=== PATIENT | male | born 1940 | race Caucasian/White ===

== ENCOUNTER 2021-09-30 21:25 | Emergency (ER) | payer MEDICARE, SELFPAY ==
[2021-09-30 21:43] VITALS: BP 118/82; PULSE 88; RESP 17; TEMP 36.3; O2SAT 99; BMI 24.3
--- NOTE | 2021-09-30 21:49 | DI.RAD.S_ITS ---
PROCEDURE: XR CHEST 1V INDICATIONS: chest pain TECHNIQUE: One view of the chest was acquired. COMPARISON: None. FINDINGS: Surgical changes and devices: None. Lungs and pleura: Lungs are clear. No pleural effusions or pneumothorax. Mediastinum: Mediastinal contours appear normal. Heart size is prominently enlarged. Bones and chest wall: No suspicious bony lesions. Overlying soft tissues appear unremarkable. IMPRESSION: 1. Cardiomegaly. 2. No definite acute cardiopulmonary disease. Dictated by: Mauri Dao M.D. on 09/30/2021 at 23:33 Approved by: Mauri Dao M.D. on 09/30/2021 at 23:33
[2021-09-30 21:59] VITALS: PULSE 92
[2021-09-30 22:00] VITALS: PULSE 94; RESP 20
[2021-09-30 22:21] LABS: Add Manual Diff / Slide Review NO; Basophils Absolute Auto 0 /uL (0-100); Basophils Percent Auto 0.6 % (0-2); Eosinophils Absolute Auto 100 /uL (0-450); Eosinophils Percent Auto 2.3 % (2-4); Hematocrit 33.3 % (41-53); Hemoglobin 11.5 g/dL (13.5-17.5); Lymphocytes Absolute Auto 900 /uL (1100-4500); Lymphocytes Percent Auto 14.7 % (25-40); Mean Corpuscular HGB Conc 34.5 % (30-36); Mean Corpuscular Hemoglobin 35.7 PG (26-34); Mean Corpuscular Volume 103.2 fL (80-100); Monocytes Absolute Auto 700 /uL (0-900); Monocytes Percent Auto 12.2 % (3-14); Neutrophils Absolute Auto 4200 /uL (1500-7000); Neutrophils Percent Auto 70.2 % (50-75); Platelet Count 156 X10^3/uL (150-400); Red Blood Cell Count 3.23 X10^6/uL (4.5-5.9); Red Cell Distribution Width 13.2 % (11.6-14.8)
[2021-09-30 22:30] VITALS: PULSE 87; RESP 15
[2021-09-30 22:34] LABS: Alanine Aminotransferase 30 IU/L (<50); Albumin 3.8 g/dL (3.5-5.0); Albumin Globulin Ratio 1.6 (1.0-2.8); Alkaline Phosphatase 91 U/L (38-126); Aspartate Aminotransferase 26 IU/L (17-59); BUN Creatinine Ratio 13.4 (6-22); Bilirubin Total 2.2 mg/dL (0.2-1.3); Blood Urea Nitrogen 11 mg/dL (9-20); Calcium 8.5 mg/dL (8.4-10.2); Carbon Dioxide 29 mmol/L (22-32); Chloride 102 mmol/L (98-107); Creatine Kinase 100 U/L (55-170); Estimated Glomerular Filt Rate > 60 mL/min (>60); Globulin 2.4 g/dL (1.7-4.1); Glucose 84 mg/dL (80-110); HEMOLYSIS < 15 (0-50); Lipase 48 U/L (23-300); Sodium 136 mmol/L (137-145); Total Protein 6.2 g/dL (6.3-8.2)
[2021-09-30 22:45] LABS: NT-proBNP (BNP-Adult 18+) 1200 pg/mL (<450); Troponin I < 0.012 ng/mL (0.01-0.034)
[2021-09-30 23:00] VITALS: PULSE 92; RESP 21
[2021-09-30 23:30] VITALS: PULSE 83; RESP 20
[2021-10-01] VITALS (9 sets, daily range): BP systolic 121; BP diastolic 86; PULSE 81–109; RESP 13–20; O2SAT 96
--- NOTE | 2021-10-01 01:14 | ED.EXTPRO ---
HPI - Extremity Problem General Chief complaint: Extremity Problem,Nontraumatic Stated complaint: sWOLLEN LEGS ANKLES AND TESTICLES Time Seen by Provider: 10/01/21 01:14 Source: patient Mode of arrival: Ambulatory History of Present Illness HPI Narrative: 81-year-old gentleman with history of chronic atrial fibrillation rate controlled on digoxin, baby aspirin he does have a history of congestive heart failure but he is not on any diuretics at this time. He comes in complaining of lower extremity swelling redness drainage and scrotal swelling. He reports no fevers, cough, chills no chest pain, orthopnea, dyspnea or exertional dyspnea. No abdominal pain, vomiting, diarrhea, constipation. No headaches or acute neurologic findings. He was able to walk from [facility] to [facility] after being dropped off by the bus. He lives in [place] Related Data Home Medications Medication Instructions Recorded Confirmed carvedilol 25 mg tablet 0.5 tab PO DAILY 09/30/21 09/30/21 digoxin 125 mcg (0.125 mg) tablet 1 tab PO DAILY 09/30/21 09/30/21 lisinopril 5 mg tablet 1 tab PO DAILY 09/30/21 09/30/21 Previous Rx's Medication Instructions Recorded cephalexin 500 mg capsule 500 mg PO TID #21 caps 10/01/21 furosemide 20 mg tablet 20 mg PO DAILY #30 tabs 10/01/21 potassium chloride 10 mEq 10 meq PO DAILY #30 tabs 10/01/21 tablet,extended release Allergies Allergy/AdvReac Type Severity Reaction Status Date / Time No Known Drug Allergies Allergy Verified 09/30/21 21:43 Review of Systems Review of Systems Narrative: Remainder of complete review of systems is otherwise unremarkable except for that included in the HPI. Patient History Medical History (Updated 10/01/21 @ 01:42 by Ramona Marquez MD) Chronic a-fib Congestive heart failure Hypertension Social History Smoking Status: Never smoker Smoking Status: Never smoker alcohol intake frequency: a few times a week Substance Use Type: does not use Exam Initial Vital Signs Initial Vital Signs: Vital Signs Temperature 97.4 F L 09/30/21 21:43 Pulse Rate 88 09/30/21 21:43 Respiratory Rate 17 09/30/21 21:43 Blood Pressure 118/82 09/30/21 21:43 Pulse Oximetry 99 09/30/21 21:43 Oxygen Delivery Method 09/30/21 21:43 General: Healthy appearing, in no acute distress. Able to give a complete and coherent history. Well-nourished well-developed HEENT: Moist mucous membranes, normal sclera with reactive pupils, Neck: No JVD, supple Respiratory: Lungs are clear to auscultation, no basilar crackles, no wheezing. Full and symmetrical air movement Cardiac: Irregularly irregular, no murmurs no bruits Abdomen: Soft, nontender, good bowel tones, no flank pain, moderate scrotal edema Skin: Warm and dry, significant sun damage over exposed surfaces. Lower extremities with chronic venous stasis changes. Swelling is significant enough that he is having cracking and mild drainage with erythema developing Neurologic: Grossly neurologically intact with no obvious asymmetries or abnormalities Extremities: No trauma, 4+ bilateral lower extremity edema with chronic venous stasis changes, serous weeping because the skin is cracking, increasing erythema with concerns for developing cellulitis without any obvious abscess or odor appreciated Psych: Cooperative, appropriate insight and affect Course Orders Ordered: ED Orders 09/30/21 21:49 XR chest 1V Stat 09/30/21 22:02 BNP [NT-proBNP (BNP-Adult 18+)] Stat Complete Blood Count AUTO DIFF Stat Comprehensive Metabolic Panel Stat Lipase Stat Magnesium Stat Troponin & CK Cardiac Panel Stat Discontinued Medications Furosemide (Furosemide 40 Mg/4 Ml Vial) 40 mg IV NOW ONE Stop: 10/01/21 01:30 Last Admin: 10/01/21 01:35 Dose: 40 mg Documented By: WON Ceftriaxone Sodium 2,000 mg/ (Sodium Chloride) 100 mls @ 200 mls/hr IV NOW ONE Stop: 10/01/21 01:26 Last Infusion: 10/01/21 02:10 Dose: 0 mls/hr Documented By: Admin: 10/01/21 01:35 Dose: 200 mls/hr Documented By: WON Vital Signs Vital signs: Vital Signs - 8 hr 09/30/21 21:43 Temperature 97.4 F L Pulse Rate 88 Respiratory Rate 17 Blood Pressure 118/82 Pulse Oximetry 99 Oxygen Delivery Method Room Air MDM - Extremity (Nontraumatic) Lab Data Result diagrams: 09/30/21 22:02 09/30/21 22:02 Labs: Lab Results 09/30/21 09/30/21 Range/Units 22:02 22:02 WBC 6.0 (4.5-11.0) X10^3/uL RBC 3.23 L (4.5-5.9) X10^6/uL Hgb 11.5 L (13.5-17.5) g/dL Hct 33.3 L (41-53) % MCV 103.2 H (80-100) fL MCH 35.7 H (26-34) PG MCHC 34.5 (30-36) % RDW 13.2 (11.6-14.8) % Plt Count 156 (150-400) X10^3/uL Neut % (Auto) 70.2 (50-75) % Lymph % (Auto) 14.7 L (25-40) % [place] % (Auto) 12.2 (3-14) % Eos % (Auto) 2.3 (2-4) % Baso % (Auto) 0.6 (0-2) % Neut # (Auto) 4200 (9254-1352) /uL Lymph # (Auto) 900 L (0050-0061) /uL [place] # (Auto) 700 (0-900) /uL Eos # (Auto) 100 (0-450) /uL Baso # (Auto) 0 (0-100) /uL Sodium 136 L (137-145) mmol/L Potassium 4.0 (3.4-5.1) mmol/L Chloride 102 (98-107) mmol/L Carbon Dioxide 29 (22-32) mmol/L BUN 11 (9-20) mg/dL Creatinine 0.82 (0.66-1.25) mg/dL Estimated GFR > 60 (>60) mL/min BUN/Creatinine Ratio 13.4 (6-22) Glucose 84 (80-110) mg/dL Calcium 8.5 (8.4-10.2) mg/dL Magnesium 2.0 (1.6-2.3) mg/dL Total Bilirubin 2.2 H (0.2-1.3) mg/dL AST 26 (17-59) IU/L ALT 30 (<50) IU/L Alkaline Phosphatase 91 (38-126) U/L Total Creatine Kinase 100 (55-170) U/L CK-MB (CK-2) TNP CK-MB (CK-2) Rel Index TNP Troponin I < 0.012 (0.01-0.034) ng/mL NT-Pro-B Natriuret Pep 1200 H (<450) pg/mL Total Protein 6.2 L (6.3-8.2) g/dL Albumin 3.8 (3.5-5.0) g/dL Globulin 2.4 (1.7-4.1) g/dL Albumin/Globulin Ratio 1.6 (1.0-2.8) Lipase 48 (23-300) U/L MDM Narrative Medical decision making narrative: 81-year-old gentleman with a history of rate controlled atrial fibrillation on baby aspirin with increasing lower extremity edema consistent with mild congestive heart failure. He currently is on digoxin. There is no evidence of acute coronary syndrome or troponin leak. Renal function remains excellent. He has no significant pulmonary findings no jugular venous distention. He does have significant lower extremity edema that is causing skin cracking and at significant risk for cellulitis due to the skin breakdown. There is no evidence of overt infection or bacteremia and certainly no sepsis this time. He does live in [place] in does have follow-up available at home. Will give him some IV Lasix and ceftriaxone in the emergency department. At this point he is not meeting any criteria for inpatient stay. Will send him home with 20 mg of Lasix, 10 mEq of potassium and 7 days of cephalexin to continue with all of his usual medications with [place] that his symptoms are improving, his infection is not worsening and presumably blood work to look at electrolytes and renal function with the addition of Lasix and potassium. He states his last echocardiogram was likely 2 years ago and he may benefit from outpatient repeat echo at some point in the near future. All of this is reviewed with the patient and he is agreeable to current plan. After 40 mg of IV Lasix patient has voided almost 2.5 L of fluid and is feeling significantly better. Discharge Plan Departure Patient Disposition: Home Clinical Impression: Bilateral edema of lower extremity Acute congestive heart failure Qualifiers: Heart failure type: unspecified Qualified Code(s): I50.9 - Heart failure, unspecified Lower extremity cellulitis Qualifiers: Laterality: unspecified laterality Qualified Code(s): L03.119 - Cellulitis of unspecified part of limb Instructions: DI for Cellulitis -- Adult, DI for Heart Failure Activity Restrictions/Additional Instructions: Thank you for coming in today Your having a bit of congestive heart failure that is causing swelling in your legs and up into your testicles. Your blood work is actually reassuring. There is no evidence of heart attack, overwhelming infection or kidney failure. In the emergency department you are given IV Lasix/furosemide. This is a diuretic and you will need to continue this as a pill to help treat the lower extremity edema. Lasix makes to lose potassium so I am also going to give you a potassium supplement. With the skin cracking over your lower legs because they were so swollen, there is significant risk for infection. You have been given antibiotics in the emergency department and I would like you to complete 7 days of cephalexin, additional antibiotics. Early next week you need to follow-up with your doctor. You will need to recheck the swelling, the weeping, the infection and will likely benefit from blood work to make sure that your kidney function and electrolytes are all appropriate with the addition of these medications. At some point in the future, your doctor may also recommend repeating a cardiac echocardiogram, an ultrasound picture that gives us a better idea of how well your heart is functioning. If you find that you are getting worse or develop any new symptoms, please feel free to return to the emergency department for further evaluation. Prescriptions: New furosemide 20 mg tablet 20 mg PO DAILY Qty: 30 0RF potassium chloride 10 mEq tablet extended release 10 meq PO DAILY Qty: 30 0RF cephalexin 500 mg capsule 500 mg PO TID Qty: 21 0RF No Action carvedilol 25 mg tablet 0.5 tab PO DAILY Label Comments: TAKE 1/2 TABLET BY MOUTH TWICE DAILY lisinopril 5 mg tablet 1 tab PO DAILY Label Comments: TAKE ONE TABLET BY MOUTH EVERY DAY digoxin 125 mcg (0.125 mg) tablet 1 tab PO DAILY Label Comments: TAKE ONE TABLET BY MOUTH EVERY DAY
[2021-10-01] MEDS: cefTRIAXone 2,000 MG in SODIUM CHLORIDE 0.9% 100 ML 200 MG IV (01:35)
[2021-10-01] MEDS: FUROSEMIDE 40 MG/4 ML VIAL IV (01:35)
== END 2021-10-01 07:31 | disposition home or self-care (01) ==
PROVIDERS: Emergency Provider Emergency Medicine
DX: L03.116 Cellulitis of left lower limb (principal); L03.115 Cellulitis of right lower limb; I50.9 Heart failure, unspecified; R60.0 Localized edema
CPT/HCPCS: 36415; 71045; 80053; 82550; 83690; 83735; 83880; 84484; 85025; 96365; 96375; 99284; J0696; J1940

== ENCOUNTER 2021-10-07 19:48 | Inpatient (IN) | payer MEDICARE, SELFPAY ==
[2021-10-07] VITALS (9 sets, daily range): BP systolic 147–152; BP diastolic 72–85; PULSE 51–88; RESP 15–23; TEMP 36.6; O2SAT 97–99; BMI 25.0
--- NOTE | 2021-10-07 21:50 | ED.EXTPRO ---
HPI - Extremity Problem General Chief complaint: Extremity Problem,Nontraumatic Stated complaint: cellulitis in lower legs, weeping Time Seen by Provider: 10/07/21 21:42 Source: patient Mode of arrival: Ambulatory History of Present Illness HPI Narrative: Patient is an 81-year-old male. Known history of atrial fib. Not on anticoagulation. Was seen here in the emergency department several days ago for lower extremity swelling. Was discharged home on Lasix and antibiotics. Has a follow-up with a new workforce management manager the beginning of next week. He states that after being on the medicine for 1 week his lower extremity swelling has not improved. The redness is not improved. He is not having fevers. He has been having some chest discomfort recently. No shortness of breath. He does have a history of heart failure. Is on carvedilol. Unsure when his last echocardiogram was. Does not see a workforce management manager on a regular basis. Has been taking all of his medications as directed. Related Data Home Medications Medication Instructions Recorded Confirmed carvedilol 25 mg tablet 0.5 tab PO BID 09/30/21 10/08/21 digoxin 125 mcg (0.125 mg) tablet 1 tab PO DAILY 09/30/21 10/08/21 lisinopril 5 mg tablet 1 tab PO DAILY 09/30/21 10/08/21 Adult Aspirin 81 mg DAILY 10/08/21 10/08/21 Previous Rx's Medication Instructions Recorded cephalexin 500 mg capsule 500 mg PO TID #21 caps 10/01/21 furosemide 20 mg tablet 20 mg PO DAILY #30 tabs 10/01/21 potassium chloride 10 mEq 10 meq PO DAILY #30 tabs 10/01/21 tablet,extended release Allergies Allergy/AdvReac Type Severity Reaction Status Date / Time No Known Drug Allergies Allergy Verified 09/30/21 21:43 Review of Systems Review of Systems ROS Unobtainable: All systems reviewed & are unremarkable except as noted in HPI and below Constitutional Constitutional: Reports system reviewed and no additional complaints, except as documented Cardiovascular Cardiovascular: Reports system reviewed and no additional complaints, except as documented Respiratory Respiratory: Reports system reviewed and no additional complaints, except as documented Gastrointestinal Gastrointestinal: Reports system reviewed and no additional complaints, except as documented Musculoskeletal Musculoskeletal: Reports system reviewed and no additional complaints, except as documented Integumentary/Breasts Skin/Breast: Reports system reviewed and no additional complaints, except as documented Neurologic Neurologic: Reports system reviewed and no additional complaints, except as documented Hematologic/Lymphatic On Anticoagulants: No Patient History Medical History Chronic a-fib Congestive heart failure Hypertension Persistent atrial fibrillation with rapid ventricular response Tobacco use disorder, continuous Family History Mother Hypertension Father Heart attack Social History household members: none Smoking Status: Never smoker Smoking Status: Never smoker alcohol intake frequency: a few times a week Substance Use Type: does not use Exam Initial Vital Signs Initial Vital Signs: Vital Signs Temperature 97.9 F 10/07/21 20:16 Pulse Rate 51 L 10/07/21 20:16 Blood Pressure 152/72 H 10/07/21 20:16 Pulse Oximetry 99 10/07/21 20:16 Oxygen Delivery Method 10/07/21 20:16 Const General: cooperative and healthy appearing [facility] Head: normal to inspection and normocephalic Resp Effort & Inspection: normal respiratory effort Auscultation: clear to auscultation bilaterally Cardio Rate: regular rate Rhythm: abnormal rhythm GI Inspection: normal to inspection and abdominal wall ecchymosis Skin Other: Patient does have changes consistent with chronic venous stasis changes bilateral lower extremities. The left seems to be somewhat greater than the right. He does have superficial ulcerations on his lower extremities. There is some surrounding erythema. Not warm to the touch. Neuro General: patient alert, patient awake, patient oriented x3 and moves all extremities Extrem General: capillary refill normal Other: Bilateral lower extremity edema. Psych Appearance: grossly normal and well kempt Course Orders Ordered: ED Orders 10/07/21 21:51 XR chest 1V Stat Complete Blood Count AUTO DIFF Stat Comprehensive Metabolic Panel Stat Digoxin Stat Lipase Stat Magnesium Stat NT-proBNP (BNP-Adult 18+) Stat Troponin & CK Cardiac Panel Stat Acetaminophen (Acetaminophen 325 Mg Tablet) 650 mg PO Q6HR PRN PRN Reason: Fever/Mild Pain (1-3) Aspirin (Aspirin Ec 81 Mg Tablet) 81 mg PO DAILY [facility] Carvedilol (Carvedilol 12.5 Mg Tablet) 12.5 mg PO DAILY [facility] Clopidogrel Bisulfate (Clopidogrel 75 Mg Tablet) 75 mg PO DAILY [facility] Digoxin (Digoxin 0.125 Mg Tablet) 0.125 mg PO DAILY [facility] Enoxaparin Sodium (Enoxaparin 40 Mg/0.4 Ml Syringe) 40 mg SUBCUT DAILY [facility] Furosemide (Furosemide 20 Mg/2 Ml Vial) 40 mg IV BID [facility] Lisinopril (Lisinopril 5 Mg Tablet) 5 mg PO DAILY [facility] Morphine Sulfate (Morphine 2 Mg/Ml Inj) 2 mg IV Q5MIN PRN PRN Reason: Chest Pain Nitroglycerin (Nitroglycerin 0.4 Mg Sl Tab) 0.4 mg SL [id number] PRN PRN Reason: Chest Pain Discontinued Medications Apixaban (Apixaban 5 Mg Tablet) 2.5 mg PO BID [facility] Last Admin: 10/08/21 01:37 Dose: Not Given Documented By: VITALY Aspirin (Aspirin 81 Mg Chew Tab) 81 mg PO DAILY [facility] Furosemide (Furosemide 100 Mg/10 Ml Vial) 60 mg IV NOW ONE Stop: 10/07/21 22:30 Last Admin: 10/07/21 22:37 Dose: 60 mg Documented By: YING Furosemide (Furosemide 20 Mg/2 Ml Vial) 30 mg IV BID [facility] Vital Signs Vital signs: Vital Signs - 8 hr 10/07/21 20:16 10/07/21 21:25 10/07/21 21:26 Temperature 97.9 F Pulse Rate 51 L 80 Respiratory Rate Blood Pressure 152/72 H Pulse Oximetry 99 99 99 Oxygen Delivery Method Room Air 10/07/21 21:26 10/07/21 21:30 10/07/21 21:31 Temperature Pulse Rate 88 87 Respiratory Rate 22 Blood Pressure 148/82 H Pulse Oximetry 99 99 Oxygen Delivery Method 10/07/21 21:31 10/07/21 22:00 10/07/21 22:30 Temperature Pulse Rate 86 84 Respiratory Rate 23 15 Blood Pressure 147/85 H Pulse Oximetry 98 97 Oxygen Delivery Method 10/07/21 22:48 10/07/21 22:48 10/07/21 23:00 Temperature Pulse Rate 87 84 Respiratory Rate Blood Pressure 148/83 H Pulse Oximetry 98 97 Oxygen Delivery Method MDM - Extremity (Nontraumatic) Lab Data Result diagrams: 10/07/21 21:51 10/07/21 21:51 Labs: Lab Results 10/07/21 10/07/21 10/07/21 Range/Units 21:51 21:51 21:51 WBC 4.5 (4.5-11.0) X10^3/uL RBC 3.29 L (4.5-5.9) X10^6/uL Hgb 11.5 L (13.5-17.5) g/dL Hct 33.1 L (41-53) % MCV 100.8 H (80-100) fL MCH 35.0 H (26-34) PG MCHC 34.8 (30-36) % RDW 12.6 (11.6-14.8) % Plt Count 142 L (150-400) X10^3/uL Neut % (Auto) 63.0 (50-75) % Lymph % (Auto) 22.3 L (25-40) % [place] % (Auto) 11.3 (3-14) % Eos % (Auto) 2.7 (2-4) % Baso % (Auto) 0.7 (0-2) % Neut # (Auto) 2900 (6981-5687) /uL Lymph # (Auto) 1000 L (5168-6748) /uL [place] # (Auto) 500 (0-900) /uL Eos # (Auto) 100 (0-450) /uL Baso # (Auto) 0 (0-100) /uL PT (10.1-12.7) SECONDS INR (0.9-1.3) Sodium 137 (137-145) mmol/L Potassium 4.0 (3.4-5.1) mmol/L Chloride 104 (98-107) mmol/L Carbon Dioxide 26 (22-32) mmol/L BUN 14 (9-20) mg/dL Creatinine 0.67 (0.66-1.25) mg/dL Estimated GFR > 60 (>60) mL/min BUN/Creatinine Ratio 20.9 (6-22) Glucose 92 (80-110) mg/dL Calcium 8.4 (8.4-10.2) mg/dL Magnesium 2.0 (1.6-2.3) mg/dL Total Bilirubin 1.5 H (0.2-1.3) mg/dL AST 26 (17-59) IU/L ALT 22 (<50) IU/L Alkaline Phosphatase 92 (38-126) U/L Total Creatine Kinase 110 (55-170) U/L CK-MB (CK-2) 1.71 (<2.37) ng/mL CK-MB (CK-2) Rel Index 1.6 (1.5-5.0) % Troponin I < 0.012 (0.01-0.034) ng/mL NT-Pro-B Natriuret Pep 1080 H (<450) pg/mL Total Protein 6.2 L (6.3-8.2) g/dL Albumin 3.8 (3.5-5.0) g/dL Globulin 2.4 (1.7-4.1) g/dL Albumin/Globulin Ratio 1.6 (1.0-2.8) Lipase 76 D (23-300) U/L TSH (0.47-4.68) uIU/mL Free T4 (0.78-2.19) ng/dL Digoxin < 0.4 L (0.8-2.0) ng/mL 10/07/21 10/07/21 10/07/21 Range/Units 21:51 21:51 21:51 WBC (4.5-11.0) X10^3/uL RBC (4.5-5.9) X10^6/uL Hgb (13.5-17.5) g/dL Hct (41-53) % MCV (80-100) fL MCH (26-34) PG MCHC (30-36) % RDW (11.6-14.8) % Plt Count (150-400) X10^3/uL Neut % (Auto) (50-75) % Lymph % (Auto) (25-40) % [place] % (Auto) (3-14) % Eos % (Auto) (2-4) % Baso % (Auto) (0-2) % Neut # (Auto) (7329-2761) /uL Lymph # (Auto) (0656-0881) /uL [place] # (Auto) (0-900) /uL Eos # (Auto) (0-450) /uL Baso # (Auto) (0-100) /uL PT 12.4 (10.1-12.7) SECONDS INR 1.1 (0.9-1.3) Sodium (137-145) mmol/L Potassium (3.4-5.1) mmol/L Chloride (98-107) mmol/L Carbon Dioxide (22-32) mmol/L BUN (9-20) mg/dL Creatinine (0.66-1.25) mg/dL Estimated GFR (>60) mL/min BUN/Creatinine Ratio (6-22) Glucose (80-110) mg/dL Calcium (8.4-10.2) mg/dL Magnesium (1.6-2.3) mg/dL Total Bilirubin (0.2-1.3) mg/dL AST (17-59) IU/L ALT (<50) IU/L Alkaline Phosphatase (38-126) U/L Total Creatine Kinase (55-170) U/L CK-MB (CK-2) (<2.37) ng/mL CK-MB (CK-2) Rel Index (1.5-5.0) % Troponin I (0.01-0.034) ng/mL NT-Pro-B Natriuret Pep (<450) pg/mL Total Protein (6.3-8.2) g/dL Albumin (3.5-5.0) g/dL Globulin (1.7-4.1) g/dL Albumin/Globulin Ratio (1.0-2.8) Lipase (23-300) U/L TSH 1.88 (0.47-4.68) uIU/mL Free T4 1.01 (0.78-2.19) ng/dL Digoxin (0.8-2.0) ng/mL Imaging Data Chest x-ray: Radiologist's Impression: [address] [address] XRay Report Signed Patient: KYLAH ABAD MR#: [id number] : 1940 Acct:[id number] Age/Sex: 81 / M Date of Service: 10/07/21 Loc: ED Accession Number: [id number] ?? Procedure: XR chest 1V Ordering Provider: Hermann Coleman D.O. PROCEDURE:? XR CHEST 1V ? INDICATIONS:? SOB ? TECHNIQUE:? One view of the chest was acquired.? ? COMPARISON:? [facility], CR, XR CHEST 1V, 09/30/2021, 21:57. ? FINDINGS:? ? Surgical changes and devices:? None.? ? Lungs and pleura:? Lungs are clear.? No definite radiographic evidence of pulmonary edema.? No pleural effusions or pneumothorax.? ? Mediastinum:? Mediastinal contours are unchanged.? Heart size is enlarged. ? Bones and chest wall:? No suspicious bony lesions.? Overlying soft tissues appear unremarkable.? ? IMPRESSION:? ? 1. No definite acute cardiopulmonary disease. ? Dictated by: Mauri Dao M.D. on 10/07/2021 at 22:46 ? ? Approved by: Mauri Dao M.D. on 10/07/2021 at 22:47?? ECG Data Interpretation: Atrial fibrillation Ventricular rate is 79 Normal axis QTC [address] T wave changes MDM Narrative Medical decision making narrative: Has a history of heart failure. Also has a history of atrial fibrillation. Not on anticoagulation. Does have bilateral lower extremity edema which is new over the past several days/week. Has been on Lasix at home for the past week without any improvement. Is not having shortness of breath. Does have redness to his lower extremities however more consistent with dermatitis/chronic venous stasis changes rather than cellulitis. They are red but not warm to the touch the patient is afebrile. He has had some chest pain recently and given the new lower extremity swelling in his history patient does require admission to the hospital for diuresis and continued risk stratification testing. Discussed the case with BASSEM Narvaez the [facility] provider who will admit for further evaluation and treatment. I did discuss the need for admission with the patient and he expressed understanding and agreement as well. Discharge Plan Departure Patient Disposition: Home Clinical Impression: Acute congestive heart failure, Bilateral edema of lower extremity, Dermatitis, Chest pain
--- NOTE | 2021-10-07 21:51 | DI.RAD.S_ITS ---
PROCEDURE: XR CHEST 1V INDICATIONS: SOB TECHNIQUE: One view of the chest was acquired. COMPARISON: [facility], CR, XR CHEST 1V, 09/30/2021, 21:57. FINDINGS: Surgical changes and devices: None. Lungs and pleura: Lungs are clear. No definite radiographic evidence of pulmonary edema. No pleural effusions or pneumothorax. Mediastinum: Mediastinal contours are unchanged. Heart size is enlarged. Bones and chest wall: No suspicious bony lesions. Overlying soft tissues appear unremarkable. IMPRESSION: 1. No definite acute cardiopulmonary disease. Dictated by: Mauri Dao M.D. on 10/07/2021 at 22:46 Approved by: Mauri Dao M.D. on 10/07/2021 at 22:47
[2021-10-07 22:08] LABS: Add Manual Diff / Slide Review NO; Basophils Absolute Auto 0 /uL (0-100); Basophils Percent Auto 0.7 % (0-2); Eosinophils Absolute Auto 100 /uL (0-450); Eosinophils Percent Auto 2.7 % (2-4); Hematocrit 33.1 % (41-53); Hemoglobin 11.5 g/dL (13.5-17.5); Lymphocytes Absolute Auto 1000 /uL (1100-4500); Lymphocytes Percent Auto 22.3 % (25-40); Mean Corpuscular HGB Conc 34.8 % (30-36); Mean Corpuscular Volume 100.8 fL (80-100); Monocytes Absolute Auto 500 /uL (0-900); Monocytes Percent Auto 11.3 % (3-14); Neutrophils Absolute Auto 2900 /uL (1500-7000); Platelet Count 142 X10^3/uL (150-400); Red Blood Cell Count 3.29 X10^6/uL (4.5-5.9); Red Cell Distribution Width 12.6 % (11.6-14.8); White Blood Cell Count 4.5 X10^3/uL (4.5-11.0)
[2021-10-07 22:12] LABS: Alanine Aminotransferase 22 IU/L (<50); Albumin 3.8 g/dL (3.5-5.0); Albumin Globulin Ratio 1.6 (1.0-2.8); Alkaline Phosphatase 92 U/L (38-126); Aspartate Aminotransferase 26 IU/L (17-59); BUN Creatinine Ratio 20.9 (6-22); Bilirubin Total 1.5 mg/dL (0.2-1.3); Blood Urea Nitrogen 14 mg/dL (9-20); Calcium 8.4 mg/dL (8.4-10.2); Carbon Dioxide 26 mmol/L (22-32); Chloride 104 mmol/L (98-107); Creatine Kinase 110 U/L (55-170); Estimated Glomerular Filt Rate > 60 mL/min (>60); Globulin 2.4 g/dL (1.7-4.1); Glucose 92 mg/dL (80-110); HEMOLYSIS < 15 (0-50); Lipase 76 U/L (23-300); Sodium 137 mmol/L (137-145); Total Protein 6.2 g/dL (6.3-8.2)
--- NOTE | 2021-10-07 22:15 | PC.NURSE ---
Pt reports bilateral leg twitching. Pt also reports difficulty with walking.
[2021-10-07 22:24] LABS: NT-proBNP (BNP-Adult 18+) 1080 pg/mL (<450); Troponin I < 0.012 ng/mL (0.01-0.034)
[2021-10-07 22:27] LABS: CKMB % Relative Index 1.6 % (1.5-5.0); Creatine Kinase MB 1.71 ng/mL (<2.37)
[2021-10-07] MEDS: FUROSEMIDE 100 MG/10 ML VIAL 60 MG IV (22:37)
[2021-10-07 22:56] LABS: Digoxin < 0.4 ng/mL (0.8-2.0)
[2021-10-08] VITALS (9 sets, daily range): BP systolic 114–142; BP diastolic 50–91; PULSE 66–81; RESP 14–17; TEMP 36.4–36.7; O2SAT 96–99; BMI 24.0
--- NOTE | 2021-10-08 00:05 | PM.HP.1 ---
History of Present Illness History of Present Illness Date Patient Seen: 10/08/21 Time Patient Seen: 00:06 Chief complaint: cellulitis in lower legs, weeping Narrative: Mr. Khurram Olvera is an 81-year-old gentleman with history of chronic persistent atrial fibrillation rate controlled on digoxin, heart failure (dx on 09/29/21), HTN, who takes in addition ASA, carvedilol, and lisinopril.? He presented to the ED on 09/30/21 complaining of acute onset lower extremity swelling, redness, drainage, and scrotal swelling.? He was treated in the ED given a prescription of Lasix and potassium and follow up with Cardiology. He was able to walk from [facility] on 09/30/21 after being dropped off by the bus, as he lives in [place]. He returned to the emergency room today with continued worsening acute onset lower extremity edema now and eariler today experienced what he called a sharp feeling in his chest that lasted only a few seconds, also experienced temporary shortness of breath with this feeling all of which resolved prior to arrival. Patient is scheduled with cardiology next week. Patient denies any previous surgical procedures, blood clots or bleeding disorders, stroke, vascular dz, or heart attack. Patient reports that he is regularly physically active, never smoked, and drinks an average of 3 glasses of wine per week but has not had any alcohol for the past 6 weeks. His father of a heart attack as a long-term smoker at age 65. No significant family history for cardiac or pulmonary disease. He reports no fevers, cough, chills, orthopnea, dyspnea or exertional dyspnea.? No abdominal pain, vomiting, diarrhea, constipation, headaches, acute neurologic findings, weakness, dizziness, cough, congestion, numbness, recent falls illness, injury, or trauma.? Never smoked and drinks several times weekly. Patient's vitals upon admit temp 97.9?, BP 148/83, HR 84, R 15, O2 saturation 97% on room air. Patient's HGB 11.5, HCT 33.1, platelets 142, MCV 100.8, MCH 35. Patient's chemistries are predominantly WNL, only slight elevation in total bili 1.5, digoxin level< 0.4, initial troponin WNL, patient's creatinine clearance 108, patient's Jelani Vasc score+ 4, 4.8% risk of stroke. BNP 1080, BNP on 09/30/2021 1200. Patient's chest x-ray demonstrated no acute cardiopulmonary processes. Patient's EKG in ED demonstrated atrial fibrillation with a rate of [address] or T-wave changes. HEART Score+6 Moderate. Patient has bilateral lower extremity edema left greater than right, presents more as chronic venous stasis with cracked weeping skin no real signs of cellulitis or infectious process. On physical exam patient had a fairly pronounced abdominal distension without pain or discomfort no masses palpated but he states it is not normal for him. Patient appears a very fit and physically active 81-year-old, and abdomen appears uncharacteristic. Patient being admitted with acute onset lower extremity edema, abd distention with chest discomfort, with persistent atrial fibrillation, uncontrolled hypertension, and new diagnosis of HF. Patient History Medical History (Updated 10/08/21 @ 00:32 [facility] Chronic a-fib Congestive heart failure Hypertension Persistent atrial fibrillation with rapid ventricular response Tobacco use disorder, continuous Family & Social History Family History Mother Hypertension Father Heart attack Tobacco & Substance use: Smoking Status Never smoker alcohol intake frequency a few times a week -3 glasses of wine/wk Substance Use Type does not use Meds Home Medications and Allergies Home Medications Medication Instructions Recorded Confirmed Type carvedilol 25 mg tablet 0.5 tab PO BID 09/30/21 10/08/21 History digoxin 125 mcg (0.125 mg) tablet 1 tab PO DAILY 09/30/21 10/08/21 History lisinopril 5 mg tablet 1 tab PO DAILY 09/30/21 10/08/21 History cephalexin 500 mg capsule 500 mg PO TID #21 caps 10/01/21 10/08/21 Rx furosemide 20 mg tablet 20 mg PO DAILY #30 tabs 10/01/21 10/08/21 Rx potassium chloride 10 mEq 10 meq PO DAILY #30 tabs 10/01/21 10/08/21 Rx tablet,extended release Adult Aspirin 81 mg DAILY 10/08/21 10/08/21 History Allergies Allergy/AdvReac Type Severity Reaction Status Date / Time No Known Drug Allergies Allergy Verified 09/30/21 21:43 Review of Systems Review of Systems Narrative: All 12 point systems reviewed with the patient and are negative except otherwise documented. Exam Vital Signs (past 8 hours): - 10/07/21 20:16 10/07/21 21:25 10/07/21 21:26 Temperature 97.9 F Pulse Rate 51 L 80 Respiratory Rate Blood Pressure 152/72 H Pulse Oximetry 99 99 99 Oxygen Delivery Method Room Air 10/07/21 21:26 10/07/21 21:30 10/07/21 21:31 Temperature Pulse Rate 88 87 Respiratory Rate 22 Blood Pressure 148/82 H Pulse Oximetry 99 99 Oxygen Delivery Method 10/07/21 21:31 10/07/21 22:00 10/07/21 22:30 Temperature Pulse Rate 86 84 Respiratory Rate 23 15 Blood Pressure 147/85 H Pulse Oximetry 98 97 Oxygen Delivery Method 10/07/21 22:48 10/07/21 22:48 10/07/21 23:00 Temperature Pulse Rate 87 84 Respiratory Rate Blood Pressure 148/83 H Pulse Oximetry 98 97 Oxygen Delivery Method Oxygen Delivery Method Room Air Narrative Exam Narrative: General: Patient is a well-developed, well-nourished healthy appearing elderly male who appears younger than stated age, in no distress at this time. HEENT: Normocephalic, atraumatic, extraocular muscles intact, oral pharynx is clear and mucous membranes are moist. Neck is supple and symmetric, trachea is midline, no adenopathy, no thyroid enlargement, nontender, no masses palpated. Negative for JVD Chest: Normal AP diameter and contour without kyphoscoliosis, no nasal flaring, retractions, or tachypneic labored Lungs: Auscultation of all lung anders are clear without adventitious sounds, wheezes, rhonchi, or rales. Cardio: S1 & S2 with regular rate and rhythm without murmur, rubs, or gallops, no carotid bruit, no cardiac pulsations present. Abdomen: Soft nontender, significantly distended patient notes that it is not normal for him, negative for organomegaly, or masses. Bowel sounds are present in all 4 quadrants without guarding or rebound, no CVA tenderness. Musculoskeletal: Muscle strength and tone are equal within normal limits, no deformity, crepitus, cyanosis, clubbing present. Full range of motion intact radial and pedal pulses are normal. Extremities: No trauma, 4+ bilateral lower extremity edema with chronic venous stasis changes, Left larger than Right, serous weeping because the skin is cracking, increasing erythema, no signs of cellulitis/infection. without any obvious abscess or odor appreciated. Skin: Warm dry and intact without rashes, ulcerations or petechiae. Neuro: Alert and orientated x3, strength is +5/5 in all extremities, sensation to touch intact, no gross deficits noted of cranial nerves. Psych: Patient has a well-kept appearance, appropriate affect, mental status attitude thought context and judgment are appropriate for age. Objective Labs Result Diagrams: 10/07/21 21:51 10/07/21 21:51 Labs: Laboratory Results - last 24 hr 10/07/21 10/07/21 10/07/21 21:51 21:51 21:51 WBC 4.5 RBC 3.29 L Hgb 11.5 L Hct 33.1 L MCV 100.8 H MCH 35.0 H MCHC 34.8 RDW 12.6 Plt Count 142 L Neut % (Auto) 63.0 Lymph % (Auto) 22.3 L [place] % (Auto) 11.3 Eos % (Auto) 2.7 Baso % (Auto) 0.7 Neut # (Auto) 2900 Lymph # (Auto) 1000 L [place] # (Auto) 500 Eos # (Auto) 100 Baso # (Auto) 0 Sodium 137 Potassium 4.0 Chloride 104 Carbon Dioxide 26 BUN 14 Creatinine 0.67 Estimated GFR > 60 BUN/Creatinine Ratio 20.9 Glucose 92 Calcium 8.4 Magnesium 2.0 Total Bilirubin 1.5 H AST 26 ALT 22 Alkaline Phosphatase 92 Total Creatine Kinase 110 CK-MB (CK-2) 1.71 CK-MB (CK-2) Rel Index 1.6 Troponin I < 0.012 NT-Pro-B Natriuret Pep 1080 H Total Protein 6.2 L Albumin 3.8 Globulin 2.4 Albumin/Globulin Ratio 1.6 Lipase 76 D Digoxin < 0.4 L Assessment & Plan Assessment & Plan narrative: Mr. Khurram Olvera is an 81-year-old gentleman with history of chronic persistent atrial fibrillation rate controlled on digoxin, congestive heart failure, HTN, who takes in addition ASA, carvedilol, and lisinopril.? He presented to the ED on 09/30/21 complaining of acute onset lower extremity swelling, redness, drainage, and scrotal swelling.? Who was seen and treated in the ED on 09/30/2021, and failed outpatient diuresis. The patient returned today with worsening acute edema, continued AFib, along with chest discomfort, that resolved prior to arrival. Patient is being admitted for lower extremity edema, chest discomfort, in persistent AFib with hypertension mild thrombocytopenia for cardiac rule out and risk stratification. 1. Chest pain, Acute, resolved, with acute onset lower bilateral extremity edema, acute, present on admission -ED Visit 09/30/21 -Per Dr. Marquez: ?There is no evidence of acute coronary syndrome or troponin leak.? Renal function remains excellent.? He has no significant pulmonary findings no jugular venous distention.? He does have significant lower extremity edema that is causing skin cracking and at significant risk for cellulitis due to the skin breakdown.? There is no evidence of overt infection or bacteremia and certainly no sepsis this time. Will give him some IV Lasix and ceftriaxone in the emergency department.? At this point he is not meeting any criteria for inpatient stay.? Will send him home with 20 mg of Lasix, 10 mEq of potassium and 7 days of cephalexin. Pt was diuresed with 60 mg of Lasix with 2.5L output. -patient is stable and denies chest pain at this time. -given 60 of Lasix IV in ED -will continue IV Lasix 40 mg b.i.d. -Assess for stroke & ACS -Plavix, ASA -echo and stress test ordered -Conner lower ext u/s -Trend Troponin. Troponin#1 negative, TSH, repeat BNP, Lipid panel 2. Congestive heart failure in the setting of essential hypertension, acute on chronic, present on admission -continue carvedilol, lisinopril -fluid restriction to 1000 cc q.day, low-sodium, heart healthy diet -Monitored on tele-med 3. Persistent atrial fibrillation, acute on chronic, present on admission -continue digoxin-a initial digoxin level<0.4 -EKG: Atrial fibrillation with a rate of [address] or T-wave changes 4. Thrombocytopenia, mild, present on admission -Unknown etiology -platelets 142, MCV 100.8, MCH 35 -Trend cbc -Monitor for bleeding 5. Abdominal distension, acute onset, present on admission -abdominal ultrasound ordered -patient's chemistry and LFTs are unremarkable with the exception of total bili 1.5. -Unclear as too etiology of significant abdominal distension noted on physical exam, which the patient notes that is not normal for him. Code status:Full Surrogate decision maker: Friend Patrick PAREKH PCR:Negative DVT/VTE prophylaxis: SCDs and Lovenox Disposition: Patient admitted for observation to have risk stratification echo and stress test expected length of stay less than 2 midnights. I have utilized all available immediate resources to obtain, update, or review the patient's current medications. I confirmed that the patient's advanced care plan is present, Code status is documented and/or surrogate decision maker is listed in the patient's medical record. Time Spent With Patient Critical Care time: I spent a total of [] minutes of critical care time on this patient's care today; this time is exclusive of procedural time. Scores GCS [place] coma scale eye opening: Spontaneous Chitra coma scale verbal response: Orientated [place] coma scale motor response: Obey commands Chitra coma scale total score: 15 CHADS-VASc Congestive heart failure: yes Hypertension: yes Age 75 years or older: yes Diabetes mellitus: no Stroke, TIA, or TE: no Vascular disease: no Age 65 to 74 years: no Sex category (female): Male CHADS-VASc Score: 4
[2021-10-08 00:23] LABS: INR 1.1 (0.9-1.3); Prothrombin Time 12.4 SECONDS (10.1-12.7)
[2021-10-08 00:41] LABS: Free T4, Direct Thyroxine 1.01 ng/dL (0.78-2.19)
[2021-10-08 00:42] LABS: COVID19 -Nasal RAPID Negative (Negative)
[2021-10-08 00:57] LABS: Thyroid Stimulating Hormone 1.88 uIU/mL (0.47-4.68)
--- NOTE | 2021-10-08 01:53 | DI.US.S_ITS ---
PROCEDURE: US ABDOMEN COMPLETE INDICATIONS: ACUTE DISTENTION TECHNIQUE: Real-time scanning was performed of the abdominal and retroperitoneal organs, with image documentation. COMPARISON: None. FINDINGS: Liver: Liver is normal in size and homogeneous in echotexture. Gallbladder: Cholelithiasis. No gallbladder wall thickening or pericholecystic fluid Biliary ducts: Intrahepatic bile ducts are non-dilated. Extrahepatic bile duct caliber measures 3 point mm. Normal is 6-7 mm or less in diameter, or 10 mm or less post-cholecystectomy. Pancreas: Visualized portions of the pancreas are sonographically normal. Spleen: Spleen is normal in size and homogeneous in echotexture. Kidneys: Kidneys are normal in size and echotexture. Right kidney measures 11.1 cm long; left kidney measures 11.3 cm long. No hydronephrosis or nephrolithiasis. No solid masses. Right renal simple cyst measures 6.1 x 5.4 x 4.8 cm Aorta: Visualized aorta is normal in caliber at less than 3 cm. Iliacs: Proximal common iliac arteries are normal in caliber at less than 2.5 cm. IVC: Intrahepatic inferior vena cava is patent. Miscellaneous: No free abdominal fluid. IMPRESSION: Cholelithiasis without evidence of acute cholecystitis Simple right renal cyst Approved by: Osmar Parish M.D. on 10/08/2021 at 13:58
--- NOTE | 2021-10-08 01:54 | DI.US.S_ITS ---
PROCEDURE: US PERIPH VENOUS LOW EXTREM BI INDICATIONS: ACUTE EDEMA TECHNIQUE: Real-time imaging, as well as color and pulse Doppler interrogation, were performed of the deep veins of both legs from the inguinal ligament to the popliteal fossa. COMPARISON: None. FINDINGS: Right: The common femoral, femoral and popliteal veins are normally compressible, and free of intraluminal thrombus. Color and pulse Doppler demonstrate normal phasic intravascular flow. There is normal augmentation response to distal compression maneuver. Left: The common femoral, femoral and popliteal veins are normally compressible, and free of intraluminal thrombus. Color and pulse Doppler demonstrate normal phasic intravascular flow. There is normal augmentation response to distal compression maneuver. IMPRESSION: No evidence of deep venous thrombosis, bilateral lower extremities Approved by: Osmar Parish M.D. on 10/08/2021 at 9:40
--- NOTE | 2021-10-08 02:10 | PC.NURSE ---
Patient admitted to room 224 from ED with complaints of leg swelling/leg weeping. Patient stable on RA, telemetry placed and is in controlled afib. Patient able to answer all admission questions appropriately. He was oriented to room and call light. Bed alarm remains on as he has admitted to falling last week d/t leg weakness.
[2021-10-08 05:07] LABS: Add Manual Diff / Slide Review NO; Basophils Absolute Auto 0 /uL (0-100); Basophils Percent Auto 0.8 % (0-2); Eosinophils Absolute Auto 100 /uL (0-450); Eosinophils Percent Auto 2.9 % (2-4); Hematocrit 33.7 % (41-53); Hemoglobin 11.8 g/dL (13.5-17.5); Lymphocytes Absolute Auto 900 /uL (1100-4500); Mean Corpuscular HGB Conc 35.1 % (30-36); Mean Corpuscular Hemoglobin 35.2 PG (26-34); Mean Corpuscular Volume 100.3 fL (80-100); Monocytes Absolute Auto 600 /uL (0-900); Monocytes Percent Auto 12.4 % (3-14); Neutrophils Absolute Auto 3000 /uL (1500-7000); Neutrophils Percent Auto 63.9 % (50-75); Platelet Count 140 X10^3/uL (150-400); Red Blood Cell Count 3.36 X10^6/uL (4.5-5.9); Red Cell Distribution Width 12.7 % (11.6-14.8); White Blood Cell Count 4.6 X10^3/uL (4.5-11.0)
[2021-10-08 05:23] LABS: Cholesterol 138 mg/dL (140-199); HDL Cholesterol 45 mg/dL (40-60); LDL Cholesterol Calculated 78 mg/dL (<100); Triglycerides 76 mg/dL (35-150)
[2021-10-08 05:31] LABS: Troponin I < 0.012 ng/mL (0.01-0.034)
[2021-10-08 06:12] LABS: BUN Creatinine Ratio 16.7 (6-22); Blood Urea Nitrogen 14 mg/dL (9-20); Calcium 8.7 mg/dL (8.4-10.2); Carbon Dioxide 28 mmol/L (22-32); Chloride 102 mmol/L (98-107); Estimated Glomerular Filt Rate > 60 mL/min (>60); Glucose 119 mg/dL (80-110); HEMOLYSIS < 15 (0-50); Potassium 3.6 mmol/L (3.4-5.1); Sodium 138 mmol/L (137-145)
[2021-10-08 06:22] LABS: NT-proBNP (BNP-Adult 18+) 1340 pg/mL (<450)
--- NOTE | 2021-10-08 09:12 | CM.DANOTE ---
DCP: Case received, EMR reviewed and met with patient. Introduced self and role. Was able to obtain information regarding patient's baseline activity status prior to hospitalization, as well as his current living situation. DCP assessment completed with information currently available. Patient is an 81 year old male who admitted yesterday afternoon to the care of the hospitalist team. PCP: Dr. Logan/Zahida. Payer: confirmed: [facility]. Patient came to the hospital via private vehicle secondary to increased swelling and weeping to his lower extremity. According to notes, patient had been to the ER recently, and was discharged on Lasix and antibiotics. He does have a follow up appointment with cardiology next week. Patient has history of CHF. Patient was also complaining of chest pain. Patient is here for echo and stress test. Met with patient in his room. He was laying in bed, alert and oriented. Confirmed that he resides in [place] alone. He has a friend named Patrick Ralph who resides in [place], [place], and owns property in [place]. Patient is staying on his property. He also has a friend named Killian Caballero, who lives here in [place]. Patient no longer drives, his friend can help with transportation if needed. Patient is independent, he had taken the bus to the pharmacy, so he does use public transportation. He does have a bulk gas specialist, can't remember the name, but has an appointment for next week. His primary provider was Dr. Logan, but will be switching to Dr. Teague. Stated, he has not seen a primary care provider in a while. P: DCP to continue to follow for needs. Patient should be able to go home when stable, after his testing. Swapna Case RN/Computer Technologist Discharge Planning/Care Management CM Discharge Assessment Start: 10/08/21 09:10 Freq: Status: Active Protocol: Document 10/08/21 09:10 (Rec: 10/08/21 09:12 [id number]) Discharge Planning Assessment Assigned Agriculture Technician Swapna Case RN/Computer Technologist Advance Directives? No History Provided By Patient,Medical Record Prior Living Arrangements Apartment/Condo Household Members none Type of transporation used prior to Relies on Others admit Independent with ADL's Yes Is patient alert and oriented? Yes Needs Assistance With Home Chores / Shopping Caregiver for Another No Barriers to Discharge No Discharge Plan Home Transportation Arrangement Friend Referrals Initiated Other Additional Comment Will discuss at team rounds, unclear at this time if patient would be considered home bound for home health services. Whiteboard Updated in Patient Room with Yes name and ext. # of Agriculture Technician Review Status In Process Next Review Type Continued Stay Review
[2021-10-08] MEDS: FUROSEMIDE 20 MG/2 ML VIAL 40 MG IV ×2 (10:10→19:47)
[2021-10-08] MEDS: CLOPIDOGREL 75 MG TABLET PO (10:15)
[2021-10-08] MEDS: carvediloL 12.5 MG TABLET PO (10:15)
[2021-10-08] MEDS: DIGOXIN 0.125 MG TABLET PO (10:15)
[2021-10-08] MEDS: ENOXAPARIN 40 MG/0.4 ML SYRINGE SUBCUT (10:16)
[2021-10-08] MEDS: ASPIRIN EC 81 MG TABLET PO (10:16)
[2021-10-08] MEDS: lisinopriL 5 MG TABLET PO (10:16)
[2021-10-08 11:39] LABS: Troponin I < 0.012 ng/mL (0.01-0.034)
--- NOTE | 2021-10-08 17:14 | P.PN_ITS ---
Subjective Subjective Date Patient Seen: 10/08/21 Interval history: 81-year-old gentleman with permanent atrial fibrillation, chronic congestive heart failure treated, hypertension, admitted overnight with acute CHF exacerbation. Patient reports he developed leg edema approximately 1 and half weeks ago. He states his legs were weeping. Had not noticed abdominal distension though repo rts that his scrotum was ?the size of a grapefruit ?. He was seen in the emergency department last week, given prescription for diuretics and antibiotics. The diuretics were ineffective and he subsequently returned to the hospital yesterday. He received IV Lasix in the emergency department and states he voided large amount overnight. He received an additional dose earlier this morning and states that he has continued to avoid large amounts. He notes his legs are much less swollen today, his scrotum is nearly normal in size, and he is feeling significantly improved. He denies any chest pain or shortness of breath. He states years ago his hook and eye sewing machine operator in [place] told him he had congestive heart failure but he had never received specific treatment for it. Exam Vital Signs (past 8 hours): - 10/08/21 10:15 10/08/21 10:15 10/08/21 10:16 Temperature Pulse Rate 70 70 70 Respiratory Rate Blood Pressure 128/69 128/69 128/69 Pulse Oximetry Oxygen Flow Rate 10/08/21 11:56 10/08/21 15:42 Temperature 97.6 F 98 F Pulse Rate 81 78 Respiratory Rate 16 15 Blood Pressure 132/73 140/77 Pulse Oximetry 98 98 Oxygen Flow Rate 0 0 Oxygen Delivery Method Room Air Oxygen Flow Rate 0 Narrative Exam Narrative: GEN: Very pleasant elderly male, Alert and oriented x 3, NAD HEENT:NC, Face symmetric CHEST: Respiratory excursions symmetric, CTAB CV: RRR, no M/R/G ABD: Soft, NT/ND, BT present in all 4 quadrants, no organomegaly or masses EXTR: warm, well perfused, no C/C, chronic venous stasis changes noted with areas of scabbing to the pretibial region on the right longoria, peeling to the left longoria SKIN: warm and dry, no rash NEURO: Alert and oriented x 3, nonfocal Objective Labs Result Diagrams: 10/08/21 04:50 10/08/21 04:50 Labs: Laboratory Results - last 24 hr 10/07/21 10/07/21 10/07/21 21:51 21:51 21:51 WBC 4.5 RBC 3.29 L Hgb 11.5 L Hct 33.1 L MCV 100.8 H MCH 35.0 H MCHC 34.8 RDW 12.6 Plt Count 142 L Neut % (Auto) 63.0 Lymph % (Auto) 22.3 L [place] % (Auto) 11.3 Eos % (Auto) 2.7 Baso % (Auto) 0.7 Neut # (Auto) 2900 Lymph # (Auto) 1000 L [place] # (Auto) 500 Eos # (Auto) 100 Baso # (Auto) 0 PT INR Sodium 137 Potassium 4.0 Chloride 104 Carbon Dioxide 26 BUN 14 Creatinine 0.67 Estimated GFR > 60 BUN/Creatinine Ratio 20.9 Glucose 92 Calcium 8.4 Magnesium 2.0 Total Bilirubin 1.5 H AST 26 ALT 22 Alkaline Phosphatase 92 Total Creatine Kinase 110 CK-MB (CK-2) 1.71 CK-MB (CK-2) Rel Index 1.6 Troponin I < 0.012 NT-Pro-B Natriuret Pep 1080 H Total Protein 6.2 L Albumin 3.8 Globulin 2.4 Albumin/Globulin Ratio 1.6 Triglycerides Cholesterol LDL Cholesterol, Calc HDL Cholesterol Lipase 76 D TSH Free T4 Digoxin < 0.4 L SARS-CoV-2 (PCR) 10/07/21 10/07/21 10/07/21 21:51 21:51 21:51 WBC RBC Hgb Hct MCV MCH MCHC RDW Plt Count Neut % (Auto) Lymph % (Auto) [place] % (Auto) Eos % (Auto) Baso % (Auto) Neut # (Auto) Lymph # (Auto) [place] # (Auto) Eos # (Auto) Baso # (Auto) PT 12.4 INR 1.1 Sodium Potassium Chloride Carbon Dioxide BUN Creatinine Estimated GFR BUN/Creatinine Ratio Glucose Calcium Magnesium Total Bilirubin AST ALT Alkaline Phosphatase Total Creatine Kinase CK-MB (CK-2) CK-MB (CK-2) Rel Index Troponin I NT-Pro-B Natriuret Pep Total Protein Albumin Globulin Albumin/Globulin Ratio Triglycerides Cholesterol LDL Cholesterol, Calc HDL Cholesterol Lipase TSH 1.88 Free T4 1.01 Digoxin SARS-CoV-2 (PCR) 10/08/21 10/08/21 10/08/21 00:05 04:50 04:50 WBC 4.6 RBC 3.36 L Hgb 11.8 L Hct 33.7 L MCV 100.3 H MCH 35.2 H MCHC 35.1 RDW 12.7 Plt Count 140 L Neut % (Auto) 63.9 Lymph % (Auto) 20.0 L [place] % (Auto) 12.4 Eos % (Auto) 2.9 Baso % (Auto) 0.8 Neut # (Auto) 3000 Lymph # (Auto) 900 L [place] # (Auto) 600 Eos # (Auto) 100 Baso # (Auto) 0 PT INR Sodium Potassium Chloride Carbon Dioxide BUN Creatinine Estimated GFR BUN/Creatinine Ratio Glucose Calcium Magnesium Total Bilirubin AST ALT Alkaline Phosphatase Total Creatine Kinase CK-MB (CK-2) CK-MB (CK-2) Rel Index Troponin I NT-Pro-B Natriuret Pep Total Protein Albumin Globulin Albumin/Globulin Ratio Triglycerides 76 Cholesterol 138 L LDL Cholesterol, Calc 78 HDL Cholesterol 45 Lipase TSH Free T4 Digoxin SARS-CoV-2 (PCR) Negative 10/08/21 10/08/21 10/08/21 04:50 04:50 11:05 WBC RBC Hgb Hct MCV MCH MCHC RDW Plt Count Neut % (Auto) Lymph % (Auto) [place] % (Auto) Eos % (Auto) Baso % (Auto) Neut # (Auto) Lymph # (Auto) [place] # (Auto) Eos # (Auto) Baso # (Auto) PT INR Sodium 138 Potassium 3.6 Chloride 102 Carbon Dioxide 28 BUN 14 Creatinine 0.84 Estimated GFR > 60 BUN/Creatinine Ratio 16.7 Glucose 119 H Calcium 8.7 Magnesium Total Bilirubin AST ALT Alkaline Phosphatase Total Creatine Kinase CK-MB (CK-2) CK-MB (CK-2) Rel Index Troponin I < 0.012 < 0.012 NT-Pro-B Natriuret Pep 1340 H Total Protein Albumin Globulin Albumin/Globulin Ratio Triglycerides Cholesterol LDL Cholesterol, Calc HDL Cholesterol Lipase TSH Free T4 Digoxin SARS-CoV-2 (PCR) [facility] Medical History Chronic a-fib Congestive heart failure Hypertension Persistent atrial fibrillation with rapid ventricular response Tobacco use disorder, continuous Family History Mother Hypertension Father Heart attack Social History household members: none Smoking Status: Never smoker Assessment & Plan Assessment & Plan narrative: 1. Congestive heart failure, acute on chronic, unknown if systolic or diastolic Patient remains lisinopril. Remains on fluid restriction, low sodium diet. Continue telemetry. Await echocardiogram results. 2. Chest pain Remains on Plavix and aspirin. The stress test ordered and pending at this time. 3. Lower extremity edema Lower extremity ultrasound was done and was negative for DVTs. Suspect this is all secondary to congestive heart failure and venous stasis disease. 4. Permanent atrial fibrillation Continue digoxin. Presently rate controlled. He is on aspirin, no anticoagulation. 5. Abdominal distension Abdominal ultrasound was done this morning which revealed cholelithiasis without evidence of cholecystitis. No significant vascular anomalies. Code status Full Prophylaxis Disposition Likely to discharge the morning of October 10, 2021 after his stress test when he can and travel up to telling him to see his hook and eye sewing machine operator. Time Spent With Patient Critical Care time: I spent a total of [] minutes of critical care time on this patient's care today; this time is exclusive of procedural time. Quality VTE Deep Vein Thrombosis/Pulmonary Embolism Present on Admission: No
[2021-10-08] MEDS: SODIUM CHLORIDE 0.9% FLUSH 10 ML IV (19:57)
--- NOTE | 2021-10-08 23:35 | DI.ECHO.S_ITS ---
[place] [facility]---------+ [facility] +---------+ : : [address] : : : : [id number] : : : : Phone: [phone] Echocardiogram Report + + :Name: KYLAH ABAD Study Date: 10/08/2021 Height: 74 in : :[facility] ReadingLocation: Weight: 195 lb: : Gender: Male BSA: 2.1 m2 : :: 1940 Age: 81 yrs : :Reason For Study: LOWER EXTREMITY EDEMA, A-FIB : : Performed By: Lorena Ventura : :Referring: DORIE MAJOR : + + Interpretation Summary The left ventricle is moderately dilated. The ejection fraction is estimated to be 50-55%. The right ventricle is mildly dilated. The right ventricular systolic function is normal. There is marked biatrial enlargement. There is mild to moderate mitral regurgitation. There is moderate tricuspid regurgitation. The right ventricular systolic pressure is estimated to be at least 35 mmHg based on an estimated right atrial pressure of 8 mm Hg. The aortic arch is moderately enlarged. Mild atherosclerotic plaque(s) in the aortic arch. Procedure: A two-dimensional transthoracic echocardiogram with color flow and Doppler was performed. The study quality was technically adequate. There is no prior echocardiogram noted for this patient. The patient was in atrial fibrillation with controlled ventricular rate during the exam. Left Ventricle: The left ventricle is moderately dilated. There is no thrombus. The ejection fraction is estimated to be 50-55%. Septal motion is consistent with conduction abnormality. Diastolic function could not be accurately assessed due to atrial fibrillation. Right Ventricle: The right ventricle is mildly dilated. The right ventricular systolic function is normal. Atria: There is marked biatrial enlargement. There is no Doppler evidence for an interatrial shunt. The interatrial septum bows toward right atrium consistent with elevated left atrial pressure. Mitral Valve: There is mild to moderate mitral annular calcification. The mitral valve leaflets are mildly calcified. There is mild to moderate mitral regurgitation. Aortic Valve: The aortic valve is not well visualized. There is no hemodynamically significant valvular aortic stenosis. There is trace aortic regurgitation. Tricuspid Valve: The tricuspid annulus is dilated. There is moderate tricuspid regurgitation. The right ventricular systolic pressure is estimated to be at least 35 mmHg based on an estimated right atrial pressure of 8 mm Hg. Pulmonic Valve: The pulmonic valve leaflets are thin and pliable; valve motion is normal. There is trace pulmonic regurgitation. Great Vessels: The aortic root is normal size. The ascending aorta is at the upper limits of normal in size. The aortic arch is moderately enlarged. Mild atherosclerotic plaque(s) in the aortic arch. The IVC is dilated (diameter is greater than 2.1 cm) yet it collapses greater than 50% with a sniff. This suggests a right atrial pressure of 8 mm Hg. Pericardium/ Pleura There is no pericardial effusion. MMode/2D Measurements & Calculations LVIDd: 6.6 cm LVOT diam: 2.1 cm LVIDs: 5.6 cm Ao root diam: 3.7 cm FS: 16.0 % asc Aorta Diam: 3.5 cm EPSS: 1.1 cm Ao Arch Diam (Prox Trans): 4.2 cm IVSd: 0.84 cm LVPWd: 1.2 cm LV penn. diameter/BSA (cm/m^2): 3.1 LV sys. diameter/BSA (cm/m^2): 2.6 LA A2 area: 69.3 cm2 RA long axis: 8.8 cm LA A4 area: 66.7 cm2 RA area: 50.5 cm2 LA length (vol): 10.2 cm RA vol: 245.4 ml LA vol: 385.8 ml RA : 114.2 ml/m2 LA vol index: 179.4 ml/m2 IVC diam: 2.5 cm RVD1 (basal): 4.7 cm TAPSE: 1.3 cm Doppler Measurements & Calculations Ao V2 max: 128.6 cm/sec LVOT Max Reji: 69.5 cm/sec Ao V2 mean: 93.5 cm/sec LV V1 max P.9 mmHg Ao max P.6 mmHg LV V1 VTI: 15.1 cm Ao mean P.9 mmHg FRANCES(I,D): 1.9 cm2 Ao V2 VTI: 28.4 cm FRANCES(V,D): 2.0 cm2 sev ratio: 0.53 FRANCES indexed to BSA (cm^2/m^2): 0.89 MV E max reji: 89.5 cm/sec TR max reji: 260.4 cm/sec MR ERO: 0.11 cm2 TR max P.1 mmHg PA V2 max: 64.0 cm/sec PA V2 mean: 45.9 cm/sec PA mean P.92 mmHg MR VTI: 148.5 cm MR PISA: 1.4 cm2 MR flow rate: 51.5 cm3/sec MR PISA radius: 0.47 cm SV(LVOT): 54.3 ml Reading Physician:05:10 PM
[2021-10-09] VITALS (12 sets, daily range): BP systolic 100–117; BP diastolic 46–62; PULSE 65–85; RESP 16–18; TEMP 36.9–37.1; O2SAT 96–100
[2021-10-09 05:49] LABS: Add Manual Diff / Slide Review NO; Basophils Absolute Auto 0 /uL (0-100); Basophils Percent Auto 0.6 % (0-2); Eosinophils Absolute Auto 100 /uL (0-450); Eosinophils Percent Auto 2.9 % (2-4); Hematocrit 33.6 % (41-53); Hemoglobin 11.8 g/dL (13.5-17.5); Lymphocytes Absolute Auto 1100 /uL (1100-4500); Lymphocytes Percent Auto 24.2 % (25-40); Mean Corpuscular HGB Conc 35.1 % (30-36); Mean Corpuscular Hemoglobin 35.3 PG (26-34); Mean Corpuscular Volume 100.6 fL (80-100); Monocytes Absolute Auto 600 /uL (0-900); Monocytes Percent Auto 13.2 % (3-14); Neutrophils Absolute Auto 2700 /uL (1500-7000); Neutrophils Percent Auto 59.1 % (50-75); Platelet Count 137 X10^3/uL (150-400); Red Blood Cell Count 3.34 X10^6/uL (4.5-5.9); Red Cell Distribution Width 12.8 % (11.6-14.8); White Blood Cell Count 4.5 X10^3/uL (4.5-11.0)
--- NOTE | 2021-10-09 05:54 | PM.PN.1 ---
Subjective Subjective Date Patient Seen: 10/09/21 Interval history: 81-year-old gentleman with permanent atrial fibrillation, chronic congestive heart failure treated, hypertension, admitted overnight with acute CHF exacerbation. Patient reports he developed leg edema approximately 1 and half weeks ago.? He states his legs were weeping.? Had not noticed abdominal distension though reports that his scrotum was ?the size of a grapefruit ?.? He was seen in the emergency department last week, given prescription for diuretics and antibiotics.? The diuretics were ineffective and he subsequently returned to the hospital yesterday.? He received IV Lasix in the emergency department and states he voided large amount overnight.? He received an additional dose earlier this morning and states that he has continued to avoid large amounts.? He notes his legs are much less swollen today, his scrotum is nearly normal in size, and he is feeling significantly improved. He denies any chest pain or shortness of breath.? Reports he was able to get some sleep last night as he last urinated around 4/4:30 am. Continues to feel better. Notes his scrotum is nearly back to normal size. Exam Vital Signs (past 8 hours): - 10/09/21 03:00 Pulse Rate 85 Oxygen Delivery Method Room Air Oxygen Flow Rate 0 Narrative Exam Narrative: GEN:? Very pleasant elderly male, Alert and oriented x 3, NAD HEENT:NC, Face symmetric CHEST: Respiratory excursions symmetric, CTAB CV: RRR, no M/R/G ABD: Soft, NT, distention decreased today, BT present in all 4 quadrants, no organomegaly or masses EXTR: warm, well perfused, no C/C, chronic venous stasis changes noted with areas of scabbing to the pretibial region on the right longoria, peeling to the left longoria, increased wrinkling in pretibial area and decreased edema c/w yesterday SKIN: warm and dry, no rash NEURO: Alert and oriented x 3, nonfocal Objective Labs Result Diagrams: 10/09/21 05:20 10/08/21 04:50 Labs: Laboratory Results - last 24 hr 10/08/21 10/08/21 10/09/21 04:50 11:05 05:20 WBC 4.5 RBC 3.34 L Hgb 11.8 L Hct 33.6 L MCV 100.6 H MCH 35.3 H MCHC 35.1 RDW 12.8 Plt Count 137 L Neut % (Auto) 59.1 Lymph % (Auto) 24.2 L [place] % (Auto) 13.2 Eos % (Auto) 2.9 Baso % (Auto) 0.6 Neut # (Auto) 2700 Lymph # (Auto) 1100 [place] # (Auto) 600 Eos # (Auto) 100 Baso # (Auto) 0 Sodium 138 Potassium 3.6 Chloride 102 Carbon Dioxide 28 BUN 14 Creatinine 0.84 Estimated GFR > 60 BUN/Creatinine Ratio 16.7 Glucose 119 H Calcium 8.7 Troponin I < 0.012 NT-Pro-B Natriuret Pep 1340 H [facility] Medical History Chronic a-fib Congestive heart failure Hypertension Persistent atrial fibrillation with rapid ventricular response Tobacco use disorder, continuous Family History Mother Hypertension Father Heart attack Social History household members: none Smoking Status: Never smoker Assessment & Plan Assessment & Plan narrative: 1. Congestive heart failure, acute on chronic, w/preserved EF Patient remains lisinopril.? Remains on fluid restriction, low sodium diet.? Continue telemetry. Echo shows moderately dilated LV, EF 50-55%, mildly dilated RV, normal RV systolic function. Marked biatrial enlargement. Mild to mod MR. Will give one more IV lasix dose this am and transition to po in am. 2. Chest pain Remains on Plavix and aspirin.?Nuc stress test ordered and pending at this time. He has not had any chest pain/pressure since admission. If Nuc cannot be done tomorrow, will dc so he can see tangled yarn spool straightener in [place] tomorrow at 2pm and have the nuc done as an outpatient at the discretion of the tangled yarn spool straightener. 3. Lower extremity edema Lower extremity ultrasound was done and was negative for DVTs.? Suspect this is all secondary to congestive heart failure and venous stasis disease. Improving. 4. Permanent atrial fibrillation Continue digoxin.? Presently rate controlled.? He is on aspirin, no anticoagulation. [id number] score is 3, equivalent to 3.2% stroke risk annually. As he is seeing his tangled yarn spool straightener tomorrow, will defer to him. 5. Abdominal distension Abdominal ultrasound was done yesterday morning which revealed cholelithiasis without evidence of cholecystitis.? No significant vascular anomalies. Code status Full Prophylaxis Disposition Likely to discharge the morning of October 10, 2021 after his stress test when he can and travel up to telling him to see his tangled yarn spool straightener. Time Spent With Patient Critical Care time: I spent a total of [] minutes of critical care time on this patient's care today; this time is exclusive of procedural time. Quality VTE Deep Vein Thrombosis/Pulmonary Embolism Present on Admission: No
[2021-10-09] MEDS: CLOPIDOGREL 75 MG TABLET PO (09:16)
[2021-10-09] MEDS: ASPIRIN EC 81 MG TABLET PO (09:16)
[2021-10-09] MEDS: lisinopriL 5 MG TABLET PO (09:16)
[2021-10-09] MEDS: ENOXAPARIN 40 MG/0.4 ML SYRINGE SUBCUT (09:16)
[2021-10-09] MEDS: DIGOXIN 0.125 MG TABLET PO (09:16)
[2021-10-09] MEDS: carvediloL 12.5 MG TABLET PO (09:17)
[2021-10-09] MEDS: SODIUM CHLORIDE 0.9% FLUSH 10 ML IV ×2 (09:17→19:47)
[2021-10-09] MEDS: FUROSEMIDE 20 MG/2 ML VIAL 40 MG IV (09:23)
[2021-10-10 00:45] VITALS: BP 122/59; PULSE 82; RESP 14; TEMP 37.1; O2SAT 97
[2021-10-10 04:00] VITALS: BP 116/59; PULSE 76; RESP 16; TEMP 37.2; O2SAT 98
[2021-10-10 05:00] VITALS: BP 142/67; PULSE 86; RESP 16; TEMP 36.7; O2SAT 98
--- NOTE | 2021-10-10 05:58 | PM.DS.1 ---
History of Present Illness History of Present Illness Date Patient Seen: 10/10/21 Chief complaint: cellulitis in lower legs, weeping Narrative: Per H&P: Mr. Khurram Olvera is an 81-year-old gentleman with history of chronic persistent atrial fibrillation rate controlled on digoxin, heart failure (dx on 09/29/21), HTN, who takes in addition ASA, carvedilol, and lisinopril.? He presented to the ED on 09/30/21? complaining of acute onset lower extremity swelling, redness, drainage, and scrotal swelling.? He was treated in the ED given a prescription of Lasix and potassium and follow up with Cardiology. He was able to walk from [facility] on 09/30/21 after being dropped off by the bus, as he lives in [place].? He returned to the emergency room today with continued worsening acute onset lower extremity edema now and eariler today experienced what he called a sharp feeling in his chest that lasted only a few seconds, also experienced temporary shortness of breath with this feeling all of which resolved prior to arrival.? Patient is scheduled with cardiology next week.? Patient denies any previous surgical procedures, blood clots or bleeding disorders, stroke, vascular dz, or heart attack.? Patient reports that he is regularly physically active, never smoked, and drinks an average of 3 glasses of wine per week but has not had any alcohol for the past 6 weeks.? His father of a heart attack as a long-term smoker at age 65.? No significant family history for cardiac or pulmonary disease. ? He reports no fevers, cough, chills, orthopnea, dyspnea or exertional dyspnea.? No abdominal pain, vomiting, diarrhea, constipation, headaches, acute neurologic findings, weakness, dizziness, cough, congestion, numbness, recent falls illness, injury, or trauma.? Never smoked and drinks several times weekly. Patient's vitals upon admit temp 97.9?, BP 148/83, HR 84, R 15, O2 saturation 97% on room air.? Patient's HGB 11.5, HCT 33.1, platelets 142, MCV 100.8, MCH 35.? Patient's chemistries are predominantly WNL, only slight elevation in total bili 1.5, digoxin level< 0.4, initial troponin WNL, patient's creatinine clearance 108, patient's Jelani Vasc score+ 4, 4.8% risk of stroke.? BNP 1080, BNP on 09/30/2021 1200.? Patient's chest x-ray demonstrated no acute cardiopulmonary processes.? Patient's EKG in ED demonstrated atrial fibrillation with a rate of [address] or T-wave changes. HEART Score+6 Moderate.? Patient has bilateral lower extremity edema left greater than right, presents more as chronic venous stasis with cracked weeping skin no real signs of cellulitis or infectious process.? On physical exam patient had a fairly pronounced abdominal distension without pain or discomfort no masses palpated but he states it is not normal for him.? Patient appears a very fit and physically active 81-year-old, and abdomen appears uncharacteristic.? Patient being admitted with acute onset lower extremity edema, abd distention with chest discomfort, with persistent atrial fibrillation, uncontrolled hypertension, and new diagnosis of HF. Discharge Providers Provider Date of admission: 10/07/21 23:26 Discharge Date: 10/10/21 Discharge provider: Carmencita Terrell MD Summary Hospital Course Discharge Diagnosis: 1. Congestive heart failure, acute on chronic, w/preserved EF 2. Chest pain, no recurrence 3. Lower extremity edema d/t CHF/venous stasis 4. Permanent atrial fibrillation w/[id number] score of 3 5. Abdominal distension d/t CHF Hospital Course: Pt presented to the ED on 10/01 c/o leg swelling. He was given furosemide and Keflex and advised to f/u w/his PCP. He returned to the ED on 10/07 w/SOB and worsening edema. He was admitted for CHF and chest pain. ECG and enzymes were unremarkable. He was placed on IV furosemide and rapidly diuresed. He transitioned to Lasix 40 mg daily on 10/09/21 w/good tolerance. Nuclear stress test was ordered but could not be performed prior to d/c d/t limited staffing. Patient was d/c'd on 10/10/21 as he has an appointment w/cardiology in [place] at 1400. He is d/c'd in stable condition. Status at Discharge Cognitive/behavioral status at discharge: at baseline, oriented Functional status at discharge: independent ambulation Overall status at discharge: patient is back to baseline Exam Vital Signs (past 8 hours): - 10/10/21 00:45 Temperature 98.8 F Pulse Rate 82 Respiratory Rate 14 Blood Pressure 122/59 L Pulse Oximetry 97 Oxygen Flow Rate 0 Oxygen Delivery Method Room Air Oxygen Flow Rate 0 Narrative Exam Narrative: GEN:? Very pleasant elderly male, Alert and oriented x 3, NAD HEENT:NC, Face symmetric CHEST: Respiratory excursions symmetric, CTAB CV: RRR, no M/R/G ABD: Soft, NT, distention decreased today, BT present in all 4 quadrants, no organomegaly or masses EXTR: warm, well perfused, no C/C, chronic venous stasis changes noted with areas of scabbing to the pretibial region on the right longoria, peeling to the left longoria, increased wrinkling in pretibial area and decreased edema c/w yesterday SKIN: warm and dry, no rash, chronic sun damage to face/arms/chest NEURO: Alert and oriented x 3, nonfocal Objective Labs Result Diagrams: 10/09/21 05:20 10/08/21 04:50 [facility] Medical History Chronic a-fib Congestive heart failure Hypertension Persistent atrial fibrillation with rapid ventricular response Tobacco use disorder, continuous Family History Mother Hypertension Father Heart attack Social History household members: none Smoking Status: Never smoker Discharge Plan Discharge Plan Patient Disposition: Home Provider Discharge Comment: Monitor your sodium intake (avoid eating out d/t high sodium levels). Read labels (many packaged and canned foods are high in sodium). Weigh yourself daily after waking up and urinating (same amount of clothing every time) For weight gain more than 3# in 24hrs or 5# in 1 week, call your PCP or electrical transmission engineer for instructions on adjusting your diuretics Discharge orders & Medications Prescriptions: New furosemide 40 mg Tablet 40 mg PO DAILY Qty: 30 0RF carvedilol [Coreg] 12.5 mg Tablet 12.5 mg PO DAILY Qty: 30 0RF nitroglycerin [Nitrostat] 0.4 mg Tablet, Sublingual 0.4 mg sublingual [id number] PRN (Reason: Chest Pain) Qty: 30 0RF Continued lisinopril 5 mg tablet 1 tab PO DAILY Label Comments: TAKE ONE TABLET BY MOUTH EVERY DAY digoxin 125 mcg (0.125 mg) tablet 1 tab PO DAILY Label Comments: TAKE ONE TABLET BY MOUTH EVERY DAY potassium chloride 10 mEq tablet extended release 10 meq PO DAILY Qty: 30 0RF Adult Aspirin 81 mg DAILY Discontinued carvedilol 25 mg tablet 0.5 tab PO BID Label Comments: TAKE 1/2 TABLET BY MOUTH TWICE DAILY furosemide 20 mg tablet 20 mg PO DAILY Qty: 30 0RF cephalexin 500 mg capsule 500 mg PO TID Qty: 21 0RF Medication counseling provided by Pharmacist: No Diet/Activity/Treatments Diet: Low-sodium Diet comment: Cardiac, 2000ml (2Liters/64oz) fluid restriction per day Activity: As tolerated, elevate legs at night to reduce swelling and promote healing of your wounds Oxygen: N/A Visit Report/Discharge Packet Instructions: DI for Heart Failure, Nitroglycerin Sublingual, Furosemide Quality VTE Deep Vein Thrombosis/Pulmonary Embolism Present on Admission: No
[2021-10-10] MEDS: ASPIRIN EC 81 MG TABLET PO (08:12)
[2021-10-10 08:13] VITALS: BP 126/61; BP 127/61
[2021-10-10] MEDS: carvediloL 12.5 MG TABLET PO (08:13)
[2021-10-10] MEDS: lisinopriL 5 MG TABLET PO (08:13)
[2021-10-10] MEDS: FUROSEMIDE 40 MG TABLET PO (08:13)
[2021-10-10] MEDS: DIGOXIN 0.125 MG TABLET PO (08:13)
[2021-10-10] MEDS: CLOPIDOGREL 75 MG TABLET PO (08:13)
--- NOTE | 2021-10-10 08:34 | PC.NURSE ---
Pt is dressed and ready for discharge to Cardiology appointment in [place]. He has arranged a bus because he lives in [place]. IV and Tele have been removed. Pt's personal prescriptions have been returned to Pt from pharmacy. Went over d/c instructions-discussed d/c meds, time of last dose, reviewed stroke education, CHF guidelines sheet and recommended Pt post the sheet on his fridge, reviewed nitrol use and reminded Pt to sit down when he is taking nitro as well as following prescription dosing per instructions and contacting his DrEliezer to notify that he has had to take nitro, as well as calling 911 if his chest pain or shortness of breath does not resolve. Discussed furosemide use and watching for electrolyte imbalances, and getting up slowly from bed or chair. Encouraged Pt to maintain a reduced sodium diet, watch fluid intake, and eat a heart healthy diet. Answered all other questions and Pt is ready for discharge out when he finishes breakfast.
== END 2021-10-10 08:51 | disposition home or self-care (01) | DRG 291 ==
LOC: ED 23:24 → AC 23:54
PROVIDERS: Family Medicine; Admitting Provider Nurse Practitioner Family; Emergency Provider Emergency Medicine; Referring Provider Emergency Medicine; Visit Provider Nurse Practitioner Family
DX: I11.0 Hypertensive heart disease with heart failure (principal); I50.33 Acute on chronic diastolic (congestive) heart failure; I48.21 Permanent atrial fibrillation; R07.9 Chest pain, unspecified; D69.6 Thrombocytopenia, unspecified; K80.20 Calculus of gallbladder without cholecystitis without obstruction; Z20.822 Contact with and (suspected) exposure to COVID-19
CPT/HCPCS: 36415; 71045; 76700; 80048; 80053; 80061; 80162; 82550; 82553; 83690; 83735; 83880; 84439; 84443; 84484; 85025; 85610; 87635; 93005; 93010; 93306; 93970; 96374; 99284; C9803; J1650; J1940

== ENCOUNTER 2021-10-10 19:26 | Emergency (ER) | payer MEDICARE, SELFPAY ==
[2021-10-08 00:18] VITALS: BMI 24.0
[2021-10-10 19:33] VITALS: BP 121/59; PULSE 106; RESP 16; TEMP 36.6; O2SAT 96; BMI 24.3
--- NOTE | 2021-10-10 19:43 | DI.RAD.S_ITS ---
PROCEDURE: XR CHEST 1V INDICATIONS: sob, irregular heart rate TECHNIQUE: One view of the chest was acquired. COMPARISON: [facility], CR, XR CHEST 1V, 10/07/2021, 21:50. FINDINGS: Surgical changes and devices: None. Lungs and pleura: Lungs are clear. No pleural effusions or pneumothorax. Mediastinum: Mediastinal contours are unchanged. Heart size is prominently enlarged. Bones and chest wall: No suspicious bony lesions. Overlying soft tissues appear unremarkable. IMPRESSION: 1. No acute cardiopulmonary disease. 2. Prominent cardiomegaly redemonstrated. Dictated by: Mauri Dao M.D. on 10/10/2021 at 21:02 Approved by: Mauri Dao M.D. on 10/10/2021 at 21:03
[2021-10-10 20:03] VITALS: PULSE 94; RESP 12; O2SAT 98
[2021-10-10 20:05] VITALS: BP 110/59; PULSE 81; RESP 16; O2SAT 98
[2021-10-10 20:11] LABS: Add Manual Diff / Slide Review NO; Basophils Absolute Auto 100 /uL (0-100); Basophils Percent Auto 1.1 % (0-2); Eosinophils Absolute Auto 200 /uL (0-450); Hematocrit 34.7 % (41-53); Lymphocytes Absolute Auto 1200 /uL (1100-4500); Lymphocytes Percent Auto 21.4 % (25-40); Mean Corpuscular HGB Conc 34.7 % (30-36); Mean Corpuscular Volume 100.8 fL (80-100); Monocytes Absolute Auto 500 /uL (0-900); Monocytes Percent Auto 9.1 % (3-14); Neutrophils Absolute Auto 3600 /uL (1500-7000); Neutrophils Percent Auto 65.4 % (50-75); Platelet Count 142 X10^3/uL (150-400); Red Blood Cell Count 3.44 X10^6/uL (4.5-5.9); Red Cell Distribution Width 12.7 % (11.6-14.8); White Blood Cell Count 5.5 X10^3/uL (4.5-11.0)
[2021-10-10 20:26] LABS: Alanine Aminotransferase 20 IU/L (<50); Albumin Globulin Ratio 1.6 (1.0-2.8); Alkaline Phosphatase 79 U/L (38-126); Aspartate Aminotransferase 24 IU/L (17-59); BUN Creatinine Ratio 23.4 (6-22); Bilirubin Total 1.1 mg/dL (0.2-1.3); Blood Urea Nitrogen 18 mg/dL (9-20); Calcium 8.6 mg/dL (8.4-10.2); Carbon Dioxide 31 mmol/L (22-32); Chloride 102 mmol/L (98-107); Creatine Kinase 74 U/L (55-170); Estimated Glomerular Filt Rate > 60 mL/min (>60); Globulin 2.5 g/dL (1.7-4.1); Glucose 146 mg/dL (80-110); HEMOLYSIS < 15 (0-50); Lipase 83 U/L (23-300); Potassium 3.9 mmol/L (3.4-5.1); Sodium 141 mmol/L (137-145); Total Protein 6.5 g/dL (6.3-8.2)
[2021-10-10 20:38] LABS: NT-proBNP (BNP-Adult 18+) 673 pg/mL (<450); Troponin I < 0.012 ng/mL (0.01-0.034)
[2021-10-10 20:40] LABS: Prothrombin Time 11.5 SECONDS (10.1-12.7)
[2021-10-10 20:43] LABS: PTT Partial Thromboplastin Tim 33 SECONDS (26.4-36.2)
[2021-10-10 20:49] LABS: COVID19 -Nasal RAPID Negative (Negative)
[2021-10-10 21:30] VITALS: BP 126/93; PULSE 83; RESP 18; O2SAT 94
--- NOTE | 2021-10-10 22:20 | ED.ARRPALP ---
HPI - Arrhythmia/Palpitations General Chief Complaint: Arrhythmia/Palpitations Stated Complaint: IRREGULAR HEART BEAT Time Seen by Provider: 10/10/21 19:43 Mode of arrival: Ambulatory Limitations: no limitations History of Present Illness HPI narrative: This is a 81 year old male with chronic persistent atrial fibrillation, history of heart failure, hypertension, patient states that he has chest discomfort but does not really describe it pain or pressure. He feels it when he walks around states it is a feeling that he gets that he feels. When asked to describe this he just describes it as a feeling. Patient denies any syncope, no shortness of breath, no diaphoresis, no nausea or vomiting, he had swelling in his lower extremities he states it is better after his hospitalization he was admitted on the for AFib, CHF and had echo, DVTs, abdominal ultrasound and serial troponins with no acute changes he had an EF of 50-55%, changes consistent with conduction abnormality but no wall motion abnormalities. He was unable to obtain a nuclear med stress test secondary to limited resources currently from critical lack of availability of ability to perform stress tests. Patient attempted to get his cardiology appointment today after discharge states he did not receive his antibiotic or the new dose of Lasix but took all of his other medications. He returned today as he lives out on the [facility] and thought he might be able to get his nuclear med stress test if he re-presented. Related Data Home Medications Medication Instructions Recorded Confirmed digoxin 125 mcg (0.125 mg) tablet 1 tab PO DAILY 09/30/21 10/08/21 lisinopril 5 mg tablet 1 tab PO DAILY 09/30/21 10/08/21 Adult Aspirin 81 mg DAILY 10/08/21 10/08/21 Previous Rx's Medication Instructions Recorded potassium chloride 10 mEq 10 meq PO DAILY #30 tabs 10/01/21 tablet,extended release carvedilol 12.5 mg tablet (Coreg) 12.5 mg PO DAILY #30 tabs 10/10/21 furosemide 40 mg tablet 40 mg PO DAILY #30 tabs 10/10/21 nitroglycerin 0.4 mg sublingual 0.4 mg sublingual [id number] PRN 10/10/21 tablet (Nitrostat) Chest Pain #30 tabs Allergies Allergy/AdvReac Type Severity Reaction Status Date / Time No Known Drug Allergies Allergy Verified 09/30/21 21:43 Review of Systems Review of Systems ROS Unobtainable: All systems reviewed & are unremarkable except as noted in HPI and below Patient History Medical History Chronic a-fib Congestive heart failure Hypertension Persistent atrial fibrillation with rapid ventricular response Tobacco use disorder, continuous Family History Mother Hypertension Father Heart attack Social History household members: none Smoking Status: Never smoker Smoking Status: Never smoker alcohol intake frequency: a few times a week Substance Use Type: does not use Exam Narrative Exam Narrative: GENERAL: Alert and oriented x three, male in mild distress HEENT: Head normocephalic, atraumatic, EOMI, pupils reactive, face symmetric, moist mucous membranes NECK: Supple, full range of motion CARDIOVASCULAR: Irregularly irregular rate and rhythm without murmurs, rubs or gallops. No JVD. Trace edema bilaterally. RESPIRATORY: Breath sounds equal bilaterally, no wheezes rales or rhonchi. ABDOMEN: Soft, nontender. Normoactive bowel sounds all 4 quadrants. No guarding or rebound, rigidity, no mass : No CVA tenderness EXTREMITIES: Normal range of motion, no clubbing or edema. Neurovascularly intact NEUROLOGICAL: Cranial nerves II through XII grossly intact. Moving all extremities SKIN: Warm, dry, no petechiae, no rashes or lesions. Initial Vital Signs Initial Vital Signs: Vital Signs Temperature 97.9 F 10/10/21 19:33 Pulse Rate 106 H 10/10/21 19:33 Respiratory Rate 16 10/10/21 19:33 Blood Pressure 121/59 L 10/10/21 19:33 Pulse Oximetry 96 10/10/21 19:33 Oxygen Delivery Method 10/10/21 19:33 Course Orders Ordered: ED Orders 10/10/21 22:34 EKG-12 Lead Stat 10/10/21 22:35 Trop I [Troponin I] Stat Discontinued Medications Carvedilol (Carvedilol 12.5 Mg Tablet) 12.5 mg PO NOW ONE Stop: 10/11/21 00:31 Last Admin: 10/11/21 00:54 Dose: Not Given Documented By: JEAN-CLAUDE Cephalexin HCl (Cephalexin 250 Mg Capsule) 500 mg PO NOW ONE Stop: 10/11/21 00:31 Last Admin: 10/11/21 00:47 Dose: 500 mg Documented By: JEAN-CLAUDE Furosemide (Furosemide 40 Mg Tablet) 40 mg PO NOW ONE Stop: 10/11/21 00:31 Last Admin: 10/11/21 00:47 Dose: 40 mg Documented By: JEAN-CLAUDE Vital Signs Vital signs: Vital Signs - 8 hr 10/10/21 23:00 10/11/21 00:42 10/11/21 04:00 Pulse Rate 70 86 Respiratory Rate 29 H Blood Pressure 127/60 133/66 110/70 Pulse Oximetry 96 98 Oxygen Delivery Method Room Air Room Air 10/11/21 05:12 Pulse Rate 73 Respiratory Rate Blood Pressure Pulse Oximetry 96 Oxygen Delivery Method Room Air MDM - Arrhythmia/Palpitations Lab Data Result diagrams: 10/10/21 19:55 10/10/21 19:55 Labs: Lab Results 10/10/21 10/10/21 10/10/21 Range/Units 19:55 19:55 19:55 WBC 5.5 (4.5-11.0) X10^3/uL RBC 3.44 L (4.5-5.9) X10^6/uL Hgb 12.0 L (13.5-17.5) g/dL Hct 34.7 L (41-53) % MCV 100.8 H (80-100) fL MCH 35.0 H (26-34) PG MCHC 34.7 (30-36) % RDW 12.7 (11.6-14.8) % Plt Count 142 L (150-400) X10^3/uL Neut % (Auto) 65.4 (50-75) % Lymph % (Auto) 21.4 L (25-40) % [place] % (Auto) 9.1 (3-14) % Eos % (Auto) 3.0 (2-4) % Baso % (Auto) 1.1 (0-2) % Neut # (Auto) 3600 (6458-5424) /uL Lymph # (Auto) 1200 (0172-6236) /uL [place] # (Auto) 500 (0-900) /uL Eos # (Auto) 200 (0-450) /uL Baso # (Auto) 100 (0-100) /uL PT 11.5 (10.1-12.7) SECONDS INR 1.0 (0.9-1.3) APTT 33 (26.4-36.2) SECONDS Sodium 141 (137-145) mmol/L Potassium 3.9 (3.4-5.1) mmol/L Chloride 102 (98-107) mmol/L Carbon Dioxide 31 (22-32) mmol/L BUN 18 (9-20) mg/dL Creatinine 0.77 (0.66-1.25) mg/dL Estimated GFR > 60 (>60) mL/min BUN/Creatinine Ratio 23.4 H (6-22) Glucose 146 H (80-110) mg/dL Calcium 8.6 (8.4-10.2) mg/dL Total Bilirubin 1.1 (0.2-1.3) mg/dL AST 24 (17-59) IU/L ALT 20 (<50) IU/L Alkaline Phosphatase 79 (38-126) U/L Total Creatine Kinase 74 (55-170) U/L CK-MB (CK-2) TNP CK-MB (CK-2) Rel Index TNP Troponin I < 0.012 (0.01-0.034) ng/mL NT-Pro-B Natriuret Pep 673 H (<450) pg/mL Total Protein 6.5 (6.3-8.2) g/dL Albumin 4.0 (3.5-5.0) g/dL Globulin 2.5 (1.7-4.1) g/dL Albumin/Globulin Ratio 1.6 (1.0-2.8) Lipase 83 (23-300) U/L SARS-CoV-2 (PCR) (Negative) 10/10/21 10/10/21 Range/Units 20:14 22:35 WBC (4.5-11.0) X10^3/uL RBC (4.5-5.9) X10^6/uL Hgb (13.5-17.5) g/dL Hct (41-53) % MCV (80-100) fL MCH (26-34) PG MCHC (30-36) % RDW (11.6-14.8) % Plt Count (150-400) X10^3/uL Neut % (Auto) (50-75) % Lymph % (Auto) (25-40) % [place] % (Auto) (3-14) % Eos % (Auto) (2-4) % Baso % (Auto) (0-2) % Neut # (Auto) (1248-5935) /uL Lymph # (Auto) (4634-4698) /uL [place] # (Auto) (0-900) /uL Eos # (Auto) (0-450) /uL Baso # (Auto) (0-100) /uL PT (10.1-12.7) SECONDS INR (0.9-1.3) APTT (26.4-36.2) SECONDS Sodium (137-145) mmol/L Potassium (3.4-5.1) mmol/L Chloride (98-107) mmol/L Carbon Dioxide (22-32) mmol/L BUN (9-20) mg/dL Creatinine (0.66-1.25) mg/dL Estimated GFR (>60) mL/min BUN/Creatinine Ratio (6-22) Glucose (80-110) mg/dL Calcium (8.4-10.2) mg/dL Total Bilirubin (0.2-1.3) mg/dL AST (17-59) IU/L ALT (<50) IU/L Alkaline Phosphatase (38-126) U/L Total Creatine Kinase (55-170) U/L CK-MB (CK-2) CK-MB (CK-2) Rel Index Troponin I < 0.012 (0.01-0.034) ng/mL NT-Pro-B Natriuret Pep (<450) pg/mL Total Protein (6.3-8.2) g/dL Albumin (3.5-5.0) g/dL Globulin (1.7-4.1) g/dL Albumin/Globulin Ratio (1.0-2.8) Lipase (23-300) U/L SARS-CoV-2 (PCR) Negative (Negative) Imaging Data Chest x-ray: Radiologist's Impresson: [address] [address] XRay Report Signed Patient: Khurram Olvera MR#: [id number] : 1940 Acct:[id number] Age/Sex: 81 / M Date of Service: 10/10/21 Loc: ED Accession Number: [id number] ?? Procedure: XR chest 1V Ordering Provider: Madyson Will D.O. PROCEDURE:? XR CHEST 1V ? INDICATIONS:? sob, irregular heart rate ? TECHNIQUE:? One view of the chest was acquired.? ? COMPARISON:? [facility], CR, XR CHEST 1V, 10/07/2021, 21:50. ? FINDINGS:? ? Surgical changes and devices:? None.? ? Lungs and pleura:? Lungs are clear.? No pleural effusions or pneumothorax.? ? Mediastinum:? Mediastinal contours are unchanged.? Heart size is prominently enlarged. ? Bones and chest wall:? No suspicious bony lesions.? Overlying soft tissues appear unremarkable.? ? IMPRESSION:? ? 1. No acute cardiopulmonary disease. ? 2. Prominent cardiomegaly redemonstrated.? ? ? Dictated by: Mauri Dao M.D. on 10/10/2021 at 21:02 ? ? Approved by: Mauri Dao M.D. on 10/10/2021 at 21:03?? ECG Data Attestation: I personally reviewed and interpreted this ECG as follows: Interpretation: AFib no acute ST changes depression in V6. Patient EKG from 10/07/2021 shows similar EKG except for V6 is a new change. EKG 2 shows AFib, rate 89 QRS of [address] depression in V6. No other acute changes noted. MDM Narrative Medical decision making narrative: This is an 81-year-old male who comes to the emergency department with complaint of recent discharge and unable to provide nuclear medicine stress test. Patient had all of his additional workup. Does not describe new or dynamic chest discomfort still has the same symptoms as before. He is had an echo, DVT ultrasound negative troponins which were repeated x2 and are still negative. EKG shows change at V6 only. Patient case discussed with hospitalist. We are critically short of new command stress test and will be unable to perform 1 in the next 24 hours. Patient was offered observation with serial troponins which he defers. He will not be able to leave and return home until tomorrow morning secondary to living in the [facility]. Patient was unable to fill his prescription today while traveling to and from for his scheduled cardiology appointment which was canceled. He was given his recent medications that were just started. Patient had his home medications already with him. Discharge Plan Departure Patient Disposition: Home Clinical Impression: A-fib Instructions: DI for Atrial Fibrillation Activity Restrictions/Additional Instructions: Follow-up for a nuclear medicine stress test as an outpatient. Contact your primary care to have this ordered. There is no availability tomorrow to have one obtained. supervisor photoengraving your prescriptions as written by the hospitalist and start these tomorrow. If you have worsening symptoms please return to the emergency department, you are welcome to return at any time. Prescriptions: No Action lisinopril 5 mg tablet 1 tab PO DAILY Label Comments: TAKE ONE TABLET BY MOUTH EVERY DAY digoxin 125 mcg (0.125 mg) tablet 1 tab PO DAILY Label Comments: TAKE ONE TABLET BY MOUTH EVERY DAY potassium chloride 10 mEq tablet extended release 10 meq PO DAILY Qty: 30 0RF Adult Aspirin 81 mg DAILY furosemide 40 mg Tablet 40 mg PO DAILY Qty: 30 0RF carvedilol [Coreg] 12.5 mg Tablet 12.5 mg PO DAILY Qty: 30 0RF nitroglycerin [Nitrostat] 0.4 mg Tablet, Sublingual 0.4 mg sublingual [id number] PRN (Reason: Chest Pain) Qty: 30 0RF
[2021-10-10 23:00] VITALS: BP 127/60; PULSE 70; O2SAT 96
[2021-10-10 23:12] LABS: Troponin I < 0.012 ng/mL (0.01-0.034)
[2021-10-11 00:42] VITALS: BP 133/66; PULSE 86; RESP 29; O2SAT 98
[2021-10-11] MEDS: FUROSEMIDE 40 MG TABLET PO (00:47)
[2021-10-11] MEDS: cephALEXin 250 MG CAPSULE 500 MG PO (00:47)
[2021-10-11 04:00] VITALS: BP 110/70
[2021-10-11 05:12] VITALS: PULSE 73; O2SAT 96
[2021-10-11 06:14] VITALS: BP 151/69; PULSE 67; O2SAT 99
== END 2021-10-11 06:16 | disposition home or self-care (01) ==
PROVIDERS: Emergency Provider Emergency Medicine
DX: I48.91 Unspecified atrial fibrillation (principal); I50.9 Heart failure, unspecified; Z20.822 Contact with and (suspected) exposure to COVID-19
CPT/HCPCS: 36415; 71045; 80053; 82550; 83690; 83880; 84484; 85025; 85610; 85730; 87635; 93005; 93010; 99284; C9803

== ENCOUNTER 2021-10-12 19:18 | Emergency (ER) | payer MEDICARE, SELFPAY ==
[2021-10-08 00:18] VITALS: BMI 24.0
[2021-10-12] VITALS (8 sets, daily range): BP systolic 144–156; BP diastolic 70–93; PULSE 73–89; RESP 12–22; TEMP 36.1; O2SAT 97–100; BMI 25.0
--- NOTE | 2021-10-12 19:34 | DI.RAD.S_ITS ---
PROCEDURE: XR CHEST 1V INDICATIONS: chest pain TECHNIQUE: One view of the chest was acquired. COMPARISON: [facility], CR, XR CHEST 1V, 10/10/2021, 20:01. FINDINGS: Surgical changes and devices: None. Lungs and pleura: Lungs are clear. No pleural effusions or pneumothorax. Mediastinum: Mediastinal contours appear normal. Heart is moderately enlarged. Bones and chest wall: No suspicious bony lesions. Overlying soft tissues appear unremarkable. IMPRESSION: 1. Moderate cardiomegaly. 2. No acute cardiopulmonary disease. Dictated by: Suly Puentes M.D. on 10/12/2021 at 20:05 Approved by: Suly Puentes M.D. on 10/12/2021 at 20:05
--- NOTE | 2021-10-12 19:42 | ED_ITS ---
HPI - Chest Pain General Chief Complaint: Chest Pain Stated Complaint: short of breath, heart issues Time Seen by Provider: 10/12/21 19:33 Mode of arrival: Family Vehicle History of Present Illness HPI narrative: 81M nonsmoker with history of chronic persistent Afib on anticoagulation with use of digoxin, CHF, HTN presents with fatigue. He was recently seen and evaluated at our facility and admitted for a few days with the diagnosis of acute CHF and chest pain. EKGs and cardiac enzymes were unremarkable. He was diuresed and plan was to obtain a nuclear stress test however it was unable to be obtained. Patient was discharged after consultation with Cardiology and [place] with the plan to obtain a stress test as an outpatient. He returned later that night for repeat evaluation, and after another evaluation he was discharged home. His recent echo showed an EF of 50-55%, changes consistent with conduction abnormality but no wall motion abnormalities. Denies any active pain and has had no exertional symptoms. He is had no runny nose, sore throat or cough. He is had no fever or chills. He denies nausea, vomiting or diarrhea. He admittedly feels anxious. Related Data Home Medications Medication Instructions Recorded Confirmed digoxin 125 mcg (0.125 mg) tablet 1 tab PO DAILY 09/30/21 10/08/21 lisinopril 5 mg tablet 1 tab PO DAILY 09/30/21 10/08/21 Adult Aspirin 81 mg DAILY 10/08/21 10/08/21 Previous Rx's Medication Instructions Recorded potassium chloride 10 mEq 10 meq PO DAILY #30 tabs 10/01/21 tablet,extended release carvedilol 12.5 mg tablet (Coreg) 12.5 mg PO DAILY #30 tabs 10/10/21 furosemide 40 mg tablet 40 mg PO DAILY #30 tabs 10/10/21 nitroglycerin 0.4 mg sublingual 0.4 mg sublingual [id number] PRN 10/10/21 tablet (Nitrostat) Chest Pain #30 tabs Allergies Allergy/AdvReac Type Severity Reaction Status Date / Time No Known Drug Allergies Allergy Verified 10/12/21 19:30 Review of Systems Review of Systems Narrative: GENERAL: See HPI HEENT: Denies sinus pain, ear pain, sore throat, difficulty swallowing, dizziness. RESPIRATORY: See HPI CARDIOVASCULAR: See HPI GASTROINTESTINAL: See HPI : Denies dysuria, frequency, incontinence, hematuria, urinary retention. MUSCULOSKELETAL: denies weakness, joint pain, or bony pain SKIN: Denies rash, skin lesions, or other NEUROLOGIC: Denies weakness, headache, numbness, change in speech, confusion, seizures, incoordination. PSYCHIATRIC: No concerning psychosocial issues. 12 point review of systems is negative except for those stated above Patient History Medical History Chronic a-fib Congestive heart failure Hypertension Persistent atrial fibrillation with rapid ventricular response Tobacco use disorder, continuous Family History Mother Hypertension Father Heart attack Social History household members: none Smoking Status: Never smoker Smoking Status: Never smoker alcohol intake frequency: a few times a week Substance Use Type: does not use Exam Narrative Exam Narrative: GENERAL: [81] year old patient appears stated age. Well-developed patient, in mild distress. Very anxious HEAD: Atraumatic. Normocephalic. EYES: Pupils equal round and reactive. Extraocular motions intact. No scleral icterus. No injection or drainage. ENT: Nose without bleeding, purulent drainage. Throat without erythema, tonsillar hypertrophy or exudate. Airway patent. NECK: Trachea midline. Non tender CARDIOVASCULAR: Irregular rate and rhythm rhythm without murmurs, gallops, or rubs. RESPIRATORY: Clear to auscultation. Breath sounds equal bilaterally. No wheezes, rales, or rhonchi. GASTROINTESTINAL: Abdomen soft, non-tender, nondistended. EXTREMITIES: 1+ pitting edema bilateral lower extremities BACK: Nontender without deformity or crepitance. No flank tenderness. NEURO: AOx3. SKIN: No rash or erythema of visible areas Initial Vital Signs Initial Vital Signs: Vital Signs Temperature 97.0 F L 10/12/21 19:24 Pulse Rate 77 10/12/21 19:24 Respiratory Rate 16 10/12/21 19:24 Blood Pressure 152/93 H 10/12/21 19:24 Pulse Oximetry 97 10/12/21 19:24 Oxygen Delivery Method 10/12/21 19:24 Course Orders Ordered: ED Orders 10/12/21 20:57 CT angio chest PE protocol Stat Discontinued Medications Aspirin (Aspirin 81 Mg Chew Tab) 324 mg PO NOW ONE Stop: 10/12/21 19:34 Last Admin: 10/12/21 20:07 Dose: 324 mg Documented By: NINA Sodium Chloride (Normal Saline 0.9%) 1,000 mls @ 150 mls/hr IV CONT SWATHI Last Infusion: 10/12/21 23:06 Dose: 0 mls/hr Documented By: Admin: 10/12/21 20:07 Dose: 150 mls/hr Documented By: NINA Vital Signs Vital signs: Vital Signs - 8 hr 10/12/21 23:01 10/12/21 21:00 10/12/21 21:01 Pulse Rate 89 75 Respiratory Rate 22 16 Blood Pressure 144/88 H 156/74 H Pulse Oximetry 100 99 Oxygen Delivery Method Room Air 10/12/21 21:01 10/12/21 21:30 Pulse Rate 78 77 Respiratory Rate 12 21 Blood Pressure Pulse Oximetry 99 100 Oxygen Delivery Method MDM - Chest Pain Lab Data Result diagrams: 10/12/21 19:35 10/12/21 19:35 Labs: Lab Results 10/12/21 10/12/21 10/12/21 Range/Units 19:35 19:35 19:35 WBC 5.4 (4.5-11.0) X10^3/uL RBC 3.27 L (4.5-5.9) X10^6/uL Hgb 11.5 L (13.5-17.5) g/dL Hct 32.7 L (41-53) % MCV 99.9 (80-100) fL MCH 35.2 H (26-34) PG MCHC 35.2 (30-36) % RDW 12.8 (11.6-14.8) % Plt Count 128 L (150-400) X10^3/uL Neut % (Auto) 60.8 (50-75) % Lymph % (Auto) 22.5 L (25-40) % Hale % (Auto) 11.9 (3-14) % Eos % (Auto) 4.0 (2-4) % Baso % (Auto) 0.8 (0-2) % Neut # (Auto) 3300 (0748-9525) /uL Lymph # (Auto) 1200 (4209-8223) /uL Hale # (Auto) 600 (0-900) /uL Eos # (Auto) 200 (0-450) /uL Baso # (Auto) 0 (0-100) /uL D-Dimer 661 H (<230) ng/mL Sodium 135 L (137-145) mmol/L Potassium 3.9 (3.4-5.1) mmol/L Chloride 99 (98-107) mmol/L Carbon Dioxide 26 (22-32) mmol/L BUN 16 (9-20) mg/dL Creatinine 0.73 (0.66-1.25) mg/dL Estimated GFR > 60 (>60) mL/min BUN/Creatinine Ratio 21.9 (6-22) Glucose 124 H (80-110) mg/dL Calcium 8.4 (8.4-10.2) mg/dL Total Bilirubin 1.6 H (0.2-1.3) mg/dL AST 27 (17-59) IU/L ALT 20 (<50) IU/L Alkaline Phosphatase 90 (38-126) U/L Total Creatine Kinase 81 (55-170) U/L CK-MB (CK-2) TNP CK-MB (CK-2) Rel Index TNP Troponin I < 0.012 (0.01-0.034) ng/mL NT-Pro-B Natriuret Pep 622 H (<450) pg/mL Total Protein 6.5 (6.3-8.2) g/dL Albumin 4.0 (3.5-5.0) g/dL Globulin 2.5 (1.7-4.1) g/dL Albumin/Globulin Ratio 1.6 (1.0-2.8) Lipase 84 (23-300) U/L Imaging Data Chest x-ray: Radiologist's Impression: Close Chest X-Ray (Signed) Suly Puentes - 10/12/21 Chest X-Ray (Signed) Mauri Dao - 10/10/21 Echocardiogram Ultrasound (Signed) Duc Briggs - 10/08/21 Vascular Ultrasound (Signed) Osmar Parish - 10/08/21 Abdomen Ultrasound (Signed) Osmar Parish - 10/08/21 Telemetry Strips 10/07/21 Chest X-Ray (Signed) Mauri Dao - 10/07/21 Chest X-Ray (Signed) Mauri Dao - 09/30/21 Launch?[address] [address] XRay Report Signed Patient: Khurram Olvera MR#: [id number] : 1940 Acct:[id number] Age/Sex: 81 / M Date of Service: 10/12/21 Loc: ED Accession Number: [id number] ?? Procedure: XR chest 1V Ordering Provider: Lazaro Kimble D.O. PROCEDURE:? XR CHEST 1V ? INDICATIONS:? chest pain ? TECHNIQUE:? One view of the chest was acquired.? ? COMPARISON:[facility], , XR CHEST 1V, 10/10/2021, 20:01. ? FINDINGS:? ? Surgical changes and devices:? None.? ? Lungs and pleura:? Lungs are clear.? No pleural effusions or pneumothorax.? ? Mediastinum:? Mediastinal contours appear normal.? Heart is moderately enlarged.? ? Bones and chest wall:? No suspicious bony lesions.? Overlying soft tissues appear unremarkable.? ? IMPRESSION:? ? 1. Moderate cardiomegaly. 2. No acute cardiopulmonary disease.? ? ? Dictated by: Suly Puentes M.D. on 10/12/2021 at 20:05 ? ? Approved by: Suly Puentes M.D. on 10/12/2021 at 20:05 ? CT scan - chest: Radiologist's Impression: Close Chest CTA (Signed) Mauri Dao - 10/12/21 Chest X-Ray (Signed) Suly Puentes - 10/12/21 Launch?[address] [address] [address] Scan Report Signed Patient: Khurram Olvera MR#: [id number] : 1940 Acct:[id number] Age/Sex: 81 / M Date of Service: 10/12/21 Loc: ED Accession Number: [id number] ?? Procedure: CT angio chest PE protocol Ordering Provider: Lazaro Kimble D.O. PROCEDURE:? CT ANGIO CHEST PE PROTOCOL ? INDICATIONS:? chest pain, SOB, elevated Dimer, hospitalizations ? TECHNIQUE:? After the administration of intravenous contrast, 2 mm thick sections acquired from the pulmonary apices to the posterior costophrenic angles.? 3-dimensional maximum intensity projection (MIP) coronal and sagittal reformats were then acquired through the thorax.? For radiation dose reduction, the following was used:? automated exposure control, adjustment of mA and/or kV according to patient size.? ? COMPARISON:? None. ? FINDINGS:? Image quality:? Excellent.? ? Pulmonary arteries:? Pulmonary arteries are normal in size, and demonstrate no intraluminal filling defects to suggest central pulmonary embolism.? ? Lower Neck: No lymphadenopathy by size criteria. Thyroid:? Visualized thyroid demonstrates no discrete nodules. Axillae: No lymphadenopathy by size criteria. Chest Wall:? Unremarkable.? Bones: Visualized osseous structures demonstrate no suspicious lesions. ? Lungs and Airways:? No acute consolidation.? There is atelectasis and scarring in the lungs bilaterally.? No suspicious pulmonary nodules. The trachea and central airways are patent. Pleura: No pneumothorax or pleural effusions.? ? Heart: Heart size is markedly enlarged.? No pericardial effusion. Thoracic Vessels: The aorta and pulmonary arteries are normal in size.? Mediastinum and Vannessa: No lymphadenopathy by size criteria. Esophagus: No wall thickening. No hiatal hernia. Abdomen:? Visualized upper abdominal solid organs appear normal in the early arterial phase of enhancement.? ? IMPRESSION:? ? 1. No evidence of pulmonary embolism. ? 2. No acute airspace consolidation. ? 3. Marked cardiomegaly.? ? ? Dictated by: Mauri Dao M.D. on 10/12/2021 at 22:25 ? ? Approved by: Mauri Dao M.D. on 10/12/2021 at 22:28 ? ECG Data Interpretation: Atrial fibrillation with rate of 76, no ST segmental elevation or depression, no significantly abnormal T-waves. MDM Narrative Medical decision making narrative: Multiple causes of chest pain considered including KS, PE, pneumothorax, pneumonia, aortic dissection, and pleurisy. Patient reports no radiation, no diaphoresis, no provocation with exertion, and no vomiting. Troponin unremarkable, EKG nonischemic. Pulmonary embolism considered but thought un likely given lack of findings on CT angiogram. There are no signs of pneumonia and patient has no sign of respiratory distress. He does have a slightly elevated BNP and some swelling in his lower extremities hence my decision to discuss increasing his diuretic for the next few days. 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 Return precautions are discussed and questions have been answered to his apparent satisfaction Discharge Plan Departure Patient Disposition: Home Clinical Impression: A-fib, Acute congestive heart failure Instructions: DI for Heart Failure Activity Restrictions/Additional Instructions: *You have been diagnosed with [atypical chest pain and slight congestive heart failure. Thankfully the remainder of your labs, EKG, imaging are all reassuring and there is no evidence of heart attack, pneumonia, collapsed lung, blood clot or other diagnosis that would require a specific or immediate intervention] *What to do: *Please take an extra furosemide 40 mg daily for the next 3 days to help remove some of the extra fluid, then return to your normal dosing, otherwise take her medications as previously prescribed [ ] New medication prescriptions sent to your pharmacy: [ ] [ ] New medication written as a paper prescription [x ] No new medications given *Please follow up with your primary auto painter helper in 2-3 days, call for an appointment. Let them know you were seen in the Emergency Department and that we ask that you be seen in follow up and that your care team has been trying to get you scheduled for a stress test. *Return to Emergency Department if you should have any new, worsening or concerning symptoms, such as [fever greater than 101 F, shaking chills, worsening pain, persistent vomiting or other bothersome symptoms] Prescriptions: No Action lisinopril 5 mg tablet 1 tab PO DAILY Label Comments: TAKE ONE TABLET BY MOUTH EVERY DAY digoxin 125 mcg (0.125 mg) tablet 1 tab PO DAILY Label Comments: TAKE ONE TABLET BY MOUTH EVERY DAY potassium chloride 10 mEq tablet extended release 10 meq PO DAILY Qty: 30 0RF Adult Aspirin 81 mg DAILY furosemide 40 mg Tablet 40 mg PO DAILY Qty: 30 0RF carvedilol [Coreg] 12.5 mg Tablet 12.5 mg PO DAILY Qty: 30 0RF nitroglycerin [Nitrostat] 0.4 mg Tablet, Sublingual 0.4 mg sublingual [id number] PRN (Reason: Chest Pain) Qty: 30 0RF Visit Report Forms: Patient Portal/API
[2021-10-12 19:46] LABS: Add Manual Diff / Slide Review NO; Basophils Absolute Auto 0 /uL (0-100); Basophils Percent Auto 0.8 % (0-2); Eosinophils Absolute Auto 200 /uL (0-450); Hematocrit 32.7 % (41-53); Hemoglobin 11.5 g/dL (13.5-17.5); Lymphocytes Absolute Auto 1200 /uL (1100-4500); Lymphocytes Percent Auto 22.5 % (25-40); Mean Corpuscular HGB Conc 35.2 % (30-36); Mean Corpuscular Hemoglobin 35.2 PG (26-34); Mean Corpuscular Volume 99.9 fL (80-100); Monocytes Absolute Auto 600 /uL (0-900); Monocytes Percent Auto 11.9 % (3-14); Neutrophils Absolute Auto 3300 /uL (1500-7000); Neutrophils Percent Auto 60.8 % (50-75); Platelet Count 128 X10^3/uL (150-400); Red Blood Cell Count 3.27 X10^6/uL (4.5-5.9); Red Cell Distribution Width 12.8 % (11.6-14.8); White Blood Cell Count 5.4 X10^3/uL (4.5-11.0)
[2021-10-12 19:58] LABS: Alanine Aminotransferase 20 IU/L (<50); Albumin Globulin Ratio 1.6 (1.0-2.8); Alkaline Phosphatase 90 U/L (38-126); Aspartate Aminotransferase 27 IU/L (17-59); BUN Creatinine Ratio 21.9 (6-22); Bilirubin Total 1.6 mg/dL (0.2-1.3); Blood Urea Nitrogen 16 mg/dL (9-20); Calcium 8.4 mg/dL (8.4-10.2); Carbon Dioxide 26 mmol/L (22-32); Chloride 99 mmol/L (98-107); Creatine Kinase 81 U/L (55-170); Estimated Glomerular Filt Rate > 60 mL/min (>60); Globulin 2.5 g/dL (1.7-4.1); Glucose 124 mg/dL (80-110); HEMOLYSIS < 15 (0-50); Lipase 84 U/L (23-300); Potassium 3.9 mmol/L (3.4-5.1); Sodium 135 mmol/L (137-145); Total Protein 6.5 g/dL (6.3-8.2)
[2021-10-12 20:00] LABS: D Dimer 661 ng/mL (<230)
[2021-10-12] MEDS: ASPIRIN 81 MG CHEW TAB 324 MG PO (20:07)
[2021-10-12] MEDS: SODIUM CHLORIDE 0.9% 1,000 ML 150 ML IV (20:07)
[2021-10-12 20:10] LABS: NT-proBNP (BNP-Adult 18+) 622 pg/mL (<450); Troponin I < 0.012 ng/mL (0.01-0.034)
--- NOTE | 2021-10-12 20:57 | DI.CT.S_ITS ---
PROCEDURE: CT ANGIO CHEST PE PROTOCOL INDICATIONS: chest pain, SOB, elevated Dimer, hospitalizations TECHNIQUE: After the administration of intravenous contrast, 2 mm thick sections acquired from the pulmonary apices to the posterior costophrenic angles. 3-dimensional maximum intensity projection (MIP) coronal and sagittal reformats were then acquired through the thorax. For radiation dose reduction, the following was used: automated exposure control, adjustment of mA and/or kV according to patient size. COMPARISON: None. FINDINGS: Image quality: Excellent. Pulmonary arteries: Pulmonary arteries are normal in size, and demonstrate no intraluminal filling defects to suggest central pulmonary embolism. Lower Neck: No lymphadenopathy by size criteria. Thyroid: Visualized thyroid demonstrates no discrete nodules. Axillae: No lymphadenopathy by size criteria. Chest Wall: Unremarkable. Bones: Visualized osseous structures demonstrate no suspicious lesions. Lungs and Airways: No acute consolidation. There is atelectasis and scarring in the lungs bilaterally. No suspicious pulmonary nodules. The trachea and central airways are patent. Pleura: No pneumothorax or pleural effusions. Heart: Heart size is markedly enlarged. No pericardial effusion. Thoracic Vessels: The aorta and pulmonary arteries are normal in size. Mediastinum and Vannessa: No lymphadenopathy by size criteria. Esophagus: No wall thickening. No hiatal hernia. Abdomen: Visualized upper abdominal solid organs appear normal in the early arterial phase of enhancement. IMPRESSION: 1. No evidence of pulmonary embolism. 2. No acute airspace consolidation. 3. Marked cardiomegaly. Dictated by: Mauri Dao M.D. on 10/12/2021 at 22:25 Approved by: Mauri Dao M.D. on 10/12/2021 at 22:28
== END 2021-10-12 23:01 | disposition home or self-care (01) ==
PROVIDERS: Emergency Provider Emergency Medicine
DX: I48.91 Unspecified atrial fibrillation (principal); I50.9 Heart failure, unspecified; Z79.01 Long term (current) use of anticoagulants
CPT/HCPCS: 71045; 71275; 80053; 82550; 83690; 83880; 84484; 85025; 85379; 93005; 93010; 96360; 96361; 99284; Q9967

== ENCOUNTER 2021-10-17 20:39 | Emergency (ER) | payer MEDICARE, SELFPAY ==
[2021-10-08 00:18] VITALS: BMI 24.0
[2021-10-17 20:40] VITALS: BP 161/70; PULSE 92; RESP 18; TEMP 36.8; O2SAT 98; BMI 25.0
--- NOTE | 2021-10-17 21:05 | DI.RAD.S_ITS ---
PROCEDURE: XR CHEST 2V INDICATIONS: Chest pain TECHNIQUE: 2 views of the chest were acquired. COMPARISON: [facility], , XR CHEST 1V, 10/12/2021, 19:45. FINDINGS: Cephalization of pulmonary vessels with increased interstitial markings in the central/perihilar lungs. Mild cardiomegaly similar to the prior study. No airspace opacity. No visible pleural effusion or evidence of pneumothorax. IMPRESSION: Cardiomegaly with pulmonary vascular congestion and mild interstitial edema. Dictated by: Armaan Bishop M.D. on 10/17/2021 at 21:46 Approved by: Armaan Bishop M.D. on 10/17/2021 at 21:47
--- NOTE | 2021-10-17 21:15 | ED.ARRPALP ---
HPI - Arrhythmia/Palpitations General Chief Complaint: Arrhythmia/Palpitations Stated Complaint: HEART ISSUES SWELLING OF LEGS Time Seen by Provider: 10/17/21 21:15 Source: patient Mode of arrival: Ambulatory History of Present Illness HPI narrative: 81M nonsmoker with history of chronic persistent Afib on anticoagulation with use of digoxin, CHF, HTN presents with swelling in his bilateral lower extremities. He has been to our facility multiple times in the past week under relatively similar circumstances. He was seen on October 01 and diagnosed with acute congestive heart failure and started on diuretics. He returned less than a week later with increasing swelling and redness of his lower extremities and was admitted for chest pain, CHF and possible cellulitis. He was diuresed and did quite well and had an unremarkable ultrasound. There was an attempt to obtain a stress test but there on able due to staffing. There were attempts to coordinate with cardiology and [place] and the day of his discharge he contacted Cardiology in [place] and they were unable to immediately get him a stress test and redirected him here. He presented to the emergency department again that evening hoping that we could perform a stress test that night. He had a complete and thorough evaluation and found to be in no distress and was discharged with appropriate return precautions. He returned again a few days later and had another workup and had no admission criteria, he was diuresed and discharged. He presents today stating that the Lasix is not working in his lower extremities are swollen. He states he gets short of breath when he exerts himself but denies any chest pain, pressure, or heaviness. He denies diaphoresis, increased fatigue, N/V. Related Data Home Medications Medication Instructions Recorded Confirmed digoxin 125 mcg (0.125 mg) tablet 1 tab PO DAILY 09/30/21 10/08/21 lisinopril 5 mg tablet 1 tab PO DAILY 09/30/21 10/08/21 Adult Aspirin 81 mg DAILY 10/08/21 10/08/21 Previous Rx's Medication Instructions Recorded potassium chloride 10 mEq 10 meq PO DAILY #30 tabs 10/01/21 tablet,extended release carvedilol 12.5 mg tablet (Coreg) 12.5 mg PO DAILY #30 tabs 10/10/21 furosemide 40 mg tablet 40 mg PO DAILY #30 tabs 10/10/21 nitroglycerin 0.4 mg sublingual 0.4 mg sublingual [id number] PRN 10/10/21 tablet (Nitrostat) Chest Pain #30 tabs Allergies Allergy/AdvReac Type Severity Reaction Status Date / Time No Known Drug Allergies Allergy Verified 10/12/21 19:30 Review of Systems Review of Systems Narrative: GENERAL: Denies chills, fatigue, malaise, fever, sweats. HEENT: Denies sinus pain, ear pain, sore throat, difficulty swallowing, dizziness. RESPIRATORY: See HPI. CARDIOVASCULAR: See HPI GASTROINTESTINAL: Denies nausea, vomiting, abdominal pain, diarrhea, constipation, melena. : Denies dysuria, frequency, incontinence, hematuria, urinary retention. MUSCULOSKELETAL: denies weakness, joint pain, or bony pain SKIN: Denies rash, skin lesions, or other NEUROLOGIC: Denies weakness, headache, numbness, change in speech, confusion, seizures, incoordination. PSYCHIATRIC: No concerning psychosocial issues. 12 point review of systems is negative except for those stated above Patient History Medical History Chronic a-fib Congestive heart failure Hypertension Persistent atrial fibrillation with rapid ventricular response Tobacco use disorder, continuous Family History Mother Hypertension Father Heart attack Social History household members: none Smoking Status: Never smoker Smoking Status: Never smoker alcohol intake frequency: a few times a week Substance Use Type: does not use Exam Narrative Exam Narrative: GENERAL: [81] year old patient appears stated age. Well-developed patient, in mild distress. HEAD: Atraumatic. Normocephalic. EYES: Pupils equal round and reactive. Extraocular motions intact. No scleral icterus. No injection or drainage. ENT: Nose without bleeding, purulent drainage. Throat without erythema, tonsillar hypertrophy or exudate. Airway patent. NECK: Trachea midline. Non tender CARDIOVASCULAR: Irregularly irregular rhythm without murmurs, gallops, or rubs. RESPIRATORY: No significant work of breathing, tachypnea, use of accessory muscles or hypoxemia GASTROINTESTINAL: Abdomen soft, non-tender, nondistended. EXTREMITIES: 1+ pitting edema bilateral lower extremities with evidence of chronic venous stasis BACK: Nontender without deformity or crepitance. No flank tenderness. NEURO: AOx3. SKIN: No rash or erythema of visible areas Initial Vital Signs Initial Vital Signs: Vital Signs Temperature 98.2 F 10/17/21 20:40 Pulse Rate 92 H 10/17/21 20:40 Respiratory Rate 18 10/17/21 20:40 Blood Pressure 161/70 H 10/17/21 20:40 Pulse Oximetry 98 10/17/21 20:40 Oxygen Delivery Method 10/17/21 20:40 Course Orders Ordered: Discontinued Medications Furosemide (Furosemide 40 Mg/4 Ml Vial) 40 mg IV NOW ONE Stop: 10/18/21 00:34 Last Admin: 10/18/21 00:39 Dose: 40 mg Documented By: EB Reevaluation(s) Reevaluation #1: Patient is making significant dilute urine after Lasix, over 1.5 L at this point, he is in no respiratory distress Vital Signs Vital signs: Vital Signs - 8 hr 10/17/21 21:22 10/18/21 00:04 10/18/21 00:02 Pulse Rate 88 78 71 Respiratory Rate 18 17 21 Blood Pressure 164/69 H 168/87 H Pulse Oximetry 98 97 100 Oxygen Delivery Method Room Air Room Air 10/18/21 00:30 10/18/21 00:30 10/18/21 01:00 Pulse Rate 71 92 H Respiratory Rate Blood Pressure 170/79 H Pulse Oximetry 100 90 L Oxygen Delivery Method 10/18/21 01:30 10/18/21 02:00 Pulse Rate 71 75 Respiratory Rate Blood Pressure Pulse Oximetry 100 100 Oxygen Delivery Method MDM - Arrhythmia/Palpitations Lab Data Result diagrams: 10/17/21 21:00 10/17/21 21:00 Labs: Lab Results 10/17/21 10/17/21 10/17/21 Range/Units 21:00 21:00 21:00 WBC 5.0 (4.5-11.0) X10^3/uL RBC 3.14 L (4.5-5.9) X10^6/uL Hgb 11.0 L (13.5-17.5) g/dL Hct 31.6 L (41-53) % MCV 100.6 H (80-100) fL MCH 35.0 H (26-34) PG MCHC 34.8 (30-36) % RDW 12.5 (11.6-14.8) % Plt Count 126 L (150-400) X10^3/uL Neut % (Auto) 71.3 (50-75) % Lymph % (Auto) 14.4 L (25-40) % [place] % (Auto) 7.3 (3-14) % Eos % (Auto) 3.3 (2-4) % Baso % (Auto) 3.7 H (0-2) % Neut # (Auto) 3600 (9172-0672) /uL Lymph # (Auto) 700 L (3592-7040) /uL [place] # (Auto) 400 (0-900) /uL Eos # (Auto) 200 (0-450) /uL Baso # (Auto) 200 H (0-100) /uL Sodium 136 L (137-145) mmol/L Potassium 3.8 (3.4-5.1) mmol/L Chloride 102 (98-107) mmol/L Carbon Dioxide 21 L (22-32) mmol/L BUN 12 (9-20) mg/dL Creatinine 0.76 (0.66-1.25) mg/dL Estimated GFR > 60 (>60) mL/min BUN/Creatinine Ratio 15.8 (6-22) Glucose 76 L (80-110) mg/dL Calcium 8.3 L (8.4-10.2) mg/dL Magnesium 1.9 (1.6-2.3) mg/dL Total Bilirubin 2.2 H (0.2-1.3) mg/dL AST 31 (17-59) IU/L ALT 26 (<50) IU/L Alkaline Phosphatase 93 (38-126) U/L Total Creatine Kinase 100 (55-170) U/L CK-MB (CK-2) TNP CK-MB (CK-2) Rel Index TNP Troponin I < 0.012 (0.01-0.034) ng/mL NT-Pro-B Natriuret Pep 992 H (<450) pg/mL Total Protein 6.3 (6.3-8.2) g/dL Albumin 3.9 (3.5-5.0) g/dL Globulin 2.4 (1.7-4.1) g/dL Albumin/Globulin Ratio 1.6 (1.0-2.8) Lipase 52 (23-300) U/L Imaging Data Chest x-ray: Radiologist's Impresson: [address] [id number] XRay Report Signed Patient: Khurram Olvera MR#: [id number] : 1940 Acct:[id number] Age/Sex: 81 / M Date of Service: 10/17/21 Loc: ED Accession Number: [id number] ?? Procedure: XR chest 2V Ordering Provider: Lazaro Kimble D.O. PROCEDURE:? XR CHEST 2V ? INDICATIONS:? Chest pain ? TECHNIQUE:? 2 views of the chest were acquired.? ? COMPARISON:? [facility], CR, XR CHEST 1V, 10/12/2021, 19:45. ? FINDINGS:? ? Cephalization of pulmonary vessels with increased interstitial markings in the central/perihilar lungs.? Mild cardiomegaly similar to the prior study.? No airspace opacity.? No visible pleural effusion or evidence of pneumothorax. ? IMPRESSION:? Cardiomegaly with pulmonary vascular congestion and mild interstitial edema. ? ? Dictated by: Armaan Bishop M.D. on 10/17/2021 at 21:46 ? ? Approved by: Armaan Bishop M.D. on 10/17/2021 at 21:47 ? MDM Narrative Medical decision making narrative: Multiple etiologies for patient's symptoms considered including: [Acute CHF versus pneumonia versus [place] Multiple causes of chest pain considered including [place], PE, pneumothorax, pneumonia, aortic dissection, and pleurisy. Patient reports no radiation, no diaphoresis, no provocation with exertion, and no vomiting. No ischemic change on EKG, no chest pain, negative troponin] Patient's symptoms improved over duration of stay with above-stated therapies. Findings and discharge diagnosis discussed with patient/family followed by verbalization of understanding Return precautions discussed with patient/family whom verbalize understanding. Discharge Plan Departure Patient Disposition: Home Clinical Impression: Acute CHF Instructions: DI for Heart Failure Activity Restrictions/Additional Instructions: *You have been diagnosed with [acute CHF. Thankfully your history and physical exam as well as vital signs, labs and chest x-ray are reassuring. There is no indication for hospitalization at this time] *What to do: *Please increase your Lasix to 40 mg twice daily, otherwise take your medications as previously instructed without change [ ] New medication prescriptions sent to your pharmacy: [ ] [ ] New medication written as a paper prescription [ ] No new medications given *Please follow up with your primary care provider in 2-3 days, call for an appointment. Let them know you were seen in the Emergency Department and that we ask that you be seen in follow up. We will electronically transmit a record of today's note if your PCP is in our system *If you do not have a primary care provider please contact the [facility] Resource line at [phone]. They will ask some questions about your medical history and help get you set up with a doctor in the community. *Return to Emergency Department if you should have any new, worsening or concerning symptoms, such as [fever greater than 101 F, shaking chills, worsening pain, persistent vomiting or other bothersome symptoms] Prescriptions: No Action lisinopril 5 mg tablet 1 tab PO DAILY Label Comments: TAKE ONE TABLET BY MOUTH EVERY DAY digoxin 125 mcg (0.125 mg) tablet 1 tab PO DAILY Label Comments: TAKE ONE TABLET BY MOUTH EVERY DAY potassium chloride 10 mEq tablet extended release 10 meq PO DAILY Qty: 30 0RF Adult Aspirin 81 mg DAILY furosemide 40 mg Tablet 40 mg PO DAILY Qty: 30 0RF carvedilol [Coreg] 12.5 mg Tablet 12.5 mg PO DAILY Qty: 30 0RF nitroglycerin [Nitrostat] 0.4 mg Tablet, Sublingual 0.4 mg sublingual [id number] PRN (Reason: Chest Pain) Qty: 30 0RF Visit Report Forms: Patient Portal/API
[2021-10-17 21:22] VITALS: BP 164/69; PULSE 88; RESP 18; O2SAT 98
[2021-10-17 21:31] LABS: Alanine Aminotransferase 26 IU/L (<50); Albumin 3.9 g/dL (3.5-5.0); Albumin Globulin Ratio 1.6 (1.0-2.8); Alkaline Phosphatase 93 U/L (38-126); Aspartate Aminotransferase 31 IU/L (17-59); BUN Creatinine Ratio 15.8 (6-22); Bilirubin Total 2.2 mg/dL (0.2-1.3); Blood Urea Nitrogen 12 mg/dL (9-20); Calcium 8.3 mg/dL (8.4-10.2); Carbon Dioxide 21 mmol/L (22-32); Chloride 102 mmol/L (98-107); Creatine Kinase 100 U/L (55-170); Estimated Glomerular Filt Rate > 60 mL/min (>60); Globulin 2.4 g/dL (1.7-4.1); Glucose 76 mg/dL (80-110); HEMOLYSIS < 15 (0-50); Lipase 52 U/L (23-300); Magnesium 1.9 mg/dL (1.6-2.3); Potassium 3.8 mmol/L (3.4-5.1); Sodium 136 mmol/L (137-145); Total Protein 6.3 g/dL (6.3-8.2)
[2021-10-17 21:42] LABS: Troponin I < 0.012 ng/mL (0.01-0.034)
[2021-10-17 21:48] LABS: Add Manual Diff / Slide Review NO; Basophils Absolute Auto 200 /uL (0-100); Basophils Percent Auto 3.7 % (0-2); Eosinophils Absolute Auto 200 /uL (0-450); Eosinophils Percent Auto 3.3 % (2-4); Hematocrit 31.6 % (41-53); Lymphocytes Absolute Auto 700 /uL (1100-4500); Lymphocytes Percent Auto 14.4 % (25-40); Mean Corpuscular HGB Conc 34.8 % (30-36); Mean Corpuscular Volume 100.6 fL (80-100); Monocytes Absolute Auto 400 /uL (0-900); Monocytes Percent Auto 7.3 % (3-14); Neutrophils Absolute Auto 3600 /uL (1500-7000); Neutrophils Percent Auto 71.3 % (50-75); Platelet Count 126 X10^3/uL (150-400); Red Blood Cell Count 3.14 X10^6/uL (4.5-5.9); Red Cell Distribution Width 12.5 % (11.6-14.8)
[2021-10-18] VITALS (12 sets, daily range): BP systolic 162–170; BP diastolic 79–87; PULSE 65–106; RESP 17–21; O2SAT 90–100
[2021-10-18 00:13] LABS: NT-proBNP (BNP-Adult 18+) 992 pg/mL (<450)
[2021-10-18] MEDS: FUROSEMIDE 40 MG/4 ML VIAL IV (00:39)
== END 2021-10-18 08:40 | disposition home or self-care (01) ==
PROVIDERS: Emergency Provider Emergency Medicine
DX: I50.9 Heart failure, unspecified (principal); R07.9 Chest pain, unspecified
CPT/HCPCS: 36415; 71046; 80053; 82550; 83690; 83735; 83880; 84484; 85025; 93005; 96374; 99284; J1940

== ENCOUNTER 2021-10-24 18:13 | Emergency (ER) | payer MEDICARE, SELFPAY ==
[2021-10-08 00:18] VITALS: BMI 24.0
[2021-10-24] VITALS (7 sets, daily range): BP systolic 136–177; BP diastolic 75–92; PULSE 70–84; RESP 11–23; TEMP 36.2; O2SAT 99–100; BMI 25.0
--- NOTE | 2021-10-24 21:05 | DI.RAD.S_ITS ---
PROCEDURE: XR CHEST 1V INDICATIONS: chest pain TECHNIQUE: One view of the chest was acquired. COMPARISON: [facility], CR, XR CHEST 2V, 10/17/2021, 22:25. FINDINGS: Surgical changes and devices: None. Lungs and pleura: Lungs are clear. No pleural effusions or pneumothorax. Mediastinum: Mediastinal contours are unchanged. Heart size is markedly enlarged. Bones and chest wall: No suspicious bony lesions. Overlying soft tissues appear unremarkable. IMPRESSION: 1. Cardiomegaly redemonstrated without definite acute cardiopulmonary disease. Dictated by: Mauri Dao M.D. on 10/24/2021 at 22:38 Approved by: Mauri Dao M.D. on 10/24/2021 at 22:39
--- NOTE | 2021-10-24 21:34 | PC.NURSE ---
Patient reports exertional chest tightness and shortness of breath while walking this morning. [place] after it subsided. Took his own 324mg ASA. He was hospitalized 3 weeks ago for CHF and placed on Lasix. Was sent home with Lasix 20mg and instructions to obtain a stress test. He states he tried calling his PCP to schedule a stress test and has been unable to get it done. Called today again and has not received a call back. States he has had his Lasix increased from 20mg to 40mg to 60mg in the last 3 weeks. Has continued with increasing swelling in legs and shortness of breath.
[2021-10-24 21:38] LABS: Add Manual Diff / Slide Review NO; Basophils Absolute Auto 0 /uL (0-100); Eosinophils Absolute Auto 200 /uL (0-450); Eosinophils Percent Auto 3.9 % (2-4); Hematocrit 33.3 % (41-53); Hemoglobin 11.6 g/dL (13.5-17.5); Lymphocytes Absolute Auto 1200 /uL (1100-4500); Lymphocytes Percent Auto 24.2 % (25-40); Mean Corpuscular Hemoglobin 35.2 PG (26-34); Mean Corpuscular Volume 100.6 fL (80-100); Monocytes Absolute Auto 500 /uL (0-900); Monocytes Percent Auto 10.3 % (3-14); Neutrophils Absolute Auto 3100 /uL (1500-7000); Neutrophils Percent Auto 60.6 % (50-75); Platelet Count 136 X10^3/uL (150-400); Red Blood Cell Count 3.31 X10^6/uL (4.5-5.9); Red Cell Distribution Width 13.2 % (11.6-14.8); White Blood Cell Count 5.2 X10^3/uL (4.5-11.0)
[2021-10-24 21:48] LABS: Alanine Aminotransferase 27 IU/L (<50); Albumin 4.1 g/dL (3.5-5.0); Albumin Globulin Ratio 1.5 (1.0-2.8); Alkaline Phosphatase 100 U/L (38-126); Aspartate Aminotransferase 34 IU/L (17-59); BUN Creatinine Ratio 18.4 (6-22); Blood Urea Nitrogen 14 mg/dL (9-20); Calcium 8.5 mg/dL (8.4-10.2); Carbon Dioxide 30 mmol/L (22-32); Chloride 99 mmol/L (98-107); Creatine Kinase 82 U/L (55-170); Estimated Glomerular Filt Rate > 60 mL/min (>60); Globulin 2.7 g/dL (1.7-4.1); Glucose 91 mg/dL (80-110); HEMOLYSIS 21 (0-50); Lipase 48 U/L (23-300); Magnesium 1.9 mg/dL (1.6-2.3); Potassium 3.9 mmol/L (3.4-5.1); Sodium 139 mmol/L (137-145); Total Protein 6.8 g/dL (6.3-8.2)
[2021-10-24 21:57] LABS: NT-proBNP (BNP-Adult 18+) 1220 pg/mL (<450)
[2021-10-24 22:00] LABS: Troponin I < 0.012 ng/mL (0.01-0.034)
--- NOTE | 2021-10-24 22:13 | ED_ITS ---
HPI - SOB/Dyspnea <Lazaro Kimble DO - Last Filed: 10/26/21 01:14> General Chief Complaint: Shortness of Breath/Dyspnea Stated Complaint: Check on CHF, SOB, EDEMA, Time Seen by Provider: 10/24/21 21:12 Source: patient Mode of arrival: Family Vehicle History of Present Illness HPI Narrative: 81M nonsmoker with history of chronic persistent Afib on anticoagulation with use of digoxin, CHF, HTN presents with swelling in his bilateral lower extremities, and worsening shortness of breath. This is his 6th visit in the past few weeks. Today he developed intense chest pressure with exertion on multiple occasions which resolved with rest. He has been taking 60 of Lasix daily and producing dilute urine. He still has not seen Cardiology and has had no provocative testing and continues to develop worsening symptoms with more severity and increased duration. Related Data Home Medications Medication Instructions Recorded Confirmed digoxin 125 mcg (0.125 mg) tablet 1 tab PO DAILY 09/30/21 10/08/21 lisinopril 5 mg tablet 1 tab PO DAILY 09/30/21 10/08/21 Adult Aspirin 81 mg DAILY 10/08/21 10/08/21 Previous Rx's Medication Instructions Recorded potassium chloride 10 mEq 10 meq PO DAILY #30 tabs 10/01/21 tablet,extended release carvedilol 12.5 mg tablet (Coreg) 12.5 mg PO DAILY #30 tabs 10/10/21 furosemide 40 mg tablet 40 mg PO DAILY #30 tabs 10/10/21 nitroglycerin 0.4 mg sublingual 0.4 mg sublingual [id number] PRN 10/10/21 tablet (Nitrostat) Chest Pain #30 tabs furosemide 40 mg tablet (Lasix) 40 mg PO DAILY #60 tabs 10/25/21 lisinopril 5 mg tablet 5 mg PO DAILY #60 tabs 10/25/21 Allergies Allergy/AdvReac Type Severity Reaction Status Date / Time No Known Drug Allergies Allergy Verified 10/24/21 18:28 Review of Systems <Lazaro Kimble DO - Last Filed: 10/26/21 01:14> Review of Systems Narrative: GENERAL: See HPI HEENT: Denies sinus pain, ear pain, sore throat, difficulty swallowing, dizziness. RESPIRATORY: See HPI CARDIOVASCULAR: See HPI GASTROINTESTINAL: Denies nausea, vomiting, abdominal pain, diarrhea, constipat ion, melena. : Denies dysuria, frequency, incontinence, hematuria, urinary retention. MUSCULOSKELETAL: denies weakness, joint pain, or bony pain SKIN: Denies rash, skin lesions, or other NEUROLOGIC: Denies weakness, headache, numbness, change in speech, confusion, seizures, incoordination. PSYCHIATRIC: No concerning psychosocial issues. 12 point review of systems is negative except for those stated above Patient History <Lazaro Kimble DO - Last Filed: 10/26/21 01:14> Medical History Chronic a-fib Congestive heart failure Hypertension Persistent atrial fibrillation with rapid ventricular response Tobacco use disorder, continuous Family History Mother Hypertension Father Heart attack Social History household members: none Smoking Status: Never smoker Smoking Status: Never smoker alcohol intake frequency: a few times a week Substance Use Type: does not use Exam <Lazaro Kimble DO - Last Filed: 10/26/21 01:14> Narrative Exam Narrative: GENERAL: [81] year old patient appears stated age. Well-developed patient, in mild distress. HEAD: Atraumatic. Normocephalic. EYES: Pupils equal round and reactive. Extraocular motions intact. No scleral icterus. No injection or drainage. ENT: Nose without bleeding, purulent drainage. Throat without erythema, tonsillar hypertrophy or exudate. Airway patent. NECK: Trachea midline. Non tender CARDIOVASCULAR: Regular rate and rhythm without murmurs, gallops, or rubs. RESPIRATORY: Clear to auscultation. Breath sounds equal bilaterally. No wheezes, rales, or rhonchi. GASTROINTESTINAL: Abdomen soft, non-tender, nondistended. EXTREMITIES: 2+ pitting edema bilateral lower extremities BACK: Nontender without deformity or crepitance. No flank tenderness. NEURO: AOx3. SKIN: No rash or erythema of visible areas Initial Vital Signs Initial Vital Signs: Vital Signs Temperature 97.1 F L 10/24/21 18:21 Pulse Rate 77 10/24/21 18:21 Respiratory Rate 16 10/24/21 18:21 Blood Pressure 177/75 H 10/24/21 18:21 Pulse Oximetry 99 10/24/21 18:21 Oxygen Delivery Method 10/24/21 18:21 <Betty Pena DO - Last Filed: 10/28/21 07:17> Initial Vital Signs Initial Vital Signs: Vital Signs Temperature 97.1 F L 10/24/21 18:21 Pulse Rate 77 10/24/21 18:21 Respiratory Rate 16 10/24/21 18:21 Blood Pressure 177/75 H 10/24/21 18:21 Pulse Oximetry 99 10/24/21 18:21 Oxygen Delivery Method 10/24/21 18:21 Course <Lazaro Kimble DO - Last Filed: 10/26/21 01:14> Orders Ordered: Discontinued Medications Furosemide (Furosemide 40 Mg/4 Ml Vial) 40 mg IV NOW ONE Stop: 10/24/21 22:46 Last Admin: 10/24/21 22:52 Dose: 40 mg Documented By: JAEN-CLAUDE Furosemide (Furosemide 40 Mg/4 Ml Vial) 40 mg IV NOW ONE Stop: 10/25/21 16:41 Last Admin: 10/25/21 17:21 Dose: 40 mg Documented By: YING Reevaluation(s) Reevaluation #1: Patient has produce well over 1 L of dilute urine with Lasix as noted above Consultations Consultation #1: [facility] - no beds [facility] - no beds [facility] - no beds [facility] - working on it Vital Signs Vital signs: Vital Signs - 8 hr 10/25/21 17:33 Respiratory Rate 21 <Betty Pena DO - Last Filed: 10/28/21 07:17> Orders Ordered: Discontinued Medications Furosemide (Furosemide 40 Mg/4 Ml Vial) 40 mg IV NOW ONE Stop: 10/24/21 22:46 Last Admin: 10/24/21 22:52 Dose: 40 mg Documented By: JEAN-CLAUDE Furosemide (Furosemide 40 Mg/4 Ml Vial) 40 mg IV NOW ONE Stop: 10/25/21 16:41 Last Admin: 10/25/21 17:21 Dose: 40 mg Documented By: YING Vital Signs Vital signs: Vital Signs - 8 hr 10/25/21 17:33 Respiratory Rate 21 MDM - SOB/Dyspnea <Lazaro Kimble DO - Last Filed: 10/26/21 01:14> Lab Data Result diagrams: 10/24/21 21:30 10/24/21 21:30 Labs: Lab Results 10/24/21 10/24/21 10/24/21 Range/Units 21:30 21:30 21:30 WBC 5.2 (4.5-11.0) X10^3/uL RBC 3.31 L (4.5-5.9) X10^6/uL Hgb 11.6 L (13.5-17.5) g/dL Hct 33.3 L (41-53) % MCV 100.6 H (80-100) fL MCH 35.2 H (26-34) PG MCHC 35.0 (30-36) % RDW 13.2 (11.6-14.8) % Plt Count 136 L (150-400) X10^3/uL Neut % (Auto) 60.6 (50-75) % Lymph % (Auto) 24.2 L (25-40) % [place] % (Auto) 10.3 (3-14) % Eos % (Auto) 3.9 (2-4) % Baso % (Auto) 1.0 (0-2) % Neut # (Auto) 3100 (5123-8593) /uL Lymph # (Auto) 1200 (9923-2772) /uL [place] # (Auto) 500 (0-900) /uL Eos # (Auto) 200 (0-450) /uL Baso # (Auto) 0 (0-100) /uL D-Dimer (<230) ng/mL Sodium 139 (137-145) mmol/L Potassium 3.9 (3.4-5.1) mmol/L Chloride 99 (98-107) mmol/L Carbon Dioxide 30 (22-32) mmol/L BUN 14 (9-20) mg/dL Creatinine 0.76 (0.66-1.25) mg/dL Estimated GFR > 60 (>60) mL/min BUN/Creatinine Ratio 18.4 (6-22) Glucose 91 (80-110) mg/dL Calcium 8.5 (8.4-10.2) mg/dL Magnesium 1.9 (1.6-2.3) mg/dL Total Bilirubin 1.0 (0.2-1.3) mg/dL AST 34 (17-59) IU/L ALT 27 (<50) IU/L Alkaline Phosphatase 100 (38-126) U/L Total Creatine Kinase 82 (55-170) U/L CK-MB (CK-2) TNP CK-MB (CK-2) Rel Index TNP Troponin I < 0.012 (0.01-0.034) ng/mL NT-Pro-B Natriuret Pep 1220 H (<450) pg/mL Total Protein 6.8 (6.3-8.2) g/dL Albumin 4.1 (3.5-5.0) g/dL Globulin 2.7 (1.7-4.1) g/dL Albumin/Globulin Ratio 1.5 (1.0-2.8) Lipase 48 (23-300) U/L SARS-CoV-2 (PCR) (Negative) 10/24/21 10/25/21 Range/Units 23:00 02:10 WBC (4.5-11.0) X10^3/uL RBC (4.5-5.9) X10^6/uL Hgb (13.5-17.5) g/dL Hct (41-53) % MCV (80-100) fL MCH (26-34) PG MCHC (30-36) % RDW (11.6-14.8) % Plt Count (150-400) X10^3/uL Neut % (Auto) (50-75) % Lymph % (Auto) (25-40) % [place] % (Auto) (3-14) % Eos % (Auto) (2-4) % Baso % (Auto) (0-2) % Neut # (Auto) (1014-4768) /uL Lymph # (Auto) (0294-2693) /uL [place] # (Auto) (0-900) /uL Eos # (Auto) (0-450) /uL Baso # (Auto) (0-100) /uL D-Dimer 504 H (<230) ng/mL Sodium (137-145) mmol/L Potassium (3.4-5.1) mmol/L Chloride (98-107) mmol/L Carbon Dioxide (22-32) mmol/L BUN (9-20) mg/dL Creatinine (0.66-1.25) mg/dL Estimated GFR (>60) mL/min BUN/Creatinine Ratio (6-22) Glucose (80-110) mg/dL Calcium (8.4-10.2) mg/dL Magnesium (1.6-2.3) mg/dL Total Bilirubin (0.2-1.3) mg/dL AST (17-59) IU/L ALT (<50) IU/L Alkaline Phosphatase (38-126) U/L Total Creatine Kinase (55-170) U/L CK-MB (CK-2) CK-MB (CK-2) Rel Index Troponin I (0.01-0.034) ng/mL NT-Pro-B Natriuret Pep (<450) pg/mL Total Protein (6.3-8.2) g/dL Albumin (3.5-5.0) g/dL Globulin (1.7-4.1) g/dL Albumin/Globulin Ratio (1.0-2.8) Lipase (23-300) U/L SARS-CoV-2 (PCR) Negative (Negative) Imaging Data Chest x-ray: Radiologist's Impression: [address] [address] XRay Report Signed Patient: Khurram Olvera MR#: [id number] : 1940 Acct:[id number] Age/Sex: 81 / M Date of Service: 10/24/21 Loc: ED Accession Number: [id number] ?? Procedure: XR chest 1V Ordering Provider: Lazaro Kimble D.O. PROCEDURE:? XR CHEST 1V ? INDICATIONS:? chest pain ? TECHNIQUE:? One view of the chest was acquired.? ? COMPARISON:? [facility], CR, XR CHEST 2V, 10/17/2021, 22:25. ? FINDINGS:? ? Surgical changes and devices:? None. ? Lungs and pleura:? Lungs are clear.? No pleural effusions or pneumothorax.? ? Mediastinum:? Mediastinal contours are unchanged.? Heart size is markedly e nlarged. ? Bones and chest wall:? No suspicious bony lesions.? Overlying soft tissues appear unremarkable.? ? IMPRESSION:? ? 1. Cardiomegaly redemonstrated without definite acute cardiopulmonary disease.? ? ? Dictated by: Mauri Dao M.D. on 10/24/2021 at 22:38 ? ? Approved by: Mauri Dao M.D. on 10/24/2021 at 22:39 ? <Betty Jean, DO - Last Filed: 10/28/21 07:17> Lab Data Labs: Lab Results 10/24/21 10/24/21 10/24/21 Range/Units 21:30 21:30 21:30 WBC 5.2 (4.5-11.0) X10^3/uL RBC 3.31 L (4.5-5.9) X10^6/uL Hgb 11.6 L (13.5-17.5) g/dL Hct 33.3 L (41-53) % MCV 100.6 H (80-100) fL MCH 35.2 H (26-34) PG MCHC 35.0 (30-36) % RDW 13.2 (11.6-14.8) % Plt Count 136 L (150-400) X10^3/uL Neut % (Auto) 60.6 (50-75) % Lymph % (Auto) 24.2 L (25-40) % [place] % (Auto) 10.3 (3-14) % Eos % (Auto) 3.9 (2-4) % Baso % (Auto) 1.0 (0-2) % Neut # (Auto) 3100 (3310-7219) /uL Lymph # (Auto) 1200 (6474-2293) /uL [place] # (Auto) 500 (0-900) /uL Eos # (Auto) 200 (0-450) /uL Baso # (Auto) 0 (0-100) /uL D-Dimer (<230) ng/mL Sodium 139 (137-145) mmol/L Potassium 3.9 (3.4-5.1) mmol/L Chloride 99 (98-107) mmol/L Carbon Dioxide 30 (22-32) mmol/L BUN 14 (9-20) mg/dL Creatinine 0.76 (0.66-1.25) mg/dL Estimated GFR > 60 (>60) mL/min BUN/Creatinine Ratio 18.4 (6-22) Glucose 91 (80-110) mg/dL Calcium 8.5 (8.4-10.2) mg/dL Magnesium 1.9 (1.6-2.3) mg/dL Total Bilirubin 1.0 (0.2-1.3) mg/dL AST 34 (17-59) IU/L ALT 27 (<50) IU/L Alkaline Phosphatase 100 (38-126) U/L Total Creatine Kinase 82 (55-170) U/L CK-MB (CK-2) TNP CK-MB (CK-2) Rel Index TNP Troponin I < 0.012 (0.01-0.034) ng/mL NT-Pro-B Natriuret Pep 1220 H (<450) pg/mL Total Protein 6.8 (6.3-8.2) g/dL Albumin 4.1 (3.5-5.0) g/dL Globulin 2.7 (1.7-4.1) g/dL Albumin/Globulin Ratio 1.5 (1.0-2.8) Lipase 48 (23-300) U/L SARS-CoV-2 (PCR) (Negative) 10/24/21 10/25/21 Range/Units 23:00 02:10 WBC (4.5-11.0) X10^3/uL RBC (4.5-5.9) X10^6/uL Hgb (13.5-17.5) g/dL Hct (41-53) % MCV (80-100) fL MCH (26-34) PG MCHC (30-36) % RDW (11.6-14.8) % Plt Count (150-400) X10^3/uL Neut % (Auto) (50-75) % Lymph % (Auto) (25-40) % [place] % (Auto) (3-14) % Eos % (Auto) (2-4) % Baso % (Auto) (0-2) % Neut # (Auto) (5717-9763) /uL Lymph # (Auto) (0005-9348) /uL [place] # (Auto) (0-900) /uL Eos # (Auto) (0-450) /uL Baso # (Auto) (0-100) /uL D-Dimer 504 H (<230) ng/mL Sodium (137-145) mmol/L Potassium (3.4-5.1) mmol/L Chloride (98-107) mmol/L Carbon Dioxide (22-32) mmol/L BUN (9-20) mg/dL Creatinine (0.66-1.25) mg/dL Estimated GFR (>60) mL/min BUN/Creatinine Ratio (6-22) Glucose (80-110) mg/dL Calcium (8.4-10.2) mg/dL Magnesium (1.6-2.3) mg/dL Total Bilirubin (0.2-1.3) mg/dL AST (17-59) IU/L ALT (<50) IU/L Alkaline Phosphatase (38-126) U/L Total Creatine Kinase (55-170) U/L CK-MB (CK-2) CK-MB (CK-2) Rel Index Troponin I (0.01-0.034) ng/mL NT-Pro-B Natriuret Pep (<450) pg/mL Total Protein (6.3-8.2) g/dL Albumin (3.5-5.0) g/dL Globulin (1.7-4.1) g/dL Albumin/Globulin Ratio (1.0-2.8) Lipase (23-300) U/L SARS-CoV-2 (PCR) Negative (Negative) ECG Data Interpretation: botnick- Atrial fibrillation rate [address] changes low voltage T-wave inversion noted in lead 3 similar to all prior EKG MDM Narrative Medical decision making narrative: 10/25/21 Patient signed out to me by Dr. Kimble, and seen evaluated patient myself. Patient has had frequent presents to the emergency department and admission to hospital. He continues to have shortness of breath with exertion or. He was admitted for congestive heart failure at that time he had an echo all unable to get stress test due to limited resources and Critical lack of availability the patient was set up with Cardiology for outpatient follow-up but unable to follow through with this. He continues to have shortness of breath with exertion is stating that he is taking 60 mg of Lasix daily although his only prescribed 40mg. He had a recent echocardiogram with an EF of 50-55% with no wall motion abnormalities. He continues to have significant lower extremity edema shortness of breath with exertion GENERAL: Alert pleasant 81-year-old male HEENT: Head atraumatic,EOMI, pupils reactive, face symmetric, moist mucous membranes CARDIOVASCULAR: Regular rate and rhythm without murmurs, rubs or gallops. RESPIRATORY: Breath sounds equal bilaterally, no wheezes rales or rhonchi. EXTREMITIES: Normal range of motion, no clubbing +2 lower extremity pitting edema. Neurovascularly intact NEUROLOGICAL: Alert and oriented x4. SKIN: Mild bilateral lower extremity erythema A/P 1. Shortness of breath with exertion -CHF exacerbation versus unstable angina -nuclear stress test today 2. Atrial fibrillation -continue rate control, aspirin 3. Transfer if stress test is abnormal Patient had a limited echocardiogram and stress test today. I personally spoke with Dr. Gomez who read the stress test eye reports there is no ischemia. He does have a small fixed defect. Left ventricular is mildly enlarged about with an EF of 56%. Recommends daughter recess Zackary inhibitors. No need for further cardiac testing certainly no need for transfer. Patient is not hypoxic he is in no respiratory distress. He has urinated well with Lasix. I do not think he is medically compliant. . Dose pill bottle he has with him for 20 mg of Lasix every other day. He says that he is taking 40 mg every other day earlier this morning he told me he was taking 60 mg every day, there seems to be a bit of miscommunication, probably why he has not improved Discharge Plan Departure Patient Disposition: Home Clinical Impression: CHF (congestive heart failure) Instructions: DI for Heart Failure Activity Restrictions/Additional Instructions: *You have been diagnosed with congestive heart failure *What to do: You have some fluid on your lungs and fluid in your legs. The only way to get the fluid off his to pee You had a stress test today does not show any evidence of heart attack *Continue to take medications as directed Lasix 40 mg once a day Lisinopril 5 mg once daily *Follow up with your primary care provider in 2-3 days or call [phone] *Return to ER if you should have increasing chest pain shortness of breath fever or any new, worsening or concerning symptoms Prescriptions: New furosemide [Lasix] 40 mg tablet 40 mg PO DAILY Qty: 60 0RF lisinopril 5 mg tablet 5 mg PO DAILY Qty: 60 0RF No Action lisinopril 5 mg tablet 1 tab PO DAILY Label Comments: TAKE ONE TABLET BY MOUTH EVERY DAY digoxin 125 mcg (0.125 mg) tablet 1 tab PO DAILY Label Comments: TAKE ONE TABLET BY MOUTH EVERY DAY potassium chloride 10 mEq tablet extended release 10 meq PO DAILY Qty: 30 0RF Adult Aspirin 81 mg DAILY furosemide 40 mg Tablet 40 mg PO DAILY Qty: 30 0RF carvedilol [Coreg] 12.5 mg Tablet 12.5 mg PO DAILY Qty: 30 0RF nitroglycerin [Nitrostat] 0.4 mg Tablet, Sublingual 0.4 mg sublingual [id number] PRN (Reason: Chest Pain) Qty: 30 0RF Visit Report Forms: Patient Portal/API
[2021-10-24] MEDS: FUROSEMIDE 40 MG/4 ML VIAL IV (22:52)
--- NOTE | 2021-10-24 23:12 | DI.CT.S_ITS ---
PROCEDURE: CT HEAD/BRAIN WO CON INDICATIONS: fall, head injury, on thinners TECHNIQUE: Noncontrast 5 mm thick angled axial sections acquired from the foramen magnum to the vertex, with coronal and sagittal reformats. For radiation dose reduction, the following was used: automated exposure control, adjustment of mA and/or kV according to patient size. COMPARISON: [facility], CT, CT HEAD WITHOUT CONTRAST, 10/21/2021, 19:53. FINDINGS: Image quality: Excellent. CSF spaces: Basal cisterns are patent. No extra-axial fluid collections. There is moderate cerebral volume loss, with resultant ventricular and sulcal prominence. Brain: No intracranial hemorrhage, mass, or mass effect. There are subcortical, periventricular and deep white matter hypodensities consistent with moderate chronic small vessel ischemic changes. The villarreal-white matter junction appears preserved. There is intracranial internal carotid artery atherosclerosis. Skull and face: Calvarium and visualized facial bones appear intact, without suspicious lesions. Sinuses: Visualized sinuses and mastoids are clear. IMPRESSION: 1. No acute intracranial abnormality. 2. Moderate cerebral volume loss and chronic white matter small vessel ischemic changes. Dictated by: Mauri Dao M.D. on 10/24/2021 at 23:28 Approved by: Mauri Dao M.D. on 10/24/2021 at 23:30
[2021-10-25] VITALS (42 sets, daily range): BP systolic 114–166; BP diastolic 58–108; PULSE 66–99; RESP 12–25; O2SAT 93–100
[2021-10-25 00:04] LABS: COVID19 -Nasal RAPID Negative (Negative)
--- NOTE | 2021-10-25 08:23 | DI.ECHO.S_ITS ---
[facility]---------+ [facility] +---------+ : : [address] : : : : [id number] : : : : Phone: [phone] Echocardiogram Report + + :Name: KYLAH ABAD Study Date: 10/25/2021 Height: 74 in : :[facility] ReadingLocation: Weight: 195 lb : : Gender: Male BSA: 2.1 m2 : :: 1940 Age: 81 yrs BP: 144/68 mmHg: :Reason For Study: ATRIAL FIBRILLATION : :Ordering Physician: CHARLOTTE, : :TINO Performed By: Kamini Magallanes : :Referring: TINO PORTER : + + Interpretation Summary The left ventricle is normal in size. Left ventricular systolic function is low normal. The ejection fraction is estimated to be 50-55%. LVEF has not changed. The right ventricle is mildly dilated. The right ventricular systolic function is normal. The right ventricular systolic pressure is estimated to be at least 31 mmHg based on an estimated right atrial pressure of 8 mm Hg. The left atrium is severely dilated. The right atrium is severely dilated. There is mild mitral regurgitation. The tricuspid annulus is dilated. There is moderate tricuspid regurgitation. Procedure: A two-dimensional transthoracic echocardiogram with color flow and Doppler was performed in limited views only. The study quality was technically adequate. Comparison is made with the echocardiogram of 10/08/2021. The patient was in atrial fibrillation with heart rates between 68-85 bpm during the exam. Left Ventricle: The left ventricle is normal in size. The estimated left ventricular end diastolic volume is 114 ml. There is mild concentric left ventricular hypertrophy. Left ventricular systolic function is low normal. The ejection fraction is estimated to be 50-55%. Diastolic function could not be accurately assessed due to atrial fibrillation. Right Ventricle: The right ventricle is mildly dilated. The right ventricular systolic function is normal. Atria: The left atrium is severely dilated. The right atrium is severely dilated. Mitral Valve: The mitral valve leaflets appear mildly thickened, but open well. There is mild mitral annular calcification. There is mild mitral regurgitation. Aortic Valve: The aortic valve is not well visualized. Tricuspid Valve: The tricuspid annulus is dilated. There is moderate tricuspid regurgitation. The right ventricular systolic pressure is estimated to be at least 31 mmHg based on an estimated right atrial pressure of 8 mm Hg. Pulmonic Valve: The pulmonic valve is not well visualized. Great Vessels: The aortic root is not well visualized but is probably normal size. The IVC is dilated (diameter is greater than 2.1 cm) yet it collapses greater than 50% with a sniff. This suggests a right atrial pressure of 8 mm Hg. Pericardium/ Pleura There is no pericardial effusion. There is no pleural effusion. MMode/2D Measurements & Calculations LVIDd: 5.9 cm LA A2 area: 68.9 cm2 LVIDs: 3.9 cm LA A4 area: 67.7 cm2 FS: 34.4 % LA length (vol): 10.8 cm EPSS: 1.3 cm LA vol: 365.1 ml IVSd: 0.96 cm LA vol index: 169.8 ml/m2 LVPWd: 1.3 cm LV penn. diameter/BSA (cm/m^2): 2.7 LV sys. diameter/BSA (cm/m^2): 1.8 RA long axis: 9.9 cm TAPSE: 2.5 cm RA area: 58.3 cm2 RA vol: 291.3 ml RA : 135.5 ml/m2 IVC diam: 2.3 cm Doppler Measurements & Calculations TR max levi: 307.2 cm/sec TR max P.0 mmHg Reading Physician:02:44 PM
[2021-10-25 08:50] LABS: D Dimer 504 ng/mL (<230)
[2021-10-25] MEDS: FUROSEMIDE 40 MG/4 ML VIAL IV (17:21)
--- NOTE | 2021-10-25 17:52 | PC.NURSE ---
Pt ambulated around hallways. O2 saturation maintained above 94% on RA. Pt denied dizziness, SOB and chest pain.
--- NOTE | 2021-10-25 19:23 | DI.NM.S_ITS ---
DATE OF SERVICE: 10/25/2021 PROCEDURE PERFORMED: Pharmacologic vasodilator stress and rest myocardial perfusion imaging with gating to assess ejection fraction and regional wall motion. ORDERING PROVIDER: Dr. Betty Pena. INDICATIONS: The patient is an 81-year-old male with atrial fibrillation and dyspnea with symptoms of congestive heart failure. CARDIAC STRESS: Per protocol, 0.4 mg of regadenoson was infused with a normal hemodynamic response. He had minimal dyspnea but no chest discomfort. His resting ECG shows atrial fibrillation with a controlled ventricular response. There were no significant ST-segment shifts. He had occasional PVCs, but no other arrhythmias beyond his baseline atrial fibrillation. Per protocol, 25.6 millicuries of technetium-99m Myoview was injected and he was imaged 10 minutes later using the quantitated gated SPECT imaging protocol. Earlier in the day while at rest, he had been injected with 11.8 millicuries of technetium-99m Myoview was imaged 20 minutes later, again using a gated SPECT acquisition protocol. FINDINGS: 1. Raw data: There is fairly good myocardial tracer uptake. The lung/heart ratio is increased at 0.47 which can be a sign of pulmonary congestion. The TID ratio is at the upper limits of normal at 1.20, but this is nonspecific with the use of vasodilator stress. 2. Quantitated gated SPECT: Post-stress ejection fraction is estimated at 56% with borderline global hypokinesis but no focal abnormality. The right ventricle is well seen with increased right ventricular free wall uptake which can be a sign of increased right ventricular stress. The resting images show a similar contraction pattern with an estimated ejection fraction of 55% and moderately increased left ventricular volumes at 164 mL. 3. Myocardial perfusion imaging: Post-stress supine images shows a fairly normal myocardial perfusion pattern with only a very small, subtle defect in the mid to distal inferior wall in a pattern that would be consistent with diaphragmatic attenuation, supported by its complete resolution on the prone images. The resting images show a similar perfusion pattern without any significant improvement in the distal inferior wall defect. IMPRESSION: 1. Probable normal myocardial perfusion study for ischemia. 2. Small, subtle fixed mid to distal inferior defect that resolves on prone imaging, most consistent with diaphragmatic attenuation artifact. There is no compelling evidence for myocardial ischemia or previous myocardial infarction. 3. Moderate left ventricular enlargement with borderline reduced left ventricular systolic function with an increased lung/heart ratio, suggesting possible pulmonary congestion, and increased right ventricular tracer uptake, which can be a sign of right ventricular overload, possibly due to pulmonary hypertension. 4. No angina or ECG evidence of myocardial ischemia with pharmacologic vasodilator stress. He has underlying atrial fibrillation with occasional PVCs, but no concerning arrhythmias. Khurram Olvera - ROBERT/getachew/chris doc#: [id number]/job#: [id number] dd: 10/25/2021 16:36:00 dt: 10/25/2021 17:56:00 DICTATING /COPIES TO: Salomon Gomez MD COPIES MNE: OPHELIA;
== END 2021-10-25 17:30 | disposition home or self-care (01) ==
PROVIDERS: Emergency Medicine; Emergency Provider Emergency Medicine
DX: I50.9 Heart failure, unspecified (principal); R06.02 Shortness of breath; Z79.01 Long term (current) use of anticoagulants; Z20.822 Contact with and (suspected) exposure to COVID-19
CPT/HCPCS: 36415; 70450; 71045; 78452; 80053; 82550; 83690; 83735; 83880; 84484; 85025; 85379; 87635; 93005; 93017; 93307; 96374; 96376; 99284; C9803; A9502; J1940; J2785

== ENCOUNTER 2021-10-31 18:42 | Observation (INO) | payer MEDICARE, SELFPAY ==
[2021-10-08 00:18] VITALS: BMI 24.0
[2021-10-31 18:47] VITALS: BP 124/60; PULSE 84; RESP 22; TEMP 36.9; O2SAT 96; BMI 25.0
--- NOTE | 2021-10-31 18:50 | DI.RAD.S_ITS ---
PROCEDURE: XR CHEST 1V INDICATIONS: chest pain TECHNIQUE: One view of the chest was acquired. COMPARISON: [facility], CR, XR CHEST 1V, 10/24/2021, 21:51. FINDINGS: Cardiomegaly with findings of pulmonary vascular congestion and mild interstitial edema. No pleural effusion or pneumothorax. No acute airspace infiltrate. IMPRESSION: Cardiomegaly with mild interstitial edema. Dictated by: Armaan Bishop M.D. on 10/31/2021 at 19:44 Approved by: Armaan Bishop M.D. on 10/31/2021 at 19:45
[2021-10-31 19:12] LABS: Add Manual Diff / Slide Review NO; Basophils Absolute Auto 100 /uL (0-100); Eosinophils Absolute Auto 100 /uL (0-450); Eosinophils Percent Auto 1.3 % (2-4); Hematocrit 31.9 % (41-53); Hemoglobin 11.4 g/dL (13.5-17.5); Lymphocytes Absolute Auto 1200 /uL (1100-4500); Lymphocytes Percent Auto 16.4 % (25-40); Mean Corpuscular HGB Conc 35.6 % (30-36); Mean Corpuscular Hemoglobin 35.3 PG (26-34); Mean Corpuscular Volume 99.3 fL (80-100); Monocytes Absolute Auto 700 /uL (0-900); Monocytes Percent Auto 9.7 % (3-14); Neutrophils Absolute Auto 5200 /uL (1500-7000); Neutrophils Percent Auto 71.6 % (50-75); Platelet Count 135 X10^3/uL (150-400); Red Blood Cell Count 3.22 X10^6/uL (4.5-5.9); Red Cell Distribution Width 13.1 % (11.6-14.8); White Blood Cell Count 7.3 X10^3/uL (4.5-11.0)
[2021-10-31 19:24] LABS: Alanine Aminotransferase 19 IU/L (<50); Albumin Globulin Ratio 1.4 (1.0-2.8); Alkaline Phosphatase 94 U/L (38-126); Aspartate Aminotransferase 25 IU/L (17-59); Blood Urea Nitrogen 19 mg/dL (9-20); Calcium 8.9 mg/dL (8.4-10.2); Carbon Dioxide 27 mmol/L (22-32); Chloride 100 mmol/L (98-107); Creatine Kinase 65 U/L (55-170); Estimated Glomerular Filt Rate > 60 mL/min (>60); Globulin 2.8 g/dL (1.7-4.1); Glucose 119 mg/dL (80-110); HEMOLYSIS < 15 (0-50); Lipase 45 U/L (23-300); Magnesium 1.9 mg/dL (1.6-2.3); Potassium 3.7 mmol/L (3.4-5.1); Sodium 136 mmol/L (137-145); Total Protein 6.8 g/dL (6.3-8.2)
[2021-10-31 19:35] LABS: Troponin I < 0.012 ng/mL (0.01-0.034)
[2021-10-31 21:15] VITALS: BP 137/75; PULSE 82; RESP 18; O2SAT 99
[2021-10-31 21:36] LABS: NT-proBNP (BNP-Adult 18+) 1570 pg/mL (<450)
--- NOTE | 2021-10-31 22:14 | ED.CHESTPAIN ---
HPI - Chest Pain General Chief Complaint: Chest Pain Stated Complaint: SOB CHEST PAIN LEG PAIN Time Seen by Provider: 10/31/21 21:53 Source: patient Mode of arrival: Ambulatory History of Present Illness HPI narrative: Patient seen here week ago for same complaint. Discharged home after staying in the emergency department for 2 days. Patient did have stress test and limited echocardiogram. Cardiology was consulted. Medication changes were made for his Lasix. However patient states this has not improved his health. Still getting short of breath and getting leg swelling. Denies any chest pain Notes below from visit beginning of this month in the emergency department A/P 1. Shortness of breath with exertion -CHF exacerbation versus unstable angina -nuclear stress test today 2. Atrial fibrillation -continue rate control, aspirin 3. Transfer if stress test is abnormal Patient had a limited echocardiogram and stress test today. I personally spoke with Dr. Gomez who read the stress test eye reports there is no ischemia. He does have a small fixed defect. Left ventricular is mildly enlarged about with an EF of 56%. Recommends daughter recess Zackary inhibitors. No need for further cardiac testing certainly no need for transfer. Patient is not hypoxic he is in no respiratory distress. He has urinated well with Lasix. I do not think he is medically compliant. . Dose pill bottle he has with him for 20 mg of Lasix every other day. He says that he is taking 40 mg every other day earlier this morning he told me he was taking 60 mg every day, there seems to be a bit of miscommunication, probably why he has not improved Related Data Home Medications Medication Instructions Recorded Confirmed digoxin 125 mcg (0.125 mg) tablet 1 tab PO DAILY 09/30/21 10/31/21 Adult Aspirin 81 mg PO DAILY 10/08/21 10/31/21 Previous Rx's Medication Instructions Recorded potassium chloride 10 mEq 10 meq PO DAILY #30 tabs 10/01/21 tablet,extended release carvedilol 12.5 mg tablet (Coreg) 12.5 mg PO DAILY #30 tabs 10/10/21 nitroglycerin 0.4 mg sublingual 0.4 mg sublingual [id number] PRN 10/10/21 tablet (Nitrostat) Chest Pain #30 tabs furosemide 40 mg tablet (Lasix) 40 mg PO DAILY #60 tabs 10/25/21 lisinopril 5 mg tablet 5 mg PO DAILY #60 tabs 10/25/21 Allergies Allergy/AdvReac Type Severity Reaction Status Date / Time No Known Drug Allergies Allergy Verified 10/24/21 18:28 Review of Systems Review of Systems Narrative: GENERAL: Denies chills, fatigue, malaise, fever, sweats. HEENT: Denies sinus pain, ear pain, sore throat RESPIRATORY: Positive for dyspnea, negative cough CARDIOVASCULAR: Denies chest pain, palpitations GASTROINTESTINAL: Denies nausea, vomiting, abdominal pain : Denies dysuria, frequency, hematuria MUSCULOSKELETAL: denies muscle or bony pain, positive for leg edema SKIN: Denies rash, skin lesions NEUROLOGIC: Denies weakness, numbness ROS Unobtainable: All systems reviewed & are unremarkable except as noted in HPI and below Patient History Medical History Chronic a-fib Congestive heart failure Hypertension Persistent atrial fibrillation with rapid ventricular response Tobacco use disorder, continuous Family History Mother Hypertension Father Heart attack Social History household members: none Smoking Status: Never smoker alcohol intake: current Smoking Status: Never smoker alcohol intake frequency: a few times a week Substance Use Type: does not use Exam Narrative Exam Narrative: GENERAL: in no distress, not toxic not dyspneic HEAD: Normocephalic. EYES: Pupils equal round No scleral icterus. ENT: Mucous membranes moist. NECK: Trachea midline. CARDIOVASCULAR: Regular rate and rhythm without murmurs RESPIRATORY: Clear to auscultation. Breath sounds equal bilaterally. No wheezes, mild scattered bibasilar rales. However no rhonchi. GASTROINTESTINAL: Abdomen soft, non-tender EXTREMITIES: No gross deformities. 3+ bilateral leg edema BACK: No flank tenderness. NEURO: AOx4. SKIN: Warm and dry PSYCH: Not anxious, is cooperative Initial Vital Signs Initial Vital Signs: Vital Signs Temperature 98.4 F 10/31/21 18:47 Pulse Rate 84 10/31/21 18:47 Respiratory Rate 22 10/31/21 18:47 Blood Pressure 124/60 10/31/21 18:47 Pulse Oximetry 96 10/31/21 18:47 Oxygen Delivery Method 10/31/21 18:47 Course Course Decision to Admit Date: 10/31/21 Decision to Admit time: 22:28 Orders Ordered: ED Orders 10/31/21 22:40 COVID19 -Nasal RAPID/Pre-Proc Stat Acetaminophen (Acetaminophen 325 Mg Tablet) 650 mg PO Q6HR PRN PRN Reason: Fever/Mild Pain (1-3) Aspirin (Aspirin 81 Mg Chew Tab) 81 mg PO DAILY SWATHI Carvedilol (Carvedilol 12.5 Mg Tablet) 12.5 mg PO DAILY SWATHI Digoxin (Digoxin 0.125 Mg Tablet) 0.125 mg PO DAILY@1700 SWATHI Enoxaparin Sodium (Enoxaparin 40 Mg/0.4 Ml Syringe) 40 mg SUBCUT DAILY SWATHI Lisinopril (Lisinopril 5 Mg Tablet) 5 mg PO DAILY SWATHI Nitroglycerin (Nitroglycerin 0.4 Mg Sl Tab) 0.4 mg SL [id number] PRN PRN Reason: Chest Pain Discontinued Medications Furosemide (Furosemide 100 Mg/10 Ml Vial) 60 mg IV NOW ONE Stop: 10/31/21 22:32 Last Admin: 10/31/21 22:39 Dose: 60 mg Documented By: EB Reevaluation(s) Reevaluation #1: No new issues during course of stay Patient does agree for admission for diuresis Time: 22:29 Consultations Consultation #1: Spoke with hospitalist, Mireya, will admit. We are trying to get records from [facility]. Time: 22:34 Vital Signs Vital signs: Vital Signs - 8 hr 10/31/21 18:47 10/31/21 21:15 Temperature 98.4 F Pulse Rate 84 82 Respiratory Rate 22 18 Blood Pressure 124/60 137/75 Pulse Oximetry 96 99 Oxygen Delivery Method Room Air Room Air MDM - Chest Pain Differential Diagnosis Differential diagnosis: Likely stable angina, unstable angina pectoris and other (CHF exacerbation) Lab Data Result diagrams: 10/31/21 18:50 10/31/21 18:50 Labs: Lab Results 10/31/21 10/31/21 10/31/21 Range/Units 18:09 18:50 18:50 WBC 7.3 (4.5-11.0) X10^3/uL RBC 3.22 L (4.5-5.9) X10^6/uL Hgb 11.4 L (13.5-17.5) g/dL Hct 31.9 L (41-53) % MCV 99.3 (80-100) fL MCH 35.3 H (26-34) PG MCHC 35.6 (30-36) % RDW 13.1 (11.6-14.8) % Plt Count 135 L (150-400) X10^3/uL Neut % (Auto) 71.6 (50-75) % Lymph % (Auto) 16.4 L (25-40) % [place] % (Auto) 9.7 (3-14) % Eos % (Auto) 1.3 L (2-4) % Baso % (Auto) 1.0 (0-2) % Neut # (Auto) 5200 (8758-7940) /uL Lymph # (Auto) 1200 (0593-9597) /uL [place] # (Auto) 700 (0-900) /uL Eos # (Auto) 100 (0-450) /uL Baso # (Auto) 100 (0-100) /uL Sodium 136 L (137-145) mmol/L Potassium 3.7 (3.4-5.1) mmol/L Chloride 100 (98-107) mmol/L Carbon Dioxide 27 (22-32) mmol/L BUN 19 (9-20) mg/dL Creatinine 0.95 (0.66-1.25) mg/dL Estimated GFR > 60 (>60) mL/min BUN/Creatinine Ratio 20.0 (6-22) Glucose 119 H (80-110) mg/dL Calcium 8.9 (8.4-10.2) mg/dL Magnesium 1.9 (1.6-2.3) mg/dL Total Bilirubin 3.0 H (0.2-1.3) mg/dL AST 25 (17-59) IU/L ALT 19 (<50) IU/L Alkaline Phosphatase 94 (38-126) U/L Total Creatine Kinase 65 (55-170) U/L CK-MB (CK-2) TNP CK-MB (CK-2) Rel Index TNP Troponin I < 0.012 (0.01-0.034) ng/mL NT-Pro-B Natriuret Pep (<450) pg/mL Total Protein 6.8 (6.3-8.2) g/dL Albumin 4.0 (3.5-5.0) g/dL Globulin 2.8 (1.7-4.1) g/dL Albumin/Globulin Ratio 1.4 (1.0-2.8) Lipase 45 (23-300) U/L Ethyl Alcohol < 10 ( - 10) mg/dL 10/31/21 Range/Units 18:50 WBC (4.5-11.0) X10^3/uL RBC (4.5-5.9) X10^6/uL Hgb (13.5-17.5) g/dL Hct (41-53) % MCV (80-100) fL MCH (26-34) PG MCHC (30-36) % RDW (11.6-14.8) % Plt Count (150-400) X10^3/uL Neut % (Auto) (50-75) % Lymph % (Auto) (25-40) % [place] % (Auto) (3-14) % Eos % (Auto) (2-4) % Baso % (Auto) (0-2) % Neut # (Auto) (3197-0546) /uL Lymph # (Auto) (4092-8211) /uL [place] # (Auto) (0-900) /uL Eos # (Auto) (0-450) /uL Baso # (Auto) (0-100) /uL Sodium (137-145) mmol/L Potassium (3.4-5.1) mmol/L Chloride (98-107) mmol/L Carbon Dioxide (22-32) mmol/L BUN (9-20) mg/dL Creatinine (0.66-1.25) mg/dL Estimated GFR (>60) mL/min BUN/Creatinine Ratio (6-22) Glucose (80-110) mg/dL Calcium (8.4-10.2) mg/dL Magnesium (1.6-2.3) mg/dL Total Bilirubin (0.2-1.3) mg/dL AST (17-59) IU/L ALT (<50) IU/L Alkaline Phosphatase (38-126) U/L Total Creatine Kinase (55-170) U/L CK-MB (CK-2) CK-MB (CK-2) Rel Index Troponin I (0.01-0.034) ng/mL NT-Pro-B Natriuret Pep 1570 H (<450) pg/mL Total Protein (6.3-8.2) g/dL Albumin (3.5-5.0) g/dL Globulin (1.7-4.1) g/dL Albumin/Globulin Ratio (1.0-2.8) Lipase (23-300) U/L Ethyl Alcohol ( - 10) mg/dL Imaging Data Chest x-ray: Radiologist's Impression: [address] [address] XRay Report Signed Patient: Khurram Olvera MR#: [id number] : 1940 Acct:[id number] Age/Sex: 81 / M Date of Service: 10/31/21 Loc: ED Accession Number: [id number] ?? Procedure: XR chest 1V Ordering Provider: Jeison Stafford MD PROCEDURE:? XR CHEST 1V ? INDICATIONS:? chest pain ? TECHNIQUE:? One view of the chest was acquired.? ? COMPARISON:? [facility], , XR CHEST 1V, 10/24/2021, 21:51. ? FINDINGS:? ? Cardiomegaly with findings of pulmonary vascular congestion and mild interstitial edema.? No pleural effusion or pneumothorax.? No acute airspace infiltrate. ? IMPRESSION:? Cardiomegaly with mild interstitial edema. ? ? Dictated by: Armaan Bishop M.D. on 10/31/2021 at 19:44 ? ? Approved by: Armaan Bishop M.D. on 10/31/2021 at 19:45 ? ECG Data Interpretation: Atrial fibrillation. Rate 100. No ST elevation or depression MDM Narrative Medical decision making narrative: Appropriate for admission for diuresis. Patient did have stress test and echocardiogram 1 week ago. It was reassuring. Reviewed with patient and agrees for admit. Reviewed with hospitalist and agrees for admission for diuresis. Discharge Plan Departure Patient Disposition: Admitted as Observation Clinical Impression: CHF (congestive heart failure) Admit Date/Time: 10/31/21 22:33 Admit Provider: Manda Rodriguez
[2021-10-31] MEDS: FUROSEMIDE 100 MG/10 ML VIAL 60 MG IV (22:39)
[2021-10-31 22:42] VITALS: BMI 25.0
[2021-10-31 22:52] VITALS: BP 129/75; PULSE 88; RESP 17; O2SAT 98
[2021-10-31 23:04] LABS: COVID19 -Nasal RAPID Negative (Negative)
[2021-10-31 23:56] VITALS: BP 131/72; PULSE 66; RESP 18; TEMP 36.5; O2SAT 99
[2021-10-31 23:57] VITALS: O2SAT 99
--- NOTE | 2021-11-01 00:07 | P.HP_ITS ---
History of Present Illness History of Present Illness Date Patient Seen: 11/01/21 Time Patient Seen: 00:07 Chief complaint: SOB CHEST PAIN LEG PAIN Narrative: Khurram Olvera is an 81 y.o. male who resides on [place] and was admitted to this facility in mid September for congestive heart physical year. He was to have undergone echocardiography and a stress test however he was unable to undergo stress test as it appeared that there were was no room for him to have a stress test done at this facility prior to discharge. He was initially referred to Cardiology and states that after he was discharged he was informed by Cardiology at [facility] that they were having to cancel his appointment. During his discharge of October 10 he was asked to take Lasix 20 mg daily. He was then seen in the emergency department on the evening of of his discharge, again on October 12, October 17, October 24, and today. 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 He did state that during 1 of his ED visits his dosage of Lasix was increased to 40 mg and he has been taking that for the past week. His main complaint today prior to arrival to the floor was chest pressure, shortness of breath and lower extremity swelling. He states that he had been given antibiotics for his left lower extremity and that it did started to weep again. He denies headaches, nausea vomiting, dysuria, diarrhea or constipation. Chest x-ray indicated cardiomegaly with mild interstitial edema. He is afebrile, blood pressure 131/72, heart rate 66, respiratory rate 18, oxygen saturation 99% on room air, he weighs 81 kg with a BMI of 25.0. He is mildly anemic with a hemoglobin and hematocrit of 11.4 and 31.9 respectively, platelet count is 135, sodium 136, glucose 119, his bili remitted is markedly elevated at 3.0 upon discharge it was normal, proBNP was 1570, and COVID-19 PCR is negative. Echocardiogram done on 10/08 during his last admission reported a moderately dilated left ventricle with an LEVF of 50-55%, marked biatrial enlargement [id number] mitral regurgitation, moderate tricuspid regurgitation and a moderately enlarged aortic arch. Pharmacological stress test done on 10/25/2021 indicated a probable myocardial perfusion study for ischemia, a small and subtle fixed mid to distal inferior defect that resolves on prone imaging, moderate left ventricular enlargement with borderline reduced left ventricular systolic function with an increased lung heart ratio with underlying atrial fibrillation. Patient History Medical History Chronic a-fib Congestive heart failure Hypertension Persistent atrial fibrillation with rapid ventricular response Tobacco use disorder, continuous Family & Social History Family History Mother Hypertension Father Heart attack Social History: household members none Tobacco & Substance use: Smoking Status Never smoker alcohol intake frequency a few times a week Substance Use Type does not use Meds Home Medications and Allergies Home Medications Medication Instructions Recorded Confirmed Type digoxin 125 mcg (0.125 mg) tablet 1 tab PO DAILY 09/30/21 10/31/21 History potassium chloride 10 mEq 10 meq PO DAILY #30 tabs 10/01/21 10/31/21 Rx tablet,extended release Adult Aspirin 81 mg PO DAILY 10/08/21 10/31/21 History carvedilol 12.5 mg tablet (Coreg) 12.5 mg PO DAILY #30 tabs 10/10/21 10/31/21 Rx nitroglycerin 0.4 mg sublingual 0.4 mg sublingual [id number] PRN 10/10/21 10/31/21 Rx tablet (Nitrostat) Chest Pain #30 tabs furosemide 40 mg tablet (Lasix) 40 mg PO DAILY #60 tabs 10/25/21 10/31/21 Rx lisinopril 5 mg tablet 5 mg PO DAILY #60 tabs 10/25/21 10/31/21 Rx Allergies Allergy/AdvReac Type Severity Reaction Status Date / Time No Known Drug Allergies Allergy Verified 10/24/21 18:28 Review of Systems Review of Systems ROS: Yes All systems reviewed with the patient and are negative except as otherwise documented Exam Vital Signs (past 8 hours): - 10/31/21 18:47 10/31/21 21:15 10/31/21 22:52 Temperature 98.4 F Pulse Rate 84 82 88 Respiratory Rate 22 18 17 Blood Pressure 124/60 137/75 129/75 Pulse Oximetry 96 99 98 Oxygen Delivery Method Room Air Room Air Room Air Oxygen Flow Rate 10/31/21 23:56 Temperature 97.7 F Pulse Rate 66 Respiratory Rate 18 Blood Pressure 131/72 Pulse Oximetry 99 Oxygen Delivery Method Oxygen Flow Rate 0 Oxygen Delivery Method Room Air Oxygen Flow Rate 0 Narrative Exam Narrative: Gen: Alert, oriented, chronically ill appearing 81 y.o. male, NAD HEENT: normocephalic, atraumatic, conjunctiva clear, sclera non-icteric, oral m ucosa pink and moist Neck: supple, full ROM, no JVD, trachea is midline Resp: Lungs CTA, non-labored breathing CV: RRR, no murmur or rubs Abd: soft, non-tender, normoactive BTs Skin: multiple bruises on arms, thickened tonails w/evidence of nail fungus, feet with peeling and yellowed skin, appears to have venous stasis on both lower extremities, left worse than right. Neuro: Alert and oriented X 4 w/no focal deficits. Question cognitive state. Speech clear and coherent. Extremities: moves all 4 extremities, is ambulatory, negative Tammy?s sign Psyche: normal mood and affect. Objective Labs Result Diagrams: 10/31/21 18:50 10/31/21 18:50 Labs: Laboratory Results - last 24 hr 10/31/21 10/31/21 10/31/21 18:50 18:50 18:50 WBC 7.3 RBC 3.22 L Hgb 11.4 L Hct 31.9 L MCV 99.3 MCH 35.3 H MCHC 35.6 RDW 13.1 Plt Count 135 L Neut % (Auto) 71.6 Lymph % (Auto) 16.4 L [place] % (Auto) 9.7 Eos % (Auto) 1.3 L Baso % (Auto) 1.0 Neut # (Auto) 5200 Lymph # (Auto) 1200 [place] # (Auto) 700 Eos # (Auto) 100 Baso # (Auto) 100 Sodium 136 L Potassium 3.7 Chloride 100 Carbon Dioxide 27 BUN 19 Creatinine 0.95 Estimated GFR > 60 BUN/Creatinine Ratio 20.0 Glucose 119 H Calcium 8.9 Magnesium 1.9 Total Bilirubin 3.0 H AST 25 ALT 19 Alkaline Phosphatase 94 Total Creatine Kinase 65 CK-MB (CK-2) TNP CK-MB (CK-2) Rel Index TNP Troponin I < 0.012 NT-Pro-B Natriuret Pep 1570 H Total Protein 6.8 Albumin 4.0 Globulin 2.8 Albumin/Globulin Ratio 1.4 Lipase 45 SARS-CoV-2 (PCR) 10/31/21 22:40 WBC RBC Hgb Hct MCV MCH MCHC RDW Plt Count Neut % (Auto) Lymph % (Auto) [place] % (Auto) Eos % (Auto) Baso % (Auto) Neut # (Auto) Lymph # (Auto) [place] # (Auto) Eos # (Auto) Baso # (Auto) Sodium Potassium Chloride Carbon Dioxide BUN Creatinine Estimated GFR BUN/Creatinine Ratio Glucose Calcium Magnesium Total Bilirubin AST ALT Alkaline Phosphatase Total Creatine Kinase CK-MB (CK-2) CK-MB (CK-2) Rel Index Troponin I NT-Pro-B Natriuret Pep Total Protein Albumin Globulin Albumin/Globulin Ratio Lipase SARS-CoV-2 (PCR) Negative Assessment & Plan Assessment & Plan narrative: Slade Olvera is observed overnight for diuresis. Mild CHF exacerbation, present on admission Chads Vas2 score of 5 * He was diuresed with 60 mg of IV Lasix in the emergency department today * He has lost 8 kg since his last ED visit and we will monitor this daily * Will defer to day team for further daytime diuresis * Continue home doses of lisinopril, carvedilol and digoxin * Have requested discharge planning to look into why he was unable to be seen by Cardiology and to try to set that up for him again. Atrial fibrillation, chronic * Cardiac telemetry * Patient had previously to been taking warfarin however due to his frequent falls he was taken off * He states that he was taking ?baby aspirin and when he developed bruising he was put on to regular aspirin. Currently he appears to be written for low- dose aspirin. Question cognitive impairment * Have requested OT to do a SLUMS test on him tomorrow * Patient may not meet criteria for medical necessity for admission, but is unsafe for discharge. VTE Prophylaxis: Wells risk score 1.5 Enoxaparin 40 mg subQ once daily Bilateral SCDs Patient is placed into observation as his stay is not expected to exceed 2 midnights. 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 [X] I have utilized all available immediate resources to obtain, update, or review of the patient's current medications COVID-19 COVID-19 status: Negative Result date/Date tested (Pos, Neg/Pending): 11/01/21 Scores CHADS-VASc Congestive heart failure: yes Hypertension: yes Age 75 years or older: yes Diabetes mellitus: no Stroke, TIA, or TE: no Vascular disease: yes Age 65 to 74 years: no Sex category (female): Male CHADS-VASc Score: 5 Wells' Criteria for PE Clinical signs and symptoms of DVT: No PE is #1 Dx or equally likely: No Heart rate > 100: No Immobilization at least 3 days or surg in previous 4 weeks: Yes History of PE or DVT: No Hemoptysis: No Malignancy w/Treatment within 6 months or palliative: No Wells' PE Score total: 1.5 Quality VTE Deep Vein Thrombosis/Pulmonary Embolism Present on Admission: No MIPS - Admit I confirm the patient?s Advance Care Plan is present, Code status is documented, Surrogate decision maker is in patient?s record [If Yes, STOP here]: Yes MIPS - DC The patient has current or prior documentation of left ventricular ejection fraction (LVEF) less than 40%, or moderate or severely depressed left ventricular systolic function.: No
[2021-11-01 00:23] LABS: Ethanol (ETOH) < 10 mg/dL
[2021-11-01 04:44] VITALS: BP 97/56; PULSE 91; RESP 18; TEMP 36.9; O2SAT 97
[2021-11-01 05:57] VITALS: O2SAT 96
[2021-11-01 06:00] VITALS: BP 136/68; PULSE 82; O2SAT 96
[2021-11-01 07:00] LABS: Add Manual Diff / Slide Review NO; Basophils Absolute Auto 0 /uL (0-100); Basophils Percent Auto 0.5 % (0-2); Eosinophils Absolute Auto 100 /uL (0-450); Hematocrit 31.2 % (41-53); Hemoglobin 11.1 g/dL (13.5-17.5); Lymphocytes Absolute Auto 900 /uL (1100-4500); Lymphocytes Percent Auto 13.5 % (25-40); Mean Corpuscular HGB Conc 35.6 % (30-36); Mean Corpuscular Hemoglobin 35.6 PG (26-34); Mean Corpuscular Volume 99.9 fL (80-100); Monocytes Absolute Auto 700 /uL (0-900); Monocytes Percent Auto 10.8 % (3-14); Neutrophils Absolute Auto 4900 /uL (1500-7000); Neutrophils Percent Auto 73.2 % (50-75); Platelet Count 116 X10^3/uL (150-400); Red Blood Cell Count 3.12 X10^6/uL (4.5-5.9); White Blood Cell Count 6.7 X10^3/uL (4.5-11.0)
[2021-11-01 07:16] LABS: BUN Creatinine Ratio 24.1 (6-22); Blood Urea Nitrogen 20 mg/dL (9-20); Calcium 8.4 mg/dL (8.4-10.2); Carbon Dioxide 32 mmol/L (22-32); Chloride 102 mmol/L (98-107); Estimated Glomerular Filt Rate > 60 mL/min (>60); Glucose 97 mg/dL (80-110); HEMOLYSIS < 15 (0-50); Potassium 3.5 mmol/L (3.4-5.1); Sodium 138 mmol/L (137-145)
[2021-11-01 08:00] VITALS: BP 123/63; PULSE 68; RESP 16; TEMP 36.9; O2SAT 97
[2021-11-01] MEDS: carvediloL 12.5 MG TABLET PO (08:22)
[2021-11-01] MEDS: lisinopriL 5 MG TABLET PO (08:22)
[2021-11-01] MEDS: ASPIRIN 81 MG CHEW TAB PO (08:22)
[2021-11-01] MEDS: FUROSEMIDE 40 MG TABLET PO (08:24)
[2021-11-01] MEDS: ENOXAPARIN 40 MG/0.4 ML SYRINGE SUBCUT (08:24)
--- NOTE | 2021-11-01 09:08 | P.DS_ITS ---
History of Present Illness History of Present Illness Date Patient Seen: 11/01/21 Chief complaint: SOB CHEST PAIN LEG PAIN Narrative: SHMUEL Martin: Khurram Olvera is an 81 y.o. male who resides on [place] and was admitted to this facility in mid September for congestive heart physical year. He was to have undergone echocardiography and a stress test however he was unable to undergo stress test as it appeared that there were was no room for him to have a stress test done at this facility prior to discharge. He was initially referred to Cardiology and states that after he was discharged he was informed by Cardiology at [facility] that they were having to cancel his appointment. During his discharge of October 10 he was asked to take Lasix 20 mg daily. He was then seen in the emergency department on the evening of of his discharge, again on October 12, October 17, October 24, and today. 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 He did state that during 1 of his ED visits his dosage of Lasix was increased to 40 mg and he has been taking that for the past week. His main complaint today prior to arrival to the floor was chest pressure, shortness of breath and lower extremity swelling. He states that he had been given antibiotics for his left lower extremity and that it did started to weep again. He denies headaches, nausea vomiting, dysuria, diarrhea or constipation. Chest x-ray indicated cardiomegaly with mild interstitial edema. He is afebrile, blood pressure 131/72, heart rate 66, respiratory rate 18, oxygen saturation 99% on room air, he weighs 81 kg with a BMI of 25.0. He is mildly anemic with a hemoglobin and hematocrit of 11.4 and 31.9 respectively, platelet count is 135, sodium 136, glucose 119, his bili remitted is markedly elevated at 3.0 upon discharge it was normal, proBNP was 1570, and COVID-19 PCR is negative. Echocardiogram done on 10/08 during his last admission reported a moderately dilated left ventricle with an LEVF of 50-55%, marked biatrial enlargement [id number] mitral regurgitation, moderate tricuspid regurgitation and a moderately enlarged aortic arch. Pharmacological stress test done on 10/25/2021 indicated a probable myocardial perfusion study for ischemia, a small and subtle fixed mid to distal inferior defect that resolves on prone imaging, moderate left ventricular enlargement with borderline reduced left ventricular systolic function with an increased lung heart ratio with underlying atrial fibrillation. Discharge Providers Provider Date of admission: 10/31/21 22:33 Discharge Date: 11/01/21 Consults: 11/01/21 00:06 Consult to Discharge Planning Routine Comment: Please have him set up for PCP, cards Discharge provider: Jose A Lange DO Summary Hospital Course Discharge Diagnosis: Mild CHF exacerbation, acute on chronic heart failure, diastolic Atrial fibrillation, chronic Essential hypertension Hospital Course: This is an 81 year old male who was admitted with dyspnea on exertion. He was never hypoxic and symptoms were improved the morning after admission after a couple doses of IV lasix. He had a recent echocardiogram, additional study was not deemed necessary at this time. He was discharged home the morning after admission with plan to increase home furosemide to 40 mg BID for 1 week, fo llowed by 60 mg daily after that. He is recommended to persue follow up with outpatient cardiology and primary care. Exam Vital Signs (past 8 hours): - 11/01/21 04:44 11/01/21 05:57 11/01/21 06:00 Temperature 98.4 F Pulse Rate 91 H 82 Respiratory Rate 18 Blood Pressure 97/56 L 136/68 Pulse Oximetry 97 96 96 Oxygen Delivery Method Room Air Oxygen Flow Rate 0 0 11/01/21 08:00 Temperature 98.5 F Pulse Rate 68 Respiratory Rate 16 Blood Pressure 123/63 Pulse Oximetry 97 Oxygen Delivery Method Oxygen Flow Rate Oxygen Delivery Method Room Air Oxygen Flow Rate 0 Narrative Exam Narrative: Gen: 81 y.o. male, NAD, WDWN HEENT: normocephalic, atraumatic, conjunctiva clear, sclera non-icteric, oral mucosa pink and moist Neck: supple, full ROM, no JVD, trachea is midline Resp: Lungs CTA, non-labored breathing CV: RRR, no murmur or rubs Abd: soft, non-tender, normoactive BTs Ext: no edema or joint effusions. Objective Labs Result Diagrams: 11/01/21 06:23 11/01/21 06:23 Labs: Laboratory Results - last 24 hr 10/31/21 10/31/21 10/31/21 18:09 18:50 18:50 WBC 7.3 RBC 3.22 L Hgb 11.4 L Hct 31.9 L MCV 99.3 MCH 35.3 H MCHC 35.6 RDW 13.1 Plt Count 135 L Neut % (Auto) 71.6 Lymph % (Auto) 16.4 L [place] % (Auto) 9.7 Eos % (Auto) 1.3 L Baso % (Auto) 1.0 Neut # (Auto) 5200 Lymph # (Auto) 1200 [place] # (Auto) 700 Eos # (Auto) 100 Baso # (Auto) 100 Sodium 136 L Potassium 3.7 Chloride 100 Carbon Dioxide 27 BUN 19 Creatinine 0.95 Estimated GFR > 60 BUN/Creatinine Ratio 20.0 Glucose 119 H Calcium 8.9 Magnesium 1.9 Total Bilirubin 3.0 H AST 25 ALT 19 Alkaline Phosphatase 94 Total Creatine Kinase 65 CK-MB (CK-2) TNP CK-MB (CK-2) Rel Index TNP Troponin I < 0.012 NT-Pro-B Natriuret Pep Total Protein 6.8 Albumin 4.0 Globulin 2.8 Albumin/Globulin Ratio 1.4 Lipase 45 Ethyl Alcohol < 10 SARS-CoV-2 (PCR) 10/31/21 10/31/21 11/01/21 18:50 22:40 06:23 WBC 6.7 RBC 3.12 L Hgb 11.1 L Hct 31.2 L MCV 99.9 MCH 35.6 H MCHC 35.6 RDW 13.0 Plt Count 116 L Neut % (Auto) 73.2 Lymph % (Auto) 13.5 L [place] % (Auto) 10.8 Eos % (Auto) 2.0 Baso % (Auto) 0.5 Neut # (Auto) 4900 Lymph # (Auto) 900 L [place] # (Auto) 700 Eos # (Auto) 100 Baso # (Auto) 0 Sodium Potassium Chloride Carbon Dioxide BUN Creatinine Estimated GFR BUN/Creatinine Ratio Glucose Calcium Magnesium Total Bilirubin AST ALT Alkaline Phosphatase Total Creatine Kinase CK-MB (CK-2) CK-MB (CK-2) Rel Index Troponin I NT-Pro-B Natriuret Pep 1570 H Total Protein Albumin Globulin Albumin/Globulin Ratio Lipase Ethyl Alcohol SARS-CoV-2 (PCR) Negative 11/01/21 06:23 WBC RBC Hgb Hct MCV MCH MCHC RDW Plt Count Neut % (Auto) Lymph % (Auto) [place] % (Auto) Eos % (Auto) Baso % (Auto) Neut # (Auto) Lymph # (Auto) [place] # (Auto) Eos # (Auto) Baso # (Auto) Sodium 138 Potassium 3.5 Chloride 102 Carbon Dioxide 32 BUN 20 Creatinine 0.83 Estimated GFR > 60 BUN/Creatinine Ratio 24.1 H Glucose 97 Calcium 8.4 Magnesium Total Bilirubin AST ALT Alkaline Phosphatase Total Creatine Kinase CK-MB (CK-2) CK-MB (CK-2) Rel Index Troponin I NT-Pro-B Natriuret Pep Total Protein Albumin Globulin Albumin/Globulin Ratio Lipase Ethyl Alcohol SARS-CoV-2 (PCR) PFSH Medical History Chronic a-fib Congestive heart failure Hypertension Persistent atrial fibrillation with rapid ventricular response Tobacco use disorder, continuous Family History Mother Hypertension Father Heart attack Social History household members: none Smoking Status: Never smoker alcohol intake: current Discharge Plan Discharge Plan Patient Disposition: Home Provider Discharge Comment: You were admitted to the hospital with shortness of breath, likely due to mild fluid overload. Please continue furosemide 40 mg BID for 1 week, then 60 mg daily after that (this can be taken all at once, or split up into 40 mg and 20 mg doses depending on your preference). Nursing Discharge Comment: call 911/return to ER if symptoms return. make appt to see your PCP w/in 7-10 days of d/c. weigh yourself daily, keep a log of this, bring to any appts you have. take lasix as instructed above, it is good to split the doses of lasix thru the day, with the last dose being around 4pm, so youre not up all night in the bathroom. see the handouts on CHF, atrial fibrillation. take your b/p and pulse daily in the morning, keep a log of this. bring this info to your follow up appt for MD to review. it was a pleasure to be your nurse today, thank you for the chat and sharing your story. take care of yourself! Discharge orders & Medications Prescriptions: New furosemide 20 mg tablet See Rx Instructions .ROUTE .COMPLEX 30 Days Qty: 94 0RF Rx Instructions: Please take 40 mg (2 tabs) twice daily for 1 week, followed by 60 mg daily Continued digoxin 125 mcg (0.125 mg) tablet 1 tab PO DAILY Label Comments: TAKE ONE TABLET BY MOUTH EVERY DAY Adult Aspirin 81 mg tablet 81 mg PO DAILY carvedilol [Coreg] 12.5 mg Tablet 12.5 mg PO DAILY Qty: 30 0RF nitroglycerin [Nitrostat] 0.4 mg Tablet, Sublingual 0.4 mg sublingual [id number] PRN (Reason: Chest Pain) Qty: 30 0RF Label Comments: pt reports never using med yet lisinopril 5 mg tablet 5 mg PO DAILY Qty: 60 0RF Changed potassium chloride 10 mEq tablet extended release 20 meq PO DAILY 30 Days Qty: 60 0RF Discontinued furosemide [Lasix] 40 mg tablet 40 mg PO DAILY Qty: 60 0RF Diet/Activity/Treatments Diet: Diet as Tolerated Diet comment: low salt, heart healthy is recommended Activity: As tolerated Discharge Data Attending Provider: Manda Rodriguez VTE Deep Vein Thrombosis/Pulmonary Embolism Present on Admission: No
[2021-11-01] MEDS: POTASSIUM CHLORIDE 20 MEQ TAB 40 MEQ PO (10:08)
[2021-11-01 11:00] VITALS: O2SAT 99
--- NOTE | 2021-11-01 12:32 | CM.DANOTE ---
DCP/Brief: Reviewed chart, met with patient explained role. Patient is a 81yr old male admitted with SOB related to mild CHF. No PCP listed. Primary payor is [facility]. Patient has orders to d/c home today. Patient I in all ADL's. Patient reports that he is unsure he is quite ready to d/c home? Patient reports that he will stay at his friend's in [place]. With patient's permission placed call to friend/Killian requesting that he call patient back at hospital. P: Home and/or friend's today. Patient concerned about his CHF acting up again but as of know if completely stable. Patient aware that he is OBS status and does not meet criteria to stay an additional day. Patient reports understanding. [facility] Discharge Planning/Care Management CM Discharge Assessment Start: 11/01/21 12:27 Freq: Status: Active Protocol: Document 11/01/21 12:27 DOLORES (Rec: 11/01/21 12:31 [facility] [id number]) Discharge Planning Assessment Assigned Education And Training Manager ALESSIA Salinas Contact Information Killian Caballero (friend) # Advance Directives? Yes Advance Directives on File No History Provided By Patient,Medical Record Prior Living Arrangements House Household Members none Type of transporation used prior to Drives own vehicle admit Independent with ADL's Yes Is patient alert and oriented? Yes Caregiver for Another No Barriers to Discharge No Discharge Plan Home Transportation Arrangement Friend Referrals Initiated Other Additional Comment Met with patient this AM explained role. Pateint currently OBS status and medically stable for d/c. Patient reports that he resides on [facility]. Patient plans to go to his friend's at time of d/c . With patient's permission placed call to his friend Killian ph# [phone] left vm indicating patient requiring ride home. RN and patient updated. Review Status In Process Next Review Type Continued Stay Review
--- NOTE | 2021-11-01 17:32 | PC.NURSE ---
alert, oriented. voices needs. independant w/ mobility to/from bathroom. encouraged patient to call staff if feeling dizzy, unsteady on feet. patient voiced concern about going home w/o having his car, i did not plan to be here, [place] asked him what his plan was, he states I have a friend who will be helping me, i will give him a call. education given to patient re: CHF, D/C instructions for CHF, what to watch for re: worsening sx, and Afib. d/c paperwork reviewed w/ patient, he states he understands d/c instructions. tele/IV d'cd. CM to see patient to determine his customer contact sales associate Killian is available to help w/ d/c safely. patient left floor via w/c, escorted by CENTRAL SCHEDULER, as it was understood that patient would call a taxi and get a ride to killian's house. address [address] [place] [address] [address], [place]. ...
--- NOTE | 2021-11-01 19:26 | PC.NURSE ---
addendum to d/c note: called to downstairs lobby by security and EMERGENCY VEHICLE OPERATOR, patient sitting in lobby and had questions about his medications. patient seemed slightly distraught and appeared disheveled, frustrated. approached patient quietly, and noticed his eyes were red rimmed and he was flushed in his face. i called the pharmacy, and there is no flomax that was called in like this paper says it was. reminded patient that flomax was not on the med list, however the meds that were called to pharmacy was furosemide and potassium. called the pharmacy in sunday, confirmed w/ pharmacist that the two meds were phoned in to [facility] earlier today. patient notified of above, and was satisfied the meds were there and ready for mixing picker tender tomorrow. patient calmer after this conversation, however his plan to be picked up by his friend la was vague. encouraged patient to call one of his daughters, and he declined. i dont want them to worry. per security report about an hour after above interaction: patient had left the hospital. unclear wheter this was via taxi or on foot.
== END 2021-11-01 11:15 | disposition home or self-care (01) ==
LOC: ED 21:53 → AC 22:33
PROVIDERS: Admitting Provider Nurse Practitioner Family; Emergency Provider Emergency Medicine; Visit Provider Nurse Practitioner Family
DX: I50.33 Acute on chronic diastolic (congestive) heart failure (principal); I11.0 Hypertensive heart disease with heart failure; I48.19 Other persistent atrial fibrillation; R06.02 Shortness of breath; R60.0 Localized edema; Z20.822 Contact with and (suspected) exposure to COVID-19
CPT/HCPCS: 36415; 71045; 80048; 80053; 80320; 82550; 83690; 83735; 83880; 84484; 85025; 87635; 93005; 93010; 96372; 96374; 99283; 99284; C9803; G0378; J1650; J1940

== ENCOUNTER 2021-11-23 19:04 | Inpatient (IN) | payer MEDICARE, SELFPAY ==
[2021-11-23] VITALS (11 sets, daily range): BP systolic 132–159; BP diastolic 70–98; PULSE 56–169; RESP 22–32; TEMP 38.7; O2SAT 77–100
--- NOTE | 2021-11-23 19:18 | DI.RAD.S_ITS ---
PROCEDURE: XR CHEST 2V INDICATIONS: SOB TECHNIQUE: 2 views of the chest were acquired. COMPARISON: [facility], CR, XR CHEST 1V, 10/31/2021, 19:03. FINDINGS: Surgical changes and devices: None. Lungs and pleura: Lungs are clear. No pleural effusions or pneumothorax. Mediastinum: Mediastinal contours are normal. Heart size is enlarged. Bones and chest wall: No suspicious bony abnormalities. Soft tissues appear unremarkable. IMPRESSION: No acute process. Cardiomegaly. Dictated by: Valery Law M.D. on 11/23/2021 at 19:48 Approved by: Valery Law M.D. on 11/23/2021 at 19:48
--- NOTE | 2021-11-23 19:19 | ED_ITS ---
HPI - Weakness General Chief complaint: Fever Stated complaint: Legs are failing him Time Seen by Provider: 11/23/21 19:10 History of Present Illness HPI Narrative: 81-year-old male nonsmoker with history of persistent AFib, CHF, thrombocytopenia presents with a chief complaint of cough productive of yellowish sputum, generalized weakness and fatigue sufficient to cause him to fall twice in the past 2 days. He denies any head neck or back pain nor any injury as a consequence of the fall. He states that he just felt too weak in his legs with no longer support him. He has been nauseated but denies any vomiting. Denies any chest pain, squeezing or heaviness. He denies any abdom inal pain or constipation but has had 3 episodes of diarrhea. He denies dysuria, frequency or urgency. He states he has been taking his medications as directed without any change or missed doses. She denies any recent dietary change. He is had no recent travel, history of blood clot. He denies fever or chills. Related Data Home Medications Medication Instructions Recorded Confirmed digoxin 125 mcg (0.125 mg) tablet 1 tab PO DAILY 09/30/21 10/31/21 Adult Aspirin 81 mg PO DAILY 10/08/21 10/31/21 Previous Rx's Medication Instructions Recorded carvedilol 12.5 mg tablet (Coreg) 12.5 mg PO DAILY #30 tabs 10/10/21 nitroglycerin 0.4 mg sublingual 0.4 mg sublingual [id number] PRN 10/10/21 tablet (Nitrostat) Chest Pain #30 tabs lisinopril 5 mg tablet 5 mg PO DAILY #60 tabs 10/25/21 furosemide 20 mg tablet See Rx Instructions .Route 11/01/21 .COMPLEX 30 days #94 tabs potassium chloride 10 mEq 20 meq PO DAILY 30 days #60 tabs 11/01/21 tablet,extended release Allergies Allergy/AdvReac Type Severity Reaction Status Date / Time No Known Drug Allergies Allergy Verified 10/24/21 18:28 Review of Systems Review of Systems Narrative: GENERAL: See HPI HEENT: Denies sinus pain, ear pain, sore throat, difficulty swallowing, dizziness. RESPIRATORY: See HPI. CARDIOVASCULAR: Denies chest pain, palpitations, orthopnea, edema, GASTROINTESTINAL: See HPI : Denies dysuria, frequency, incontinence, hematuria, urinary retention. MUSCULOSKELETAL: See HPI SKIN: Denies rash, skin lesions, or other NEUROLOGIC: Denies weakness, headache, numbness, change in speech, confusion, seizures, incoordination. PSYCHIATRIC: No concerning psychosocial issues. 12 point review of systems is negative except for those stated above Patient History Medical History Chronic a-fib Congestive heart failure Hypertension Persistent atrial fibrillation with rapid ventricular response Tobacco use disorder, continuous Family History Mother Hypertension Father Heart attack Social History household members: none Smoking Status: Never smoker alcohol intake: current Smoking Status: Never smoker alcohol intake frequency: a few times a month Substance Use Type: does not use Exam Narrative Exam Narrative: GENERAL: [81] year old patient appears stated age. Well-developed patient, in mild distress. HEAD: Atraumatic. Normocephalic. EYES: Pupils equal round and reactive. Extraocular motions intact. No scleral icterus. No injection or drainage. ENT: Nose without bleeding, purulent drainage. Throat without erythema, tonsillar hypertrophy or exudate. Airway patent. NECK: Trachea midline. Non tender CARDIOVASCULAR: Regular rate and rhythm without murmurs, gallops, or rubs. RESPIRATORY: Tachypneic with relatively rapid and shallow breathing, faint crackles in bilateral bases GASTROINTESTINAL: Abdomen soft, non-tender, nondistended. EXTREMITIES: 2+ pitting edema bilateral lower extremities BACK: Nontender without deformity or crepitance. No flank tenderness. NEURO: AOx3. SKIN: No rash or erythema of visible areas Initial Vital Signs Initial Vital Signs: Vital Signs Temperature 101.7 F H 11/23/21 19:18 Pulse Rate 118 H 11/23/21 19:18 Respiratory Rate 22 11/23/21 19:18 Blood Pressure 145/81 H 11/23/21 19:18 Pulse Oximetry 98 11/23/21 19:18 Oxygen Delivery Method 11/23/21 19:18 Course Orders Ordered: ED Orders 11/23/21 19:18 XR chest 2V Stat Lactate (Lactic Acid) Stat EKG-12 Lead Stat 11/23/21 19:50 Blood Culture Stat CRP [C-Reactive Protein Quant] Stat Complete Blood Count AUTO DIFF Stat Comprehensive Metabolic Panel Stat D Dimer Stat Ferritin Stat LDH [Lactate Dehydrogenase] Stat Magnesium Stat NT-proBNP (BNP-Adult 18+) Stat Partial Thromboplastin Time Stat Procalcitonin Stat Prothrombin Time INR Stat Troponin & CK Cardiac Panel Stat 11/23/21 19:52 COVID19 -Nasal RAPID/Pre-Proc Stat 11/23/21 22:14 CT angio chest PE protocol Stat 11/23/21 23:39 Digoxin Stat TSH w/ Reflex to FT4 Stat 11/23/21 23:57 GI Panel (Film Array) Stat Discontinued Medications Ceftriaxone Sodium (Ceftriaxone 2,000 Mg Vial) 1,000 mg IM NOW ONE Stop: 11/23/21 19:25 Last Admin: 11/23/21 22:11 Dose: 1,000 mg Documented By: MOIRA Furosemide (Furosemide 40 Mg/4 Ml Vial) 40 mg IV NOW ONE Stop: 11/23/21 19:18 Last Admin: 11/23/21 20:33 Dose: 40 mg Documented By: MOIRA Sodium Chloride (Normal Saline 0.9%) 1,000 mls @ 1,000 mls/hr IV BOLUS ONE Stop: 11/23/21 20:23 Last Infusion: 11/23/21 22:23 Dose: 0 mls/hr Documented By: Admin: 11/23/21 20:34 Dose: 1,000 mls/hr Documented By: MOIRA Azithromycin 500 mg/ Dextrose 250 mls @ 250 mls/hr IV NOW ONE Stop: 11/23/21 19:25 Last Infusion: 11/23/21 22:11 Dose: 0 mls/hr Documented By: Admin: 11/23/21 20:32 Dose: 250 mls/hr Documented By: MOIRA Vital Signs Vital signs: Vital Signs - 8 hr 11/23/21 19:18 11/23/21 19:44 11/23/21 19:56 Temperature 101.7 F H Pulse Rate 118 H 66 Respiratory Rate 22 23 Blood Pressure 145/81 H 151/86 H Pulse Oximetry 98 92 Oxygen Delivery Method Room Air 11/23/21 19:56 11/23/21 20:00 11/23/21 20:00 Temperature Pulse Rate 122 H 134 H Respiratory Rate 23 22 Blood Pressure 151/84 H Pulse Oximetry 99 100 Oxygen Delivery Method 11/23/21 20:30 11/23/21 20:30 11/23/21 21:00 Temperature Pulse Rate 139 H Respiratory Rate 23 Blood Pressure 147/83 H 132/70 Pulse Oximetry 99 Oxygen Delivery Method 11/23/21 21:00 11/23/21 21:30 11/23/21 21:30 Temperature Pulse Rate 113 H 134 H Respiratory Rate 28 H 25 H Blood Pressure 137/86 Pulse Oximetry 99 97 Oxygen Delivery Method 11/23/21 22:00 11/23/21 22:00 11/23/21 22:38 Temperature Pulse Rate 169 H Respiratory Rate 32 H Blood Pressure 151/98 H Pulse Oximetry 80 L Oxygen Delivery Method 11/23/21 22:39 11/23/21 22:39 11/23/21 23:00 Temperature Pulse Rate 56 L Respiratory Rate Blood Pressure 159/89 H 145/81 H Pulse Oximetry 77 L Oxygen Delivery Method 11/23/21 23:00 Temperature Pulse Rate 112 H Respiratory Rate 29 H Blood Pressure Pulse Oximetry 95 Oxygen Delivery Method MDM - Weakness Lab Data Result diagrams: 11/23/21 19:50 11/23/21 19:50 Labs: Lab Results 11/23/21 11/23/21 11/23/21 Range/Units 19:50 19:50 19:50 WBC 4.9 (4.5-11.0) X10^3/uL RBC 2.97 L (4.5-5.9) X10^6/uL Hgb 10.3 L (13.5-17.5) g/dL Hct 30.2 L (41-53) % MCV 101.7 H (80-100) fL MCH 34.7 H (26-34) PG MCHC 34.2 (30-36) % RDW 14.1 (11.6-14.8) % Plt Count 117 L (150-400) X10^3/uL Neut % (Auto) 75.0 (50-75) % Lymph % (Auto) 9.5 L (25-40) % [place] % (Auto) 13.9 (3-14) % Eos % (Auto) 0.9 L (2-4) % Baso % (Auto) 0.7 (0-2) % Neut # (Auto) 3600 (7767-8238) /uL Lymph # (Auto) 500 L (2813-0488) /uL [place] # (Auto) 700 (0-900) /uL Eos # (Auto) 0 (0-450) /uL Baso # (Auto) 0 (0-100) /uL PT 11.7 (10.1-12.7) SECONDS INR 1.0 (0.9-1.3) APTT 30 (26-36) SECONDS D-Dimer (<500) ng/ml Sodium (137-145) mmol/L Potassium (3.4-5.1) mmol/L Chloride (98-107) mmol/L Carbon Dioxide (22-32) mmol/L BUN (9-20) mg/dL Creatinine (0.66-1.25) mg/dL Estimated GFR (>60) mL/min BUN/Creatinine Ratio (6-22) Glucose (80-110) mg/dL Calcium (8.4-10.2) mg/dL Magnesium (1.6-2.3) mg/dL Ferritin (18-464) ng/mL Total Bilirubin (0.2-1.3) mg/dL AST (17-59) IU/L ALT (<50) IU/L Alkaline Phosphatase (38-126) U/L Lactate Dehydrogenase (313-618) U/L Total Creatine Kinase (55-170) U/L CK-MB (CK-2) CK-MB (CK-2) Rel Index Troponin I (0.01-0.034) ng/mL C-Reactive Protein (<1.0) mg/dL NT-Pro-B Natriuret Pep (<450) pg/mL Total Protein (6.3-8.2) g/dL Albumin (3.5-5.0) g/dL Globulin (1.7-4.1) g/dL Albumin/Globulin Ratio (1.0-2.8) Procalcitonin 0.06 (<0.5) ng/mL SARS-CoV-2 (PCR) (Negative) 11/23/21 11/23/21 11/23/21 Range/Units 19:50 19:50 19:50 WBC (4.5-11.0) X10^3/uL RBC (4.5-5.9) X10^6/uL Hgb (13.5-17.5) g/dL Hct (41-53) % MCV (80-100) fL MCH (26-34) PG MCHC (30-36) % RDW (11.6-14.8) % Plt Count (150-400) X10^3/uL Neut % (Auto) (50-75) % Lymph % (Auto) (25-40) % [place] % (Auto) (3-14) % Eos % (Auto) (2-4) % Baso % (Auto) (0-2) % Neut # (Auto) (6769-8461) /uL Lymph # (Auto) (8475-9263) /uL [place] # (Auto) (0-900) /uL Eos # (Auto) (0-450) /uL Baso # (Auto) (0-100) /uL PT (10.1-12.7) SECONDS INR (0.9-1.3) APTT (26-36) SECONDS D-Dimer 1727 H (<500) ng/ml Sodium 134 L (137-145) mmol/L Potassium 4.0 (3.4-5.1) mmol/L Chloride 98 (98-107) mmol/L Carbon Dioxide 29 (22-32) mmol/L BUN 20 (9-20) mg/dL Creatinine 0.87 (0.66-1.25) mg/dL Estimated GFR > 60 (>60) mL/min BUN/Creatinine Ratio 23.0 H (6-22) Glucose 106 (80-110) mg/dL Calcium 8.4 (8.4-10.2) mg/dL Magnesium 1.9 (1.6-2.3) mg/dL Ferritin 262 (18-464) ng/mL Total Bilirubin 1.0 (0.2-1.3) mg/dL AST 44 (17-59) IU/L ALT 36 (<50) IU/L Alkaline Phosphatase 99 (38-126) U/L Lactate Dehydrogenase 615 (313-618) U/L Total Creatine Kinase 65 (55-170) U/L CK-MB (CK-2) TNP CK-MB (CK-2) Rel Index TNP Troponin I < 0.012 (0.01-0.034) ng/mL C-Reactive Protein 2.6 H (<1.0) mg/dL NT-Pro-B Natriuret Pep 1610 H (<450) pg/mL Total Protein 6.6 (6.3-8.2) g/dL Albumin 3.9 (3.5-5.0) g/dL Globulin 2.7 (1.7-4.1) g/dL Albumin/Globulin Ratio 1.4 (1.0-2.8) Procalcitonin (<0.5) ng/mL SARS-CoV-2 (PCR) (Negative) 11/23/21 Range/Units 19:52 WBC (4.5-11.0) X10^3/uL RBC (4.5-5.9) X10^6/uL Hgb (13.5-17.5) g/dL Hct (41-53) % MCV (80-100) fL MCH (26-34) PG MCHC (30-36) % RDW (11.6-14.8) % Plt Count (150-400) X10^3/uL Neut % (Auto) (50-75) % Lymph % (Auto) (25-40) % [place] % (Auto) (3-14) % Eos % (Auto) (2-4) % Baso % (Auto) (0-2) % Neut # (Auto) (8126-5119) /uL Lymph # (Auto) (9167-9033) /uL Haskell # (Auto) (0-900) /uL Eos # (Auto) (0-450) /uL Baso # (Auto) (0-100) /uL PT (10.1-12.7) SECONDS INR (0.9-1.3) APTT (26-36) SECONDS D-Dimer (<500) ng/ml Sodium (137-145) mmol/L Potassium (3.4-5.1) mmol/L Chloride (98-107) mmol/L Carbon Dioxide (22-32) mmol/L BUN (9-20) mg/dL Creatinine (0.66-1.25) mg/dL Estimated GFR (>60) mL/min BUN/Creatinine Ratio (6-22) Glucose (80-110) mg/dL Calcium (8.4-10.2) mg/dL Magnesium (1.6-2.3) mg/dL Ferritin (18-464) ng/mL Total Bilirubin (0.2-1.3) mg/dL AST (17-59) IU/L ALT (<50) IU/L Alkaline Phosphatase (38-126) U/L Lactate Dehydrogenase (313-618) U/L Total Creatine Kinase (55-170) U/L CK-MB (CK-2) CK-MB (CK-2) Rel Index Troponin I (0.01-0.034) ng/mL C-Reactive Protein (<1.0) mg/dL NT-Pro-B Natriuret Pep (<450) pg/mL Total Protein (6.3-8.2) g/dL Albumin (3.5-5.0) g/dL Globulin (1.7-4.1) g/dL Albumin/Globulin Ratio (1.0-2.8) Procalcitonin (<0.5) ng/mL SARS-CoV-2 (PCR) Positive H (Negative) Urine Dip Bedside Urine Glucose Negative Bedside Urine Bilirubin - Negative Bedside Urine Ketone - Negative Urine Specific [place] 1.015 Bedside Urine Occult Blood - Negative Bedside Urine pH 6.0 Bedside Urine Protein - Negative Bedside Urine Urobilinogen - Negative Bedside Urine Nitrite - Negative Bedside Urine Leukocytes - Negative Esterase MDM Narrative Medical decision making narrative: 81-year-old male meets septic criteria due to tachycardia, tachypnea and fever with suspected infection which is confirmed by his COVID positive status is profoundly short of breath and with minimal exertion rapidly decompensates. He currently is not requiring supplemental oxygen but obviously there is significant concern for decompensation. He has been treated with fluids as well as antibiotics for sepsis, Lasix was given due to additional concern of possible CHF exacerbation. He currently does not meet criteria for COVID specific renuka atment but will require hospitalization for ongoing evaluation and stabilization. Discharge Plan Departure Patient Disposition: Admitted As Inpatient Clinical Impression: Sepsis, COVID Admit Date/Time: 11/24/21 00:56 Admit Provider: Suzanne Narvaez
[2021-11-23 20:05] LABS: Add Manual Diff / Slide Review NO; Basophils Absolute Auto 0 /uL (0-100); Basophils Percent Auto 0.7 % (0-2); Eosinophils Absolute Auto 0 /uL (0-450); Eosinophils Percent Auto 0.9 % (2-4); Hematocrit 30.2 % (41-53); Hemoglobin 10.3 g/dL (13.5-17.5); Lymphocytes Absolute Auto 500 /uL (1100-4500); Lymphocytes Percent Auto 9.5 % (25-40); Mean Corpuscular HGB Conc 34.2 % (30-36); Mean Corpuscular Hemoglobin 34.7 PG (26-34); Mean Corpuscular Volume 101.7 fL (80-100); Monocytes Absolute Auto 700 /uL (0-900); Monocytes Percent Auto 13.9 % (3-14); Neutrophils Absolute Auto 3600 /uL (1500-7000); Platelet Count 117 X10^3/uL (150-400); Red Blood Cell Count 2.97 X10^6/uL (4.5-5.9); Red Cell Distribution Width 14.1 % (11.6-14.8); White Blood Cell Count 4.9 X10^3/uL (4.5-11.0)
[2021-11-23 20:10] LABS: COVID19 -Nasal RAPID POSITIVE (Negative)
[2021-11-23 20:23] LABS: Prothrombin Time 11.7 SECONDS (10.1-12.7)
[2021-11-23 20:25] LABS: PTT Partial Thromboplastin Tim 30 SECONDS (26-36)
[2021-11-23] MEDS: AZITHROMYCIN 500 MG in DEXTROSE 5% IN WATER 250 ML 250 MG IV (20:32)
[2021-11-23] MEDS: FUROSEMIDE 40 MG/4 ML VIAL IV (20:33)
[2021-11-23] MEDS: SODIUM CHLORIDE 0.9% 1,000 ML 1000 ML IV (20:34)
[2021-11-23 20:37] LABS: Alanine Aminotransferase 36 IU/L (<50); Albumin 3.9 g/dL (3.5-5.0); Albumin Globulin Ratio 1.4 (1.0-2.8); Alkaline Phosphatase 99 U/L (38-126); Aspartate Aminotransferase 44 IU/L (17-59); Blood Urea Nitrogen 20 mg/dL (9-20); Calcium 8.4 mg/dL (8.4-10.2); Carbon Dioxide 29 mmol/L (22-32); Chloride 98 mmol/L (98-107); Creatine Kinase 65 U/L (55-170); Estimated Glomerular Filt Rate > 60 mL/min (>60); Globulin 2.7 g/dL (1.7-4.1); Glucose 106 mg/dL (80-110); HEMOLYSIS < 15 (0-50); Magnesium 1.9 mg/dL (1.6-2.3); Sodium 134 mmol/L (137-145); Total Protein 6.6 g/dL (6.3-8.2)
[2021-11-23 20:49] LABS: NT-proBNP (BNP-Adult 18+) 1610 pg/mL (<450); Troponin I < 0.012 ng/mL (0.01-0.034)
[2021-11-23 20:53] LABS: Procalcitonin 0.06 ng/mL (<0.5)
[2021-11-23 21:59] LABS: D Dimer 1727 ng/ml (<500)
[2021-11-23] MEDS: cefTRIAXone 2,000 MG VIAL 1000 MG IM (22:11)
--- NOTE | 2021-11-23 22:14 | DI.CT.S_ITS ---
PROCEDURE: CT ANGIO CHEST PE PROTOCOL INDICATIONS: SOB, cough, fever, critical Dimer TECHNIQUE: After the administration of intravenous contrast, 2 mm thick sections acquired from the pulmonary apices to the posterior costophrenic angles. 3-dimensional maximum intensity projection (MIP) coronal and sagittal reformats were then acquired through the thorax. For radiation dose reduction, the following was used: automated exposure control, adjustment of mA and/or kV according to patient size. COMPARISON: [facility], CR, XR CHEST 2V, 11/23/2021, 19:20. [facility], CT, CT ANGIO CHEST PE PROTOCOL, 10/12/2021, 21:15. FINDINGS: Image quality: There is mild motion artifact limiting evaluation. Pulmonary arteries: Pulmonary arteries demonstrate no intraluminal filling defects to suggest central pulmonary embolism. There is enlargement of the pulmonary arteries, with the main pulmonary artery measuring up to 3.1 cm suggestive of pulmonary arterial hypertension. Lower Neck: No lymphadenopathy by size criteria. Thyroid: Visualized thyroid demonstrates no discrete nodules. Axillae: No lymphadenopathy by size criteria. Chest Wall: Unremarkable. Bones: Visualized osseous structures demonstrate no suspicious lesions. Lungs and Airways: No acute consolidation. There is atelectasis and scarring redemonstrated within the lung bases bilaterally. There is also linear atelectasis medially within the right upper and middle lobes. A small left lower lobe 0.4 cm nodule is present on series 5, image 199, unchanged from the prior study. The trachea and central airways are patent. Pleura: No pneumothorax or pleural effusions. Heart: Heart size is markedly enlarged. No pericardial effusion. Thoracic Vessels: There is mild aneurysmal dilatation of the ascending thoracic aorta which measures up to 4.0 cm. The aortic arch measures up to 3.1 cm at the vertex. The proximal descending aorta measures up to 3.0 cm. At the level of the diaphragmatic hiatus, the aorta measures up to 2.7 cm. Findings are similar to the prior study. Mediastinum and [place]: No lymphadenopathy by size criteria. Esophagus: No wall thickening. No hiatal hernia. Abdomen: Visualized upper abdomen demonstrates reflux of contrast into the inferior vena cava and hepatic veins suggestive of elevated right heart filling pressures. There is a small nonobstructing 0.2 cm stone within the partially visualized right kidney. IMPRESSION: 1. No evidence of central pulmonary embolism. 2. Enlargement of the pulmonary arteries suggestive of pulmonary arterial hypertension. 3. No acute airspace consolidation. 4. Left lower lobe 0.4 cm pulmonary nodule. If patient is at high risk for malignancy, a follow-up CT may be performed in 12 months to demonstrate stability if clinically indicated. 5. Mild aneurysmal dilatation of the thoracic aorta. 6. Marked cardiomegaly redemonstrated. Dictated by: Mauri Dao M.D. on 11/23/2021 at 23:20 Approved by: Mauri Dao M.D. on 11/23/2021 at 23:26
[2021-11-23 22:36] LABS: C-Reactive Protein Quant 2.6 mg/dL (<1.0); Lactate Dehydrogenase 615 U/L (313-618)
[2021-11-23 23:08] LABS: Ferritin 262 ng/mL (18-464)
[2021-11-24] VITALS (11 sets, daily range): BP systolic 109–153; BP diastolic 58–93; PULSE 72–129; RESP 16–24; TEMP 36.7–38.6; O2SAT 95–98; BMI 26.6
[2021-11-24 01:21] LABS: Digoxin < 0.4 ng/mL (0.8-2.0)
[2021-11-24 01:52] LABS: TSH w/ Reflex to FT4 0.89 uIU/mL (0.47-4.68)
[2021-11-24 02:16] LABS: Campylobacter Not Detected (Not Detect); Clostridium difficile toxin AB Not Detected (Not Detect); Plesiomonsa shigelloides Not Detected (Not Detect); Salmonella Not Detected (Not Detect); Vibrio Not Detected (Not Detect)
[2021-11-24 02:17] LABS: Adenovirus F 40/41 Not Detected (Not Detect); Astrovirus Not Detected (Not Detect); Cryptosporidium Not Detected (Not Detect); Cyclospora cayetanensis Not Detected (Not Detect); Entamoeba histolytica Not Detected (Not Detect); Enteroaggregative E.coli Not Detected (Not Detect); Enteropathogenic E.coli Not Detected (Not Detect); Enterotoxigenic E.coli It/st Not Detected (Not Detect); Giardia lamblia Not Detected (Not Detect); Norovirus GI/GII Not Detected (Not Detect); Rotavirus A Not Detected (Not Detect); Sapovirus Not Detected (Not Detect); Shiga-like toxin-prod E.coli Not Detected (Not Detect); Shigella/Enteroinvasive E.coli Not Detected (Not Detect); Vibrio cholerae Not Detected (Not Detect); Yersinia enterocolitica Not Detected (Not Detect)
[2021-11-24 02:33] LABS: Troponin I 0.018 ng/mL (0.01-0.034)
[2021-11-24] MEDS: METOPROLOL TARTRATE 5 MG/5 ML INJ IV ×2 (03:20→18:23)
--- NOTE | 2021-11-24 05:09 | P.HP_ITS ---
History of Present Illness History of Present Illness Date Patient Seen: 11/24/21 Time Patient Seen: 01:52 Chief complaint: Legs are failing him Narrative: 81-year-old male nonsmoker with history of persistent AFib, CHF, thrombocytopenia bilateral lower extremity edema presented to the ED with a chief complaint of cough productive of yellowish sputum, generalized weakness and fatigue sufficient to cause him to fall twice in the past 2 days.? He denies head, neck , or back pain nor any injury, positive nausea without vomiting.? Denies chest pain, fever, body aches, chills, hearing or visual changes, squeezing or heaviness, abdominal pain, constipation but has had 3 episodes of diarrhea without melena.? He denies dysuria, frequency or urgency.? He states he has been taking his medications as directed without any change or missed doses. He is had no recent travel, history of blood clot.? He denies fever or chills. Upon admit patient is febrile with a temp of 101.7?, BP 145/81, slightly tachycardic with a heart rate of 112, tachypneic respiratory rate 29, O2 saturation 95% not requiring oxygen at this time. Patient's HGB 10.3, HCT 30.2, MCV 101.7, MCH 34.7, platelets 117-patient suffers from chronic anemia and thrombocytopenia. Patient's sodium is 134, patient's D-dimer is 1727, CTA is negative for PE, shows enlargement of the pulmonary arteries, with left lower lobe 0.4 cm pulmonary nodule, a mild aneurysmal dilatation of the thoracic aor ta, and marked cardiomegaly, patient's chest x-ray is negative for any acute cardiopulmonary processes noted cardiomegaly., procalcitonin within normal limits LDH within normal limits, CRP 2.6, BNP 1610, troponin and TSH pending, digital level<0.4, patient's is positive for COVID. Patient did meet SIRS criteria in ED, sofa score on admit:1. Patient admitted for COVID infection. Patient History Medical History Chronic a-fib Congestive heart failure Hypertension Persistent atrial fibrillation with rapid ventricular response Tobacco use disorder, continuous Family & Social History Family History Mother Hypertension Father Heart attack Social History: household members none Tobacco & Substance use: Smoking Status Never smoker alcohol intake current alcohol intake frequency a few times a month Substance Use Type does not use Meds Home Medications and Allergies Home Medications Medication Instructions Recorded Confirmed Type digoxin 125 mcg (0.125 mg) tablet 1 tab PO DAILY 09/30/21 10/31/21 History Adult Aspirin 81 mg PO DAILY 10/08/21 10/31/21 History carvedilol 12.5 mg tablet (Coreg) 12.5 mg PO DAILY #30 tabs 10/10/21 10/31/21 Rx nitroglycerin 0.4 mg sublingual 0.4 mg sublingual [id number] PRN 10/10/21 10/31/21 Rx tablet (Nitrostat) Chest Pain #30 tabs lisinopril 5 mg tablet 5 mg PO DAILY #60 tabs 10/25/21 10/31/21 Rx furosemide 20 mg tablet See Rx Instructions .Route 11/01/21 Rx .COMPLEX 30 days #94 tabs potassium chloride 10 mEq 20 meq PO DAILY 30 days #60 tabs 11/01/21 Rx tablet,extended release Allergies Allergy/AdvReac Type Severity Reaction Status Date / Time No Known Drug Allergies Allergy Verified 10/24/21 18:28 Review of Systems Review of Systems Narrative: All 12 point systems reviewed with the patient and are negative except otherwise documented. Exam Vital Signs (past 8 hours): - 11/23/21 21:30 11/23/21 21:30 11/23/21 22:00 Temperature Pulse Rate 134 H Respiratory Rate 25 H Blood Pressure 137/86 151/98 H Pulse Oximetry 97 Oxygen Delivery Method Oxygen Flow Rate 11/23/21 22:00 11/23/21 22:38 11/23/21 22:39 Temperature Pulse Rate 169 H Respiratory Rate 32 H Blood Pressure 159/89 H Pulse Oximetry 80 L Oxygen Delivery Method Oxygen Flow Rate 11/23/21 22:39 11/23/21 23:00 11/23/21 23:00 Temperature Pulse Rate 56 L 112 H Respiratory Rate 29 H Blood Pressure 145/81 H Pulse Oximetry 77 L 95 Oxygen Delivery Method Oxygen Flow Rate 11/24/21 01:35 11/24/21 02:50 Temperature 99.3 F Pulse Rate 129 H 120 H Respiratory Rate 24 18 Blood Pressure 153/93 H 150/74 H Pulse Oximetry 97 95 Oxygen Delivery Method Room Air Oxygen Flow Rate 0 Oxygen Delivery Method Room Air Oxygen Flow Rate 0 Narrative Exam Narrative: General: Patient is a well-developed, well-nourished in no distress at this time. HEENT: Normocephalic, atraumatic, extraocular muscles intact, oral pharynx is clear and mucous membranes are moist. Neck is supple and symmetric, trachea is midline, no adenopathy, no thyroid enlargement, nontender, no masses palpated. Negative for JVD Chest: Normal AP diameter and contour without kyphoscoliosis, no nasal flaring, retractions, or positive tachypneic labored breathing Lungs: Auscultation of all lung anders Tachypneic with relatively rapid and shallow breathing, faint crackles in bilateral bases Cardio: S1 & S2 with regular rate and rhythm without murmur, rubs, or gallops, no carotid bruit, no cardiac pulsations present. Abdomen: Soft nontender, negative for organomegaly, or masses. Bowel sounds are present in all 4 quadrants without guarding or rebound, no CVA tenderness. Musculoskeletal: Muscle strength and tone are equal within normal limits, no deformity, crepitus, effusions, cyanosis, clubbing present. Bilateral lower extremity +2 edema. Full range of motion intact radial and pedal pulses are normal. Skin: Warm dry and intact without rashes, ulcerations or petechiae. Neuro: Alert and orientated x2 slightly confused,sensation to touch intact, no gross deficits noted of cranial nerves. Psych: Patient has a well-kept appearance, appropriate affect, mental status attitude thought context and judgment are impaired. Objective Labs Result Diagrams: 11/23/21 19:50 11/23/21 19:50 Labs: Laboratory Results - last 24 hr 11/23/21 11/23/21 11/23/21 19:50 19:50 19:50 WBC 4.9 RBC 2.97 L Hgb 10.3 L Hct 30.2 L MCV 101.7 H MCH 34.7 H MCHC 34.2 RDW 14.1 Plt Count 117 L Neut % (Auto) 75.0 Lymph % (Auto) 9.5 L [place] % (Auto) 13.9 Eos % (Auto) 0.9 L Baso % (Auto) 0.7 Neut # (Auto) 3600 Lymph # (Auto) 500 L [place] # (Auto) 700 Eos # (Auto) 0 Baso # (Auto) 0 PT 11.7 INR 1.0 APTT 30 D-Dimer Sodium Potassium Chloride Carbon Dioxide BUN Creatinine Estimated GFR BUN/Creatinine Ratio Glucose Calcium Magnesium Ferritin Total Bilirubin AST ALT Alkaline Phosphatase Lactate Dehydrogenase Total Creatine Kinase CK-MB (CK-2) CK-MB (CK-2) Rel Index Troponin I C-Reactive Protein NT-Pro-B Natriuret Pep Total Protein Albumin Globulin Albumin/Globulin Ratio Procalcitonin 0.06 TSH Stl C. cayetanensis PCR Stool Rotavirus (PCR) Stool Adenovirus (PCR) Stool Astrovirus (PCR) Stool Cryptosporidium PCR Stl E.coli Shiga Tox PCR St Sh/Enteroin Ecoli PCR Stool E coli O157 PCR Stl Enterotoxigenic E PCR Stool EPEC (PCR) Stl E. histolytica PCR Stool Giardia Lamblia PCR Stool Sapovirus (PCR) Stl P. shigelloides PCR St Y.enterocolitica PCR Stool Vibrio (PCR) Stl Vibrio cholerae PCR Stl Enteroaggr Ecoli PCR Stl Norovirus GI/GII PCR Digoxin Campylobacter (PCR) C. difficile Tox (PCR) SARS-CoV-2 (PCR) Salmonella (PCR) 11/23/21 11/23/21 11/23/21 19:50 19:50 19:50 WBC RBC Hgb Hct MCV MCH MCHC RDW Plt Count Neut % (Auto) Lymph % (Auto) [place] % (Auto) Eos % (Auto) Baso % (Auto) Neut # (Auto) Lymph # (Auto) [place] # (Auto) Eos # (Auto) Baso # (Auto) PT INR APTT D-Dimer 1727 H Sodium 134 L Potassium 4.0 Chloride 98 Carbon Dioxide 29 BUN 20 Creatinine 0.87 Estimated GFR > 60 BUN/Creatinine Ratio 23.0 H Glucose 106 Calcium 8.4 Magnesium 1.9 Ferritin 262 Total Bilirubin 1.0 AST 44 ALT 36 Alkaline Phosphatase 99 Lactate Dehydrogenase 615 Total Creatine Kinase 65 CK-MB (CK-2) TNP CK-MB (CK-2) Rel Index TNP Troponin I < 0.012 C-Reactive Protein 2.6 H NT-Pro-B Natriuret Pep 1610 H Total Protein 6.6 Albumin 3.9 Globulin 2.7 Albumin/Globulin Ratio 1.4 Procalcitonin TSH Stl C. cayetanensis PCR Stool Rotavirus (PCR) Stool Adenovirus (PCR) Stool Astrovirus (PCR) Stool Cryptosporidium PCR Stl E.coli Shiga Tox PCR St Sh/Enteroin Ecoli PCR Stool E coli O157 PCR Stl Enterotoxigenic E PCR Stool EPEC (PCR) Stl E. histolytica PCR Stool Giardia Lamblia PCR Stool Sapovirus (PCR) Stl P. shigelloides PCR St Y.enterocolitica PCR Stool Vibrio (PCR) Stl Vibrio cholerae PCR Stl Enteroaggr Ecoli PCR Stl Norovirus GI/GII PCR Digoxin Campylobacter (PCR) C. difficile Tox (PCR) SARS-CoV-2 (PCR) Salmonella (PCR) 11/23/21 11/23/21 11/23/21 19:50 19:52 23:57 WBC RBC Hgb Hct MCV MCH MCHC RDW Plt Count Neut % (Auto) Lymph % (Auto) [place] % (Auto) Eos % (Auto) Baso % (Auto) Neut # (Auto) Lymph # (Auto) [place] # (Auto) Eos # (Auto) Baso # (Auto) PT INR APTT D-Dimer Sodium Potassium Chloride Carbon Dioxide BUN Creatinine Estimated GFR BUN/Creatinine Ratio Glucose Calcium Magnesium Ferritin Total Bilirubin AST ALT Alkaline Phosphatase Lactate Dehydrogenase Total Creatine Kinase CK-MB (CK-2) CK-MB (CK-2) Rel Index Troponin I C-Reactive Protein NT-Pro-B Natriuret Pep Total Protein Albumin Globulin Albumin/Globulin Ratio Procalcitonin TSH 0.89 Stl C. cayetanensis PCR Not detected Stool Rotavirus (PCR) Not detected Stool Adenovirus (PCR) Not detected Stool Astrovirus (PCR) Not detected Stool Cryptosporidium PCR Not detected Stl E.coli Shiga Tox PCR Not detected St Sh/Enteroin Ecoli PCR Not detected Stool E coli O157 PCR Not Reportable Stl Enterotoxigenic E PCR Not detected Stool EPEC (PCR) Not detected Stl E. histolytica PCR Not detected Stool Giardia Lamblia PCR Not detected Stool Sapovirus (PCR) Not detected Stl P. shigelloides PCR Not detected St Y.enterocolitica PCR Not detected Stool Vibrio (PCR) Not detected Stl Vibrio cholerae PCR Not detected Stl Enteroaggr Ecoli PCR Not detected Stl Norovirus GI/GII PCR Not detected Digoxin < 0.4 L Campylobacter (PCR) Not detected C. difficile Tox (PCR) Not detected SARS-CoV-2 (PCR) Positive H Salmonella (PCR) Not detected 11/24/21 02:00 WBC RBC Hgb Hct MCV MCH MCHC RDW Plt Count Neut % (Auto) Lymph % (Auto) [place] % (Auto) Eos % (Auto) Baso % (Auto) Neut # (Auto) Lymph # (Auto) [place] # (Auto) Eos # (Auto) Baso # (Auto) PT INR APTT D-Dimer Sodium Potassium Chloride Carbon Dioxide BUN Creatinine Estimated GFR BUN/Creatinine Ratio Glucose Calcium Magnesium Ferritin Total Bilirubin AST ALT Alkaline Phosphatase Lactate Dehydrogenase Total Creatine Kinase CK-MB (CK-2) CK-MB (CK-2) Rel Index Troponin I 0.018 C-Reactive Protein NT-Pro-B Natriuret Pep Total Protein Albumin Globulin Albumin/Globulin Ratio Procalcitonin TSH Stl C. cayetanensis PCR Stool Rotavirus (PCR) Stool Adenovirus (PCR) Stool Astrovirus (PCR) Stool Cryptosporidium PCR Stl E.coli Shiga Tox PCR St Sh/Enteroin Ecoli PCR Stool E coli O157 PCR Stl Enterotoxigenic E PCR Stool EPEC (PCR) Stl E. histolytica PCR Stool Giardia Lamblia PCR Stool Sapovirus (PCR) Stl P. shigelloides PCR St Y.enterocolitica PCR Stool Vibrio (PCR) Stl Vibrio cholerae PCR Stl Enteroaggr Ecoli PCR Stl Norovirus GI/GII PCR Digoxin Campylobacter (PCR) C. difficile Tox (PCR) SARS-CoV-2 (PCR) Salmonella (PCR) Assessment & Plan Assessment & Plan narrative: Khurram Olvera is an 81-year-old male nonsmoker with history of persistent AFib, CHF, thrombocytopenia bilateral lower extremity edema presented to the ED with a chief complaint of cough productive of yellowish sputum, generalized weakness and fatigue sufficient to cause him to fall twice in the past 2 days. Button on admission ED initially thought to be septic, positive for COVID, is not in respiratory distress, patient requires admittance for monitoring for sepsis/septic shock, acute respiratory distress secondary to COVID infection, atrial fibrillation rate control, and diuresis for CHF tachypnea. 1. Positive COVID PCR, acute, present on admission -currently not in acute respiratory distress or requiring COVID treatment protocol -CRP 2.6, procalcitonin and LDH WNL -prednisone 40 mg p.o. q.day, respiratory consult, albuterol HFA inhaler, sp irometry -stool cultures pending, blood cultures pending, sputum culture ordered -dimer 1727, CTA negative for PE -patient is having frequent diarrhea stools, pending C diff and stool cultures 2. Persistent atrial fibrillation,with RVR, acute on chronic, present on admission- rate uncontrolled -patient's heart rate has varied between 56-169, averaging in the 120s -metoprolol 5 mg IV Q 15 minutes max 3 doses for 15 mg as needed for SBP>180, DBP> 100, or HR>110 sustained -continue digoxin-a initial digoxin level<0.4 2. Congestive heart failure, EF 50-55%, with tachypnea, acute on chronic, p resent on admission -continue K+ -holding patient's oral Lasix -BNP 1610 -IV Lasix 40 mg b.i.d.-for overnight diuresis -fluid restriction to 2000 cc q.day, low-sodium, heart healthy diet -Monitored on Mobile [employer] -Last Echo 10/2021: reported a moderately dilated left ventricle with an LEVF of 50-55%, marked biatrial enlargement [id number] mitral regurgitation, moderate tricuspid regurgitation and a moderately enlarged aortic arch. Pharmacological stress test done on? 10/25/2021 indicated a probable myocardial perfusion study for ischemia, a small and subtle fixed mid to distal inferior defect that resolves on prone imaging, moderate left ventricular enlargement with borderline reduced left ventricular systolic function with an increased lung heart ratio with underlying atrial fibrillation. 3. Pulmonary hypertension, chronic, present on admission -continue Coreg and lisinopril, ASA 4. Thrombocytopenia, mild, chronic, present on admission -Unknown etiology -today HGB 10.3, HCT 30.2, MCV 101.7, MCH 34.7, platelets 117 -Last admit: platelets 142, MCV 100.8, MCH 35 -Trend cbc -Monitor for bleeding 5. Abdominal distension, acute onset, present on admission -abdominal ultrasound ordered -patient's chemistry and LFTs are unremarkable with the exception of total bili 1.5. -Unclear as too etiology of significant abdominal distension noted on physical exam, which the patient notes that is not normal for him. Code status:Full Surrogate decision maker:? Friend Patrick Ralph IZABELLA PCR:Positive DVT/VTE prophylaxis:? SCDs and Lovenox Disposition:? Patient admitted to acute care expected length of stay greater than 2 midnights I have utilized all available immediate resources to obtain, update, or review the patient's current medications. I confirmed that the patient's advanced care plan is present, Code status is documented and/or surrogate decision maker is listed in the patient's medical record. Time Spent With Patient Critical Care time: I spent a total of [] minutes of critical care time on this patient's care today; this time is exclusive of procedural time. Scores GCS Chitra coma scale eye opening: Spontaneous [place] coma scale verbal response: Confused [place] coma scale motor response: Obey commands [place] coma scale total score: 14
[2021-11-24 07:45] LABS: Add Manual Diff / Slide Review NO; Basophils Absolute Auto 0 /uL (0-100); Basophils Percent Auto 0.8 % (0-2); Eosinophils Absolute Auto 0 /uL (0-450); Eosinophils Percent Auto 0.4 % (2-4); Hematocrit 30.9 % (41-53); Hemoglobin 10.5 g/dL (13.5-17.5); Lymphocytes Absolute Auto 600 /uL (1100-4500); Lymphocytes Percent Auto 13.6 % (25-40); Mean Corpuscular HGB Conc 34.1 % (30-36); Mean Corpuscular Hemoglobin 34.4 PG (26-34); Mean Corpuscular Volume 100.9 fL (80-100); Monocytes Absolute Auto 700 /uL (0-900); Monocytes Percent Auto 15.3 % (3-14); Neutrophils Absolute Auto 3100 /uL (1500-7000); Neutrophils Percent Auto 69.9 % (50-75); Platelet Count 107 X10^3/uL (150-400); Red Blood Cell Count 3.06 X10^6/uL (4.5-5.9); White Blood Cell Count 4.4 X10^3/uL (4.5-11.0)
[2021-11-24 07:57] LABS: BUN Creatinine Ratio 24.2 (6-22); Blood Urea Nitrogen 16 mg/dL (9-20); Calcium 8.1 mg/dL (8.4-10.2); Carbon Dioxide 28 mmol/L (22-32); Chloride 101 mmol/L (98-107); Estimated Glomerular Filt Rate > 60 mL/min (>60); Glucose 105 mg/dL (80-110); HEMOLYSIS < 15 (0-50); Magnesium 2.1 mg/dL (1.6-2.3); Potassium 3.6 mmol/L (3.4-5.1); Sodium 134 mmol/L (137-145)
[2021-11-24 08:05] LABS: NT-proBNP (BNP-Adult 18+) 2610 pg/mL (<450)
[2021-11-24 08:08] LABS: Troponin I 0.015 ng/mL (0.01-0.034)
[2021-11-24] MEDS: ASPIRIN 81 MG CHEW TAB PO (08:38)
[2021-11-24] MEDS: lisinopriL 5 MG TABLET PO (08:38)
[2021-11-24] MEDS: POTASSIUM CHLORIDE 10 MEQ TAB 20 MEQ PO (08:38)
[2021-11-24] MEDS: DIGOXIN 0.125 MG TABLET PO (08:39)
[2021-11-24] MEDS: carvediloL 12.5 MG TABLET PO (08:39)
[2021-11-24] MEDS: FUROSEMIDE 20 MG/2 ML VIAL 40 MG IV ×2 (08:39→21:02)
[2021-11-24] MEDS: ENOXAPARIN 40 MG/0.4 ML SYRINGE SUBCUT (08:39)
--- NOTE | 2021-11-24 09:32 | CM.DANOTE ---
Initial DCP Assessment Note Pt is an 81 yo male, resident of [place], [place], arrives complaining that my legs are failing me, found to be COVID+, with frequent diarrhea stools, pending C diff and stool cultures, afib w/RVR. PMH includes: Congestive heart failure, EF 50-55%, Pulmonary hypertension, Thrombocytopenia. Full code PCP: Not Listed Payer: [facility] Reviewed chart, pt typically indp at baseline. Relies on friend Killian (Malachi) to assist as needed. No family or DPOA listed. This is patient's third admission, in addition to 5 total ER visits in 2021 (CHF, SOB, LE cellulitis) CM team will plan to follow closely as medical POC unfolds. No barriers identified at this time to patient's safe discharge home once medically stable to do so. 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 Yes Advance Directives on File No History Provided By Medical Record Has Patient been admitted in last 30 Yes days? Comment Here 8.8-8.9 Prior Living Arrangements House Household Members none Type of transporation used prior to Drives own vehicle admit Comment Lives alone in [place] Independent with ADL's Yes Is patient alert and oriented? Yes Barriers to Discharge Yes Comment COVID+ Discharge Plan Home Transportation Arrangement Friend Referrals Initiated Other
--- NOTE | 2021-11-24 10:27 | RT ---
Pt states he has smoked in 50 years
[2021-11-24 10:50] LABS: Appearance Urine UA CLEAR; Bilirubin Urine UA NEGATIVE (NEGATIVE); Color Urine UA YELLOW; Glucose Urine UA NEGATIVE (Negative); Ketones Urine UA NEGATIVE (NEGATIVE); Leukocyte Esterase Urine UA NEGATIVE (NEGATIVE); Nitrite Urine UA NEGATIVE (Negative); Occult Blood Urine UA NEGATIVE (Negative); Protein Urine UA NEGATIVE (Negative); Urobilinogen Urine UA 0.2 E.U./dL (0.2)
[2021-11-24 11:15] LABS: Bacteria Urine Occasional (0-1); Culture Indicated Urine Cult Not Indicated; RBC Urine None Seen (0-5/HPF); WBC Urine 0-1/HPF (0-5/HPF)
[2021-11-24] MEDS: ACETAMINOPHEN 325 MG TABLET 650 MG PO (18:30)
[2021-11-25] VITALS (11 sets, daily range): BP systolic 107–132; BP diastolic 56–80; PULSE 75–108; RESP 17–22; TEMP 36.7–38.1; O2SAT 95–97
[2021-11-25] MEDS: carvediloL 12.5 MG TABLET PO (08:10)
[2021-11-25] MEDS: DIGOXIN 0.125 MG TABLET PO (08:11)
[2021-11-25] MEDS: lisinopriL 5 MG TABLET PO (08:11)
[2021-11-25] MEDS: ASPIRIN 81 MG CHEW TAB PO (08:11)
[2021-11-25] MEDS: ENOXAPARIN 40 MG/0.4 ML SYRINGE SUBCUT (08:12)
[2021-11-25] MEDS: FUROSEMIDE 20 MG/2 ML VIAL 40 MG IV ×2 (08:12→22:20)
[2021-11-25] MEDS: POTASSIUM CHLORIDE 10 MEQ TAB 20 MEQ PO (08:12)
[2021-11-25] MEDS: BENZOCAINE/MENTHOL 1 LOZ PKT 1 EACH PO (08:12)
[2021-11-25] MEDS: ACETAMINOPHEN 325 MG TABLET 650 MG PO ×2 (08:14→22:20)
[2021-11-25 08:27] LABS: Add Manual Diff / Slide Review NO; Basophils Absolute Auto 0 /uL (0-100); Basophils Percent Auto 0.7 % (0-2); Eosinophils Absolute Auto 0 /uL (0-450); Hematocrit 28.9 % (41-53); Lymphocytes Absolute Auto 700 /uL (1100-4500); Lymphocytes Percent Auto 14.8 % (25-40); Mean Corpuscular HGB Conc 34.5 % (30-36); Mean Corpuscular Hemoglobin 34.8 PG (26-34); Mean Corpuscular Volume 100.8 fL (80-100); Monocytes Absolute Auto 700 /uL (0-900); Monocytes Percent Auto 15.1 % (3-14); Neutrophils Absolute Auto 3100 /uL (1500-7000); Neutrophils Percent Auto 68.4 % (50-75); Platelet Count 101 X10^3/uL (150-400); Red Blood Cell Count 2.87 X10^6/uL (4.5-5.9); Red Cell Distribution Width 13.6 % (11.6-14.8); White Blood Cell Count 4.5 X10^3/uL (4.5-11.0)
[2021-11-25 08:37] LABS: Alanine Aminotransferase 31 IU/L (<50); Albumin 3.3 g/dL (3.5-5.0); Albumin Globulin Ratio 1.3 (1.0-2.8); Alkaline Phosphatase 82 U/L (38-126); Aspartate Aminotransferase 35 IU/L (17-59); Bilirubin Total 1.1 mg/dL (0.2-1.3); Blood Urea Nitrogen 15 mg/dL (9-20); Carbon Dioxide 31 mmol/L (22-32); Chloride 100 mmol/L (98-107); Estimated Glomerular Filt Rate > 60 mL/min (>60); Globulin 2.6 g/dL (1.7-4.1); Glucose 100 mg/dL (80-110); HEMOLYSIS < 15 (0-50); Potassium 3.6 mmol/L (3.4-5.1); Sodium 134 mmol/L (137-145); Total Protein 5.9 g/dL (6.3-8.2)
--- NOTE | 2021-11-25 16:14 | PC.NURSE ---
Day Shift Pt had a 6 run of V-tach while on tele, Dr Lange notified at approximently 1615. No new orders.
--- NOTE | 2021-11-25 16:22 | PM.PN.1 ---
Subjective Subjective Date Patient Seen: 11/25/21 Interval history: Remains weak, continues to spike fever. Diarrhea has improved but developed a sore throat today. Remains short of breath with minimal exertion in the room, much worse than his baseline. Exam Vital Signs (past 8 hours): - 11/25/21 10:06 11/25/21 12:00 Temperature 98.5 F 98.1 F Pulse Rate 75 Respiratory Rate 20 Blood Pressure 107/56 L Pulse Oximetry 97 Oxygen Flow Rate 0 Oxygen Delivery Method Room Air Oxygen Flow Rate 0 Narrative Exam Narrative: General: Patient is a well-developed, well-nourished in no distress at this time. HEENT: Normocephalic, atraumatic, extraocular muscles intact, oral pharynx is clear and mucous membranes are moist. Neck is supple and symmetric, trachea is midline, no adenopathy Chest: Normal AP diameter and contour without kyphoscoliosis Lungs: faint crackles in bilateral bases otherwise CTA b/l Cardio: regular rate and rhythm without murmur, rubs, or gallops Abdomen: S NT ND Musculoskeletal: Muscle strength and tone are equal within normal limits, no deformity Ext: no edema or joint effusions Skin: Warm dry and intact without rashes, ulcerations or petechiae. Neuro: Alert and orientated x3,sensation to touch intact, no gross deficits noted of cranial nerves. Psych: Patient has a well-kept appearance, appropriate affect, mental status attitude thought context and judgment are impaired. Objective Labs Result Diagrams: 11/25/21 08:10 11/25/21 08:10 Labs: Laboratory Results - last 24 hr 11/25/21 11/25/21 11/25/21 08:10 08:10 08:10 WBC 4.5 RBC 2.87 L Hgb 10.0 L Hct 28.9 L MCV 100.8 H MCH 34.8 H MCHC 34.5 RDW 13.6 Plt Count 101 L Neut % (Auto) 68.4 Lymph % (Auto) 14.8 L [place] % (Auto) 15.1 H Eos % (Auto) 1.0 L Baso % (Auto) 0.7 Neut # (Auto) 3100 Lymph # (Auto) 700 L [place] # (Auto) 700 Eos # (Auto) 0 Baso # (Auto) 0 Sodium 134 L Potassium 3.6 Chloride 100 Carbon Dioxide 31 BUN 15 Creatinine 0.75 Estimated GFR > 60 BUN/Creatinine Ratio 20.0 Glucose 100 Calcium 8.0 L Magnesium 2.0 Total Bilirubin 1.1 AST 35 ALT 31 Alkaline Phosphatase 82 Total Protein 5.9 L Albumin 3.3 L Globulin 2.6 Albumin/Globulin Ratio 1.3 [facility] Medical History Chronic a-fib Congestive heart failure Hypertension Persistent atrial fibrillation with rapid ventricular response Tobacco use disorder, continuous Family History Mother Hypertension Father Heart attack Social History household members: none Smoking Status: Never smoker alcohol intake: current Assessment & Plan Assessment & Plan narrative: Khurram Olvera is an 81-year-old male nonsmoker with history of persistent AFib, CHF, thrombocytopenia bilateral lower extremity edema presented to the ED with a chief complaint of cough productive of yellowish sputum, generalized weakness and fatigue sufficient to cause him to fall twice in the past 2 days. Button on admission ED initially thought to be septic, positive for COVID, is not in respiratory distress, patient requires admittance for monitoring for sepsis/septic shock, acute respiratory distress secondary to COVID infection, atrial fibrillation rate control, and diuresis for CHF tachypnea. 1. Positive COVID PCR, acute, present on admission -currently not in acute respiratory distress or requiring COVID treatment at this time. CTA without pulmonary infiltrates. -CRP 2.6, procalcitonin and LDH WNL -stopped steroids, no current indication for therapy. -dimer 1727, CTA negative for PE -patient is having frequent diarrhea stools, pending C diff and stool cultures though diarrhea has now improved. 2. Persistent atrial fibrillation,with RVR, acute on chronic, present on admission- rate uncontrolled -patient's heart rate has varied between 56-169. Worse with fever. -continue home medications and digoxin. 2. Congestive heart failure, diastolic EF 50-55%, acute on chronic, present on admission -IV Lasix 40 mg b.i.d. -fluid restriction to 2000 cc q.day, low-sodium, heart healthy diet -Monitored on telemetry, 6 beat run of NSVT today. -Last Echo 10/2021: reported a moderately dilated left ventricle with an LEVF of 50-55%, marked biatrial enlargement [id number] mitral regurgitation, moderate tricuspid regurgitation and a moderately enlarged aortic arch. Pharmacological stress test done on? 10/25/2021 indicated a probable myocardial perfusion study for ischemia, a small and subtle fixed mid to distal inferior defect that resolves on prone imaging, moderate left ventricular enlargement with borderline reduced left ventricular systolic function with an increased lung heart ratio with underlying atrial fibrillation. -weight does not appear to be consistent, urine not reliable either for output. 3. Essential hypertension, chronic, present on admission -continue Coreg and lisinopril, ASA 4. Thrombocytopenia, mild, chronic, present on admission - no interventions necessary at this time, continue to follow. Code status:Full Surrogate decision maker:? Friend Patrick PAREKH PCR:Positive DVT/VTE prophylaxis:? SCDs and Lovenox Disposition:?Probable discharge home, I have utilized all available immediate resources to obtain, update, or review the patient's current medications. I confirmed that the patient's advanced care plan is present, Code status is documented and/or surrogate decision maker is listed in the patient's medical record. Time Spent With Patient Critical Care time: I spent a total of [] minutes of critical care time on this patient's care today; this time is exclusive of procedural time. Quality VTE Deep Vein Thrombosis/Pulmonary Embolism Present on Admission: No
[2021-11-26] VITALS (11 sets, daily range): BP systolic 105–134; BP diastolic 57–84; PULSE 77–92; RESP 17–20; TEMP 36.4–37.7; O2SAT 95–99
[2021-11-26 06:12] LABS: Add Manual Diff / Slide Review NO; Basophils Absolute Auto 0 /uL (0-100); Basophils Percent Auto 0.7 % (0-2); Eosinophils Absolute Auto 200 /uL (0-450); Eosinophils Percent Auto 3.7 % (2-4); Hematocrit 32.2 % (41-53); Hemoglobin 11.1 g/dL (13.5-17.5); Lymphocytes Absolute Auto 1100 /uL (1100-4500); Mean Corpuscular HGB Conc 34.5 % (30-36); Mean Corpuscular Hemoglobin 34.6 PG (26-34); Mean Corpuscular Volume 100.4 fL (80-100); Monocytes Absolute Auto 600 /uL (0-900); Monocytes Percent Auto 12.3 % (3-14); Neutrophils Absolute Auto 2600 /uL (1500-7000); Neutrophils Percent Auto 58.3 % (50-75); Platelet Count 114 X10^3/uL (150-400); Red Blood Cell Count 3.21 X10^6/uL (4.5-5.9); Red Cell Distribution Width 13.7 % (11.6-14.8); White Blood Cell Count 4.5 X10^3/uL (4.5-11.0)
[2021-11-26 06:26] LABS: Alanine Aminotransferase 28 IU/L (<50); Albumin 3.6 g/dL (3.5-5.0); Albumin Globulin Ratio 1.3 (1.0-2.8); Alkaline Phosphatase 83 U/L (38-126); Aspartate Aminotransferase 31 IU/L (17-59); BUN Creatinine Ratio 21.9 (6-22); Bilirubin Total 1.3 mg/dL (0.2-1.3); Blood Urea Nitrogen 16 mg/dL (9-20); Calcium 8.1 mg/dL (8.4-10.2); Carbon Dioxide 33 mmol/L (22-32); Chloride 100 mmol/L (98-107); Estimated Glomerular Filt Rate > 60 mL/min (>60); Globulin 2.8 g/dL (1.7-4.1); Glucose 93 mg/dL (80-110); HEMOLYSIS < 15 (0-50); Magnesium 2.1 mg/dL (1.6-2.3); Potassium 3.8 mmol/L (3.4-5.1); Sodium 137 mmol/L (137-145); Total Protein 6.4 g/dL (6.3-8.2)
[2021-11-26] MEDS: FUROSEMIDE 20 MG/2 ML VIAL 40 MG IV (08:55)
[2021-11-26] MEDS: ACETAMINOPHEN 325 MG TABLET 650 MG PO ×2 (08:55→18:01)
[2021-11-26] MEDS: carvediloL 12.5 MG TABLET PO (08:56)
[2021-11-26] MEDS: POTASSIUM CHLORIDE 10 MEQ TAB 20 MEQ PO (08:56)
[2021-11-26] MEDS: lisinopriL 5 MG TABLET PO (08:57)
[2021-11-26] MEDS: ASPIRIN 81 MG CHEW TAB PO (08:57)
[2021-11-26] MEDS: ENOXAPARIN 40 MG/0.4 ML SYRINGE SUBCUT (08:57)
[2021-11-26] MEDS: DIGOXIN 0.125 MG TABLET PO (08:57)
[2021-11-26] MEDS: BENZOCAINE/MENTHOL 1 LOZ PKT 1 EACH PO ×4 (08:57→21:28)
--- NOTE | 2021-11-26 11:50 | PM.PN.1 ---
Subjective Subjective Date Patient Seen: 11/26/21 Interval history: Remains weak, starting to feel a bit better. Remains short of breath with minimal exertion in the room, much worse than his baseline. Continues diuresis today. Exam Vital Signs (past 8 hours): - 11/26/21 05:52 11/26/21 08:15 11/26/21 08:55 Temperature 99.2 F 98.2 F 98.2 F Pulse Rate 92 H 85 Respiratory Rate 20 18 Blood Pressure 133/79 132/84 Pulse Oximetry 95 99 Oxygen Delivery Method Oxygen Flow Rate 0 11/26/21 08:56 11/26/21 08:57 11/26/21 08:57 Temperature Pulse Rate 85 85 85 Respiratory Rate Blood Pressure 132/84 134/84 134/84 Pulse Oximetry Oxygen Delivery Method Oxygen Flow Rate 11/26/21 07:00 11/26/21 09:53 Temperature 98.2 F Pulse Rate Respiratory Rate Blood Pressure Pulse Oximetry Oxygen Delivery Method Room Air Oxygen Flow Rate Oxygen Delivery Method Room Air Oxygen Flow Rate 0 Narrative Exam Narrative: General: Patient is a well-developed, well-nourished in no distress at this time. HEENT: Normocephalic, atraumatic, extraocular muscles intact, oral pharynx is clear and mucous membranes are moist. Neck is supple and symmetric, trachea is midline, no adenopathy Chest: Normal AP diameter and contour without kyphoscoliosis Lungs: faint crackles in bilateral bases otherwise CTA b/l Cardio: regular rate and rhythm without murmur, rubs, or gallops Abdomen: S NT ND Musculoskeletal: Muscle strength and tone are equal within normal limits, no deformity Ext: trace edema, no joint effusions Skin: Warm dry and intact without rashes, ulcerations or petechiae. Neuro: Alert and orientated x3,sensation to touch intact, no gross deficits noted of cranial nerves. Psych: Patient has a well-kept appearance, appropriate affect, mental status attitude thought context and judgment are impaired. Objective Labs Result Diagrams: 11/26/21 05:55 11/26/21 05:55 Labs: Laboratory Results - last 24 hr 11/25/21 11/26/21 11/26/21 08:10 05:55 05:55 WBC 4.5 RBC 3.21 L Hgb 11.1 L Hct 32.2 L MCV 100.4 H MCH 34.6 H MCHC 34.5 RDW 13.7 Plt Count 114 L Neut % (Auto) 58.3 Lymph % (Auto) 25.0 [place] % (Auto) 12.3 Eos % (Auto) 3.7 Baso % (Auto) 0.7 Neut # (Auto) 2600 Lymph # (Auto) 1100 [place] # (Auto) 600 Eos # (Auto) 200 Baso # (Auto) 0 Sodium Potassium Chloride Carbon Dioxide BUN Creatinine Estimated GFR BUN/Creatinine Ratio Glucose Calcium Magnesium 2.0 2.1 Total Bilirubin AST ALT Alkaline Phosphatase Total Protein Albumin Globulin Albumin/Globulin Ratio 11/26/21 05:55 WBC RBC Hgb Hct MCV MCH MCHC RDW Plt Count Neut % (Auto) Lymph % (Auto) [place] % (Auto) Eos % (Auto) Baso % (Auto) Neut # (Auto) Lymph # (Auto) [place] # (Auto) Eos # (Auto) Baso # (Auto) Sodium 137 Potassium 3.8 Chloride 100 Carbon Dioxide 33 H BUN 16 Creatinine 0.73 Estimated GFR > 60 BUN/Creatinine Ratio 21.9 Glucose 93 Calcium 8.1 L Magnesium Total Bilirubin 1.3 AST 31 ALT 28 Alkaline Phosphatase 83 Total Protein 6.4 Albumin 3.6 Globulin 2.8 Albumin/Globulin Ratio 1.3 PFS Medical History Chronic a-fib Congestive heart failure Hypertension Persistent atrial fibrillation with rapid ventricular response Tobacco use disorder, continuous Family History Mother Hypertension Father Heart attack Social History household members: none Smoking Status: Never smoker alcohol intake: current Assessment & Plan Assessment & Plan narrative: Khurram Olvera is an 81-year-old male nonsmoker with history of persistent AFib, CHF, thrombocytopenia bilateral lower extremity edema presented to the ED with a chief complaint of cough productive of yellowish sputum, generalized weakness and fatigue sufficient to cause him to fall twice in the past 2 days. Button on admission ED initially thought to be septic, positive for COVID, is not in respiratory distress, patient requires admittance for monitoring for sepsis/septic shock, acute respiratory distress secondary to COVID infection, atrial fibrillation rate control, and diuresis for CHF tachypnea. 1. Positive COVID PCR, acute, present on admission -currently not in acute respiratory distress or requiring COVID treatment at this time. CTA without pulmonary infiltrates. -CRP 2.6, procalcitonin and LDH WNL -stopped steroids, no current indication for therapy. -dimer 1727, CTA negative for PE -patient is having frequent diarrhea stools, pending C diff and stool cultures though diarrhea has now improved. 2. Persistent atrial fibrillation,with RVR, acute on chronic, present on admission- rate uncontrolled -patient's heart rate has varied between 56-169. Worse with fever. -continue home medications and digoxin. 2. Congestive heart failure, diastolic EF 50-55%, acute on chronic, present on admission -IV Lasix 40 mg b.i.d. -fluid restriction to 2000 cc q.day, low-sodium, heart healthy diet -Monitored on telemetry, 6 beat run of NSVT 11/25. Will continue for now. -Last Echo 10/2021: reported a moderately dilated left ventricle with an LEVF of 50-55%, marked biatrial enlargement [id number] mitral regurgitation, moderate tricuspid regurgitation and a moderately enlarged aortic arch. Pharmacological stress test done on? 10/25/2021 indicated a probable myocardial perfusion study for ischemia, a small and subtle fixed mid to distal inferior defect that resolves on prone imaging, moderate left ventricular enlargement with borderline reduced left ventricular systolic function with an increased lung heart ratio with underlying atrial fibrillation. -weight does not appear to be consistent, urine not reliable either for output. 3. Essential hypertension, chronic, present on admission -continue Coreg and lisinopril, ASA 4. Thrombocytopenia, mild, chronic, present on admission - no interventions necessary at this time, continue to follow. Code status:Full Surrogate decision maker:? Friend Patrick Ralph COVID PCR:Positive DVT/VTE prophylaxis:? SCDs and Lovenox Disposition:?Probable discharge home, hopefully in the next day or two with continued improvement. I have utilized all available immediate resources to obtain, update, or review the patient's current medications. I confirmed that the patient's advanced care plan is present, Code status is documented and/or surrogate decision maker is listed in the patient's medical record. Time Spent With Patient Critical Care time: I spent a total of [] minutes of critical care time on this patient's care today; this time is exclusive of procedural time. Quality VTE Deep Vein Thrombosis/Pulmonary Embolism Present on Admission: No
[2021-11-26] MEDS: SENNOSIDES 8.6 MG TABLET 17.2 MG PO (21:15)
[2021-11-27 04:06] VITALS: BP 129/74; PULSE 88; RESP 18; TEMP 36.3; O2SAT 94
[2021-11-27 05:32] LABS: Add Manual Diff / Slide Review NO; Basophils Absolute Auto 0 /uL (0-100); Basophils Percent Auto 0.5 % (0-2); Eosinophils Absolute Auto 200 /uL (0-450); Eosinophils Percent Auto 4.9 % (2-4); Hematocrit 31.8 % (41-53); Hemoglobin 10.9 g/dL (13.5-17.5); Lymphocytes Absolute Auto 900 /uL (1100-4500); Lymphocytes Percent Auto 24.1 % (25-40); Mean Corpuscular HGB Conc 34.4 % (30-36); Mean Corpuscular Hemoglobin 34.4 PG (26-34); Monocytes Absolute Auto 500 /uL (0-900); Monocytes Percent Auto 12.3 % (3-14); Neutrophils Absolute Auto 2300 /uL (1500-7000); Neutrophils Percent Auto 58.2 % (50-75); Platelet Count 113 X10^3/uL (150-400); Red Blood Cell Count 3.18 X10^6/uL (4.5-5.9); Red Cell Distribution Width 13.6 % (11.6-14.8); White Blood Cell Count 3.9 X10^3/uL (4.5-11.0)
[2021-11-27 05:45] LABS: Alanine Aminotransferase 23 IU/L (<50); Albumin 3.3 g/dL (3.5-5.0); Albumin Globulin Ratio 1.1 (1.0-2.8); Alkaline Phosphatase 81 U/L (38-126); Aspartate Aminotransferase 26 IU/L (17-59); BUN Creatinine Ratio 21.9 (6-22); Bilirubin Total 1.3 mg/dL (0.2-1.3); Blood Urea Nitrogen 16 mg/dL (9-20); Carbon Dioxide 33 mmol/L (22-32); Chloride 102 mmol/L (98-107); Estimated Glomerular Filt Rate > 60 mL/min (>60); Glucose 95 mg/dL (80-110); HEMOLYSIS < 15 (0-50); Potassium 4.5 mmol/L (3.4-5.1); Sodium 136 mmol/L (137-145); Total Protein 6.3 g/dL (6.3-8.2)
[2021-11-27 08:00] VITALS: BP 128/73; PULSE 73; RESP 18; TEMP 36.4; O2SAT 100
[2021-11-27] MEDS: ASPIRIN 81 MG CHEW TAB PO (08:20)
[2021-11-27 08:21] VITALS: BP 128/73; PULSE 73
[2021-11-27] MEDS: carvediloL 12.5 MG TABLET PO (08:21)
[2021-11-27] MEDS: DIGOXIN 0.125 MG TABLET PO (08:21)
[2021-11-27] MEDS: lisinopriL 5 MG TABLET PO (08:21)
[2021-11-27] MEDS: POTASSIUM CHLORIDE 10 MEQ TAB 20 MEQ PO (08:22)
[2021-11-27] MEDS: ACETAMINOPHEN 325 MG TABLET 650 MG PO (08:22)
[2021-11-27] MEDS: ENOXAPARIN 40 MG/0.4 ML SYRINGE SUBCUT (08:23)
[2021-11-27] MEDS: BENZOCAINE/MENTHOL 1 LOZ PKT 1 EACH PO (08:23)
[2021-11-27] MEDS: FUROSEMIDE 20 MG/2 ML VIAL 40 MG IV (08:23)
--- NOTE | 2021-11-27 09:45 | PM.DS.1 ---
History of Present Illness History of Present Illness Date Patient Seen: 11/27/21 Time Patient Seen: 09:45 Chief complaint: Legs are failing him Narrative: Per Suzanne Narvaez, HOT WALKER-: 81-year-old male nonsmoker with history of persistent AFib, CHF, thrombocytopenia bilateral lower extremity edema presented to the ED with a chief complaint of cough productive of yellowish sputum, generalized weakness and fatigue sufficient to cause him to fall twice in the past 2 days.? He denies head, neck , or back pain nor any injury, positive nausea without vomiting.? Denies chest pain, fever, body aches, chills, hearing or visual changes, squeezing or heaviness, abdominal pain, constipation but has had 3 episodes of diarrhea without melena.? He denies dysuria, frequency or urgency.? He states he has been taking his medications as directed without any change or missed doses. He is had no recent travel, history of blood clot.? He denies fever or chills. Upon admit patient is febrile with a temp of 101.7?, BP 145/81, slightly tachycardic with a heart rate of 112, tachypneic respiratory rate 29, O2 saturation 95% not requiring oxygen at this time. Patient's HGB 10.3, HCT 30.2, MCV 101.7, MCH 34.7, platelets 117-patient suffers from chronic anemia and thrombocytopenia. 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 Patient did meet SIRS criteria in ED, sofa score on admit:1. Patient admitted for COVID infection. Discharge Providers Provider Date of admission: 11/24/21 00:56 Discharge Date: 11/27/21 Consults: 11/24/21 01:42 Consult to Respiratory Therapy Evaluate & Treat Comment: Covid, CHF Physician Instructions: Evaluate and treat Discharge provider: Jose A Lange DO Summary Hospital Course Discharge Diagnosis: See hospital course by problem list noted below Hospital Course: Khurram Olvera is an 81-year-old male nonsmoker with history of persistent AFib, CHF, thrombocytopenia bilateral lower extremity edema presented to the ED? with a chief complaint of cough productive of yellowish sputum, generalized weakness and fatigue sufficient to cause him to fall twice in the days prior to admission. He was found to be weak secondary to COVID infection and acute on chronic diastolic heart failure. He had improvement with diuresis and supportive care. 1. Positive COVID PCR, acute, present on admission -currently not in acute respiratory distress or requiring COVID treatment at this time. CTA without pulmonary infiltrates. -CRP 2.6, procalcitonin and LDH WNL -stopped steroids which were provided initially, no current indication for therapy. -d-dimer was 1727, CTA negative for PE -patien was having frequent diarrhea stools, ordered for C. diff but diarrhea resolved prior to collection, likely due to COVID infection. 2. Persistent atrial fibrillation,with RVR, acute on chronic, present on admission- rate uncontrolled -patient's heart rate has varied between 56-169. Worse with fever. -continued home medications and digoxin with improvement in rate. 2. Congestive heart failure, diastolic EF 50-55%, acute on chronic, present on admission -IV Lasix 40 mg b.i.d. was continued for continued diuresis due to his dyspnea on exertion and he reported improvement over the course of his stay. -fluid restriction to 2000 cc q.day, low-sodium, heart healthy diet -Monitored on telemetry, 6 beat run of NSVT 11/25 but no other significant events. -Last Echo 10/2021: reported a moderately dilated left ventricle with an LEVF of 50-55%, marked biatrial enlargement [id number] mitral regurgitation, moderate tricuspid regurgitation and a moderately enlarged aortic arch. Pharmacological stress test done on? 10/25/2021 indicated a probable myocardial perfusion study for ischemia, a small and subtle fixed mid to distal inferior defect that resolves on prone imaging, moderate left ventricular enlargement with borderline reduced left ventricular systolic function with an increased lung heart ratio with underlying atrial fibrillation. -weight does not appear to be consistent while here, urine not reliable either for output. 3. Essential hypertension, chronic, present on admission -continued Coreg and lisinopril, ASA 4. Thrombocytopenia, mild, chronic, present on admission ?- no interventions necessary at this time Time Spent with Patient Time spent: Greater than 30 minutes Exam Vital Signs (past 8 hours): - 11/27/21 04:06 11/27/21 08:00 11/27/21 08:21 Temperature 97.3 F L 97.5 F L Pulse Rate 88 73 73 Respiratory Rate 18 18 Blood Pressure 129/74 128/73 128/73 Pulse Oximetry 94 100 Oxygen Flow Rate 0 11/27/21 08:21 11/27/21 08:21 Temperature Pulse Rate 73 73 Respiratory Rate Blood Pressure 128/73 128/73 Pulse Oximetry Oxygen Flow Rate Oxygen Delivery Method Room Air Oxygen Flow Rate 0 Narrative Exam Narrative: General: Patient is a well-developed, well-nourished in no distress at this time. HEENT: Normocephalic, atraumatic, extraocular muscles intact, oral pharynx is clear and mucous membranes are moist. Neck is supple and symmetric, trachea is midline, no adenopathy Chest: Normal AP diameter and contour without kyphoscoliosis Lungs: faint crackles in bilateral bases otherwise CTA b/l Cardio: regular rate and rhythm without murmur, rubs, or gallops Abdomen: S NT ND Musculoskeletal: Muscle strength and tone are equal within normal limits, no deformity Ext: trace edema, no joint effusions Skin: Warm dry and intact without rashes, ulcerations or petechiae. Neuro: Alert and orientated x3,sensation to touch intact, no gross deficits noted of cranial nerves. Psych: Patient has a well-kept appearance, appropriate affect, mental status attitude thought context and judgment are impaired. Objective Labs Result Diagrams: 11/27/21 05:12 11/27/21 05:12 Labs: Laboratory Results - last 24 hr 11/27/21 11/27/21 05:12 05:12 WBC 3.9 L RBC 3.18 L Hgb 10.9 L Hct 31.8 L MCV 100.0 MCH 34.4 H MCHC 34.4 RDW 13.6 Plt Count 113 L Neut % (Auto) 58.2 Lymph % (Auto) 24.1 L [place] % (Auto) 12.3 Eos % (Auto) 4.9 H Baso % (Auto) 0.5 Neut # (Auto) 2300 Lymph # (Auto) 900 L [place] # (Auto) 500 Eos # (Auto) 200 Baso # (Auto) 0 Sodium 136 L Potassium 4.5 Chloride 102 Carbon Dioxide 33 H BUN 16 Creatinine 0.73 Estimated GFR > 60 BUN/Creatinine Ratio 21.9 Glucose 95 Calcium 8.0 L Total Bilirubin 1.3 AST 26 ALT 23 Alkaline Phosphatase 81 Total Protein 6.3 Albumin 3.3 L Globulin 3.0 Albumin/Globulin Ratio 1.1 PFSH Medical History Chronic a-fib Congestive heart failure Hypertension Persistent atrial fibrillation with rapid ventricular response Tobacco use disorder, continuous Family History Mother Hypertension Father Heart attack Social History household members: none Smoking Status: Never smoker alcohol intake: current Discharge Plan Discharge Plan Patient Disposition: Home Provider Discharge Comment: You were admitted to the hospital with COVID infection and shortness of breath, possibly from volume overload. No medical changes are needed at the time of discharge. Please follow up with primary care provider in the next 1-2 weeks. Discharge orders & Medications Prescriptions: Continued digoxin 125 mcg (0.125 mg) tablet 1 tab PO DAILY Label Comments: TAKE ONE TABLET BY MOUTH EVERY DAY furosemide 20 mg tablet See Rx Instructions .ROUTE .COMPLEX 30 Days Qty: 94 0RF Rx Instructions: Please take 40 mg (2 tabs) twice daily for 1 week, followed by 60 mg daily potassium chloride 10 mEq tablet extended release 20 meq PO DAILY 30 Days Qty: 60 0RF Adult Aspirin 81 mg tablet 81 mg PO DAILY carvedilol [Coreg] 12.5 mg Tablet 12.5 mg PO DAILY Qty: 30 0RF nitroglycerin [Nitrostat] 0.4 mg Tablet, Sublingual 0.4 mg sublingual [id number] PRN (Reason: Chest Pain) Qty: 30 0RF Label Comments: pt reports never using med yet lisinopril 5 mg tablet 5 mg PO DAILY Qty: 60 0RF Diet/Activity/Treatments Diet: Diet as Tolerated Activity: As tolerated Visit Report/Discharge Packet Instructions: Heart Failure, DI for Heart Failure, DI for COVID-19 (Suspected or Confirmed ) Quality VTE Deep Vein Thrombosis/Pulmonary Embolism Present on Admission: No
--- NOTE | 2021-11-27 14:56 | PC.NURSE ---
Addendum entered by Byron Albarran R.N. 11/27/21 15:08: Pt left the unit at 1500 Original Note: Dayshift Pt received paperwork and signed., all personal possessions and had all questions answered. Pt left via wheelchair into Taxi to [facility]. Pt on way to home [facility].
--- NOTE | 2021-11-27 14:57 | CM.DPNOTE ---
DCP Note: Robert arranged to [facility] for this afternoon. Iona managing discharge. Marian Zacarias RN/DCP
== END 2021-11-27 15:57 | disposition home or self-care (01) | DRG 291 ==
LOC: ED 19:10 → AC 11-24 00:57
PROVIDERS: Internal Medicine; Admitting Provider Nurse Practitioner Family; Emergency Provider Emergency Medicine; Referring Provider Emergency Medicine; Visit Provider Nurse Practitioner Family
DX: I11.0 Hypertensive heart disease with heart failure (principal); I50.33 Acute on chronic diastolic (congestive) heart failure; U07.1 COVID-19; I48.19 Other persistent atrial fibrillation; R05.9 Cough, unspecified; D69.6 Thrombocytopenia, unspecified; R14.0 Abdominal distension (gaseous); I27.20 Pulmonary hypertension, unspecified
CPT/HCPCS: 36415; 36592; 71046; 71275; 80048; 80053; 80162; 81001; 81003; 82550; 82728; 83615; 83735; 83880; 84145; 84443; 84484; 85025; 85379; 85610; 85730; 86140; 87040; 87507; 87635; 93005; 96365; 96366; 96372; 96375; 99284; C9803; J0696; J1650; J1940; Q9967

== ENCOUNTER 2021-12-03 16:53 | Emergency (ER) | payer MEDICARE, SELFPAY ==
[2021-11-24 14:39] VITALS: BMI 26.6
[2021-12-03] VITALS (9 sets, daily range): BP systolic 136–151; BP diastolic 69–81; PULSE 79–90; RESP 16–22; TEMP 36.6; O2SAT 92–100
--- NOTE | 2021-12-03 17:05 | DI.RAD.S_ITS ---
PROCEDURE: XR CHEST 2V INDICATIONS: shortness of breath TECHNIQUE: 2 views of the chest were acquired. COMPARISON: [facility], CT, CT ANGIO CHEST PE PROTOCOL, 11/23/2021, 22:21. [facility], CR, XR CHEST 2V, 11/23/2021, 19:20. FINDINGS: Surgical changes and devices: None. Lungs and pleura: Lungs are clear. No pleural effusions or pneumothorax. Mediastinum: Mediastinal contours are normal. There is marked enlargement of the cardiac silhouette, which is unchanged. Bones and chest wall: No suspicious bony abnormalities. Soft tissues appear unremarkable. IMPRESSION: Stable cardiomegaly. No acute pulmonary consolidation. Dictated by: Lenny Anand M.D. on 12/03/2021 at 16:41 Approved by: Lenny Anand M.D. on 12/03/2021 at 16:43
[2021-12-03 17:33] LABS: Add Manual Diff / Slide Review NO; Basophils Absolute Auto 0 /uL (0-100); Basophils Percent Auto 0.6 % (0-2); Eosinophils Absolute Auto 100 /uL (0-450); Hematocrit 29.3 % (41-53); Hemoglobin 10.4 g/dL (13.5-17.5); Lymphocytes Absolute Auto 1200 /uL (1100-4500); Lymphocytes Percent Auto 21.9 % (25-40); Mean Corpuscular HGB Conc 35.4 % (30-36); Mean Corpuscular Hemoglobin 34.9 PG (26-34); Mean Corpuscular Volume 98.4 fL (80-100); Monocytes Absolute Auto 700 /uL (0-900); Monocytes Percent Auto 12.8 % (3-14); Neutrophils Absolute Auto 3500 /uL (1500-7000); Neutrophils Percent Auto 62.7 % (50-75); Platelet Count 231 X10^3/uL (150-400); Red Blood Cell Count 2.98 X10^6/uL (4.5-5.9); Red Cell Distribution Width 13.2 % (11.6-14.8); White Blood Cell Count 5.6 X10^3/uL (4.5-11.0)
[2021-12-03 17:38] LABS: INR 1.1 (0.9-1.3); Prothrombin Time 12.2 SECONDS (10.1-12.7)
[2021-12-03 17:43] LABS: Alanine Aminotransferase 22 IU/L (<50); Albumin 3.7 g/dL (3.5-5.0); Albumin Globulin Ratio 1.2 (1.0-2.8); Alkaline Phosphatase 106 U/L (38-126); Aspartate Aminotransferase 22 IU/L (17-59); BUN Creatinine Ratio 26.8 (6-22); Bilirubin Total 0.9 mg/dL (0.2-1.3); Blood Urea Nitrogen 19 mg/dL (9-20); Calcium 8.4 mg/dL (8.4-10.2); Carbon Dioxide 28 mmol/L (22-32); Chloride 100 mmol/L (98-107); Estimated Glomerular Filt Rate > 60 mL/min (>60); Glucose 97 mg/dL (80-110); Potassium 4.4 mmol/L (3.4-5.1); Sodium 137 mmol/L (137-145); Total Protein 6.7 g/dL (6.3-8.2)
[2021-12-03 17:45] LABS: COVID19 -Nasal RAPID POSITIVE (Negative)
[2021-12-03 17:53] LABS: HEMOLYSIS < 15 (0-50); NT-proBNP (BNP-Adult 18+) 768 pg/mL (<450)
[2021-12-03] MEDS: ASPIRIN 81 MG CHEW TAB 324 MG PO (17:53)
[2021-12-03 18:00] LABS: Creatine Kinase 39 U/L (55-170)
[2021-12-03 18:13] LABS: Troponin I < 0.012 ng/mL (0.01-0.034)
[2021-12-03 18:29] LABS: D Dimer 1178 ng/ml (<500)
--- NOTE | 2021-12-03 19:16 | ED_ITS ---
HPI - General Adult General Chief complaint: Shortness of Breath/Dyspnea Stated complaint: Thinks may have covid Time Seen by Provider: 12/03/21 17:35 Source: patient Mode of arrival: Ambulatory Limitations: no limitations History of Present Illness HPI narrative: Patient is an 81-year-old male. Has a history of high blood pressure. Also has a history of atrial fibrillation. Also has a history of heart failure. Has been taking all his medications as directed. Approximately 10 days ago he started have symptoms to include fevers and chills and generally not feeling well. He had a test for COVID that was positive. His symptoms seemed to improve and did have another test 2 days ago that showed that his COVID was negative. Thin the past 24-36 hours he started to have a return of his symptoms to include fevers and chills and lower extremity swelling and cough and shortness of breath. Related Data Home Medications Medication Instructions Recorded Confirmed digoxin 125 mcg (0.125 mg) tablet 1 tab PO DAILY 09/30/21 12/03/21 aspirin 81 mg chewable tablet 81 mg PO DAILY 12/03/21 12/03/21 furosemide 20 mg tablet 60 mg PO DAILY 12/03/21 12/03/21 Previous Rx's Medication Instructions Recorded carvedilol 12.5 mg tablet (Coreg) 12.5 mg PO DAILY #30 tabs 10/10/21 nitroglycerin 0.4 mg sublingual 0.4 mg sublingual [id number] PRN 10/10/21 tablet (Nitrostat) Chest Pain #30 tabs lisinopril 5 mg tablet 5 mg PO DAILY #60 tabs 10/25/21 potassium chloride 10 mEq 20 meq PO DAILY 30 days #60 tabs 11/01/21 tablet,extended release Allergies Allergy/AdvReac Type Severity Reaction Status Date / Time No Known Drug Allergies Allergy Verified 12/03/21 17:12 Review of Systems Review of Systems ROS Unobtainable: All systems reviewed & are unremarkable except as noted in HPI and below Patient History Medical History Chronic a-fib Congestive heart failure Hypertension Persistent atrial fibrillation with rapid ventricular response Tobacco use disorder, continuous Family History Mother Hypertension Father Heart attack Social History household members: none Smoking Status: Never smoker alcohol intake: current Smoking Status: Never smoker alcohol intake frequency: a few times a month Substance Use Type: does not use Exam Initial Vital Signs Initial Vital Signs: Vital Signs Temperature 98 F 12/03/21 17:08 Pulse Rate 90 12/03/21 17:08 Respiratory Rate 18 12/03/21 17:08 Blood Pressure 136/73 12/03/21 17:08 Pulse Oximetry 99 12/03/21 17:08 Oxygen Delivery Method 12/03/21 17:08 Const General: cooperative and comfortable HENMT Head: normal to inspection and normocephalic Resp Effort & Inspection: normal respiratory effort Auscultation: clear to auscultation bilaterally Cardio Rate: regular rate Rhythm: abnormal rhythm irregularly irregular GI Inspection: normal to inspection Skin General: no rashes or lesions noted Neuro General: patient alert, patient awake, patient oriented x3 and moves all extremities Extrem General: normal to inspection and capillary refill normal Psych Appearance: grossly normal and well kempt Course Orders Ordered: ED Orders 12/03/21 19:44 Troponin I Stat 12/03/21 20:10 CT angio chest PE protocol Stat Discontinued Medications Aspirin (Aspirin 81 Mg Chew Tab) 324 mg PO NOW ONE Stop: 12/03/21 17:41 Last Admin: 12/03/21 17:53 Dose: 324 mg Documented By: AT Nitroglycerin (Nitroglycerin 0.4mg Sl Prepack) 1 bottle MISC SEEINSTR ONE Stop: 12/03/21 17:41 Vital Signs Vital signs: Vital Signs - 8 hr 12/03/21 19:30 12/03/21 19:31 12/03/21 19:31 Pulse Rate 79 81 Respiratory Rate 17 18 Blood Pressure 143/70 H Pulse Oximetry 100 100 12/03/21 20:00 12/03/21 20:00 12/03/21 21:00 Pulse Rate 81 80 Respiratory Rate 18 16 Blood Pressure 141/77 H Pulse Oximetry 100 92 12/03/21 21:30 12/03/21 21:50 12/03/21 21:50 Pulse Rate 89 90 Respiratory Rate 16 22 Blood Pressure 139/75 Pulse Oximetry 100 100 12/03/21 22:00 12/03/21 22:00 12/03/21 22:30 Pulse Rate 84 Respiratory Rate 19 Blood Pressure 151/69 H 147/81 H Pulse Oximetry 97 12/03/21 22:30 Pulse Rate 89 Respiratory Rate 19 Blood Pressure Pulse Oximetry 100 Medical Decision Making Lab Data Lab results reviewed: Yes I reviewed the patient's lab results. Result diagrams: 12/03/21 17:20 12/03/21 17:20 Labs: Lab Results 12/03/21 12/03/21 12/03/21 Range/Units 17:20 17:20 17:20 WBC 5.6 (4.5-11.0) X10^3/uL RBC 2.98 L (4.5-5.9) X10^6/uL Hgb 10.4 L (13.5-17.5) g/dL Hct 29.3 L (41-53) % MCV 98.4 (80-100) fL MCH 34.9 H (26-34) PG MCHC 35.4 (30-36) % RDW 13.2 (11.6-14.8) % Plt Count 231 (150-400) X10^3/uL Neut % (Auto) 62.7 (50-75) % Lymph % (Auto) 21.9 L (25-40) % Jun[place] % (Auto) 12.8 (3-14) % Eos % (Auto) 2.0 (2-4) % Baso % (Auto) 0.6 (0-2) % Neut # (Auto) 3500 (4927-5404) /uL Lymph # (Auto) 1200 (6809-3792) /uL Jun[place] # (Auto) 700 (0-900) /uL Eos # (Auto) 100 (0-450) /uL Baso # (Auto) 0 (0-100) /uL PT 12.2 (10.1-12.7) SECONDS INR 1.1 (0.9-1.3) D-Dimer (<500) ng/ml Sodium 137 (137-145) mmol/L Potassium 4.4 (3.4-5.1) mmol/L Chloride 100 (98-107) mmol/L Carbon Dioxide 28 (22-32) mmol/L BUN 19 (9-20) mg/dL Creatinine 0.71 (0.66-1.25) mg/dL Estimated GFR > 60 (>60) mL/min BUN/Creatinine Ratio 26.8 H (6-22) Glucose 97 (80-110) mg/dL Lactate (0.7-2.1) mmol/L Calcium 8.4 (8.4-10.2) mg/dL Total Bilirubin 0.9 (0.2-1.3) mg/dL AST 22 (17-59) IU/L ALT 22 (<50) IU/L Alkaline Phosphatase 106 (38-126) U/L Total Creatine Kinase (55-170) U/L CK-MB (CK-2) CK-MB (CK-2) Rel Index Troponin I (0.01-0.034) ng/mL NT-Pro-B Natriuret Pep 768 H (<450) pg/mL Total Protein 6.7 (6.3-8.2) g/dL Albumin 3.7 (3.5-5.0) g/dL Globulin 3.0 (1.7-4.1) g/dL Albumin/Globulin Ratio 1.2 (1.0-2.8) SARS-CoV-2 (PCR) (Negative) 12/03/21 12/03/21 12/03/21 Range/Units 17:20 17:20 17:20 WBC (4.5-11.0) X10^3/uL RBC (4.5-5.9) X10^6/uL Hgb (13.5-17.5) g/dL Hct (41-53) % MCV (80-100) fL MCH (26-34) PG MCHC (30-36) % RDW (11.6-14.8) % Plt Count (150-400) X10^3/uL Neut % (Auto) (50-75) % Lymph % (Auto) (25-40) % Juncos % (Auto) (3-14) % Eos % (Auto) (2-4) % Baso % (Auto) (0-2) % Neut # (Auto) (2194-0157) /uL Lymph # (Auto) (8020-4670) /uL Juncos # (Auto) (0-900) /uL Eos # (Auto) (0-450) /uL Baso # (Auto) (0-100) /uL PT (10.1-12.7) SECONDS INR (0.9-1.3) D-Dimer (<500) ng/ml Sodium (137-145) mmol/L Potassium (3.4-5.1) mmol/L Chloride (98-107) mmol/L Carbon Dioxide (22-32) mmol/L BUN (9-20) mg/dL Creatinine (0.66-1.25) mg/dL Estimated GFR (>60) mL/min BUN/Creatinine Ratio (6-22) Glucose (80-110) mg/dL Lactate 2.0 (0.7-2.1) mmol/L Calcium (8.4-10.2) mg/dL Total Bilirubin (0.2-1.3) mg/dL AST (17-59) IU/L ALT (<50) IU/L Alkaline Phosphatase (38-126) U/L Total Creatine Kinase 39 L (55-170) U/L CK-MB (CK-2) TNP CK-MB (CK-2) Rel Index TNP Troponin I < 0.012 (0.01-0.034) ng/mL NT-Pro-B Natriuret Pep (<450) pg/mL Total Protein (6.3-8.2) g/dL Albumin (3.5-5.0) g/dL Globulin (1.7-4.1) g/dL Albumin/Globulin Ratio (1.0-2.8) SARS-CoV-2 (PCR) Positive H (Negative) 12/03/21 12/03/21 Range/Units 17:20 19:44 WBC (4.5-11.0) X10^3/uL RBC (4.5-5.9) X10^6/uL Hgb (13.5-17.5) g/dL Hct (41-53) % MCV (80-100) fL MCH (26-34) PG MCHC (30-36) % RDW (11.6-14.8) % Plt Count (150-400) X10^3/uL Neut % (Auto) (50-75) % Lymph % (Auto) (25-40) % Juncos % (Auto) (3-14) % Eos % (Auto) (2-4) % Baso % (Auto) (0-2) % Neut # (Auto) (6197-6062) /uL Lymph # (Auto) (5320-9605) /uL Juncos # (Auto) (0-900) /uL Eos # (Auto) (0-450) /uL Baso # (Auto) (0-100) /uL PT (10.1-12.7) SECONDS INR (0.9-1.3) D-Dimer 1178 H (<500) ng/ml Sodium (137-145) mmol/L Potassium (3.4-5.1) mmol/L Chloride (98-107) mmol/L Carbon Dioxide (22-32) mmol/L BUN (9-20) mg/dL Creatinine (0.66-1.25) mg/dL Estimated GFR (>60) mL/min BUN/Creatinine Ratio (6-22) Glucose (80-110) mg/dL Lactate (0.7-2.1) mmol/L Calcium (8.4-10.2) mg/dL Total Bilirubin (0.2-1.3) mg/dL AST (17-59) IU/L ALT (<50) IU/L Alkaline Phosphatase (38-126) U/L Total Creatine Kinase (55-170) U/L CK-MB (CK-2) CK-MB (CK-2) Rel Index Troponin I < 0.012 (0.01-0.034) ng/mL NT-Pro-B Natriuret Pep (<450) pg/mL Total Protein (6.3-8.2) g/dL Albumin (3.5-5.0) g/dL Globulin (1.7-4.1) g/dL Albumin/Globulin Ratio (1.0-2.8) SARS-CoV-2 (PCR) (Negative) Imaging Data Chest x-ray: Radiologist's Impression: [address] [address] XRay Report Signed Patient: Khurram Olvera MR#: [id number] : 1940 Acct:[id number] Age/Sex: 81 / M Date of Service: 12/03/21 Loc: ED Accession Number: [id number] ?? Procedure: XR chest 2V Ordering Provider: Madyson Will D.O. PROCEDURE:? XR CHEST 2V ? INDICATIONS:? shortness of breath ? TECHNIQUE:? 2 views of the chest were acquired.? ? COMPARISON:? [facility], CT, CT ANGIO CHEST PE PROTOCOL, 11/23/2021, 22:21.? [facility], CR, XR CHEST 2V, 11/23/2021, 19:20. ? FINDINGS:? ? Surgical changes and devices:? None.? ? Lungs and pleura:? Lungs are clear.? No pleural effusions or pneumothorax.? ? Mediastinum:? Mediastinal contours are normal.? There is marked enlargement of the cardiac silhouette, which is unchanged.? ? Bones and chest wall:? No suspicious bony abnormalities.? Soft tissues appear unremarkable.? ? IMPRESSION:? Stable cardiomegaly. No acute pulmonary consolidation.? ? Dictated by: Lenny Anand M.D. on 12/03/2021 at 16:41 ? ? Approved by: Lenny Anand M.D. on 12/03/2021 at 16:43?? CT scan - chest: Radiologist's Impression: [place] [address] CT Scan Report Signed Patient: Khurram Olvera MR#: [id number] : 1940 Acct:[id number] Age/Sex: 81 / M Date of Service: 12/03/21 Loc: ED Accession Number: [id number] ?? Procedure: CT angio chest PE protocol Ordering Provider: Hermann Coleman D.O. PROCEDURE:? CT ANGIO CHEST PE PROTOCOL ? INDICATIONS:? Chest pain, shortness of breath, tachycardia ? TECHNIQUE:? After the administration of intravenous contrast, 2 mm thick sections acquired from the pulmonary apices to the posterior costophrenic angles.? 3-dimensional maximum intensity projection (MIP) coronal and sagittal reformats were then acquired through the thorax.? For radiation dose reduction, the following was used:? automated exposure control, adjustment of mA and/or kV according to patient size.? ? COMPARISON:? [facility], CT, CT ANGIO CHEST PE PROTOCOL, 11/23/2021, 22:21. ? FINDINGS:? Image quality:? Good.? ? Pulmonary arteries:? No pulmonary embolism.? ? Lungs and pleura:? Bilateral streaky opacity which has the appearance of atelectasis.? Left lower lobe subpleural pulmonary nodule measuring at 0.4 cm, ().? No pleural effusions or pneumothorax.? Central and peripheral airways are patent.? ? Mediastinum:? Heart size is enlarged, without significant pericardial effusion.? Coronary artery calcifications.? No mediastinal or hilar adenopathy.? Ascending aorta measures 3.3 cm, ().? Esophagus is normal in caliber, without hiatal hernia.? ? Bones and chest wall:? No suspicious bony lesions.? Ribs and thoracic spine appear intact throughout.? Thyroid gland is unremarkable.? No axillary or supraclavicular adenopathy.? ? Abdomen:? Visualized upper abdominal solid organs appear normal in the early arterial phase of enhancement.? Simple appearing right renal cysts.? Small gallstones.? Possible small kidney stones.? ? IMPRESSION:? 1. No pulmonary embolism. ? 2. Mild streaky opacity which has the appearance of atelectasis.? No pleural effusion. ? 3. Marked cardiomegaly. ? ? ? Dictated by: Rock Brown M.D. on 12/03/2021 at 21:41 ? ? Approved by: Rock Brown M.D. on 12/03/2021 at 21:46?? ECG Data Attestation: I personally reviewed and interpreted this ECG as follows: Interpretation: AFib Ventricular rate [address] T wave changes MDM Narrative Medical decision making narrative: COVID test here is positive which could either mean that the negative test that he had 2 days ago was a false negative or that he is reinfected once again. I have a higher suspicion that is test 2 days ago was a false negative. Patient's D-dimer was elevated. CT scan shows no signs of pulmonary embolism. Troponins are negative x2. BNP only slightly elevated. Patient not hypoxic. Not tachypneic. Not tachycardic. Patient not a candidate for paxlovid. No indication for admission to the hospital. Will have him continue all of his medications as directed and contact his primary doctor for a follow-up. Discharge Plan Departure Patient Disposition: Home Clinical Impression: COVID-19 Instructions: COVID-19 Activity Restrictions/Additional Instructions: I recommend that you continue to take all of your medications as directed. Contact your primary doctor for follow-up. Return to the emergency department for any new or worsening symptoms. Prescriptions: No Action digoxin 125 mcg (0.125 mg) tablet 1 tab PO DAILY Label Comments: TAKE ONE TABLET BY MOUTH EVERY DAY potassium chloride 10 mEq tablet extended release 20 meq PO DAILY 30 Days Qty: 60 0RF carvedilol [Coreg] 12.5 mg Tablet 12.5 mg PO DAILY Qty: 30 0RF nitroglycerin [Nitrostat] 0.4 mg Tablet, Sublingual 0.4 mg sublingual [id number] PRN (Reason: Chest Pain) Qty: 30 0RF Label Comments: pt reports never using med yet lisinopril 5 mg tablet 5 mg PO DAILY Qty: 60 0RF aspirin [Adult Aspirin] 81 mg Tablet,Chewable 81 mg PO DAILY furosemide 20 mg tablet 60 mg PO DAILY Label Comments: TAKE TWO TABLETS BY MOUTH TWICE DAILY FOR ONE WEEK, THEN TAKE THREE TABLETS DAILY
--- NOTE | 2021-12-03 20:10 | DI.CT.S_ITS ---
PROCEDURE: CT ANGIO CHEST PE PROTOCOL INDICATIONS: Chest pain, shortness of breath, tachycardia TECHNIQUE: After the administration of intravenous contrast, 2 mm thick sections acquired from the pulmonary apices to the posterior costophrenic angles. 3-dimensional maximum intensity projection (MIP) coronal and sagittal reformats were then acquired through the thorax. For radiation dose reduction, the following was used: automated exposure control, adjustment of mA and/or kV according to patient size. COMPARISON: [facility], CT, CT ANGIO CHEST PE PROTOCOL, 11/23/2021, 22:21. FINDINGS: Image quality: Good. Pulmonary arteries: No pulmonary embolism. Lungs and pleura: Bilateral streaky opacity which has the appearance of atelectasis. Left lower lobe subpleural pulmonary nodule measuring at 0.4 cm, (5/207). No pleural effusions or pneumothorax. Central and peripheral airways are patent. Mediastinum: Heart size is enlarged, without significant pericardial effusion. Coronary artery calcifications. No mediastinal or hilar adenopathy. Ascending aorta measures 3.3 cm, (6/41). Esophagus is normal in caliber, without hiatal hernia. Bones and chest wall: No suspicious bony lesions. Ribs and thoracic spine appear intact throughout. Thyroid gland is unremarkable. No axillary or supraclavicular adenopathy. Abdomen: Visualized upper abdominal solid organs appear normal in the early arterial phase of enhancement. Simple appearing right renal cysts. Small gallstones. Possible small kidney stones. IMPRESSION: 1. No pulmonary embolism. 2. Mild streaky opacity which has the appearance of atelectasis. No pleural effusion. 3. Marked cardiomegaly. Dictated by: Rock Brown M.D. on 12/03/2021 at 21:41 Approved by: Rock Brown M.D. on 12/03/2021 at 21:46
[2021-12-03 20:28] LABS: Troponin I < 0.012 ng/mL (0.01-0.034)
--- NOTE | 2021-12-03 22:43 | PC.NURSE ---
Pt to be discharged now, pt will remain in room until morning. VSS updated. IV discontinued. Pt lives on [facility], to catch AM jamel.
[2021-12-04 05:03] VITALS: BP 138/67; PULSE 68; RESP 18; TEMP 36.9; O2SAT 98
[2021-12-04 05:04] VITALS: BP 138/67; O2SAT 96
== END 2021-12-04 09:02 | disposition home or self-care (01) ==
PROVIDERS: Emergency Medicine; Emergency Provider Emergency Medicine
DX: U07.1 COVID-19 (principal); R07.9 Chest pain, unspecified
CPT/HCPCS: 36415; 71046; 71275; 80053; 82550; 83605; 83880; 84484; 85025; 85379; 85610; 87635; 93005; 93010; 99284; C9803

== ENCOUNTER 2021-12-10 12:17 | Emergency (ER) | payer MEDICARE, SELFPAY ==
[2021-11-24 14:39] VITALS: BMI 26.6
[2021-12-10 12:22] VITALS: BP 121/95; PULSE 87; RESP 18; TEMP 36.2; O2SAT 98; BMI 25.7
[2021-12-10 13:03] LABS: COVID19 -Nasal RAPID POSITIVE (Negative)
--- NOTE | 2021-12-10 13:20 | ED_ITS ---
HPI - Medical Clearance <Serjio Pelaez PA-C - Last Filed: 12/10/21 13:49> General Chief complaint: Medical Clearance Stated complaint: Wants COVID Test/No Symptoms Time Seen by Provider: 12/10/21 13:20 Source: patient Mode of arrival: Ambulatory History of Present Illness HPI Narrative: Patient is a 81-year-old male who presents to the emergency room today with no respiratory complaints at this time. Patient states he would like to have a COVID test done to rule out active COVID at this time. Patient states she would like to have the test done because he plans on going to [place] to visit his family and does not spread over to him. Patient admits to having a positive COVID test 10 days ago had his doctor's office and a repeat positive test about 8 days ago at this emergency room. Patient states he is pretty sure he was exposed to COVID as he went to [facility] about 2 weeks ago. States that when he came to the ER about 8 days ago he was sick since he has sniffles and a cough and a sore throat at that time. The patient states that the symptoms resolved about 2 days after that and he has been symptom-free since that time. Denies any other concerns at this time. Related Information Home Medications Medication Instructions Recorded Confirmed digoxin 125 mcg (0.125 mg) tablet 1 tab PO DAILY 09/30/21 12/03/21 aspirin 81 mg chewable tablet 81 mg PO DAILY 12/03/21 12/03/21 furosemide 20 mg tablet 60 mg PO DAILY 12/03/21 12/03/21 Previous Rx's Medication Instructions Recorded carvedilol 12.5 mg tablet (Coreg) 12.5 mg PO DAILY #30 tabs 10/10/21 nitroglycerin 0.4 mg sublingual 0.4 mg sublingual [id number] PRN 10/10/21 tablet (Nitrostat) Chest Pain #30 tabs lisinopril 5 mg tablet 5 mg PO DAILY #60 tabs 10/25/21 potassium chloride 10 mEq 20 meq PO DAILY 30 days #60 tabs 11/01/21 tablet,extended release furosemide 40 mg tablet (Lasix) 40 mg PO DAILY #30 tabs 12/10/21 Allergies Allergy/AdvReac Type Severity Reaction Status Date / Time No Known Drug Allergies Allergy Verified 12/03/21 17:12 Review of Systems <Serjio Pelaez PA-C - Last Filed: 12/10/21 13:49> Review of Systems Narrative: R.O.S.: General: No fever, chills or fatigue. Cardiovascular: No chest pain or palpitations Respiratory: No S.O.B. HEENT: No congestion, ear pain, rhinorrhea, sore throat or tinnitus Gastrointestinal: No nausea or vomiting Skin: No rash or associated abnormalities Musculoskeletal: No pain in muscles or joints, no limitation of range of motion, no paresthesia or numbness. ?? Neurological: Awake, alert and in not apparent distress. No Headaches, changes in vision or other related neurological concerns. Patient History <Serjio Pelaez PA-C - Last Filed: 12/10/21 13:49> Medical History Chronic a-fib Congestive heart failure Hypertension Persistent atrial fibrillation with rapid ventricular response Tobacco use disorder, continuous Family History Mother Hypertension Father Heart attack Social History household members: none Smoking Status: Never smoker alcohol intake: current Smoking Status: Never smoker alcohol intake frequency: a few times a month Substance Use Type: does not use Exam <Serjio Pelaez PA-C - Last Filed: 12/10/21 13:49> Narrative Exam Narrative: Physical Exam: ? General: normal appearance, well developed, well nourished, alert, and awake. Not in acute distress. ? Head: Normocephalic, no lesions. Chest: Lungs CTAB, no rales, rhonchi or wheezes. ?? Heart: RRR, no murmurs, rubs or gallops. Eyes: PERRLA, EOM's full, conjunctivae clear. ? Neuro: Physiological, no localizing findings, CN3-12 intact. ?? Extremities: Warm, well perfused, FROM, no deformities, no edema. ?? Skin: Normal, no rashes, no lesions noted. ?? PSYCHIATRIC: The mood is good, no blunted affect. Speech is clear. Thought process is linear, thought content is appropriate. The voice is without significant inflection. Gastrointestinal: Soft; NT; ND; Pos BS with Neg. rebound tenderness. No scars or major deformities noted on Visual Inspection. Initial Vital Signs Initial Vital Signs: Vital Signs Temperature 97.1 F L 12/10/21 12:22 Pulse Rate 87 12/10/21 12:22 Respiratory Rate 18 12/10/21 12:22 Blood Pressure 121/95 H 12/10/21 12:22 Pulse Oximetry 98 12/10/21 12:22 Oxygen Delivery Method 12/10/21 12:22 <Hermann Coleman DO - Last Filed: 12/10/21 15:00> Initial Vital Signs Initial Vital Signs: Vital Signs Temperature 97.1 F L 12/10/21 12:22 Pulse Rate 87 12/10/21 12:22 Respiratory Rate 18 12/10/21 12:22 Blood Pressure 121/95 H 12/10/21 12:22 Pulse Oximetry 98 12/10/21 12:22 Oxygen Delivery Method 12/10/21 12:22 MDM - Medical Clearance <Serjio Pelaez PA-C - Last Filed: 12/10/21 13:49> Lab Data Labs: Lab Results 12/10/21 Range/Units 12:27 SARS-CoV-2 (PCR) Positive H (Negative) MDM Narrative Medical decision making narrative: Patient is a pleasant mild mannered male who presents to the emergency room today to rule out active COVID because he wants to spend time with his family. COVID test was done today and was positive. Patient was made aware of this and advised to quarantine for another 2 weeks for spending time with family and friends. Patient was advised to quarantine for an entire 2 weeks because patient cannot rule out reexposure some point in time from 2 weeks ago until now. Patient agrees with plan. <Hermann Coleman DO - Last Filed: 12/10/21 15:00> Lab Data Labs: Lab Results 12/10/21 Range/Units 12:27 SARS-CoV-2 (PCR) Positive H (Negative) Discharge Plan Departure Patient Disposition: Home Clinical Impression: COVID-19 Activity Restrictions/Additional Instructions: *You have been diagnosed with [COVID-19. I suggest you continue to quarantine for another 2 weeks.] *What to do: *Please continue to take your regular medications as directed. [ ] New medication prescriptions sent to your pharmacy: [ ] [ ] New medication written as a paper prescription [x] No new medications given *Please follow up with your primary care provider in 2-3 days, call for an appointment. Let them know you were seen in the Emergency Department and that we ask that you be seen in follow up. We will electronically transmit a record of today's note if your PCP is in our system *If you do not have a primary care provider please contact the [facility] Resource line at [phone]. They will ask some questions about your medical history and help get you set up with a doctor in the community. *Return to Emergency Department if you should have any new, worsening or concerning symptoms, such as [fever greater than 101 F, shaking chills, worsening pain, persistent vomiting or other bothersome symptoms] Prescriptions: New furosemide [Lasix] 40 mg tablet 40 mg PO DAILY Qty: 30 0RF No Action digoxin 125 mcg (0.125 mg) tablet 1 tab PO DAILY Label Comments: TAKE ONE TABLET BY MOUTH EVERY DAY potassium chloride 10 mEq tablet extended release 20 meq PO DAILY 30 Days Qty: 60 0RF carvedilol [Coreg] 12.5 mg Tablet 12.5 mg PO DAILY Qty: 30 0RF nitroglycerin [Nitrostat] 0.4 mg Tablet, Sublingual 0.4 mg sublingual [id number] PRN (Reason: Chest Pain) Qty: 30 0RF Label Comments: pt reports never using med yet lisinopril 5 mg tablet 5 mg PO DAILY Qty: 60 0RF aspirin [Adult Aspirin] 81 mg Tablet,Chewable 81 mg PO DAILY furosemide 20 mg tablet 60 mg PO DAILY Label Comments: TAKE TWO TABLETS BY MOUTH TWICE DAILY FOR ONE WEEK, THEN TAKE THREE TABLETS DAILY Referrals: Pawel Teague MD [Primary Care Provider] - Visit Report Forms: Patient Portal/API <Hermann Coleman DO - Last Filed: 12/10/21 15:00> Cosign ED Attending Cosignature Attestation: Dr Coleman Co-Sign Statement: I was available for consultation during this patient's emergency department visit. This chart is signed by myself for administrative purposes only. I did not have direct contact with this patient during this visit. They were seen independently by the APC.
--- NOTE | 2021-12-10 13:52 | ED_ITS ---
HPI - Medical Clearance General Chief complaint: Medical Clearance Stated complaint: Wants COVID Test/No Symptoms Time Seen by Provider: 12/10/21 13:20 Source: patient Mode of arrival: Ambulatory Related Information Home Medications Medication Instructions Recorded Confirmed digoxin 125 mcg (0.125 mg) tablet 1 tab PO DAILY 09/30/21 12/03/21 aspirin 81 mg chewable tablet 81 mg PO DAILY 12/03/21 12/03/21 furosemide 20 mg tablet 60 mg PO DAILY 12/03/21 12/03/21 Previous Rx's Medication Instructions Recorded carvedilol 12.5 mg tablet (Coreg) 12.5 mg PO DAILY #30 tabs 10/10/21 nitroglycerin 0.4 mg sublingual 0.4 mg sublingual [id number] PRN 10/10/21 tablet (Nitrostat) Chest Pain #30 tabs lisinopril 5 mg tablet 5 mg PO DAILY #60 tabs 10/25/21 potassium chloride 10 mEq 20 meq PO DAILY 30 days #60 tabs 11/01/21 tablet,extended release furosemide 40 mg tablet (Lasix) 40 mg PO DAILY #30 tabs 12/10/21 Allergies Allergy/AdvReac Type Severity Reaction Status Date / Time No Known Drug Allergies Allergy Verified 12/03/21 17:12 Patient History Medical History Chronic a-fib Congestive heart failure Hypertension Persistent atrial fibrillation with rapid ventricular response Tobacco use disorder, continuous Family History Mother Hypertension Father Heart attack Social History household members: none Smoking Status: Never smoker alcohol intake: current Smoking Status: Never smoker alcohol intake frequency: a few times a month Substance Use Type: does not use Exam Initial Vital Signs Initial Vital Signs: Vital Signs Temperature 97.1 F L 12/10/21 12:22 Pulse Rate 87 12/10/21 12:22 Respiratory Rate 18 12/10/21 12:22 Blood Pressure 121/95 H 12/10/21 12:22 Pulse Oximetry 98 12/10/21 12:22 Oxygen Delivery Method 12/10/21 12:22 MDM - Medical Clearance Lab Data Labs: Lab Results 12/10/21 Range/Units 12:27 SARS-CoV-2 (PCR) Positive H (Negative) Discharge Plan Departure Patient Disposition: Home Clinical Impression: COVID-19 Activity Restrictions/Additional Instructions: *You have been diagnosed with [COVID-19. I suggest you continue to quarantine for another 2 weeks.] *What to do: *Please continue to take your regular medications as directed. [ ] New medication prescriptions sent to your pharmacy: [ ] [ ] New medication written as a paper prescription [x] No new medications given *Please follow up with your primary care provider in 2-3 days, call for an appointment. Let them know you were seen in the Emergency Department and that we ask that you be seen in follow up. We will electronically transmit a record of today's note if your PCP is in our system *If you do not have a primary care provider please contact the [facility] Resource line at [phone]. They will ask some questions about your medical history and help get you set up with a doctor in the community. *Return to Emergency Department if you should have any new, worsening or concerning symptoms, such as [fever greater than 101 F, shaking chills, worsening pain, persistent vomiting or other bothersome symptoms] Prescriptions: New furosemide [Lasix] 40 mg tablet 40 mg PO DAILY Qty: 30 0RF No Action digoxin 125 mcg (0.125 mg) tablet 1 tab PO DAILY Label Comments: TAKE ONE TABLET BY MOUTH EVERY DAY potassium chloride 10 mEq tablet extended release 20 meq PO DAILY 30 Days Qty: 60 0RF carvedilol [Coreg] 12.5 mg Tablet 12.5 mg PO DAILY Qty: 30 0RF nitroglycerin [Nitrostat] 0.4 mg Tablet, Sublingual 0.4 mg sublingual [id number] PRN (Reason: Chest Pain) Qty: 30 0RF Label Comments: pt reports never using med yet lisinopril 5 mg tablet 5 mg PO DAILY Qty: 60 0RF aspirin [Adult Aspirin] 81 mg Tablet,Chewable 81 mg PO DAILY furosemide 20 mg tablet 60 mg PO DAILY Label Comments: TAKE TWO TABLETS BY MOUTH TWICE DAILY FOR ONE WEEK, THEN TAKE THREE TABLETS DAILY Referrals: Pawel Teague MD [Primary Care Provider] - Visit Report Forms: Patient Portal/API
== END 2021-12-10 13:55 | disposition home or self-care (01) ==
PROVIDERS: Emergency Medicine; Emergency Provider Physician Assistant; PCP Internal Medicine
DX: U07.1 COVID-19 (principal)
CPT/HCPCS: 87635; 99281; 99282; C9803

== ENCOUNTER 2021-12-19 13:16 | Emergency (ER) | payer MEDICARE, SELFPAY ==
[2021-11-24 14:39] VITALS: BMI 26.6
[2021-12-19 13:34] VITALS: BP 135/66; PULSE 65; RESP 18; TEMP 37.2; O2SAT 97; BMI 25.7
--- NOTE | 2021-12-19 16:14 | ED.BACK ---
HPI - Back Pain/Injury General Chief Complaint: Back Pain/Injury Stated Complaint: had covid 2weeks ago needs to know if he can trave Time Seen by Provider: 12/19/21 16:14 Source: patient History of Present Illness HPI Narrative: Patient is an 81-year-old male frequent emergency department visits history of high blood pressure, atrial fibrillation, CHF presenting today with some neck pain. He has a bigger concern was worried about his COVID infection. If he is though he took some COVID test at the beginning November. He wants to know if he can travel to [place] to finish up a project. He denies fever chills or sweats. He has some neck pain which he says started today he denies absolutely no chest pain. His neck pain is worse with turning his head he took ibuprofen with minimal relief. He has no numbness tingling weakness. He says he had a another pus on December 10. Related Data Home Medications Medication Instructions Recorded Confirmed digoxin 125 mcg (0.125 mg) tablet 1 tab PO DAILY 09/30/21 12/03/21 aspirin 81 mg chewable tablet 81 mg PO DAILY 12/03/21 12/03/21 furosemide 20 mg tablet 60 mg PO DAILY 12/03/21 12/03/21 Previous Rx's Medication Instructions Recorded carvedilol 12.5 mg tablet (Coreg) 12.5 mg PO DAILY #30 tabs 10/10/21 nitroglycerin 0.4 mg sublingual 0.4 mg sublingual [id number] PRN 10/10/21 tablet (Nitrostat) Chest Pain #30 tabs lisinopril 5 mg tablet 5 mg PO DAILY #60 tabs 10/25/21 potassium chloride 10 mEq 20 meq PO DAILY 30 days #60 tabs 11/01/21 tablet,extended release furosemide 40 mg tablet (Lasix) 40 mg PO DAILY #30 tabs 12/10/21 Allergies Allergy/AdvReac Type Severity Reaction Status Date / Time No Known Drug Allergies Allergy Verified 12/19/21 13:38 Review of Systems Review of Systems Narrative: GENERAL: Denies chills, fatigue, malaise, fever, sweats, travel HEENT: see HPI RESPIRATORY: Denies dyspnea, cough, wheezing, hemoptysis, sputum. CARDIOVASCULAR: Denies chest pain, palpitations, orthopnea, edema GASTROINTESTINAL: Denies nausea, vomiting, abdominal pain, diarrhea, constipation, melena. : Denies dysuria, frequency, incontinence, hematuria, urinary retention, flank pain. MUSCULOSKELETAL: Denies weakness, joint pain, or bony pain SKIN: No rash, no erythema, no pruritus NEUROLOGIC: Denies weakness, dizziness, headache, numbness, change in speech, confusion PSYCHIATRIC: No concerning psychosocial issues. 12 point review of systems is negative except for those stated above and HPI Patient History Medical History Chronic a-fib Congestive heart failure Hypertension Persistent atrial fibrillation with rapid ventricular response Tobacco use disorder, continuous Family History Mother Hypertension Father Heart attack Social History household members: none Smoking Status: Never smoker alcohol intake: current Smoking Status: Never smoker alcohol intake frequency: a few times a month Substance Use Type: does not use Exam Initial Vital Signs Initial Vital Signs: Vital Signs Temperature 99.0 F 12/19/21 13:34 Pulse Rate 65 12/19/21 13:34 Respiratory Rate 18 12/19/21 13:34 Blood Pressure 135/66 12/19/21 13:34 Pulse Oximetry 97 12/19/21 13:34 Oxygen Delivery Method 12/19/21 13:34 GENERAL: Alert pleasant 81-year-old male HEENT: Head atraumatic,EOMI, pupils reactive, face symmetric, moist mucous membranes NECK: No vertebral tenderness no step-off CARDIOVASCULAR: Regular rate and rhythm without murmurs, rubs or gallops. RESPIRATORY: Breath sounds equal bilaterally, no wheezes rales or rhonchi. ABDOMEN: Soft, nontender. Normoactive bowel sounds all 4 quadrants. No guarding or rebound EXTREMITIES: Normal range of motion, no clubbing or edema. Neurovascularly intact NEUROLOGICAL: Alert and oriented x4. SKIN: Warm, dry, no laceration, no petechiae, no rashes or lesions. Course Orders Ordered: Discontinued Medications Acetaminophen (Acetaminophen 325 Mg Tablet) 650 mg PO NOW ONE Stop: 12/19/21 16:28 Last Admin: 12/19/21 16:47 Dose: 650 mg Documented By: WON Vital Signs Vital signs: Vital Signs - 8 hr 12/19/21 13:34 Temperature 99.0 F Pulse Rate 65 Respiratory Rate 18 Blood Pressure 135/66 Pulse Oximetry 97 Oxygen Delivery Method Room Air MDM - Back Pain/Injury MDM Narrative Medical decision making narrative: Patient is having some mild neck pain no neurologic deficits. Really here wanting to no restrictions on his recent COVID infection. He diagnosed with COVID multiple weeks ago I am not retesting him today he is asymptomatic. He is given Tylenol for his neck pain. He has no real tenderness or neurologic deficits. His heart rate is controlled and regular. He does have low-grade temp of 99? but is otherwise completely asymptomatic. Discharge Plan Departure Patient Disposition: Home Clinical Impression: Neck pain Instructions: DI for Neck Pain Activity Restrictions/Additional Instructions: *You have been diagnosed with neck pain *What to do: You can remain COVID positive for up to 3 months. At this time it does not appear that you are having any COVID symptoms. You may go about life as you were previous *Continue to take medications as directed Tylenol 650 mg every to 6 hours if needed *Follow up with your primary care provider in 2-3 days or call [phone] *Return to ER if you should have increasing neck pain numbness tingling or weakness or any new, worsening or concerning symptoms Prescriptions: No Action digoxin 125 mcg (0.125 mg) tablet 1 tab PO DAILY Label Comments: TAKE ONE TABLET BY MOUTH EVERY DAY potassium chloride 10 mEq tablet extended release 20 meq PO DAILY 30 Days Qty: 60 0RF furosemide [Lasix] 40 mg tablet 40 mg PO DAILY Qty: 30 0RF carvedilol [Coreg] 12.5 mg Tablet 12.5 mg PO DAILY Qty: 30 0RF nitroglycerin [Nitrostat] 0.4 mg Tablet, Sublingual 0.4 mg sublingual [id number] PRN (Reason: Chest Pain) Qty: 30 0RF Label Comments: pt reports never using med yet lisinopril 5 mg tablet 5 mg PO DAILY Qty: 60 0RF aspirin [Adult Aspirin] 81 mg Tablet,Chewable 81 mg PO DAILY furosemide 20 mg tablet 60 mg PO DAILY Label Comments: TAKE TWO TABLETS BY MOUTH TWICE DAILY FOR ONE WEEK, THEN TAKE THREE TABLETS DAILY Referrals: Pawel Teague MD [Primary Care Provider] - Visit Report Forms: Patient Portal/API
[2021-12-19] MEDS: ACETAMINOPHEN 325 MG TABLET 650 MG PO (16:47)
== END 2021-12-19 16:55 | disposition home or self-care (01) ==
PROVIDERS: Emergency Provider Emergency Medicine; PCP Internal Medicine
DX: M54.2 Cervicalgia (principal)
CPT/HCPCS: 99282; 99283

== ENCOUNTER 2022-01-16 10:40 | Emergency (ER) | payer MEDICARE, SELFPAY ==
[2021-11-24 14:39] VITALS: BMI 26.6
[2022-01-16] VITALS (14 sets, daily range): BP systolic 132–186; BP diastolic 77–106; PULSE 86–105; RESP 16–43; O2SAT 91–100; BMI 25.0
--- NOTE | 2022-01-16 11:41 | DI.RAD.S_ITS ---
PROCEDURE: XR CHEST 2V INDICATIONS: shortness of breath TECHNIQUE: 2 views of the chest were acquired. COMPARISON: [facility], , XR CHEST 2V, 12/03/2021, 17:08. FINDINGS: Surgical changes and devices: None. Lungs and pleura: Lungs are clear. No pleural effusions or pneumothorax. Mediastinum: Heart size is enlarged, unchanged compared to prior x-ray. Bones and chest wall: No suspicious bony abnormalities. Degenerative changes of the thoracic spine. Soft tissues appear unremarkable. IMPRESSION: Stable cardiomegaly. No acute abnormality. Dictated by: Kushal Block M.D. on 01/16/2022 at 12:22 Approved by: Kushal Block M.D. on 01/16/2022 at 12:23
--- NOTE | 2022-01-16 11:42 | PC.NURSE ---
Pt reports swelling in bilateral lower legs since September, has been on 20mg Lasix and increased to 80mg Lasix overtime, recently ran out of medication. Over the past week pt has noticed increase in swelling again and weaping skin. He has also had increase of shortness of breath, worse with exertion, only able to walk approximately 20 yards outside his house without having to stop for break when he used to walk approximately half a mile. Pt reports issue with continuing care through his PCP. Aaox3/3, breathing even and unlabored sitting up in stretcher, history of afib.
[2022-01-16 11:50] LABS: Add Manual Diff / Slide Review NO; Basophils Absolute Auto 0 /uL (0-100); Basophils Percent Auto 0.6 % (0-2); Eosinophils Absolute Auto 100 /uL (0-450); Eosinophils Percent Auto 2.1 % (2-4); Hematocrit 32.8 % (41-53); Hemoglobin 11.2 g/dL (13.5-17.5); Lymphocytes Absolute Auto 800 /uL (1100-4500); Lymphocytes Percent Auto 19.2 % (25-40); Mean Corpuscular HGB Conc 34.2 % (30-36); Mean Corpuscular Hemoglobin 33.8 PG (26-34); Mean Corpuscular Volume 98.9 fL (80-100); Monocytes Absolute Auto 400 /uL (0-900); Monocytes Percent Auto 9.9 % (3-14); Neutrophils Absolute Auto 2900 /uL (1500-7000); Neutrophils Percent Auto 68.2 % (50-75); Platelet Count 120 X10^3/uL (150-400); Red Blood Cell Count 3.32 X10^6/uL (4.5-5.9); Red Cell Distribution Width 14.7 % (11.6-14.8); White Blood Cell Count 4.3 X10^3/uL (4.5-11.0)
[2022-01-16 11:55] LABS: Alanine Aminotransferase 39 IU/L (<50); Albumin 3.9 g/dL (3.5-5.0); Albumin Globulin Ratio 1.4 (1.0-2.8); Alkaline Phosphatase 130 U/L (38-126); Aspartate Aminotransferase 38 IU/L (17-59); BUN Creatinine Ratio 27.6 (6-22); Bilirubin Total 1.6 mg/dL (0.2-1.3); Blood Urea Nitrogen 16 mg/dL (9-20); Calcium 8.7 mg/dL (8.4-10.2); Carbon Dioxide 22 mmol/L (22-32); Chloride 107 mmol/L (98-107); Estimated Glomerular Filt Rate > 60 mL/min (>60); Globulin 2.8 g/dL (1.7-4.1); Glucose 91 mg/dL (80-110); HEMOLYSIS < 15 (0-50); Lactate (Lactic Acid) 1.5 mmol/L (0.7-2.1); Potassium 3.9 mmol/L (3.4-5.1); Sodium 140 mmol/L (137-145); Total Protein 6.7 g/dL (6.3-8.2)
[2022-01-16 12:03] LABS: NT-proBNP (BNP-Adult 18+) 2410 pg/mL (<450)
[2022-01-16 12:17] LABS: Creatine Kinase 77 U/L (55-170)
[2022-01-16 12:30] LABS: Troponin I < 0.012 ng/mL (0.01-0.034)
--- NOTE | 2022-01-16 13:22 | PC.NURSE ---
Dr Suman allen'd pt having a snack. Pt given Ensure, 1/2 turkey sandwich and yogurt
--- NOTE | 2022-01-16 13:46 | ED.SOB ---
HPI - SOB/Dyspnea General Chief Complaint: Shortness of Breath/Dyspnea Stated Complaint: Swelling and pain on both legs,SOB Time Seen by Provider: 01/16/22 12:06 Source: patient Mode of arrival: Ambulatory Limitations: no limitations History of Present Illness HPI Narrative: This is a 81-year-old male who has a history of atrial fibrillation, hypertension and CHF presenting with complaint of increasing shortness of breath and swelling in his extremities. Patient states that shortness of breath has been increasing as well as swelling for the past week. Patient notes he ran out of his diuretic and potassium supplement at that time. Patient denies any chest pain or pressure. He denies orthopnea. Denies syncope or lightheadedness. No nausea or vomiting. No back or flank pain. Patient did have about 1 diarrhea episode daily for the past week. He denies any black or bloody stools. No dysuria urgency or swelling. Had some drainage from his anterior shins but does not describe any purulent drainage. Patient states he was diagnosed with irregular heartbeat in 1985, he takes an aspirin 81 mg daily, he denies any prior surgeries. No cardiac catheterization. No known drug allergies. No tobacco, he drinks 1-2 alcoholic drinks, no illicit. Patient's primary care is Dr. Teague. Patient lives [facility] in [place]. Related Data Home Medications Medication Instructions Recorded Confirmed digoxin 125 mcg (0.125 mg) tablet 1 tab PO DAILY 09/30/21 12/03/21 aspirin 81 mg chewable tablet 81 mg PO DAILY 12/03/21 12/03/21 furosemide 20 mg tablet 60 mg PO DAILY 12/03/21 12/03/21 Previous Rx's Medication Instructions Recorded carvedilol 12.5 mg tablet (Coreg) 12.5 mg PO DAILY #30 tabs 10/10/21 nitroglycerin 0.4 mg sublingual 0.4 mg sublingual [id number] PRN 10/10/21 tablet (Nitrostat) Chest Pain #30 tabs lisinopril 5 mg tablet 5 mg PO DAILY #60 tabs 10/25/21 potassium chloride 10 mEq 20 meq PO DAILY 30 days #60 tabs 11/01/21 tablet,extended release furosemide 40 mg tablet (Lasix) 40 mg PO DAILY #30 tabs 12/10/21 furosemide 20 mg tablet (Lasix) 40 mg PO DAILY #20 tabs 01/16/22 Allergies Allergy/AdvReac Type Severity Reaction Status Date / Time No Known Drug Allergies Allergy Verified 01/16/22 10:52 Review of Systems Review of Systems ROS Unobtainable: All systems reviewed & are unremarkable except as noted in HPI and below Patient History Medical History Chronic a-fib Congestive heart failure Hypertension Persistent atrial fibrillation with rapid ventricular response Tobacco use disorder, continuous Family History Mother Hypertension Father Heart attack Social History household members: none Smoking Status: Never smoker alcohol intake: current Smoking Status: Never smoker alcohol intake frequency: holidays/special occasions only Substance Use Type: does not use Exam Narrative Exam Narrative: GENERAL: Alert and oriented x three, elderly male in mild distress HEENT: Head normocephalic, atraumatic, EOMI, pupils reactive, face symmetric, moist mucous membranes NECK: Supple, full range of motion CARDIOVASCULAR: Regular rate and rhythm without murmurs, rubs or gallops. Mild JVD. Bilateral lower extremity swelling mild skin breakdown but no obvious erythema or cellulitis. No active weeping or draining. 2+ lower extremity edema bilaterally. Cap refill less than 2 seconds upper and lower extremities. RESPIRATORY: Breath sounds equal bilaterally, no wheezes rales or rhonchi. Mild tachypnea, no accessory muscle use. Speaks in full sentences. ABDOMEN: Soft, nontender. Normoactive bowel sounds all 4 quadrants. No guarding or rebound, rigidity, no mass : No CVA tenderness EXTREMITIES: Normal range of motion, no clubbing. Neurovascularly intact NEUROLOGICAL: Cranial nerves II through XII grossly intact. Moving all extremities SKIN: Warm, dry, no petechiae, no rashes or lesions. Initial Vital Signs Initial Vital Signs: Vital Signs Respiratory Rate 18 01/16/22 10:49 Course Orders Ordered: ED Orders 01/16/22 11:25 Complete Blood Count AUTO DIFF Stat Comprehensive Metabolic Panel Stat Lactate (Lactic Acid) Stat NT-proBNP (BNP-Adult 18+) Stat Troponin & CK Cardiac Panel Stat 01/16/22 11:41 XR chest 2V Stat EKG-12 Lead Stat Measure peak expiratory flow ONCE RT Consult Eval and Treat Now 01/16/22 14:50 Trop I [Troponin I] Stat Discontinued Medications Furosemide (Furosemide 40 Mg/4 Ml Vial) 40 mg IV NOW ONE Stop: 01/16/22 14:27 Last Admin: 01/16/22 15:04 Dose: 40 mg Documented By: JOYCE Vital Signs Vital signs: Vital Signs - 8 hr 01/16/22 10:49 01/16/22 11:28 01/16/22 11:29 Pulse Rate 101 H Respiratory Rate 18 22 Blood Pressure 132/98 H Pulse Oximetry 98 Oxygen Delivery Method 01/16/22 11:29 01/16/22 11:30 01/16/22 11:30 Pulse Rate 97 H 96 H Respiratory Rate 18 22 Blood Pressure 147/106 H Pulse Oximetry 98 96 Oxygen Delivery Method 01/16/22 12:00 01/16/22 12:30 01/16/22 13:00 Pulse Rate 86 88 95 H Respiratory Rate 43 H 17 22 Blood Pressure Pulse Oximetry 99 97 97 Oxygen Delivery Method Room Air 01/16/22 13:30 01/16/22 14:00 01/16/22 14:14 Pulse Rate 101 H 91 H Respiratory Rate 25 H 16 Blood Pressure 138/92 H Pulse Oximetry 99 100 Oxygen Delivery Method 01/16/22 14:14 01/16/22 14:30 01/16/22 14:30 Pulse Rate 100 H 93 H Respiratory Rate 18 Blood Pressure 164/77 H Pulse Oximetry 93 91 Oxygen Delivery Method 01/16/22 15:00 01/16/22 15:36 01/16/22 15:38 Pulse Rate 86 86 Respiratory Rate 23 Blood Pressure 186/100 H Pulse Oximetry 99 Oxygen Delivery Method Room Air 01/16/22 15:38 Pulse Rate 105 H Respiratory Rate 24 Blood Pressure Pulse Oximetry 98 Oxygen Delivery Method MDM - SOB/Dyspnea Lab Data Result diagrams: 01/16/22 11:25 01/16/22 11:25 Labs: Lab Results 01/16/22 01/16/22 01/16/22 Range/Units 11:25 11:25 11:25 WBC 4.3 L (4.5-11.0) X10^3/uL RBC 3.32 L (4.5-5.9) X10^6/uL Hgb 11.2 L (13.5-17.5) g/dL Hct 32.8 L (41-53) % MCV 98.9 (80-100) fL MCH 33.8 (26-34) PG MCHC 34.2 (30-36) % RDW 14.7 (11.6-14.8) % Plt Count 120 L (150-400) X10^3/uL Neut % (Auto) 68.2 (50-75) % Lymph % (Auto) 19.2 L (25-40) % [place] % (Auto) 9.9 (3-14) % Eos % (Auto) 2.1 (2-4) % Baso % (Auto) 0.6 (0-2) % Neut # (Auto) 2900 (5806-6117) /uL Lymph # (Auto) 800 L (0090-1805) /uL [place] # (Auto) 400 (0-900) /uL Eos # (Auto) 100 (0-450) /uL Baso # (Auto) 0 (0-100) /uL Sodium 140 (137-145) mmol/L Potassium 3.9 (3.4-5.1) mmol/L Chloride 107 (98-107) mmol/L Carbon Dioxide 22 (22-32) mmol/L BUN 16 (9-20) mg/dL Creatinine 0.58 L (0.66-1.25) mg/dL Estimated GFR > 60 (>60) mL/min BUN/Creatinine Ratio 27.6 H (6-22) Glucose 91 (80-110) mg/dL Lactate 1.5 (0.7-2.1) mmol/L Calcium 8.7 (8.4-10.2) mg/dL Total Bilirubin 1.6 H (0.2-1.3) mg/dL AST 38 (17-59) IU/L ALT 39 (<50) IU/L Alkaline Phosphatase 130 H (38-126) U/L Total Creatine Kinase (55-170) U/L CK-MB (CK-2) CK-MB (CK-2) Rel Index Troponin I (0.01-0.034) ng/mL NT-Pro-B Natriuret Pep 2410 H (<450) pg/mL Total Protein 6.7 (6.3-8.2) g/dL Albumin 3.9 (3.5-5.0) g/dL Globulin 2.8 (1.7-4.1) g/dL Albumin/Globulin Ratio 1.4 (1.0-2.8) 01/16/22 01/16/22 Range/Units 11:25 14:50 WBC (4.5-11.0) X10^3/uL RBC (4.5-5.9) X10^6/uL Hgb (13.5-17.5) g/dL Hct (41-53) % MCV (80-100) fL MCH (26-34) PG MCHC (30-36) % RDW (11.6-14.8) % Plt Count (150-400) X10^3/uL Neut % (Auto) (50-75) % Lymph % (Auto) (25-40) % [place] % (Auto) (3-14) % Eos % (Auto) (2-4) % Baso % (Auto) (0-2) % Neut # (Auto) (0302-0380) /uL Lymph # (Auto) (1992-0339) /uL [place] # (Auto) (0-900) /uL Eos # (Auto) (0-450) /uL Baso # (Auto) (0-100) /uL Sodium (137-145) mmol/L Potassium (3.4-5.1) mmol/L Chloride (98-107) mmol/L Carbon Dioxide (22-32) mmol/L BUN (9-20) mg/dL Creatinine (0.66-1.25) mg/dL Estimated GFR (>60) mL/min BUN/Creatinine Ratio (6-22) Glucose (80-110) mg/dL Lactate (0.7-2.1) mmol/L Calcium (8.4-10.2) mg/dL Total Bilirubin (0.2-1.3) mg/dL AST (17-59) IU/L ALT (<50) IU/L Alkaline Phosphatase (38-126) U/L Total Creatine Kinase 77 (55-170) U/L CK-MB (CK-2) TNP CK-MB (CK-2) Rel Index TNP Troponin I < 0.012 < 0.012 (0.01-0.034) ng/mL NT-Pro-B Natriuret Pep (<450) pg/mL Total Protein (6.3-8.2) g/dL Albumin (3.5-5.0) g/dL Globulin (1.7-4.1) g/dL Albumin/Globulin Ratio (1.0-2.8) Imaging Data Chest x-ray: Radiologist's Impression: [address] [address] XRay Report Signed Patient: Khurram Olvera MR#: [id number] : 1940 Acct:[id number] Age/Sex: 81 / M Date of Service: 01/16/22 Loc: ED Accession Number: [id number] ?? Procedure: XR chest 2V Ordering Provider: Madyson Will D.O. PROCEDURE:? XR CHEST 2V ? INDICATIONS:? shortness of breath ? TECHNIQUE:? 2 views of the chest were acquired.? ? COMPARISON:? [facility], CR, XR CHEST 2V, 12/03/2021, 17:08. ? FINDINGS:? ? Surgical changes and devices:? None.? ? Lungs and pleura:? Lungs are clear.? No pleural effusions or pneumothorax.? ? Mediastinum:? Heart size is enlarged, unchanged compared to prior x-ray. ? Bones and chest wall:? No suspicious bony abnormalities.? Degenerative changes of the thoracic spine.? Soft tissues appear unremarkable.? ? IMPRESSION:? Stable cardiomegaly.? No acute abnormality. ? ? Dictated by: Kushal Block M.D. on 01/16/2022 at 12:22 ? ? Approved by: Kushal Block M.D. on 01/16/2022 at 12:23?? ECG Data Attestation: I personally reviewed and interpreted this ECG as follows: Prior ECG tracings: available for review Interpretation: AFib, rate of 92 QRS 92 QTC of 477. No acute ST changes appreciated patient has appears to be some motion artifact in V1 V3. patient has prior from 12/03/21 with no acute changes appreciated. MDM Narrative Medical decision making narrative: This is an 81-year-old male with history of CHF, AFib, hypertension dyslipidemia who presents with increasing shortness of breath swelling of bilateral lower extremities he stopped his diuretic a week he relates that the swelling returned and has increased about a week ago. His labs show negative troponin BNP of 2400, hemoglobin patient is anemic but at baseline with platelets of 120. Patient had stress test in October of 2021 which showed possible pulmonary hypertension fixed defect but no obvious ischemic disease, he also had an echo in September of 2021 which showed left ventricle moderately dilated with an EF of 50-55%, biatrial enlargement and moderate tricuspid regurg patient was in AFib with frequent PVCs. According to patient he is not following regularly with Cardiology he does seem to have some improvement when he is on diuretics but had run out. Patient has some very mild tachypnea while resting, on ambulatory pulse ox no drops. Discharge Plan Departure Patient Disposition: Home Clinical Impression: CHF (congestive heart failure) Instructions: DI for Heart Failure Activity Restrictions/Additional Instructions: Please follow-up with your physician for recheck and to continue your medications. Call for an appointment to follow up. Discussed with your physician if they would like another echo you did have 1 in September. I would recommend following up with cardiology you did have an echo in September of 2021 it appears she had a stress test in October of 2021 as well. I suspect that her heart isn't squeezing as well because of the irregular heartbeat or AFib and you likely need a daily diuretic. Continue Lasix daily as prescribed, take 2 tablets or 40 mg daily. If you are not noticing much change after 2-3 days you may increase to 60 mg daily. Prescription sent to [facility]. Please return for increasing chest pain, shortness of breath, increasing swelling of extremities or other new or concerning symptoms. Prescriptions: New furosemide [Lasix] 20 mg tablet 40 mg PO DAILY Qty: 20 0RF No Action digoxin 125 mcg (0.125 mg) tablet 1 tab PO DAILY Label Comments: TAKE ONE TABLET BY MOUTH EVERY DAY potassium chloride 10 mEq tablet extended release 20 meq PO DAILY 30 Days Qty: 60 0RF furosemide [Lasix] 40 mg tablet 40 mg PO DAILY Qty: 30 0RF carvedilol [Coreg] 12.5 mg Tablet 12.5 mg PO DAILY Qty: 30 0RF nitroglycerin [Nitrostat] 0.4 mg Tablet, Sublingual 0.4 mg sublingual [id number] PRN (Reason: Chest Pain) Qty: 30 0RF Label Comments: pt reports never using med yet lisinopril 5 mg tablet 5 mg PO DAILY Qty: 60 0RF aspirin [Adult Aspirin] 81 mg Tablet,Chewable 81 mg PO DAILY furosemide 20 mg tablet 60 mg PO DAILY Label Comments: TAKE TWO TABLETS BY MOUTH TWICE DAILY FOR ONE WEEK, THEN TAKE THREE TABLETS DAILY Referrals: Pawel Teague MD [Primary Care Provider] - Tamy Raines DO [Physician] - Visit Report Forms: Patient Portal/API
--- NOTE | 2022-01-16 14:50 | PC.NURSE ---
Ambulated pt around the unit while monitoring oxygen saturation. Pt ambulated with out difficulty, breathing even and unlabored. Saturation levels stayed at 95% and above. Dr. Will notified
[2022-01-16] MEDS: FUROSEMIDE 40 MG/4 ML VIAL IV (15:04)
[2022-01-16 15:18] LABS: Troponin I < 0.012 ng/mL (0.01-0.034)
== END 2022-01-16 15:58 | disposition home or self-care (01) ==
PROVIDERS: Emergency Provider Emergency Medicine; PCP Internal Medicine
DX: I50.9 Heart failure, unspecified (principal)
CPT/HCPCS: 36415; 71046; 80053; 82550; 83605; 83880; 84484; 85025; 93005; 99284; J1940

== ENCOUNTER 2023-09-19 16:40 | Emergency (ER) | payer MEDICARE, SELFPAY ==
[2021-11-24 14:39] VITALS: BMI 26.6
[2023-09-19 16:43] VITALS: BP 137/71; PULSE 62; RESP 16; TEMP 36.4; O2SAT 99; BMI 24.4
--- NOTE | 2023-09-19 17:08 | DI.RAD.S_ITS ---
PROCEDURE: XR KNEE LT 3V INDICATIONS: pain TECHNIQUE: 3 views of the knee were acquired. COMPARISON: None. FINDINGS: Bones: No fractures or dislocations. Tricompartmental osteoarthritic changes with osteophytosis and moderate medial compartment joint space narrowing. No suspicious bony lesions. Soft tissues: Small joint effusion. Chondrocalcinosis. Atherosclerotic vascular calcifications. IMPRESSION: No acute osseous abnormality. Small joint effusion. If pain persists with conservative management, consider repeat x-ray in 10-14 days or cross-sectional imaging. Dictated by: Indra Gan M.D. on 09/19/2023 at 17:57 Approved by: Indra Gan M.D. on 09/19/2023 at 17:58
--- NOTE | 2023-09-19 18:06 | ED_ITS ---
HPI - Extremity Injury (Lower) <SHMUEL Turk - Last Filed: 09/19/23 18:17> General Chief Complaint: Extremity Injury, Lower Stated Complaint: lt knee pain Time Seen by Provider: 09/19/23 17:06 Source: patient Mode of arrival: Ambulatory History of Present Illness HPI Narrative: 83-year-old male, never smoker, presents to the emergency department with left knee pain. Patient routinely plays basketball, at a leisurely level, and started having left knee pain approximately 5 days afterwards. Patient denies any trauma to the knee or known mechanism of injury. Patient is concerned he may have tore his meniscus. No home treatment. Related Data Home Medications Medication Instructions Recorded Confirmed digoxin 125 mcg (0.125 mg) tablet 1 tab PO DAILY 09/30/21 12/03/21 aspirin 81 mg chewable tablet 81 mg PO DAILY 12/03/21 12/03/21 furosemide 20 mg tablet 60 mg PO DAILY 12/03/21 12/03/21 Previous Rx's Medication Instructions Recorded carvedilol 12.5 mg tablet (Coreg) 12.5 mg PO DAILY #30 tabs 10/10/21 nitroglycerin 0.4 mg sublingual 0.4 mg sublingual [id number] PRN 10/10/21 tablet (Nitrostat) Chest Pain #30 tabs lisinopril 5 mg tablet 5 mg PO DAILY #60 tabs 10/25/21 potassium chloride 10 mEq 20 meq (2 x 10 mEq) PO DAILY 30 11/01/21 tablet,extended release days #60 tabs furosemide 40 mg tablet (Lasix) 40 mg PO DAILY #30 tabs 12/10/21 furosemide 20 mg tablet (Lasix) 40 mg (2 x 20 mg) PO DAILY #20 tabs 01/16/22 diclofenac sodium 1 % topical gel 4 g topical QID Left knee pain. 09/19/23 (Voltaren Arthritis Pain) #100 grams Allergies Allergy/AdvReac Type Severity Reaction Status Date / Time No Known Drug Allergies Allergy Verified 09/19/23 16:58 Review of Systems <SHMUEL Turk - Last Filed: 09/19/23 18:17> Review of Systems Narrative: Narrative: See HPI. GENERAL: Denies chills, fatigue, fever, sweats. HEENT: Denies sinus pain, ear pain, sore throat, difficulty swallowing, dizziness. RESPIRATORY: Denies dyspnea, cough, wheezing, sputum. CARDIOVASCULAR: Denies chest pain, palpitations, edema. GASTROINTESTINAL: Denies nausea, vomiting, abdominal pain, diarrhea, constipation. MSK: Denies weakness. Endorses left knee pain. SKIN: Denies rash, skin lesions, or pruritis. NEUROLOGIC: Denies weakness, dizziness, headache, numbness, confusion. Patient History <SHMUEL Turk - Last Filed: 09/19/23 18:17> Medical History Tobacco use disorder, continuous Persistent atrial fibrillation with rapid ventricular response Chronic a-fib Congestive heart failure Hypertension Family History Mother Hypertension Father Heart attack Social History household members: none Smoking Status: Never smoker alcohol intake: current Smoking Status: Never smoker alcohol intake frequency: holidays/special occasions only Substance Use Type: does not use Exam <SHMUEL Turk - Last Filed: 09/19/23 18:17> Narrative Exam Narrative: Exam Narrative: GENERAL: This is a well-nourished, well-developed patient, in no acute distress HEAD: Atraumatic. Normocephalic. RESPIRATORY: Respiratory rate and effort are normal. MSK: Moves all extremities. Normal range of motion, no clubbing or edema. Neurovascularly intact. NEURO: A&O x 3. SKIN: Warm, dry, no rashes or lesions noted. KNEE: There is no swelling, bruising or asymmetry. There is no tenderness to general palpation. There is no joint line tenderness. There is no patellar tenderness. There is no popliteal fullness. Patella tracks normally. Range of motion is full and without pain. Resistive strength for flexion and extension is intact. Collateral and cruciate ligaments are intact. Drawer and Lever Tests are negative. Mild discomfort with Leoncio. Gait is unremarkable. The contralateral knee exam is unremarkable. Initial Vital Signs Initial Vital Signs: Vital Signs Temperature 97.5 F L 09/19/23 16:43 Pulse Rate 62 09/19/23 16:43 Respiratory Rate 16 09/19/23 16:43 Blood Pressure 137/71 09/19/23 16:43 Pulse Oximetry 99 06/26/24 16:43 Oxygen Delivery Method Room Air 09/19/23 16:43 Reviewed <Hermann Coleman DO - Last Filed: 09/20/23 07:18> Initial Vital Signs Initial Vital Signs: Vital Signs Temperature 97.5 F L 09/19/23 16:43 Pulse Rate 62 09/19/23 16:43 Respiratory Rate 16 09/19/23 16:43 Blood Pressure 137/71 09/19/23 16:43 Pulse Oximetry 99 09/19/23 16:43 Oxygen Delivery Method Room Air 09/19/23 16:43 Course <SHMUEL Turk - Last Filed: 09/19/23 18:17> Orders Ordered: ED Orders 09/19/23 17:08 XR knee LT 3V Stat Vital Signs Vital signs: Vital Signs - 8 hr 09/19/23 16:43 Temperature 97.5 F L Pulse Rate 62 Respiratory Rate 16 Blood Pressure 137/71 Pulse Oximetry 99 Oxygen Delivery Method Room Air <Hermann Coleman DO - Last Filed: 09/20/23 07:18> Orders Ordered: ED Orders 09/19/23 17:08 XR knee LT 3V Stat Vital Signs Vital signs: Vital Signs - 8 hr 09/19/23 16:43 Temperature 97.5 F L Pulse Rate 62 Respiratory Rate 16 Blood Pressure 137/71 Pulse Oximetry 99 Oxygen Delivery Method Room Air MDM - Extremity Injury (Lower) <SHMUEL Turk - Last Filed: 09/19/23 18:17> Differential Diagnosis Differential diagnosis: Likely other (Knee sprain and strain, meniscus tear, arthritis) Imaging Data Extremity x-ray #1: Radiologist's Impression: [place] [address] XRay Report Signed Patient: Khurram Olvera MR#: [id number] : 1940 Acct:[id number] Age/Sex: 83 / M Date of Service: 09/19/23 Loc: ED Accession Number: [id number] Procedure: XR knee LT 3V Ordering Provider: Hermann Melendez PROCEDURE: XR KNEE LT 3V INDICATIONS: pain TECHNIQUE: 3 views of the knee were acquired. COMPARISON: None. FINDINGS: Bones: No fractures or dislocations. Tricompartmental osteoarthritic changes with osteophytosis and moderate medial compartment joint space narrowing. No suspicious bony lesions. Soft tissues: Small joint effusion. Chondrocalcinosis. Atherosclerotic vascular calcifications. IMPRESSION: No acute osseous abnormality. Small joint effusion. If pain persists with conservative management, consider repeat x-ray in 10-14 days or cross-sectional imaging. Dictated by: Indra Gan M.D. on 09/19/2023 at 17:57 Approved by: Indra Gan M.D. on 09/19/2023 at 17:58 [facility] Narrative Medical decision making narrative: 83-year-old male with left knee pain. Assessment was encouraging and x-ray was negative for fracture or effusion. Recommended supportive care such as Rest (modified activity), along with ice, compression wrap/splint-immobilize as directed and elevation above heart. Tylenol or Ibuprofen for discomfort. Will send in a prescription for Voltaren gel. Recommended patient follow up with family doctor if symptoms persist or worsen for possible orthopedic or physical therapy referral. Patient verbalized understanding was agreeable with course of action. Discharge Plan Departure Patient Disposition: Home Clinical Impression: Acute knee pain Qualifiers: Laterality: left Qualified Code(s): M25.562 - Pain in left knee Instructions: DI for Knee Pain Activity Restrictions/Additional Instructions: *You have been diagnosed with left knee pain. My assessment was encouraging and the x-ray was negative for fracture or effusion. Recommended supportive care that includes Rest (modified activity), along with ice, compression wrap/splint- immobilize as directed and elevation above heart. Tylenol or Ibuprofen for discomfort. I have placed a prescription for the Voltaren gel to use 3 to 4 times a day for discomfort. If symptoms persist or worsen, please follow-up with your family doctor for possible orthopedic or physical therapy referral. *What to do: *Please continue to take your regular medications as directed. [x ] New medication prescriptions sent to your pharmacy: [[facility]] [ ] New medication written as a paper prescription [ ] No new medications given *Please follow up with your primary care provider in 2-3 days, call for an appointment. Let them know you were seen in the Emergency Department and that we ask that you be seen in follow up. We will electronically transmit a record of today's note if your PCP is in our system *If you do not have a primary care provider please contact the [facility] Resource line at [phone]. They will ask some questions about your medical history and help get you set up with a doctor in the community. ? Return to ER if you should have any new, worsening or concerning symptoms, such as worsening pain, severe headache, confusion, chest pain, difficulty breathing, fever greater than 101 F, shaking chills, persistent vomiting to the point that you cannot drink fluids, or other new or worsening symptoms. Prescriptions: New diclofenac sodium [Voltaren Arthritis Pain] 1 % gel 4 g topical QID Qty: 100 0RF Rx Instructions: apply to single knee, ankle, foot; for foot includes sole/toes/top of foot No Action digoxin 125 mcg (0.125 mg) tablet 1 tab PO DAILY Patient Comments: TAKE ONE TABLET BY MOUTH EVERY DAY potassium chloride 10 mEq tablet extended release 20 meq PO DAILY 30 Days Qty: 60 0RF furosemide [Lasix] 40 mg tablet 40 mg PO DAILY Qty: 30 0RF carvedilol [Coreg] 12.5 mg Tablet 12.5 mg PO DAILY Qty: 30 0RF nitroglycerin [Nitrostat] 0.4 mg Tablet, Sublingual 0.4 mg sublingual [id number] PRN (Reason: Chest Pain) Qty: 30 0RF Patient Comments: pt reports never using med yet lisinopril 5 mg tablet 5 mg PO DAILY Qty: 60 0RF aspirin [Adult Aspirin] 81 mg Tablet,Chewable 81 mg PO DAILY furosemide 20 mg tablet 60 mg PO DAILY Patient Comments: TAKE TWO TABLETS BY MOUTH TWICE DAILY FOR ONE WEEK, THEN TAKE THREE TABLETS DAILY furosemide [Lasix] 20 mg tablet 40 mg PO DAILY Qty: 20 0RF Referrals: Pawel Teague MD [Primary Care Provider] - Stand Alone Forms: Patient Portal/API ED Sign-out <Hermann Coleman, DO - Last Filed: 09/20/23 07:18> Cosign ED Attending Cosignature Attestation: Dr oCleman Co-Sign Statement: I was available for consultation during this patient's emergency department visit. This chart is signed by myself for administrative purposes only. I did not have direct contact with this patient during this visit. They were seen independently by the APC.
== END 2023-09-19 18:15 | disposition home or self-care (01) ==
PROVIDERS: Emergency Provider Registered Nurse; PCP Internal Medicine
DX: M25.562 Pain in left knee (principal)
CPT/HCPCS: 73562; 99281; 99283

== ENCOUNTER 2023-12-07 07:44 | Emergency (ER) | payer MEDICARE, SELFPAY ==
[2021-11-24 14:39] VITALS: BMI 26.6
[2023-12-07] VITALS (11 sets, daily range): BP systolic 136–167; BP diastolic 62–110; PULSE 67–109; RESP 14–25; TEMP 36.2; O2SAT 99–100; BMI 26.2
--- NOTE | 2023-12-07 08:02 | EKG_ITS ---
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
--- NOTE | 2023-12-07 08:02 | DI.RAD.S_ITS ---
PROCEDURE: XR CHEST 1V INDICATIONS: chest pain TECHNIQUE: One view of the chest was acquired. COMPARISON: [facility], CR, XR CHEST 2V, 01/16/2022, 11:44. FINDINGS: Moderately enlarged cardiopericardial silhouette unchanged. Mildly prominent juancarlos, pulmonary vascular congestion and/or hilar lymph nodes unchanged. New mild bibasilar subsegmental atelectasis and patchy lower lobe opacities left greater than right some of which commonly related expiratory result. Moderate calcifications of the aortic arch unchanged. Moderate degenerate changes of the thoracic spine and shoulders unchanged. No pneumothorax, no pleural effusion, no lobar consolidation. IMPRESSION: New mild bibasilar subsegmental atelectasis and patchy lower lobe opacities. Remainder of the exam unchanged as discussed above. If symptoms persist or worsen, CT chest could be performed. Dictated by: Justus Arredondo M.D. on 12/07/2023 at 8:29 Approved by: Justus Arredondo M.D. on 12/07/2023 at 8:42
--- NOTE | 2023-12-07 08:07 | EKG_ITS ---
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
--- NOTE | 2023-12-07 08:09 | PC.NURSE ---
acute on chronic SOB, increased dependent swelling, lasix increased to 80mg BID without improvement. labored breathing with exertion. lungs clear bilaterally, 96% RA. Currently in Afib and states he lives in afib. takes eliquis.
--- NOTE | 2023-12-07 08:10 | ED.SOB ---
HPI - SOB/Dyspnea General Chief Complaint: Shortness of Breath/Dyspnea Stated Complaint: swollen legs Time Seen by Provider: 12/07/23 08:02 Source: patient Mode of arrival: Ambulatory Limitations: no limitations History of Present Illness HPI Narrative: Patient 83-year-old male history of atrial fibrillation on Eliquis, hypertension CHF presenting today with increasing lower extremity edema. He reports his swelling has worsened over the last 3 weeks. He has been wearing compression socks. He has noted more dyspnea with exertion but no significant orthopnea. He denies any chest pain fever or chills. He denies any dizziness or lightheadedness. It looks like he was started on Lasix 40 mg b.i.d. on November 28. He reports no improvement. He does say that he urinates. He is also on potassium. Last echocardiogram in our records is in 2021 with an EF of 50-55% with left ventricle is moderately dilated Related Data Home Medications Medication Instructions Recorded Confirmed digoxin 125 mcg (0.125 mg) tablet 1 tab PO DAILY 09/30/21 12/03/21 aspirin 81 mg chewable tablet 81 mg PO DAILY 12/03/21 12/03/21 furosemide 20 mg tablet 60 mg PO DAILY 12/03/21 12/03/21 Previous Rx's Medication Instructions Recorded carvedilol 12.5 mg tablet (Coreg) 12.5 mg PO DAILY #30 tabs 10/10/21 nitroglycerin 0.4 mg sublingual 0.4 mg sublingual [id number] PRN 10/10/21 tablet (Nitrostat) Chest Pain #30 tabs lisinopril 5 mg tablet 5 mg PO DAILY #60 tabs 10/25/21 potassium chloride 10 mEq 20 meq (2 x 10 mEq) PO DAILY 30 11/01/21 tablet,extended release days #60 tabs furosemide 40 mg tablet (Lasix) 40 mg PO DAILY #30 tabs 12/10/21 furosemide 20 mg tablet (Lasix) 40 mg (2 x 20 mg) PO DAILY #20 tabs 01/16/22 diclofenac sodium 1 % topical gel 4 g topical QID Left knee pain. 09/19/23 (Voltaren Arthritis Pain) #100 grams bumetanide 1 mg tablet 1 mg PO BID #14 tabs 12/07/23 Allergies Allergy/AdvReac Type Severity Reaction Status Date / Time No Known Drug Allergies Allergy Verified 09/19/23 16:58 Patient History Medical History Tobacco use disorder, continuous Persistent atrial fibrillation with rapid ventricular response Chronic a-fib Congestive heart failure Hypertension Family History Mother Hypertension Father Heart attack Social History household members: none Smoking Status: Never smoker alcohol intake: current Smoking Status: Never smoker alcohol intake frequency: holidays/special occasions only Substance Use Type: does not use Exam Initial Vital Signs Initial Vital Signs: Vital Signs Pulse Rate 79 12/07/23 07:52 Pulse Oximetry 99 12/07/23 07:52 GENERAL: Alert pleasant 83-year-old male and in [no acute] distress. HEENT: Head atraumatic,EOMI, pupils reactive, face symmetric, [moist] mucous membranes CARDIOVASCULAR: Irregularly irregular RESPIRATORY: Breath sounds equal bilaterally, no wheezes rales or rhonchi. No conversational dyspnea clear and equal breath sounds bilaterally ABDOMEN: Soft, nontender. Normoactive bowel sounds all 4 quadrants. No guarding or rebound. EXTREMITIES: Normal range of motion, no clubbing. Bilateral +3 pitting edema. Neurovascularly intact NEUROLOGICAL: Alert and oriented x4.Normal gait and speech. SKIN: Warm, dry, no laceration, no petechiae, no rashes or lesions. Course Orders Ordered: Discontinued Medications Furosemide (Furosemide 40 Mg/4 Ml Vial) 40 mg IV NOW ONE Stop: 12/07/23 08:27 Last Admin: 12/07/23 08:39 Dose: 40 mg Documented By: SANIA Furosemide (Furosemide 40 Mg/4 Ml Vial) 40 mg IV NOW ONE Stop: 12/07/23 09:10 Last Admin: 12/07/23 09:45 Dose: 40 mg Documented By: SANIA Vital Signs Vital signs: Vital Signs - 8 hr 12/07/23 07:52 12/07/23 07:53 12/07/23 07:53 Temperature Pulse Rate 79 77 Respiratory Rate Blood Pressure 137/66 Pulse Oximetry 99 99 Oxygen Delivery Method 12/07/23 07:54 12/07/23 08:00 12/07/23 08:00 Temperature 97.1 F L Pulse Rate 67 70 Respiratory Rate 14 21 Blood Pressure 137/66 149/67 H Pulse Oximetry 99 100 Oxygen Delivery Method Room Air MDM - SOB/Dyspnea Lab Data 12/07/23 08:00 12/07/23 08:00 Labs: Lab Results 12/07/23 Range/Units 08:00 WBC 6.3 (4.5-11.0) X10^3/uL RBC 3.40 L (4.5-5.9) X10^6/uL Hgb 11.6 L (13.5-17.5) g/dL Hct 32.9 L (41-53) % MCV 96.8 (80-100) fL MCH 34.2 H (26-34) PG MCHC 35.3 (30-36) % RDW 13.8 (11.6-14.8) % Plt Count 163 (150-400) X10^3/uL Neut % (Auto) 69.6 (50-75) % Lymph % (Auto) 18.6 L (25-40) % Drew % (Auto) 9.8 (3-14) % Eos % (Auto) 1.4 L (2-4) % Baso % (Auto) 0.6 (0-2) % Neut # (Auto) 4400 (2534-5163) /uL Lymph # (Auto) 1200 (2495-1811) /uL Drew # (Auto) 600 (0-900) /uL Eos # (Auto) 100 (0-450) /uL Baso # (Auto) 0 (0-100) /uL PT 12.9 H (9.4-12.5) SECONDS INR 1.1 (0.9-1.3) APTT 39 H (25.1-36.5) SECONDS Sodium 137 (137-145) mmol/L Potassium 3.4 (3.4-5.1) mmol/L Chloride 101 (98-107) mmol/L Carbon Dioxide 29 (22-32) mmol/L BUN 24 H (9-20) mg/dL Creatinine 0.75 (0.66-1.25) mg/dL Estimated GFR > 60 (>60) mL/min BUN/Creatinine Ratio 32.0 H (6-22) Glucose 108 (80-110) mg/dL Calcium 8.6 (8.4-10.2) mg/dL Magnesium 2.1 (1.6-2.3) mg/dL Total Bilirubin 1.1 (0.2-1.3) mg/dL AST 25 (17-59) IU/L ALT 30 (<50) IU/L Alkaline Phosphatase 92 (38-126) U/L Total Creatine Kinase 129 (55-170) U/L Troponin I < 0.012 (0.01-0.034) ng/mL NT-Pro-B Natriuret Pep 583 H (<450) pg/mL Total Protein 7.0 (6.3-8.2) g/dL Albumin 4.1 (3.5-5.0) g/dL Globulin 2.9 (1.7-4.1) g/dL Albumin/Globulin Ratio 1.4 (1.0-2.8) Lipase 43 (23-300) U/L Imaging Data Chest x-ray: Radiologist's Impression: PROCEDURE: XR CHEST 1V INDICATIONS: chest pain TECHNIQUE: One view of the chest was acquired. COMPARISON: [facility], , XR CHEST 2V, 01/16/2022, 11:44. FINDINGS: Moderately enlarged cardiopericardial silhouette unchanged. Mildly prominent juancarlos, pulmonary vascular congestion and/or hilar lymph nodes unchanged. New mild bibasilar subsegmental atelectasis and patchy lower lobe opacities left greater than right some of which commonly related expiratory result. Moderate calcifications of the aortic arch unchanged. Moderate degenerate changes of the thoracic spine and shoulders unchanged. No pneumothorax, no pleural effusion, no lobar consolidation. IMPRESSION: New mild bibasilar subsegmental atelectasis and patchy lower lobe opacities. Remainder of the exam unchanged as discussed above. If symptoms persist or worsen, CT chest could be performed. Dictated by: Justus Arredondo M.D. on 12/07/2023 at 8:29 ECG Data Attestation: I personally reviewed and interpreted this ECG as follows: Prior ECG tracings: available for review Interpretation: Atrial fibrillation rate 67 low voltage no ischemia similar to previous EKG December 2021 [facility] Narrative Medical decision making narrative: Patient 83-year-old male history of atrial fibrillation on Eliquis CHF presenting today with continued lower extremity edema despite Lasix 40 mg twice a day. He has no hypoxia or significant shortness of breath. Blood work has been reviewed no leukocytosis or anemia, potassium 3.4, creatinine 0.75 X-ray reviewed mild bibasilar subsegmental atelectasis and patchy lower lobe opacities EKG shows rate controlled AFib without ischemia Patient had significantly lower extremity edema. It is bilateral suspect congestive heart failure related. Low suspicion for bilateral DVT while on Eliquis. He has not having respiratory symptoms or shortness of breath. He was given 80 mg of Lasix here through the IV, he actually did start urinating by the time of discharge At this time recommend outpatient echocardiogram he has not having respiratory symptoms. Will increase his Lasix but he may actually need to be switched over to Bumex, he was previously not on any diuretic and then Lasix was started and then doubled to 40 twice a day and he really has pretty significant edema. Given prescription of Bumex discussed with him to try this medication and follow-up with primary Discharge Plan Departure Patient Disposition: Home Clinical Impression: CHF (congestive heart failure) Instructions: DI for Heart Failure Activity Restrictions/Additional Instructions: *You have been diagnosed with CHF *What to do: At this time less change your Lasix to a different medication to see if he respond better. Please have blood work rechecked next week I also recommend having an echocardiogram of your heart *Continue to take medications as directed Bumex 1 mg twice a day for 4 days, if you respond to 1 pill in the morning and your urinating frequently then do not take a 2nd pill Stop taking furosemide/Lasix Continue your potassium pills *Follow up with your primary care provider in 2-3 days or call [phone] *Return to ER if you should have increased leg swelling chest pain shortness of breath or any new, worsening or concerning symptoms Prescriptions: New bumetanide 1 mg tablet 1 mg PO BID Qty: 14 0RF No Action digoxin 125 mcg (0.125 mg) tablet 1 tab PO DAILY Patient Comments: TAKE ONE TABLET BY MOUTH EVERY DAY potassium chloride 10 mEq tablet extended release 20 meq PO DAILY 30 Days Qty: 60 0RF furosemide [Lasix] 40 mg tablet 40 mg PO DAILY Qty: 30 0RF carvedilol [Coreg] 12.5 mg Tablet 12.5 mg PO DAILY Qty: 30 0RF nitroglycerin [Nitrostat] 0.4 mg Tablet, Sublingual 0.4 mg sublingual [id number] PRN (Reason: Chest Pain) Qty: 30 0RF Patient Comments: pt reports never using med yet lisinopril 5 mg tablet 5 mg PO DAILY Qty: 60 0RF aspirin [Adult Aspirin] 81 mg Tablet,Chewable 81 mg PO DAILY furosemide 20 mg tablet 60 mg PO DAILY Patient Comments: TAKE TWO TABLETS BY MOUTH TWICE DAILY FOR ONE WEEK, THEN TAKE THREE TABLETS DAILY furosemide [Lasix] 20 mg tablet 40 mg PO DAILY Qty: 20 0RF diclofenac sodium [Voltaren Arthritis Pain] 1 % gel 4 g topical QID Qty: 100 0RF Rx Instructions: apply to single knee, ankle, foot; for foot includes sole/toes/top of foot Referrals: Pawel Teague MD [Primary Care Provider] - Stand Alone Forms: Patient Portal/API
[2023-12-07 08:13] LABS: Add Manual Diff / Slide Review NO; Basophils Absolute Auto 0 /uL (0-100); Basophils Percent Auto 0.6 % (0-2); Eosinophils Absolute Auto 100 /uL (0-450); Eosinophils Percent Auto 1.4 % (2-4); Hematocrit 32.9 % (41-53); Hemoglobin 11.6 g/dL (13.5-17.5); INR 1.1 (0.9-1.3); Lymphocytes Absolute Auto 1200 /uL (1100-4500); Lymphocytes Percent Auto 18.6 % (25-40); Mean Corpuscular HGB Conc 35.3 % (30-36); Mean Corpuscular Hemoglobin 34.2 PG (26-34); Mean Corpuscular Volume 96.8 fL (80-100); Monocytes Absolute Auto 600 /uL (0-900); Monocytes Percent Auto 9.8 % (3-14); Neutrophils Absolute Auto 4400 /uL (1500-7000); Neutrophils Percent Auto 69.6 % (50-75); Platelet Count 163 X10^3/uL (150-400); Prothrombin Time 12.9 SECONDS (9.4-12.5); Red Cell Distribution Width 13.8 % (11.6-14.8); White Blood Cell Count 6.3 X10^3/uL (4.5-11.0)
[2023-12-07 08:16] LABS: PTT Partial Thromboplastin Tim 39 SECONDS (25.1-36.5)
[2023-12-07 08:17] LABS: Alanine Aminotransferase 30 IU/L (<50); Albumin 4.1 g/dL (3.5-5.0); Albumin Globulin Ratio 1.4 (1.0-2.8); Alkaline Phosphatase 92 U/L (38-126); Aspartate Aminotransferase 25 IU/L (17-59); Bilirubin Total 1.1 mg/dL (0.2-1.3); Blood Urea Nitrogen 24 mg/dL (9-20); Calcium 8.6 mg/dL (8.4-10.2); Carbon Dioxide 29 mmol/L (22-32); Chloride 101 mmol/L (98-107); Creatine Kinase 129 U/L (55-170); Estimated Glomerular Filt Rate > 60 mL/min (>60); Globulin 2.9 g/dL (1.7-4.1); Glucose 108 mg/dL (80-110); HEMOLYSIS < 15 (0-50); Lipase 43 U/L (23-300); Magnesium 2.1 mg/dL (1.6-2.3); Potassium 3.4 mmol/L (3.4-5.1); Sodium 137 mmol/L (137-145)
[2023-12-07 08:28] LABS: NT-proBNP (BNP-Adult 18+) 583 pg/mL (<450); Troponin I < 0.012 ng/mL (0.01-0.034)
[2023-12-07] MEDS: FUROSEMIDE 40 MG/4 ML VIAL IV ×2 (08:39→09:45)
== END 2023-12-07 10:27 | disposition home or self-care (01) ==
PROVIDERS: Emergency Provider Emergency Medicine; PCP Internal Medicine
DX: I50.9 Heart failure, unspecified (principal); R07.9 Chest pain, unspecified; R06.00 Dyspnea, unspecified; I48.91 Unspecified atrial fibrillation; Z79.01 Long term (current) use of anticoagulants; I10 Essential (primary) hypertension; Z79.899 Other long term (current) drug therapy
CPT/HCPCS: 36415; 71045; 80053; 82550; 83690; 83735; 83880; 84484; 85025; 85610; 85730; 93005; 96374; 96376; 99284; J1940

== ENCOUNTER 2023-12-15 11:05 | Emergency (ER) | payer MEDICARE, SELFPAY ==
[2021-11-24 14:39] VITALS: BMI 26.6
[2023-12-15 11:08] VITALS: BP 151/69; PULSE 76; RESP 25; TEMP 36.3; O2SAT 98; BMI 25.0
--- NOTE | 2023-12-15 11:27 | EKG_ITS ---
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
--- NOTE | 2023-12-15 11:27 | DI.RAD.S_ITS ---
PROCEDURE: XR CHEST 1V INDICATIONS: SOB TECHNIQUE: One view of the chest was acquired. COMPARISON: [facility], CR, XR CHEST 1V, 12/07/2023, 8:05. FINDINGS: Surgical changes and devices: None. Lungs and pleura: Lungs are clear. No pleural effusions or pneumothorax. Mildly prominent interstitial markings. Mediastinum: Cardiomegaly, similar to comparison Bones and chest wall: No suspicious bony lesions. Overlying soft tissues appear unremarkable. IMPRESSION: Cardiomegaly with interstitial markings raises concern for pulmonary edema. Dictated by: Jeison Bishop M.D. on 12/15/2023 at 10:45 Approved by: Jeison Bishop M.D. on 12/15/2023 at 10:47
--- NOTE | 2023-12-15 11:28 | ED_ITS ---
HPI - General Adult General Chief complaint: Shortness of Breath/Dyspnea Stated complaint: leg swelling Time Seen by Provider: 12/15/23 11:20 Source: patient Mode of arrival: Ambulatory History of Present Illness HPI narrative: Patient is an 83-year-old male. He reports no history of heart failure although an ED note from several days ago states he does have a history of AFib. He does have history of coronary artery disease. Is on anticoagulation. Was seen here in the emergency department about 1 week ago for bilateral lower extremity swelling. Was discharged home with a prescription for Bumex. He returns to the emergency department today stating that he is run out of the Bumex. He was only given a 7 day supply of this medication. Reports that his lower extremity edema is not necessarily worse does not any better. He was still having some dyspnea on exertion but no orthopnea. No chest pain. No fevers. Related Data Home Medications Medication Instructions Recorded Confirmed digoxin 125 mcg (0.125 mg) tablet 1 tab PO DAILY 09/30/21 12/03/21 aspirin 81 mg chewable tablet 81 mg PO DAILY 12/03/21 12/03/21 furosemide 20 mg tablet 60 mg PO DAILY 12/03/21 12/03/21 Previous Rx's Medication Instructions Recorded carvedilol 12.5 mg tablet (Coreg) 12.5 mg PO DAILY #30 tabs 10/10/21 nitroglycerin 0.4 mg sublingual 0.4 mg sublingual [id number] PRN 10/10/21 tablet (Nitrostat) Chest Pain #30 tabs lisinopril 5 mg tablet 5 mg PO DAILY #60 tabs 10/25/21 potassium chloride 10 mEq 20 meq (2 x 10 mEq) PO DAILY 30 11/01/21 tablet,extended release days #60 tabs furosemide 40 mg tablet (Lasix) 40 mg PO DAILY #30 tabs 12/10/21 furosemide 20 mg tablet (Lasix) 40 mg (2 x 20 mg) PO DAILY #20 tabs 01/16/22 diclofenac sodium 1 % topical gel 4 g topical QID Left knee pain. 09/19/23 (Voltaren Arthritis Pain) #100 grams bumetanide 1 mg tablet 1 mg PO BID #14 tabs 12/07/23 bumetanide 1 mg tablet 1 mg PO BID #60 tabs 12/15/23 Allergies Allergy/AdvReac Type Severity Reaction Status Date / Time No Known Drug Allergies Allergy Verified 09/19/23 16:58 Review of Systems Review of Systems ROS Unobtainable: All systems reviewed & are unremarkable except as noted in HPI and below Patient History Medical History Tobacco use disorder, continuous Persistent atrial fibrillation with rapid ventricular response Chronic a-fib Congestive heart failure Hypertension Family History Mother Hypertension Father Heart attack Social History household members: none Smoking Status: Never smoker alcohol intake: current Smoking Status: Never smoker alcohol intake frequency: holidays/special occasions only Substance Use Type: does not use Exam Initial Vital Signs Initial Vital Signs: Vital Signs Temperature 97.3 F L 12/15/23 11:08 Pulse Rate 76 12/15/23 11:08 Respiratory Rate 25 H 12/15/23 11:08 Blood Pressure 151/69 H 12/15/23 11:08 Pulse Oximetry 98 12/15/23 11:08 Oxygen Delivery Method Room Air 12/15/23 11:08 Const General: cooperative and comfortable HENMT Head: normal to inspection and normocephalic Resp Effort & Inspection: no cough and tachypneic Auscultation: clear to auscultation bilaterally Cardio Rate: regular rate Rhythm: regular rhythm Skin Other: Chronic changes in lower extremities consistent with edema Neuro General: patient alert, patient awake and moves all extremities Extrem General: edema Course Orders Ordered: ED Orders 12/15/23 11:27 XR chest 1V Stat EKG-12 Lead Stat 12/15/23 11:57 Complete Blood Count AUTO DIFF Stat Comprehensive Metabolic Panel Stat Lipase Stat Magnesium Stat NT-proBNP (BNP-Adult 18+) Stat Troponin & CK Cardiac Panel Stat Discontinued Medications Furosemide 80 mg/ Sodium (Chloride) 58 mls @ 116 mls/hr IV NOW ONE Stop: 12/15/23 11:27 Last Infusion: 12/15/23 12:31 Dose: Infused Documented By: Admin: 12/15/23 11:46 Dose: 116 mls/hr Documented By: SABRINA Vital Signs Vital signs: Vital Signs - 8 hr 12/15/23 11:08 Temperature 97.3 F L Pulse Rate 76 Respiratory Rate 25 H Blood Pressure 151/69 H Pulse Oximetry 98 Oxygen Delivery Method Room Air Medical Decision Making Lab Data 12/15/23 11:57 12/15/23 11:57 Labs: Lab Results 12/15/23 Range/Units 11:57 WBC 5.4 (4.5-11.0) X10^3/uL RBC 3.54 L (4.5-5.9) X10^6/uL Hgb 11.9 L (13.5-17.5) g/dL Hct 33.8 L (41-53) % MCV 95.3 (80-100) fL MCH 33.5 (26-34) PG MCHC 35.1 (30-36) % RDW 13.6 (11.6-14.8) % Plt Count 148 L (150-400) X10^3/uL Neut % (Auto) 74.2 (50-75) % Lymph % (Auto) 16.1 L (25-40) % [place] % (Auto) 8.4 (3-14) % Eos % (Auto) 0.7 L (2-4) % Baso % (Auto) 0.6 (0-2) % Neut # (Auto) 4000 (1838-6069) /uL Lymph # (Auto) 900 L (6392-8247) /uL [place] # (Auto) 400 (0-900) /uL Eos # (Auto) 0 (0-450) /uL Baso # (Auto) 0 (0-100) /uL Sodium 134 L (137-145) mmol/L Potassium 3.4 (3.4-5.1) mmol/L Chloride 99 (98-107) mmol/L Carbon Dioxide 25 (22-32) mmol/L BUN 15 (9-20) mg/dL Creatinine 0.70 (0.66-1.25) mg/dL Estimated GFR > 60 (>60) mL/min BUN/Creatinine Ratio 21.4 (6-22) Glucose 98 (80-110) mg/dL Calcium 8.7 (8.4-10.2) mg/dL Magnesium 1.9 (1.6-2.3) mg/dL Total Bilirubin 2.6 H (0.2-1.3) mg/dL AST 28 (17-59) IU/L ALT 23 (<50) IU/L Alkaline Phosphatase 100 (38-126) U/L Total Creatine Kinase 202 H (55-170) U/L Troponin I < 0.012 (0.01-0.034) ng/mL NT-Pro-B Natriuret Pep 620 H (<450) pg/mL Total Protein 6.7 (6.3-8.2) g/dL Albumin 4.2 (3.5-5.0) g/dL Globulin 2.5 (1.7-4.1) g/dL Albumin/Globulin Ratio 1.7 (1.0-2.8) Lipase 36 (23-300) U/L Imaging Data Chest x-ray: Radiologist's Impression: PROCEDURE: XR CHEST 1V INDICATIONS: SOB TECHNIQUE: One view of the chest was acquired. COMPARISON: [facility], , XR CHEST 1V, 12/07/2023, 8:05. FINDINGS: Surgical changes and devices: None. Lungs and pleura: Lungs are clear. No pleural effusions or pneumothorax. Mildly prominent interstitial markings. Mediastinum: Cardiomegaly, similar to comparison Bones and chest wall: No suspicious bony lesions. Overlying soft tissues appear unremarkable. IMPRESSION: Cardiomegaly with interstitial markings raises concern for pulmonary edema. ECG Data Attestation: I personally reviewed and interpreted this ECG as follows: Interpretation: Atrial fibrillation Ventricular rate is 78 Left axis deviation Normal QRS No ST T wave changes MDM Narrative Medical decision making narrative: Patient's labs today are very similar to prior. His chest x-ray looks like pulmonary edema in his lower extremities are swollen although he was not hypoxic. Was given Lasix. Diurese greater than 500 cc of urine. He became less tachypneic. He thinks that the medication that he was prescribed in the emergency department 6 days ago was working for him he was ran out of the medicine. He does have an appointment with his road crossing guard scheduled for sometime next month. Plan will be to discharge patient home with a longer prescription for the bumetanide. Will have him stop taking his Lasix. He was given return precautions and follow-up instructions. He expressed understanding and agreement. Discharge Plan Departure Patient Disposition: Home Clinical Impression: Pulmonary edema, Bilateral edema of lower extremity Instructions: DI for Peripheral Edema -- Bilateral Activity Restrictions/Additional Instructions: I recommend that you stop taking the Lasix and start taking the bumetanide as directed. Contact your primary road crossing guard for a follow-up. Return to the emergency department for new symptoms. Prescriptions: New bumetanide 1 mg tablet 1 mg PO BID Qty: 60 2RF No Action digoxin 125 mcg (0.125 mg) tablet 1 tab PO DAILY Patient Comments: TAKE ONE TABLET BY MOUTH EVERY DAY potassium chloride 10 mEq tablet extended release 20 meq PO DAILY 30 Days Qty: 60 0RF furosemide [Lasix] 40 mg tablet 40 mg PO DAILY Qty: 30 0RF carvedilol [Coreg] 12.5 mg Tablet 12.5 mg PO DAILY Qty: 30 0RF nitroglycerin [Nitrostat] 0.4 mg Tablet, Sublingual 0.4 mg sublingual [id number] PRN (Reason: Chest Pain) Qty: 30 0RF Patient Comments: pt reports never using med yet lisinopril 5 mg tablet 5 mg PO DAILY Qty: 60 0RF aspirin [Adult Aspirin] 81 mg Tablet,Chewable 81 mg PO DAILY furosemide 20 mg tablet 60 mg PO DAILY Patient Comments: TAKE TWO TABLETS BY MOUTH TWICE DAILY FOR ONE WEEK, THEN TAKE THREE TABLETS DAILY furosemide [Lasix] 20 mg tablet 40 mg PO DAILY Qty: 20 0RF diclofenac sodium [Voltaren Arthritis Pain] 1 % gel 4 g topical QID Qty: 100 0RF Rx Instructions: apply to single knee, ankle, foot; for foot includes sole/toes/top of foot bumetanide 1 mg tablet 1 mg PO BID Qty: 14 0RF Referrals: Pawel Teague MD [Primary Care Provider] - Stand Alone Forms: Patient Portal/API
[2023-12-15] MEDS: FUROSEMIDE 80 MG in SODIUM CHLORIDE 0.9% 50 ML 116 MG IV (11:46)
[2023-12-15 12:02] LABS: Add Manual Diff / Slide Review NO; Basophils Absolute Auto 0 /uL (0-100); Basophils Percent Auto 0.6 % (0-2); Eosinophils Absolute Auto 0 /uL (0-450); Eosinophils Percent Auto 0.7 % (2-4); Hematocrit 33.8 % (41-53); Hemoglobin 11.9 g/dL (13.5-17.5); Lymphocytes Absolute Auto 900 /uL (1100-4500); Lymphocytes Percent Auto 16.1 % (25-40); Mean Corpuscular HGB Conc 35.1 % (30-36); Mean Corpuscular Hemoglobin 33.5 PG (26-34); Mean Corpuscular Volume 95.3 fL (80-100); Monocytes Absolute Auto 400 /uL (0-900); Monocytes Percent Auto 8.4 % (3-14); Neutrophils Absolute Auto 4000 /uL (1500-7000); Neutrophils Percent Auto 74.2 % (50-75); Platelet Count 148 X10^3/uL (150-400); Red Blood Cell Count 3.54 X10^6/uL (4.5-5.9); Red Cell Distribution Width 13.6 % (11.6-14.8); White Blood Cell Count 5.4 X10^3/uL (4.5-11.0)
[2023-12-15 12:14] LABS: Alanine Aminotransferase 23 IU/L (<50); Albumin 4.2 g/dL (3.5-5.0); Albumin Globulin Ratio 1.7 (1.0-2.8); Alkaline Phosphatase 100 U/L (38-126); Aspartate Aminotransferase 28 IU/L (17-59); BUN Creatinine Ratio 21.4 (6-22); Bilirubin Total 2.6 mg/dL (0.2-1.3); Blood Urea Nitrogen 15 mg/dL (9-20); Calcium 8.7 mg/dL (8.4-10.2); Carbon Dioxide 25 mmol/L (22-32); Chloride 99 mmol/L (98-107); Creatine Kinase 202 U/L (55-170); Estimated Glomerular Filt Rate > 60 mL/min (>60); Globulin 2.5 g/dL (1.7-4.1); Glucose 98 mg/dL (80-110); HEMOLYSIS < 15 (0-50); Lipase 36 U/L (23-300); Magnesium 1.9 mg/dL (1.6-2.3); Potassium 3.4 mmol/L (3.4-5.1); Sodium 134 mmol/L (137-145); Total Protein 6.7 g/dL (6.3-8.2)
[2023-12-15 12:26] LABS: NT-proBNP (BNP-Adult 18+) 620 pg/mL (<450); Troponin I < 0.012 ng/mL (0.01-0.034)
[2023-12-15 13:33] VITALS: BP 137/74; PULSE 89; RESP 24; O2SAT 96
[2023-12-15 13:44] VITALS: BP 143/74; PULSE 89; RESP 16; O2SAT 98
--- NOTE | 2023-12-15 13:52 | PC.NURSE ---
Pt reports running out of diuretic medication prescribed by ER MD. Pt has been taking lasix in the meantime. Pt states he has not seen his PCP or technical training manager since leaving the ED last time. Pt reports worsening lower extremity edema and SOB. Pt appears tachypnic on exertion. Pt ambulatory. Alert and oriented x4. GCS 15.
== END 2023-12-15 14:17 | disposition home or self-care (01) ==
PROVIDERS: Emergency Provider Emergency Medicine; PCP Internal Medicine
DX: R60.0 Localized edema (principal); I25.10 Atherosclerotic heart disease of native coronary artery without angina pectoris; I48.91 Unspecified atrial fibrillation; Z79.01 Long term (current) use of anticoagulants; Z79.899 Other long term (current) drug therapy
CPT/HCPCS: 71045; 80053; 82550; 83690; 83735; 83880; 84484; 85025; 93005; 96365; 99284; J1940

== ENCOUNTER 2024-04-28 19:02 | Emergency (ER) | payer MEDICARE, MEDICAID, SELFPAY ==
[2021-11-24 14:39] VITALS: BMI 26.6
[2024-04-28] VITALS (12 sets, daily range): BP systolic 122–196; BP diastolic 56–97; PULSE 71–97; RESP 12–30; TEMP 36.6; O2SAT 93–99; BMI 25.2
--- NOTE | 2024-04-28 19:05 | DI.RAD.S_ITS ---
PROCEDURE: XR CHEST 1V INDICATIONS: left elbow pain, fall TECHNIQUE: One view of the chest was acquired. COMPARISON: [facility], CR, XR CHEST 1V, 12/15/2023, 11:26. [facility], CR, XR CHEST 1V, 12/07/2023, 8:05. FINDINGS: Surgical changes and devices: None. Lungs and pleura: No dense consolidation or pleural effusions. Mediastinum: Significant cardiomegaly. Bones and chest wall: Degenerative changes. IMPRESSION: No acute radiographic abnormality. If there is high concern for occult injury, consider repeat radiography or cross-sectional imaging. Significant cardiomegaly again seen. Dictated by: Gabriel Heck M.D. on 04/28/2024 at 19:45 Approved by: Gabriel Heck M.D. on 04/28/2024 at 19:46
--- NOTE | 2024-04-28 19:05 | DI.CT.S_ITS ---
PROCEDURE: CT HEAD/BRAIN WO CON INDICATIONS: left elbow pain, fall TECHNIQUE: Noncontrast 4.5 mm thick angled axial sections acquired from the foramen magnum to the vertex, with coronal and sagittal reformats. For radiation dose reduction, the following was used: automated exposure control, adjustment of mA and/or kV according to patient size. COMPARISON: [facility], CT, CT HEAD/BRAIN WO CON, 10/24/2021, 23:21. FINDINGS: Image quality: Diagnostic CSF spaces: Basal cisterns are patent. Lateral ventricles are symmetric. Volume: Vascular calcifications. Periventricular white matter disease is commonly seen with chronic microangiopathy. Volume loss is present. These findings are moderate Brain: No intracranial hemorrhage. [place]-white differentiation is grossly maintained. Craniofacial structures: No significant paranasal sinus opacity. IMPRESSION: No acute intracranial hemorrhage. Dictated by: Gabriel Heck M.D. on 04/28/2024 at 19:46 Approved by: Gabriel Heck M.D. on 04/28/2024 at 19:47
--- NOTE | 2024-04-28 19:05 | DI.CT.S_ITS ---
PROCEDURE: CT CERVICAL SPINE WO CON INDICATIONS: left elbow pain, fall TECHNIQUE: Noncontrast 3 mm thick sections acquired from the skull base to the T4 level. Sagittal and coronal reformats were then constructed. For radiation dose reduction, the following was used: automated exposure control, adjustment of mA and/or kV according to patient size. COMPARISON: None. FINDINGS: Image quality: Diagnostic Bones: Trace anterolisthesis of C4 on C5 probably degenerative. Moderate background spondylotic changes. No acute displaced fracture or traumatic subluxation. Soft tissues: Significant calcified planus around the C1-C2 articulation. No pathologic prevertebral soft tissue swelling. There are vascular calcifications. IMPRESSION: No displaced fracture or traumatic subluxation. Moderate spondylotic changes. If there is high concern for further derangement, consider MRI evaluation. Dictated by: Gabriel Heck M.D. on 04/28/2024 at 19:47 Approved by: Gabriel Heck M.D. on 04/28/2024 at 19:49
--- NOTE | 2024-04-28 19:05 | DI.RAD.S_ITS ---
PROCEDURE: XR ELBOW LT MIN 3V INDICATIONS: left elbow pain, fall TECHNIQUE: 3 views of the elbow were acquired. COMPARISON: None. FINDINGS: Bones: Olecranon enthesopathy. No displaced fractures identified. No dislocation. Mild background degenerative changes. Soft tissues: No significant joint effusion. IMPRESSION: No displaced fracture or dislocation. No significant joint effusion. If there is high concern for occult injury, consider repeat radiography or cross-sectional imaging. Dictated by: Gabriel Heck M.D. on 04/28/2024 at 19:44 Approved by: Gabriel Heck M.D. on 04/28/2024 at 19:45
--- NOTE | 2024-04-28 19:06 | EKG_ITS ---
[facility] [address] [place] [address] Test Date: 2024-04-28 Pat Name: Khurram Olvera Department: [facility] Room: Gender: Male Dispute Resolution Analyst: COLBY : 1940 Requested By: Order Number: [id number] Reading MD: Jose A Lange Measurements Intervals Dorr Rate: 72 P: MN: QRS: -75 QRSD: 102 T: -21 QT: 384 QTc: 420 Interpretive Statements Atrial fibrillation Left axis deviation Low voltage QRS Inferior infarct , age undetermined Cannot rule out Anteroseptal infarct , age undetermined Electronically Signed On 04-30-2024 23:44:43 PST by Jose A Lange
[2024-04-28] MEDS: TET,DIPH,PERTUSS(ACELL),VAC/PF 0.5 ML SYRINGE IM (19:30)
--- NOTE | 2024-04-28 19:33 | CM.SWNOTE ---
Addendum entered by ALESSIA Day 04/28/24 19:44: Patient is staying at: [facility] - [address] [place], [place] (ph#[phone]). VANESA Bolivar Original Note: ED WELDER FITTER ARC Assessment Note: Pt is a 83yo male, resident of [place], presented to the ED after a fall and he hit his head. Pt lives at a Snf in [place]. Pt's Primary Care Provider is Dr. Pawel Teague and insurance is [employer] and Medicaid. Reviewed chart, WELDER FITTER ARC consulted as pt able to identify that he is staying in a penitentiary in [place] but not sure what the penitentiary is called; trying to determine if pt concussed vs. having memory issues. WELDER FITTER ARC entered room to meet with patient, introduced self and role. Pt able to identify that he is staying at a penitentiary on [facility]. and I need to check in by 10pm. Pt consented to this WELDER [employer]TER [employer]C calling to confirm which penitentiary he is staying at. Pt declines need for bus passes or food resources at this time. WELDER FITTER ARC called [facility] on [facility], spoke with Aaron. Aaron confirms that pt is a guest at their penitentiary and will pass along the information that he is in the Emergency Department. Pt can still arrive after 10pm check in time and will just have to provide ED Discharge Summary at check in. WELDER FITTER ARC provided printed address and penitentiary name to patient for future navigation. WELDER FITTER ARC reviews this with ED provider and RN for further coordination upon medical discharge and possible taxi voucher. Plan: Medical work up to continue, possible discharge back to community; ED staff to coordinate. VANESA Bolivar
[2024-04-28 19:48] LABS: Add Manual Diff / Slide Review NO; Basophils Absolute Auto 100 /uL (0-100); Eosinophils Absolute Auto 100 /uL (0-450); Eosinophils Percent Auto 1.3 % (2-4); Hemoglobin 10.6 g/dL (13.5-17.5); Lymphocytes Absolute Auto 1100 /uL (1100-4500); Lymphocytes Percent Auto 16.3 % (25-40); Mean Corpuscular HGB Conc 34.3 % (30-36); Mean Corpuscular Hemoglobin 32.9 PG (26-34); Mean Corpuscular Volume 95.9 fL (80-100); Monocytes Absolute Auto 500 /uL (0-900); Monocytes Percent Auto 7.5 % (3-14); Neutrophils Absolute Auto 4800 /uL (1500-7000); Neutrophils Percent Auto 73.9 % (50-75); Platelet Count 201 X10^3/uL (150-400); Red Blood Cell Count 3.23 X10^6/uL (4.5-5.9); Red Cell Distribution Width 14.3 % (11.6-14.8); White Blood Cell Count 6.5 X10^3/uL (4.5-11.0)
[2024-04-28 19:52] LABS: INR 1.1 (0.9-1.3); Prothrombin Time 12.2 SECONDS (9.4-12.5)
[2024-04-28 19:55] LABS: PTT Partial Thromboplastin Tim 36 SECONDS (25.1-36.5)
[2024-04-28 19:57] LABS: Creatine Kinase 62 U/L (55-170)
[2024-04-28 19:58] LABS: Ethanol (ETOH) 54 mg/dL; Lipase 42 U/L (23-300)
[2024-04-28 19:59] LABS: Alanine Aminotransferase 20 IU/L (<50); Albumin 3.9 g/dL (3.5-5.0); Albumin Globulin Ratio 1.6 (1.0-2.8); Alkaline Phosphatase 61 U/L (38-126); Aspartate Aminotransferase 29 IU/L (17-59); BUN Creatinine Ratio 19.7 (6-22); Bilirubin Total 0.9 mg/dL (0.2-1.3); Blood Urea Nitrogen 15 mg/dL (9-20); Calcium 8.2 mg/dL (8.4-10.2); Carbon Dioxide 23 mmol/L (22-32); Chloride 106 mmol/L (98-107); Estimated Glomerular Filt Rate > 60 mL/min (>60); Globulin 2.5 g/dL (1.7-4.1); Glucose 87 mg/dL (80-110); HEMOLYSIS 19 (0-50); Potassium 3.6 mmol/L (3.4-5.1); Sodium 139 mmol/L (137-145); Total Protein 6.4 g/dL (6.3-8.2)
[2024-04-28 20:11] LABS: Troponin I < 0.012 ng/mL (0.01-0.034)
--- NOTE | 2024-04-28 22:16 | ED.FALL ---
HPI - Fall General Chief Complaint: Trauma Stated Complaint: fall hit head on thinners Time Seen by Provider: 04/28/24 19:05 Source: EMS Mode of arrival: EMS History of Present Illness HPI Narrative: Patient is an 83-year-old male with history of atrial fibrillation on Eliquis, hypertension, CHF presenting today with a mechanical ground level fall. He reports he was given going to the bus when he fell backwards here both of his elbows. Possible LOC initially having some trouble remembering the event. He was experiencing homelessness as well he currently has a halfway. Reports that he was getting help with housing. He has no nausea or vomiting no significant head pain chest pain. He does have some mild shortness of breath. Related Data Home Medications Medication Instructions Recorded Confirmed digoxin 125 mcg (0.125 mg) tablet 1 tab PO DAILY 09/30/21 12/03/21 aspirin 81 mg chewable tablet 81 mg PO DAILY 12/03/21 12/03/21 furosemide 20 mg tablet 60 mg PO DAILY 12/03/21 12/03/21 Previous Rx's Medication Instructions Recorded carvedilol 12.5 mg tablet (Coreg) 12.5 mg PO DAILY #30 tabs 10/10/21 nitroglycerin 0.4 mg sublingual 0.4 mg sublingual [id number] PRN 10/10/21 tablet (Nitrostat) Chest Pain #30 tabs lisinopril 5 mg tablet 5 mg PO DAILY #60 tabs 10/25/21 potassium chloride 10 mEq 20 meq (2 x 10 mEq) PO DAILY 30 11/01/21 tablet,extended release days #60 tabs furosemide 40 mg tablet (Lasix) 40 mg PO DAILY #30 tabs 12/10/21 furosemide 20 mg tablet (Lasix) 40 mg (2 x 20 mg) PO DAILY #20 tabs 01/16/22 diclofenac sodium 1 % topical gel 4 g topical QID Left knee pain. 09/19/23 (Voltaren Arthritis Pain) #100 grams bumetanide 1 mg tablet 1 mg PO BID #14 tabs 12/07/23 bumetanide 1 mg tablet 1 mg PO BID #60 tabs 12/15/23 Allergies Allergy/AdvReac Type Severity Reaction Status Date / Time No Known Drug Allergies Allergy Verified 09/19/23 16:58 Patient History Medical History Tobacco use disorder, continuous Persistent atrial fibrillation with rapid ventricular response Chronic a-fib Congestive heart failure Hypertension Family History Mother Hypertension Father Heart attack Social History household members: none Smoking Status: Never smoker alcohol intake: current Smoking Status: Never smoker alcohol intake frequency: holidays/special occasions only Exam Initial Vital Signs Initial Vital Signs: Vital Signs Temperature 97.8 F 04/28/24 19:06 Pulse Rate 90 04/28/24 19:06 Respiratory Rate 16 04/28/24 19:06 Blood Pressure 136/97 H 04/28/24 19:06 Pulse Oximetry 99 04/28/24 19:06 Oxygen Delivery Method Room Air 04/28/24 19:06 GENERAL: Alert pleasant 83-year-old male well-appearing HEENT: Head atraumatic,EOMI, pupils reactive, face symmetric, moist mucous membranes CARDIOVASCULAR: Irregularly irregular no murmurs RESPIRATORY: Clear breath sounds bilaterally no wheezing rales or rhonchi ABDOMEN: Soft, nontender. Normoactive bowel sounds all 4 quadrants. No guarding or rebound. EXTREMITIES: Normal range of motion, no clubbing or lower extremities edema. Neurovascularly intact NEUROLOGICAL: Alert and oriented x4.Normal gait and speech. Cranial nerves II through XII grossly intact. SKIN: Warm, dry, no laceration, no petechiae, no rashes or lesions. Course Orders Ordered: Discontinued Medications Diphtheria/Tetanus/Acell Pertussis (Tet,Diph,Pertuss(Acell),Vac/Pf 0.5 Ml Syringe) 0.5 ml IM .ONCE ONE Stop: 04/28/24 19:06 Last Admin: 04/28/24 19:30 Dose: 0.5 ml Documented By: Vital Signs Vital signs: Vital Signs - 8 hr 04/28/24 19:06 04/28/24 19:11 04/28/24 19:12 Temperature 97.8 F Pulse Rate 90 97 H Respiratory Rate 16 27 H Blood Pressure 136/97 H 136/87 Pulse Oximetry 99 99 Oxygen Delivery Method Room Air 04/28/24 19:12 04/28/24 19:30 04/28/24 20:00 Temperature Pulse Rate 77 71 96 H Respiratory Rate 18 24 30 H Blood Pressure Pulse Oximetry 99 99 Oxygen Delivery Method Room Air 04/28/24 20:03 04/28/24 20:03 Temperature Pulse Rate 72 Respiratory Rate 24 Blood Pressure 134/58 L Pulse Oximetry 93 Oxygen Delivery Method MDM - Fall Lab Data 04/28/24 19:35 04/28/24 19:35 Labs: Lab Results 04/28/24 Range/Units 19:35 WBC 6.5 (4.5-11.0) X10^3/uL RBC 3.23 L (4.5-5.9) X10^6/uL Hgb 10.6 L (13.5-17.5) g/dL Hct 31.0 L (41-53) % MCV 95.9 (80-100) fL MCH 32.9 (26-34) PG MCHC 34.3 (30-36) % RDW 14.3 (11.6-14.8) % Plt Count 201 (150-400) X10^3/uL Neut % (Auto) 73.9 (50-75) % Lymph % (Auto) 16.3 L (25-40) % [place] % (Auto) 7.5 (3-14) % Eos % (Auto) 1.3 L (2-4) % Baso % (Auto) 1.0 (0-2) % Neut # (Auto) 4800 (9000-0122) /uL Lymph # (Auto) 1100 (9321-7206) /uL [place] # (Auto) 500 (0-900) /uL Eos # (Auto) 100 (0-450) /uL Baso # (Auto) 100 (0-100) /uL PT 12.2 (9.4-12.5) SECONDS INR 1.1 (0.9-1.3) APTT 36 (25.1-36.5) SECONDS Sodium 139 (137-145) mmol/L Potassium 3.6 (3.4-5.1) mmol/L Chloride 106 (98-107) mmol/L Carbon Dioxide 23 (22-32) mmol/L BUN 15 (9-20) mg/dL Creatinine 0.76 (0.66-1.25) mg/dL Estimated GFR > 60 (>60) mL/min BUN/Creatinine Ratio 19.7 (6-22) Glucose 87 (80-110) mg/dL Calcium 8.2 L (8.4-10.2) mg/dL Total Bilirubin 0.9 (0.2-1.3) mg/dL AST 29 (17-59) IU/L ALT 20 (<50) IU/L Alkaline Phosphatase 61 (38-126) U/L Total Creatine Kinase 62 (55-170) U/L Troponin I < 0.012 (0.01-0.034) ng/mL NT-Pro-B Natriuret Pep 810 H (<450) pg/mL Total Protein 6.4 (6.3-8.2) g/dL Albumin 3.9 (3.5-5.0) g/dL Globulin 2.5 (1.7-4.1) g/dL Albumin/Globulin Ratio 1.6 (1.0-2.8) Lipase 42 (23-300) U/L Ethyl Alcohol 54 H ( - 10) mg/dL Imaging Data CT scan - head: Radiologist's Impression: PROCEDURE: CT HEAD/BRAIN WO CON INDICATIONS: left elbow pain, fall TECHNIQUE: Noncontrast 4.5 mm thick angled axial sections acquired from the foramen magnum to the vertex, with coronal and sagittal reformats. For radiation dose reduction, the following was used: automated exposure control, adjustment of mA and/or kV according to patient size. COMPARISON: [facility], CT, CT HEAD/BRAIN WO CON, 10/24/2021, 23:21. FINDINGS: Image quality: Diagnostic CSF spaces: Basal cisterns are patent. Lateral ventricles are symmetric. Volume: Vascular calcifications. Periventricular white matter disease is commonly seen with chronic microangiopathy. Volume loss is present. These findings are moderate Brain: No intracranial hemorrhage. [place]-white differentiation is grossly maintained. Craniofacial structures: No significant paranasal sinus opacity. IMPRESSION: No acute intracranial hemorrhage. Dictated by: Gabriel Heck M.D. on 04/28/2024 at 19:46 CT - cervical spine: Radiologist's Impression: PROCEDURE: CT CERVICAL SPINE WO CON INDICATIONS: left elbow pain, fall TECHNIQUE: Noncontrast 3 mm thick sections acquired from the skull base to the T4 level. Sagittal and coronal reformats were then constructed. For radiation dose reduction, the following was used: automated exposure control, adjustment of mA and/or kV according to patient size. COMPARISON: None. FINDINGS: Image quality: Diagnostic Bones: Trace anterolisthesis of C4 on C5 probably degenerative. Moderate background spondylotic changes. No acute displaced fracture or traumatic subluxation. Soft tissues: Significant calcified planus around the C1-C2 articulation. No pathologic prevertebral soft tissue swelling. There are vascular calcifications. IMPRESSION: No displaced fracture or traumatic subluxation. Moderate spondylotic changes. If there is high concern for further derangement, consider MRI evaluation. Dictated by: Gabriel Heck M.D. on 04/28/2024 at 19:47 Chest x-ray: Radiologist's Impression: PROCEDURE: XR CHEST 1V INDICATIONS: left elbow pain, fall TECHNIQUE: One view of the chest was acquired. COMPARISON: [facility], CR, XR CHEST 1V, 12/15/2023, 11:26. [facility], CR, XR CHEST 1V, 12/07/2023, 8:05. FINDINGS: Surgical changes and devices: None. Lungs and pleura: No dense consolidation or pleural effusions. Mediastinum: Significant cardiomegaly. Bones and chest wall: Degenerative changes. IMPRESSION: No acute radiographic abnormality. If there is high concern for occult injury, consider repeat radiography or cross-sectional imaging. Significant cardiomegaly again seen. Dictated by: Gabriel Heck M.D. on 04/28/2024 at 19:45 Extremity x-ray #1: Radiologist's Impression: PROCEDURE: XR ELBOW LT MIN 3V INDICATIONS: left elbow pain, fall TECHNIQUE: 3 views of the elbow were acquired. COMPARISON: None. FINDINGS: Bones: Olecranon enthesopathy. No displaced fractures identified. No dislocation. Mild background degenerative changes. Soft tissues: No significant joint effusion. IMPRESSION: No displaced fracture or dislocation. No significant joint effusion. If there is high concern for occult injury, consider repeat radiography or cross-sectional imaging. Dictated by: Gabriel Heck M.D. on 04/28/2024 at 19:44 ECG Data Attestation: I personally reviewed and interpreted this ECG as follows: Prior ECG tracings: available for review Interpretation: Atrial fibrillation rate 72 no acute ischemia similar to prior MDM Narrative Medical decision making narrative: MDM CC: Ground level fall closed head injury Complicating co-morbidities: Atrial fibrillation on Eliquis homelessness Medical records reviewed: [ ] Differential considered: [ ] Exam documented above, pertinent findings include: Very mild Conversational dyspnea irregular heart rate no evidence of peripheral edema lung sounds are clear. Mild bilateral elbow abrasions Lab Test results independently reviewed as above. Pertinent findings: No leukocytosis or anemia No electrolyte abnormality no MIREYA Troponin negative BNP 810 previously 620 Independently reviewed EKG as above Rate controlled atrial fibrillation without ischemia Imaging studies independently reviewed: Head CT no intracranial hemorrhage CT cervical spine no acute fracture Chest x-ray no acute abnormality no vascular congestion or pleural effusion Elbow x-ray no fracture Treatments: Tetanus Re-evaluations: Patient is given food he was evaluated by social work. Discussion: Patient 83-year-old male presents today after ground level fall on [employer]. Workup in the emergency department's overall reassuring. He has shortness of breath but he has not hypoxic no evidence of peripheral edema chest x-ray is clear. He does have help with housing he has many for hotel tonight. He ambulated here in the ED without issue. He has no shortness of breath but heart rate did spike. He says he took all his medications but it does not appear that he has his medications he says most of them are at the halfway he stays at. He does report this is his 2nd fallen about 6 weeks. He would his last fall was on a bus as well he was not hanging on in the bus started before he was sitting down. If he continues to fall he may not be a candidate for anticoagulation. His primary care is over on the [facility] Discharge Plan Departure Patient Disposition: Home Clinical Impression: Closed head injury, Atrial fibrillation Instructions: Closed Head Injury Activity Restrictions/Additional Instructions: *You have been diagnosed with closed head injury *What to do: At this time please be careful of falling. You may not need to be your Eliquis if you keep falling. There is risk of bleeding in your brain. *Continue to take medications as directed *Follow up with your primary care provider in 2-3 days or call [phone] *Return to ER if you should have increasing shortness of breath increasing falls or any new, worsening or concerning symptoms Prescriptions: No Action digoxin 125 mcg (0.125 mg) tablet 1 tab PO DAILY Patient Comments: TAKE ONE TABLET BY MOUTH EVERY DAY potassium chloride 10 mEq tablet extended release 20 meq PO DAILY 30 Days Qty: 60 0RF furosemide [Lasix] 40 mg tablet 40 mg PO DAILY Qty: 30 0RF carvedilol [Coreg] 12.5 mg Tablet 12.5 mg PO DAILY Qty: 30 0RF nitroglycerin [Nitrostat] 0.4 mg Tablet, Sublingual 0.4 mg sublingual [id number] PRN (Reason: Chest Pain) Qty: 30 0RF Patient Comments: pt reports never using med yet lisinopril 5 mg tablet 5 mg PO DAILY Qty: 60 0RF aspirin [Adult Aspirin] 81 mg Tablet,Chewable 81 mg PO DAILY furosemide 20 mg tablet 60 mg PO DAILY Patient Comments: TAKE TWO TABLETS BY MOUTH TWICE DAILY FOR ONE WEEK, THEN TAKE THREE TABLETS DAILY furosemide [Lasix] 20 mg tablet 40 mg PO DAILY Qty: 20 0RF diclofenac sodium [Voltaren Arthritis Pain] 1 % gel 4 g topical QID Qty: 100 0RF Rx Instructions: apply to single knee, ankle, foot; for foot includes sole/toes/top of foot bumetanide 1 mg tablet 1 mg PO BID Qty: 14 0RF bumetanide 1 mg tablet 1 mg PO BID Qty: 60 2RF Referrals: Pawel Teague MD [Primary Care Provider] - Stand Alone Forms: Patient Portal/API/Survey
--- NOTE | 2024-04-28 22:53 | PC.NURSE ---
Patient ambulated around the emergency department on O2 sat monitor. Patient O2 sats stayed at 94% room air while ambulating, HR 140. Dr. Pena aware, awaiting orders.
[2024-04-28 23:00] LABS: NT-proBNP (BNP-Adult 18+) 810 pg/mL (<450)
--- NOTE | 2024-04-28 23:20 | PC.NURSE ---
Patient expressing he wants to go to [facility] in [place]. States he takes his medications every morning. Dr. Pena notified. Pt's heart rate 86. Dr. Pena deems pt safe for discharge. This nurse called [facility] and verified that they have a room for him tonight. Pt going there via [employer].
== END 2024-04-28 23:31 | disposition home or self-care (01) ==
PROVIDERS: Emergency Medicine; Emergency Provider Emergency Medicine; PCP Internal Medicine
DX: S06.9XAA Unspecified intracranial injury with loss of consciousness status unknown, initial encounter (principal); I48.91 Unspecified atrial fibrillation; Z79.01 Long term (current) use of anticoagulants; I10 Essential (primary) hypertension; I50.9 Heart failure, unspecified; W18.30XA Fall on same level, unspecified, initial encounter; Z59.01 Sheltered homelessness; R06.02 Shortness of breath; M25.522 Pain in left elbow; Z23 Encounter for immunization
CPT/HCPCS: 70450; 71045; 72125; 73080; 80053; 80320; 82550; 83690; 83880; 84484; 85025; 85610; 85730; 90471; 93005; 99284; 99285; 90715

== ENCOUNTER 2024-12-25 19:41 | Emergency (ER) | payer MEDICARE, MEDICAID, SELFPAY ==
[2021-11-24 14:39] VITALS: BMI 26.6
[2024-12-25] VITALS (13 sets, daily range): BP systolic 110–145; BP diastolic 55–75; PULSE 75–106; RESP 14–30; TEMP 36.9; O2SAT 92–98
--- NOTE | 2024-12-25 20:00 | DI.CT.S_ITS ---
PROCEDURE: CT CERVICAL SPINE WO CON INDICATIONS: intoxicated, fall hit head on thinners TECHNIQUE: Noncontrast 3 mm thick sections acquired from the skull base to the T4 level. Sagittal and coronal reformats were then constructed. For radiation dose reduction, the following was used: automated exposure control, adjustment of mA and/or kV according to patient size. COMPARISON: [facility], CT, CT CERVICAL SPINE WO CON, 04/28/2024, 19:15. FINDINGS: Image quality: Excellent. Bones: No fractures or dislocations. Visualized superior ribs are intact. Moderate degenerative changes. Soft tissues: Prevertebral soft tissues are normal in thickness. No paravertebral hematomas. No apical pneumothoraces. IMPRESSION: No acute osseous abnormality. Dictated by: Rock Brown M.D. on 12/25/2024 at 21:22 Approved by: Rock Brown M.D. on 12/25/2024 at 21:24
--- NOTE | 2024-12-25 20:00 | DI.CT.S_ITS ---
PROCEDURE: CT HEAD/BRAIN WO CON INDICATIONS: intoxicated, fall hit head on thinners TECHNIQUE: Noncontrast 4.5 mm thick angled axial sections acquired from the foramen magnum to the vertex, with coronal and sagittal reformats. For radiation dose reduction, the following was used: automated exposure control, adjustment of mA and/or kV according to patient size. COMPARISON: [facility], CT, CT HEAD/BRAIN WO CON, 04/28/2024, 19:15. FINDINGS: Image quality: Diagnostic. CSF spaces: Basal cisterns are patent. No extra-axial fluid collections. Ventricles are normal in size and shape. Brain: No midline shift. No intracranial mass effect or hemorrhage. No area of hypodensity in a large vascular distribution to suggest acute infarction. Periventricular hypodensity consistent with chronic microvascular ischemic change. Age-related parenchymal loss. Skull and face: Calvarium and visualized facial bones are intact, without suspicious lesions. Left posterior scalp hematoma. Sinuses: Visualized sinuses and mastoids are clear. IMPRESSION: No acute intracranial hemorrhage. Left posterior scalp hematoma. Dictated by: Rock Brown M.D. on 12/25/2024 at 21:02 Approved by: Rock Brown M.D. on 12/25/2024 at 21:07
--- NOTE | 2024-12-25 20:00 | DI.RAD.S_ITS ---
PROCEDURE: XR CHEST 1V INDICATIONS: Chest Pain TECHNIQUE: One view of the chest was acquired. COMPARISON: [facility], CT, CT CERVICAL SPINE WO CON, 12/25/2024, 20:10. [facility], CR, XR CHEST 1V, 04/28/2024, 19:14. [facility], CR, XR CHEST 1V, 12/15/2023, 11:26. FINDINGS: Surgical changes and devices: None. Lungs and pleura: Lungs appear clear. Somewhat prominent pulmonary markings. No significant pleural effusions or pneumothorax. Mediastinum: Mediastinal contours appear unchanged. Heart size is enlarged. Bones and chest wall: No suspicious bony lesions. Overlying soft tissues appear unremarkable. IMPRESSION: Cardiomegaly. Question pulmonary vasculature engorgement. Dictated by: Rock Brown M.D. on 12/25/2024 at 21:00 Approved by: Rock Brown M.D. on 12/25/2024 at 21:02
[2024-12-25 20:07] LABS: Add Manual Diff / Slide Review NO; Hematocrit 39.8 % (41-53); Hemoglobin 13.7 g/dL (13.5-17.5); Lymphocytes Absolute Auto 2100 /uL (1100-4500); Mean Corpuscular HGB Conc 34.5 % (30-36); Mean Corpuscular Hemoglobin 34.0 PG (26-34); Mean Corpuscular Volume 98.5 fL (80-100); Platelet Count 113 X10^3/uL (150-400)
[2024-12-25 20:08] LABS: INR 1.0 (0.9-1.3); Prothrombin Time 10.8 SECONDS (9.4-12.5)
--- NOTE | 2024-12-25 20:10 | EKG_ITS ---
[facility] [address] [place] [address] Test Date: 2024-12-25 Pat Name: Khurram Olvera Department: [facility] Room: Gender: Male [employer]: KARLAHERIBERTO : 1940 Requested By: Order Number: [id number] Reading MD: Cruzito Choi Measurements Intervals [place] Rate: 83 P: CT: QRS: -87 QRSD: 108 T: 12 QT: 390 QTc: 458 Interpretive Statements Atrial fibrillation with a competing junctional pacemaker with premature ventricular or aberrantly conducted complexes Left axis deviation Low voltage QRS Cannot rule out Anteroseptal infarct , age undetermined Electronically Signed On 12-26-2024 18:44:19 PDT by Cruzito Choi
[2024-12-25 20:11] LABS: PTT Partial Thromboplastin Tim 28 SECONDS (25.1-36.5)
[2024-12-25 20:12] LABS: Alanine Aminotransferase 19 IU/L (<50); Albumin 4.9 g/dL (3.5-5.0); Albumin Globulin Ratio 1.9 (1.0-2.8); Alkaline Phosphatase 60 U/L (38-126); Blood Urea Nitrogen 18 mg/dL (9-20); Calcium 8.9 mg/dL (8.4-10.2); Carbon Dioxide 18 mmol/L (22-32); Chloride 103 mmol/L (98-107); Creatine Kinase 150 U/L (55-170); Estimated Glomerular Filt Rate > 60 mL/min (>60); Globulin 2.6 g/dL (1.7-4.1); Glucose 79 mg/dL (70-99); HEMOLYSIS 19 (0-50); Lipase 98 U/L (23-300); Magnesium 2.3 mg/dL (1.6-2.3); Potassium 4.0 mmol/L (3.4-5.1); Sodium 138 mmol/L (137-145); Total Protein 7.5 g/dL (6.3-8.2)
[2024-12-25 20:23] LABS: NT-proBNP (BNP-Adult 18+) 2000 pg/mL (<450); Troponin I < 0.012 ng/mL (0.01-0.034)
--- NOTE | 2024-12-25 20:27 | PC.NURSE ---
report given to DIETER hussein. care relinquished at this time
[2024-12-26] VITALS: PULSE 86; RESP 20; O2SAT 93
[2024-12-26 00:30] VITALS: PULSE 84; RESP 12; O2SAT 94
--- NOTE | 2024-12-26 00:53 | ED.FALL ---
HPI - Fall General Chief Complaint: Trauma Stated Complaint: Fall,ETOH on board,pt takes coumadin Time Seen by Provider: 12/25/24 20:13 History of Present Illness HPI Narrative: 84-year-old male patient with a history of CHF atrial fibrillation and tobacco use disorder who was seen by paramedics twice today for falling and apparent intoxication with alcohol. Second time he was curled up in front of a motel in the position and confused about what had happened. Currently patient does not know why he is here or what happened to him. He denies any pain. He admits that he drinks alcohol but denies drugs. Further history is that he apparently had visited several bars today. Related Data Home Medications ?Medication ?Instructions ?Recorded ?Confirmed digoxin 125 mcg (0.125 mg) tablet 1 tab PO DAILY 09/30/21 12/03/21 aspirin 81 mg chewable tablet 81 mg PO DAILY 12/03/21 12/03/21 furosemide 20 mg tablet 60 mg PO DAILY 12/03/21 12/03/21 Previous Rx's ?Medication ?Instructions ?Recorded carvedilol 12.5 mg tablet (Coreg) 12.5 mg PO DAILY #30 tabs 10/10/21 nitroglycerin 0.4 mg sublingual 0.4 mg sublingual [id number] PRN 10/10/21 tablet (Nitrostat) Chest Pain #30 tabs lisinopril 5 mg tablet 5 mg PO DAILY #60 tabs 10/25/21 potassium chloride 10 mEq 20 meq (2 x 10 mEq) PO DAILY 30 11/01/21 tablet,extended release days #60 tabs furosemide 40 mg tablet (Lasix) 40 mg PO DAILY #30 tabs 12/10/21 furosemide 20 mg tablet (Lasix) 40 mg (2 x 20 mg) PO DAILY #20 tabs 01/16/22 diclofenac sodium 1 % topical gel 4 g topical QID Left knee pain. 09/19/23 (Voltaren Arthritis Pain) #100 grams bumetanide 1 mg tablet 1 mg PO BID #14 tabs 12/07/23 bumetanide 1 mg tablet 1 mg PO BID #60 tabs 12/15/23 Allergies Allergy/AdvReac Type Severity Reaction Status Date / Time No Known Drug Allergies Allergy Verified 09/19/23 16:58 Review of Systems Review of Systems ROS Unobtainable: All systems reviewed & are unremarkable except as noted in HPI and below ENT Ears, Nose, Mouth, and Throat: Reports as per HPI Musculoskeletal Musculoskeletal: Reports as per HPI Neurologic Neurologic: Reports as per HPI Psychiatric Psychiatric: Reports as per HPI Patient History Medical History Tobacco use disorder, continuous Persistent atrial fibrillation with rapid ventricular response Chronic a-fib Congestive heart failure Hypertension Family History Mother Hypertension Father Heart attack Social History household members: none alcohol intake: current alcohol intake frequency: holidays/special occasions only Exam Narrative Exam Narrative: General: Patient is alert and conversant but not oriented to place or time. Does not know why he is here. No distress. Appears well nourished and well hydrated Craniofacial: Slight swelling in the occiput with no bleeding or bony deformity. Otherwise Nontender and no swelling. Eyes: PERRLA EOMI conjunctiva clear HEENT: Tragus, pinnae nontender. Tympanic membranes normal appearance. Oropharynx clear with no swelling, exudate or asymmetry of the pharynx. Nares clear. No sinus tenderness Neck: No tenderness or adenopathy. No meningismus. No JVD Lungs: Clear to auscultation with good air movement. No wheezing, rales or rhonchi. No respiratory distress Cardiac: Regular rate and rhythm with no appreciable murmur or gallop Abdomen: Soft, nontender with no distention or masses. Normal bowel sounds. No rebound or guarding Musculoskeletal: Patient has skin tears on both forearms and on the tip of the left elbow. No wounds need repair. Otherwise Exam of the extremities, axial spine and ribcage reveals no deformity, bony tenderness or swelling. Range of motion intact Neuro: Alert and oriented. Cranial nerves, motor, sensory and cerebellar all grossly intact. No focal deficit Skin: Warm and normal color. No rashes Psychological: Normal affect and interaction. No evidence of delusion or psychosis. Normal mood. Initial Vital Signs Initial Vital Signs: Vital Signs Pulse Rate 92 H 12/25/24 19:50 Blood Pressure 127/60 12/25/24 19:50 Pulse Oximetry 97 12/25/24 19:50 Course Course Course Narrative: 20:30 CT scan of the head and neck reveal no acute trauma. He has a occipital soft tissue hematoma consistent with physical exam. Chest x-ray also unremarkable 03:05 Patient has slept for several hours and then awoke and was conversant and oriented. Able to ambulate steadily. He admits that he drank a few beers yesterday. Orders Ordered: ED Orders 12/25/24 19:45 Complete Blood Count AUTO DIFF Stat Comprehensive Metabolic Panel Stat Lipase Stat Magnesium Stat NT-proBNP (BNP-Adult 18+) Stat PTT Partial Thromboplastin Mikael Stat Prothrombin Time INR Stat Troponin & CK Cardiac Panel Stat 12/25/24 20:00 CT cervical spine wo con Stat CT head/brain wo con Stat XR chest 1V Stat EKG-12 Lead Stat 12/25/24 23:10 Urine Drug Screen, Rapid Stat Discontinued Medications Bacitracin (Bacitracin Oint 0.9 Gm Pckt) 1 applic TOP NOW ONE Stop: 12/26/24 03:16 Vital Signs Vital signs: Vital Signs - 8 hr 12/25/24 19:50 12/25/24 19:50 12/25/24 19:54 Temperature Pulse Rate 92 H 97 H Respiratory Rate 27 H Blood Pressure 127/60 Pulse Oximetry 97 95 Oxygen Delivery Method 12/25/24 19:54 12/25/24 19:55 12/25/24 20:00 Temperature 98.4 F Pulse Rate 106 H 91 H Respiratory Rate 16 14 Blood Pressure 117/75 127/75 Pulse Oximetry 97 Oxygen Delivery Method Room Air 12/25/24 20:00 12/25/24 20:00 12/25/24 20:30 Temperature Pulse Rate 92 H 86 Respiratory Rate 30 H 24 Blood Pressure 110/55 L Pulse Oximetry 94 94 Oxygen Delivery Method 12/25/24 21:00 12/25/24 21:07 12/25/24 21:07 Temperature Pulse Rate 82 76 Respiratory Rate 21 19 Blood Pressure 121/58 L Pulse Oximetry 93 92 Oxygen Delivery Method 12/25/24 21:30 12/25/24 21:48 12/25/24 21:48 Temperature Pulse Rate 75 93 H Respiratory Rate 20 24 Blood Pressure 145/70 H Pulse Oximetry 94 94 Oxygen Delivery Method 12/25/24 22:00 12/25/24 22:30 12/25/24 23:00 Temperature Pulse Rate 79 86 87 Respiratory Rate 20 24 23 Blood Pressure Pulse Oximetry 93 94 93 Oxygen Delivery Method 12/25/24 23:30 12/26/24 00:00 12/26/24 00:30 Temperature Pulse Rate 84 86 84 Respiratory Rate 20 20 12 Blood Pressure Pulse Oximetry 93 93 94 Oxygen Delivery Method 12/26/24 01:00 12/26/24 02:46 Temperature Pulse Rate 85 96 H Respiratory Rate 23 22 Blood Pressure 124/87 Pulse Oximetry 94 97 Oxygen Delivery Method Room Air - Fall Lab Data Lab results narrative: CBC, CMP and troponin unremarkable 12/25/24 19:45 12/25/24 19:45 Labs: Lab Results 12/25/24 Range/Units 19:45 WBC 6.5 (4.5-11.0) X10^3/uL RBC 4.03 L (4.5-5.9) X10^6/uL Hgb 13.7 (13.5-17.5) g/dL Hct 39.8 L (41-53) % MCV 98.5 (80-100) fL MCH 34.0 (26-34) PG MCHC 34.5 (30-36) % RDW 14.2 (11.6-14.8) % Plt Count 113 L (150-400) X10^3/uL Neut % (Auto) 55.4 (50-75) % Lymph % (Auto) 32.2 (25-40) % [place] % (Auto) 9.4 (3-14) % Eos % (Auto) 1.7 L (2-4) % Baso % (Auto) 1.3 (0-2) % Neut # (Auto) 3600 (9006-7742) /uL Lymph # (Auto) 2100 (6245-9478) /uL [place] # (Auto) 600 (0-900) /uL Eos # (Auto) 100 (0-450) /uL Baso # (Auto) 100 (0-100) /uL PT 10.8 (9.4-12.5) SECONDS INR 1.0 (0.9-1.3) APTT 28 (25.1-36.5) SECONDS Sodium 138 (137-145) mmol/L Potassium 4.0 (3.4-5.1) mmol/L Chloride 103 (98-107) mmol/L Carbon Dioxide 18 L (22-32) mmol/L BUN 18 (9-20) mg/dL Creatinine 1.02 (0.66-1.25) mg/dL Estimated GFR > 60 (>60) mL/min BUN/Creatinine Ratio 17.6 (6-22) Glucose 79 (70-99) mg/dL Calcium 8.9 (8.4-10.2) mg/dL Magnesium 2.3 (1.6-2.3) mg/dL Total Bilirubin 2.0 H (0.2-1.3) mg/dL AST 31 (17-59) IU/L ALT 19 (<50) IU/L Alkaline Phosphatase 60 (38-126) U/L Total Creatine Kinase 150 (55-170) U/L Troponin I < 0.012 (0.01-0.034) ng/mL NT-Pro-B Natriuret Pep 2000 H (<450) pg/mL Total Protein 7.5 (6.3-8.2) g/dL Albumin 4.9 (3.5-5.0) g/dL Globulin 2.6 (1.7-4.1) g/dL Albumin/Globulin Ratio 1.9 (1.0-2.8) Lipase 98 (23-300) U/L Imaging Data CT scan - head: Radiologist's Impression: IMPRESSION: No acute intracranial hemorrhage. Left posterior scalp hematoma. CT - cervical spine: Radiologist's Impression: No acute osseous abnormality. Chest x-ray: My Impression: Cardiomegaly with pronounced vasculature. MDM Narrative Medical decision making narrative: Patient had alcohol-related falls with minor trauma including scalp hematoma and minor head injury along with contusions and skin tears but no fractures and no wounds needing repair. I discussed with him the need to get help for his alcohol use for a ride reasons including falls and trauma. He agrees and will follow up with his provider. Otherwise wound care and follow up as needed. Discharge Plan Departure Patient Disposition: Home Clinical Impression: Alcohol intoxication, Minor closed head injury, Skin tear of forearm without complication, Hematoma of occipital region of scalp Instructions: Alcohol Use Disorder, How to Prevent Falls, Closed Head Injury, Skin Wound Activity Restrictions/Additional Instructions: Plan: Hydration, rest and supportive care. Wound care Follow up with your doctor to discuss alcohol use problems and also to reassess head injury. Prescriptions: No Action digoxin 125 mcg (0.125 mg) tablet 1 tab PO DAILY Patient Comments: TAKE ONE TABLET BY MOUTH EVERY DAY potassium chloride 10 mEq tablet extended release 20 meq PO DAILY 30 Days Qty: 60 0RF furosemide [Lasix] 40 mg tablet 40 mg PO DAILY Qty: 30 0RF carvedilol [Coreg] 12.5 mg Tablet 12.5 mg PO DAILY Qty: 30 0RF nitroglycerin [Nitrostat] 0.4 mg Tablet, Sublingual 0.4 mg sublingual [id number] PRN (Reason: Chest Pain) Qty: 30 0RF Patient Comments: pt reports never using med yet lisinopril 5 mg tablet 5 mg PO DAILY Qty: 60 0RF aspirin [Adult Aspirin] 81 mg Tablet,Chewable 81 mg PO DAILY furosemide 20 mg tablet 60 mg PO DAILY Patient Comments: TAKE TWO TABLETS BY MOUTH TWICE DAILY FOR ONE WEEK, THEN TAKE THREE TABLETS DAILY furosemide [Lasix] 20 mg tablet 40 mg PO DAILY Qty: 20 0RF diclofenac sodium [Voltaren Arthritis Pain] 1 % gel 4 g topical QID Qty: 100 0RF Rx Instructions: apply to single knee, ankle, foot; for foot includes sole/toes/top of foot bumetanide 1 mg tablet 1 mg PO BID Qty: 14 0RF bumetanide 1 mg tablet 1 mg PO BID Qty: 60 2RF Referrals: Pawel Teague MD [Primary Care Provider, Medical] Stand Alone Forms: Patient Portal/API
[2024-12-26 01:00] VITALS: PULSE 85; RESP 23; O2SAT 94
[2024-12-26 02:46] VITALS: BP 124/87; PULSE 96; RESP 22; O2SAT 97
[2024-12-26] MEDS: BACITRACIN OINT 0.9 GM PCKT 1 APPLIC TOP (03:26)
[2024-12-26 06:55] VITALS: BP 153/87; PULSE 98; RESP 23; TEMP 37.3; O2SAT 98
== END 2024-12-26 07:05 | disposition home or self-care (01) ==
PROVIDERS: Emergency Provider Emergency Medicine; PCP Internal Medicine
DX: S09.90XA Unspecified injury of head, initial encounter (principal); S00.03XA Contusion of scalp, initial encounter; F10.129 Alcohol abuse with intoxication, unspecified; S51.012A Laceration without foreign body of left elbow, initial encounter; S51.011A Laceration without foreign body of right elbow, initial encounter; W19.XXXA Unspecified fall, initial encounter; Z79.01 Long term (current) use of anticoagulants
CPT/HCPCS: 36415; 70450; 71045; 72125; 80053; 82550; 83690; 83735; 83880; 84484; 85025; 85610; 85730; 93005; 99284